=== PATIENT | female | born 1935 | race Caucasian/White ===

== ENCOUNTER 2016-11-07 17:58 | Emergency (ER) | payer MEDICARE, MEDICAID ==
[~2016-11-07] VITALS: Ht 175.3 cm; Wt 92.1 kg
[~2016-11-07 17:58] MED LIST: /WARF5TA OR; ACET650T12 PO; ADV250INH INH; ADV500INH INH; ALBU83IN IN; ALBU83IN INH; ALLE180T33 PO; ALLE25CA8 PO; ALTA10CA3 PO; AMAR1TAB PO; AMLO10TA OR; ARTISOL2 OU; ASPI81TA83 OR; ATRO1SOL13 INH; AVEL1TAB PO; BENA25TA9 PO; CICL0.776 EX; COLA100C3 PO; DEMA100T PO; DEMA20TA6 PO; DIGO0.126 OR; DIGO0.2556 PO; DIGO0.257 OR; DILTIAZEM PO; FERR325T3 PO; FERR83TA PO; FIBE500T2 PO; FIBE625T PO; FLUT1SPR2; HYDR10T PO; HYDR10TA3 OR; IPRASOL4 INH; IRON PO; IRON65TA PO; K-TA1TAB PO; KLOR10TA OR; KLOR1TAB73 PO; KLOR1TAB77 PO; LASI40TA OR; LASI80TA OR; LASI80TA PO; LEVA500T PO; LEVO500T32 PO; LEVO75TA2 OR; LEVO75TA4 PO; LIPI20TA OR; LOPR1TAB6 PO; MEDR4PAK PO; METF500T4 OR; METO25TA PO; METO25TAB PO; MICR10CA PO; MILKSUS5 PO; MIRA3350 PO; MULTIVIT PO; NITR4TASL SL; OMEP20CA3 PO; OMEP20TA7 OR; OMEP40CA2 PO; ONETAB35 PO; PAIN325T PO; PATA0.2S OU; PAXI10TA2 PO; POTA10CA PO; POTA10CA32 PO; PRED10TA PO; PRED20TA PO; PRED20TAB PO; PREPCRE PR; RAMI25CA OR; SENO8.6T10 PO; SING5CHW23 PO; SITA50TAB PO; SPIR25TA2 OR; SYST1SOL OU; TENO1TAB3 PO; TIOT18INH INH; TOBROPO OS; TOPR25TA PO; TORS100T PO; TYLE325T5 PO; VENTOLIN NEB INH; ZARO2.5T PO; [UNRECOGNIZED DRUG - CODE] PO; [UNRECOGNIZED DRUG - CODE] PO; [UNRECOGNIZED DRUG - CODE] TOP
[2016-11-07] MEDS ORDERED: SPIR25TA2 PO (18:22)
[2016-11-07] MEDS ORDERED: FISH1000 PO (18:22)
[2016-11-07] MEDS ORDERED: PULM0.5S INH (18:22)
[2016-11-07] MEDS ORDERED: STRI1AER2 INH (18:22)
[2016-11-07] MEDS ORDERED: FUROSEMIDE 40 MG/4 ML VIAL (J1940) IV ONE (18:45)
[2016-11-07 19:03] LABS: ABG BASE EXCESS 9.8 (-2.0-2.0); ABG HCO3 37.5 MEQ/L (22.0-26.0); ABG STANDARD HCO3 32.4 MEQ/L (22.0-26.0); ABG TOTAL CO2 39.6 MEQ/L (23.0-31.0); ABG pH (ARTERIAL) 7.355 UNITS (7.350-7.450)
[2016-11-07 19:04] LABS: ABG PARTIAL PRESSURE CO2 68.7 mmHg (35.0-45.0); ABG PARTIAL PRESSURE O2 27.9 mmHg (75.0-100.0)
[2016-11-07 19:20] LABS: BASO % 0.4 % (0.0-1.0); EOS # 0.1 K/mm3 (0.0-0.50); EOS % 0.8 % (0.0-3.0); LARGE UNSTAINED CELL # 0.1 K/mm3 (0.0-0.4); LARGE UNSTAINED CELL % 1.2 % (0.0-4.0); LYMPH # 1.4 K/mm3 (1.5-4.5); MEAN CORPUSCULAR HEMOGLOBIN 29.5 pg (27.0-33.0); MEAN CORPUSCULAR HGB CONC 30.6 g/dl (32.0-36.5); MEAN CORPUSCULAR VOLUME 96.5 fl (80.0-96.0); MONO # 0.6 K/mm3 (0.0-0.8); MONO % 5.2 % (0.0-5.0); NEUTROPHILS # 9.2 K/mm3 (1.8-7.7); NEUTROPHILS % 81.5 % (36.0-66.0); PLATELET COUNT, AUTOMATED 270 k/mm3 (150-450); RED CELL DISTRIBUTION WIDTH 14.4 % (11.5-14.5); WHITE BLOOD COUNT 11.3 K/mm3 (4.0-10.0)
[2016-11-07 19:40] LABS: ANION GAP 5 MEQ/L (8-16); BLOOD UREA NITROGEN 24 MG/DL (7-18); CALCIUM LEVEL 9.2 MG/DL (8.8-10.2); CARBON DIOXIDE LEVEL 37 MEQ/L (21-32); CHLORIDE LEVEL 99 MEQ/L (98-107); CREATININE FOR GFR 0.85 MG/DL (0.55-1.02); GLOMERULAR FILTRATION RATE > 60.0 (>32); GLUCOSE, FASTING 162 MG/DL (83-110); POTASSIUM SERUM 4.5 MEQ/L (3.5-5.1); SODIUM LEVEL 141 MEQ/L (136-145)
[2016-11-07 21:08] VITALS: BP 143/61
--- NOTE | 2016-11-08 08:36 | REP ---
AP PORTABLE CHEST: 11/07/2016. Comparison: 07/01/2016, 12/02/2015. Clinical history: Dyspnea and cough. Findings: Sternotomy wires and clips from CABG. There appears to be an epicardial lead extending over the left side of the heart. Cardiomegaly with left atrial and ventricular enlargement. There is no venous hypertension or pulmonary edema evident. No gross evidence of effusion or dense consolidation. There is a prior ORIF of the humeral head fracture with multiple screws and a side plate. Bones demineralized. Impression: 1. Moderate cardiomegaly with right heart, left atrial and ventricular enlargement. No pulmonary edema, pleural effusion or definite infiltrate. Underlying fibrosis noted. Signed by Jordan Diop MD 11/08/2016 08:50 A
[2016-11-08] MEDS ORDERED: TRIP1OIN4 TOP (18:12)
[2016-11-08] MEDS ORDERED: META48.54 PO (18:21)
[2016-11-08] MEDS ORDERED: PRED10TA PO (18:21)
[2016-11-08] MEDS ORDERED: CICL0.7739 TOP (18:21)
[2016-11-08] MEDS ORDERED: REFR0.1D OU (18:21)
[2016-11-08] MEDS ORDERED: ACET650T2 PO (18:28)
--- NOTE | 2016-11-08 21:00 | ECGEPIP ---
Stationary ECG Study [facility] - ED Test Date: 2016-11-07 Pat Name: MAKAYLA QUIROZ Department: Room: - Gender: F [employer]: rn : 1935 Requested By: CHIRAG Morales Order Number: [id number] Reading MD: Ruth Diaz Measurements Intervals [place] Rate: 69 P: DC: 0 QRS: 80 QRSD: 106 T: 41 QT: 388 QTc: 418 Interpretive Statements ATRIAL FIBRILLATION MODERATE ST DEPRESSION SIMILAR 07/01/16 Electronically Signed On 11-08-2016 21:00:31 EDT by Ruth Diaz
== END 2016-11-07 21:44 | disposition home or self-care (01) ==
LOC: M ED 19:01
DX: R06.02 Shortness of breath (principal); I51.7 Cardiomegaly; I48.91 Unspecified atrial fibrillation; J44.9 Chronic obstructive pulmonary disease, unspecified; I50.9 Heart failure, unspecified; E11.9 Type 2 diabetes mellitus without complications; E03.9 Hypothyroidism, unspecified; K21.9 Gastro-esophageal reflux disease without esophagitis; F41.9 Anxiety disorder, unspecified; F32.9 Major depressive disorder, single episode, unspecified; Z95.1 Presence of aortocoronary bypass graft; Z79.899 Other long term (current) drug therapy; Z79.51 Long term (current) use of inhaled steroids; Z79.52 Long term (current) use of systemic steroids; Z88.0 Allergy status to penicillin; Z88.8 Allergy status to other drugs, medicaments and biological substances; Z91.09 Other allergy status, other than to drugs and biological substances; Z91.040 Latex allergy status

== ENCOUNTER 2016-11-08 17:20 | Inpatient (IN) | payer MEDICARE, MEDICAID ==
[~2016-11-08] VITALS: Ht 175.3 cm; Wt 94.3 kg
[~2016-11-08 17:20] MED LIST changes: +FISH1000 PO; +PULM0.5S INH; +SPIR25TA2 PO; +STRI1AER2 INH
[2016-11-08] MEDS ORDERED: TRIP1OIN4 TOP (18:12)
[2016-11-08] MEDS ORDERED: META48.54 PO (18:21)
[2016-11-08] MEDS ORDERED: PRED10TA PO (18:21)
[2016-11-08] MEDS ORDERED: REFR0.1D OU (18:21)
[2016-11-08] MEDS ORDERED: CICL0.7739 TOP (18:21)
[2016-11-08 18:25] LABS: BASO % 0.4 % (0.0-1.0); EOS # 0.1 K/mm3 (0.0-0.50); EOS % 1.2 % (0.0-3.0); LARGE UNSTAINED CELL # 0.1 K/mm3 (0.0-0.4); LARGE UNSTAINED CELL % 1.2 % (0.0-4.0); LYMPH % 8.7 % (24.0-44.0); MEAN CORPUSCULAR HEMOGLOBIN 29.1 pg (27.0-33.0); MEAN CORPUSCULAR VOLUME 96.8 fl (80.0-96.0); MONO # 0.5 K/mm3 (0.0-0.8); MONO % 5.1 % (0.0-5.0); NEUTROPHILS # 8.4 K/mm3 (1.8-7.7); NEUTROPHILS % 83.3 % (36.0-66.0); PLATELET COUNT, AUTOMATED 260 k/mm3 (150-450); RED CELL DISTRIBUTION WIDTH 14.6 % (11.5-14.5); WHITE BLOOD COUNT 10.1 K/mm3 (4.0-10.0)
[2016-11-08] MEDS ORDERED: ACET650T2 PO (18:28)
[2016-11-08 18:52] LABS: ALBUMIN 3.3 GM/DL (3.2-5.2); ALBUMIN/GLOBULIN RATIO 0.94 (1.00-1.93); ALKALINE PHOSPHATASE 67 U/L (45-117); ALT/SGPT 21 U/L (12-78); ANION GAP 4 MEQ/L (8-16); AST/SGOT 16 U/L (15-37); BILIRUBIN,DIRECT < 0.1 MG/DL (0.0-0.2); BILIRUBIN,TOTAL 0.2 MG/DL (0.2-1.0); BLOOD UREA NITROGEN 23 MG/DL (7-18); CALCIUM LEVEL 8.8 MG/DL (8.8-10.2); CARBON DIOXIDE LEVEL 38 MEQ/L (21-32); CHLORIDE LEVEL 99 MEQ/L (98-107); CREATININE FOR GFR 1.06 MG/DL (0.55-1.02); GLOMERULAR FILTRATION RATE 52.7 (>32); GLUCOSE, FASTING 181 MG/DL (83-110); POTASSIUM SERUM 4.3 MEQ/L (3.5-5.1); SODIUM LEVEL 141 MEQ/L (136-145); TOTAL PROTEIN 6.8 GM/DL (6.4-8.2)
[2016-11-08] MEDS ORDERED: ISOVUE-370 76% 100ML VIAL (Q9967) As Ordered ONE (18:59)
[2016-11-08] MEDS: BUDESONIDE 0.5 MG/2 ML INHALATION SUSPENSION INH SCH (20:00)
[2016-11-08 21:07] LABS: ABG BASE EXCESS 11.3 (-2.0-2.0); ABG PARTIAL PRESSURE CO2 54.7 mmHg (35.0-45.0); ABG PARTIAL PRESSURE O2 123.7 mmHg (75.0-100.0); ABG TOTAL CO2 38.7 MEQ/L (23.0-31.0); ABG pH (ARTERIAL) 7.448 UNITS (7.350-7.450)
[2016-11-08] MEDS: AZITHROMYCIN 250 MG TAB PO SCH (21:15)
[2016-11-08] MEDS ORDERED: ALBUTEROL SULFATE 2.5 MG/0.5 ML INH NEB SOLN NEB PRN (21:15)
[2016-11-08] MEDS ORDERED: BISACODYL 10 MG SUPP PR PRN (21:15)
[2016-11-08 23:45] VITALS: BP 138/76
[2016-11-09] MEDS: FEXOFENADINE 60 MG TAB PO SCH ×2 (00:08→21:17)
[2016-11-09] MEDS: FUROSEMIDE 40 MG/4 ML VIAL (J1940) IV SCH ×3 (00:08→16:54)
--- NOTE | 2016-11-09 01:06 | HPE ---
DATE OF ADMISSION: 11/08/2016 PRIMARY CARE PROVIDER: Dr. Uribe. CHIEF COMPLAINT: Shortness of breath and cough for 4 days. PAST MEDICAL HISTORY: 1. Chronic obstructive pulmonary disease (COPD). 2. Chronic respiratory failure with hypoxia on 2 liters oxygen. 3. Diabetes. 4. Atrial fibrillation, rate controlled. 5. Hypothyroid. 6. Hyperlipidemia. 7. Gastroesophageal reflux disease (GERD). 8. Chronic right-sided heart failure. 9. Pulmonary hypertension. 10. Mitral regurgitation. 11. Coronary artery disease status post coronary artery bypass graft (CABG). 12. Adrenal nodule on the left. 13. Lung nodules. 14. Diastolic congestive heart failure. 15. Tricuspid regurgitation. 16. History of major depression, single episode in the past. HISTORY OF PRESENT ILLNESS: This is an 81-year-old female from [facility] who has been feeling sick for the past 4 days with increased shortness of breath and cough with production of yellowish, greenish sputum. Patient also had leg swelling. Patient came to the emergency room yesterday. Patient got treated with nebulizer, steroids and some Lasix, felt better, so went back to hospital for special care; however, this morning again she was feeling bad with persistent shortness of breath. Oxygen saturation with her baseline 2 liters was 84-86% at the hospital for special care, so she was sent back to the emergency room. She complained of subjective fevers. Denied any nausea, vomiting or diarrhea. Denied any abdominal pain. Denied any chest pain. She did say that her leg swelling has improved a little bit. She complained of extreme weakness and urinary incontinence today. In the emergency department (ED), patient was found to be short of breath and not initially speaking full sentences. Continued to feel very weak. Patient had a chest x-ray done and a CT angiography done. Even after nebulizers patient continues to have shortness of breath, so the patient is being admitted to the hospitalist service for COPD exacerbation. PAST SURGICAL HISTORY: 1. CABG. 2. Cholecystectomy. 3. Appendectomy. 4. Hysterectomy. 5. Bilateral cataract surgeries. 6. Skin surgery for skin cancer. SOCIAL HISTORY: Patient is an ex-smoker, quit about 37 years ago. No history of alcohol use or recreational drug use. FAMILY HISTORY: Nothing contributory. HOME MEDICATIONS: - Tylenol 650 mg by mouth every 8 hours as needed - albuterol ipratropium one solution every 2 hours as needed - artificial tears - Pulmicort 0.5 mg inhalation twice a day - FiberCon 625 mg by mouth twice a day - Refresh Plus drop one drop both eyes four times a day - ciclopirox cream one dose topically twice a day - Colace 100 mg by mouth twice a day - ferrous sulfate 325 mg by mouth daily - Alisson 180 mg by mouth at bedtime - fish oil 500 mg by mouth daily - Synthroid 75 mcg by mouth daily - milk of magnesia 30 mL by mouth daily as needed for constipation - metolazone 2.5 mg by mouth two times per week on Mondays and Fridays - triple antibiotic one dose topically twice a day - nitroglycerin 0.4 mg sublingual as needed for chest pain - omeprazole 40 mg by mouth daily - paroxetine 10 mg by mouth daily - Pataday one drop both eyes at bedtime - Systane eye drops two drops both eyes three times a day - potassium chloride 30 mEq by mouth three times a day - prednisone 10 mg by mouth daily - Preparation H one cream per rectum daily as needed for hemorrhoids - Metamucil one tablet by mouth daily as needed for constipation - spironolactone 25 mg by mouth daily - Striverdi Respimat two-puff inhalation daily - Spiriva one inhalation daily - TobraDex eye drop one dose both eyes twice a day - torsemide 50 mg by mouth twice a day - Theragran-M Premier one tablet by mouth daily REVIEW OF SYSTEMS: All 10-point review of systems is negative except those mentioned in history of present illness (HPI). ALLERGIES: ATORVASTATIN, CIMETIDINE causes hives, LATEX causes rash, PERFUMES, PENICILLIN causes hives, RANITIDINE causes crawling sensation. PHYSICAL EXAMINATION: VITAL SIGNS: Pulse 72, blood pressure 148/78, pulse oximetry 99% with 2 liters nasal cannula, respiratory rate 20. GENERAL: Patient awake, alert, oriented times three, sitting up in bed in no acute distress. HEENT: Normocephalic, atraumatic. Moist mucous membranes. Anicteric eyes. CHEST: Bilateral extremely poor air entry. There are some diffuse crackles present in both the lungs. CARDIOVASCULAR: S1, S2 regular. There is a systolic murmur present. No rub or gallop. ABDOMEN: Soft, nontender, bowel sounds present. EXTREMITIES: 1+ bipedal edema. LABORATORY DATA: WBC 10.1, hemoglobin 10, platelets 260. Sodium 141, potassium 4.3, chloride 99, bicarbonate 38, BUN 23, creatinine 1, glucose 181, lactic acid 1.7, calcium 8.8. Liver function tests are normal. BNP 101. Blood gas pH 7.44, pCO2 54, pO2 123 with nasal cannula. ASSESSMENT AND PLAN: This is an 81-year-old female admitted for chronic obstructive pulmonary disease (COPD) exacerbation. 1. COPD exacerbation. Will continue with nebulizer, intravenous (IV) steroids and azithromycin. 2. Chronic hypoxic respiratory failure. Will continue with oxygen by nasal cannula. 3. Diastolic congestive heart failure, right-sided heart failure and some pulmonary hypertension and valvular heart disease. Will give the patient Lasix twice a day. 4. Coronary artery disease with history of coronary artery bypass graft (CABG). Stable at this point. Will continue home medications. 5. History of depression. Will continue with paroxetine. 6. Hypothyroid. Will continue with Synthroid. 7. Chronic anemia. Will continue with ferrous sulfate. 8. Hyperlipidemia. Will continue with fish oil. 9. Gastroesophageal reflux disease (GERD). Will continue with omeprazole. 10. Deep venous thrombosis (DVT) prophylaxis has been ordered. 11. Gastrointestinal (GI) prophylaxis has been ordered. 12. Dry eyes and history of cataract surgeries. Will continue with eye drops as per home regimen.
[2016-11-09] MEDS: IPRATROPIUM 0.5MG/ALBUTEROL 2.5MG INH SOL UD 3ML (DUONEB)(J7620) NEB SCH ×4 (01:30→20:59)
[2016-11-09] MEDS ORDERED: SODIUM CHLORIDE 0.9% INJ 10 ML SYR IV PRN (04:45)
--- NOTE | 2016-11-09 05:48 | ECGEPIP ---
Stationary ECG Study [facility] - ED Test Date: 2016-11-08 Pat Name: MAKAYLA QUIROZ Department: Room: - Gender: F [employer]: RJ : 1935 Requested By: CHIRAG Morales Order Number: [id number] Reading MD: Salazar Pollock Measurements Intervals [place] Rate: 83 P: IN: 0 QRS: 79 QRSD: 98 T: 47 QT: 358 QTc: 421 Interpretive Statements ATRIAL FIBRILLATION INC. RBBB MODERATE ST DEPRESSION SIMILAR TO 11/07/16 Electronically Signed On 11-09-2016 5:47:43 EDT by Salazar Pollock
[2016-11-09 06:00] VITALS: BP 140/68
[2016-11-09 06:01] LABS: BASO # 0.1 K/mm3 (0.0-0.2); BASO % 0.5 % (0.0-1.0); EOS # 0.2 K/mm3 (0.0-0.50); EOS % 1.4 % (0.0-3.0); LARGE UNSTAINED CELL # 0.2 K/mm3 (0.0-0.4); LYMPH # 1.6 K/mm3 (1.5-4.5); LYMPH % 12.1 % (24.0-44.0); MEAN CORPUSCULAR HEMOGLOBIN 28.9 pg (27.0-33.0); MEAN CORPUSCULAR VOLUME 96.4 fl (80.0-96.0); MONO # 0.8 K/mm3 (0.0-0.8); MONO % 6.4 % (0.0-5.0); NEUTROPHILS # 9.1 K/mm3 (1.8-7.7); NEUTROPHILS % 77.7 % (36.0-66.0); PLATELET COUNT, AUTOMATED 247 k/mm3 (150-450); RED CELL DISTRIBUTION WIDTH 14.5 % (11.5-14.5); WHITE BLOOD COUNT 11.8 K/mm3 (4.0-10.0)
[2016-11-09] MEDS: LEVOTHYROXINE 0.075 MG TAB (75 MCG) PO SCH (06:11)
[2016-11-09 06:21] LABS: ANION GAP 8 MEQ/L (8-16); BLOOD UREA NITROGEN 21 MG/DL (7-18); CALCIUM LEVEL 8.9 MG/DL (8.8-10.2); CARBON DIOXIDE LEVEL 36 MEQ/L (21-32); CHLORIDE LEVEL 98 MEQ/L (98-107); CREATININE FOR GFR 0.76 MG/DL (0.55-1.02); GLOMERULAR FILTRATION RATE > 60.0 (>32); GLUCOSE, FASTING 108 MG/DL (83-110); SODIUM LEVEL 142 MEQ/L (136-145)
[2016-11-09 06:27] LABS: POTASSIUM SERUM 3.3 MEQ/L (3.5-5.1)
[2016-11-09] MEDS: TIOTROPIUM INHALER/CAPSULE (SPIRIVA) INH SCH ×2 (08:00→08:10)
[2016-11-09] MEDS: BUDESONIDE 0.5 MG/2 ML INHALATION SUSPENSION INH SCH ×2 (08:10→20:59)
[2016-11-09] MEDS ORDERED: SODIUM CHLORIDE 0.9% INJ 10 ML SYR IV SCH (09:00)
[2016-11-09] MEDS ORDERED: metOLazone 2.5 MG TAB PO SCH (09:00)
[2016-11-09] MEDS: PARoxetine 10MG TABLET PO SCH (09:01)
[2016-11-09] MEDS: SENOKOT S TAB PO SCH ×2 (09:01→21:17)
[2016-11-09] MEDS: AZITHROMYCIN 250 MG TAB PO SCH (09:01)
[2016-11-09] MEDS: ENOXAPARIN 30 MG/0.3 ML SYR (J1650) SC SCH (09:01)
[2016-11-09] MEDS: FERROUS SULFATE 325MG TAB PO SCH (09:01)
[2016-11-09] MEDS: SPIRONOLACTONE 25 MG TAB PO SCH (09:01)
[2016-11-09] MEDS: OMEPRAZOLE 20 MG CAP PO SCH (09:01)
--- NOTE | 2016-11-09 09:17 | REPUSA ---
CT angiogram of the chest Clinical statement: Chest pain and shortness of breath. Technique: Multiple axial CT images were obtained from the thoracic inlet through the upper abdomen a fter a bolus administration of nonionic intravenous contrast. Coronal and sagittal reconstructions we re also obtained. Comparison: 12/04/2015. Findings: The pulmonary arteries are well-opacified with contrast, with no intraluminal filling defec ts to suggest embolism. The thoracic aorta is unremarkable. Thyroid gland is within normal limits. Th ere is no thoracic lymphadenopathy. There are no pericardial or pleural effusions. The lungs are teddy r. Limited imaging of the upper abdomen is unremarkable. There are no suspicious osseous lesions. Impression: No evidence of pulmonary embolism. No acute intrapulmonary disease.
--- NOTE | 2016-11-09 09:27 | REP ---
AP PORTABLE CHEST: 11/08/2016 CLINICAL HISTORY: Dyspnea and cough. COMPARISON: 11/07/2016, 07/01/2016. FINDINGS: Sternotomy wires and clips again seen. Right and left heart enlargement as before. Lungs are well inflated. CP angles sharply defined. No effusion, infiltrate, atelectasis or mass. Underlying minor fibrotic changes are seen with post-traumatic changes with hardware from ORIF right humerus fracture. Bones demineralized. IMPRESSION: 1. Cardiomegaly, right and left heart enlargement without pulmonary edema, effusion, infiltrate, atelectasis or mass. Findings unchanged from yesterday. Some underlying fibrotic changes seen. Signed by Jordan Diop MD 11/09/2016 05:08 P
[2016-11-09] MEDS: POTASSIUM CHLORIDE 10 MEQ SR TABLET PO SCH (11:06)
[2016-11-09 14:00] VITALS: BP 130/60
--- NOTE | 2016-11-09 18:02 | IPN ---
DATE: 11/09/2016 SUBJECTIVE: Patient seen and examined, was getting back in bed. Denied any increased shortness of breath; however, she still appeared to be short of breath with speaking and ambulation. No overnight events. The patient had no recorded output as of yet. We will continue to monitor. No fevers. Maximum temperature (T-max) of 99. No nausea or vomiting. OBJECTIVE: VITAL SIGNS: Temperature 99.2, pulse 73, respiratory 19, blood pressure is 130/60, pulse oximetry 94% on 2 liters nasal cannula. HEENT: Pupils equal, round, reactive to light and accommodation. NECK: Supple. No jugular venous distention (JVD). LUNGS: Diminished breath sounds bilaterally. CARDIAC: Regular rate and rhythm. ABDOMEN: Soft, nontender. EXTREMITIES: Bilateral edema. NEUROLOGIC: Cranial nerves II-XII grossly intact. No focal deficits. LABORATORY FINDINGS: WBC 11.8, hemoglobin 10.1, hematocrit 33.5, platelet count 247. Sodium 142, potassium 3.3, chloride 98, BUN 21, creatinine 0.76, fasting glucose 108, lactic acid 1.7. Brain natriuretic peptide (BNP) 101. Blood gas on admission: pH 7.44, pCO2 54.7, pO2 123.7, bicarbonate 37. CT angiogram of the chest was done showing no evidence of pulmonary embolism (PE), no acute intrapulmonary disease. ASSESSMENT/PLAN: 1. Respiratory distress. Patient is normally on oxygen at home 2 liters. She is currently requiring only 2 liters desaturations at 94%. Continue to monitor. Patient is on and spironolactone intravenous (IV), Lasix 40 mg IV every 8 hours, azithromycin, Proventil, Pulmicort, Spiriva and DuoNebs. Will continue to monitor input and output (I O) and daily weights. 2. History of atrial fibrillation. Rate is controlled.
--- NOTE | 2016-11-09 21:49 | ECHO ---
DATE OF PROCEDURE: 11/09/2016 AGE: 81 GENDER: Female HEIGHT: 60 inches WEIGHT: 207 pounds BODY SURFACE AREA: 1.9 m2 PATIENT LOCATION: Inpatient, [address] [place] [address], room 4234 REFERRING PHYSICIAN: Laura Carrera MD INDICATION: Shortness of breath. 2-D MEASUREMENTS: RV: 3.8 cm LV: 4.8 cm Septum: 1.3 cm Posterior wall: 1.2 cm Aortic root: 2.8 cm LA: 5.3 cm LVEF: 75% DOPPLER MEASUREMENTS: AV: 1.8 m/s LVOT: 0.64 m/s LVOT diameter: 2.0 cm MV-E: 140 Early mitral deceleration time: 139 ms E prime: 8.5 EE prime ratio: 16.2 PV: 1.0 m/s Pulmonary artery acceleration time: 77 ms RVSP: 63 mmHg IVC: 2.6 cm COMMENTS: Underlying atrial fibrillation with controlled ventricular response averaging 70 - 80 bpm. No intraventricular conduction disturbance. Prominently dilated left atrium, but normal left ventricular size. Right ventricle was also normal in size, but her right atrium was huge. LV wall thickness was mildly increased symmetrically. On real-time imaging from the parasternal and apical projections there appear to be a marginal proximal septal wall motion abnormality believed to be related to right ventricular pressure overload, but other wall motion was symmetrical and hyperkinetic. Mild mitral annular calcification with some thickening of the mitral leaflets and degree of adequate leaflet excursion, but slight anterior leaflet prolapse. Three equal size aortic cusps with moderate cusp edge thickening, but adequate cusp separation. Normal aortic root size. No apparent intracardiac mass. Marginal posterior pericardial effusion. Color flow Doppler study taken from the parasternal and apical projections showed mild to moderate aortic, moderately severe mitral, and severe tricuspid insufficiency. Guided continuous wave Doppler of her aortic valve showed a normal peak systolic velocity against LV outflow tract obstruction. Pulsed and continuous wave Doppler of her LV inflow tract taken from the apical four-chamber projection showed normal diastolic filling velocities against mitral stenosis. There was only early diastolic/passive filling as we would expect with atrial fibrillation. Early mitral deceleration time was abbreviated. Current estimated mean left atrial pressure was elevated at 18-20 mmHg. Pulsed and continuous wave Doppler of her pulmonary trunk showed a normal peak systolic velocity against RV outflow tract obstruction. Her pulmonary artery acceleration time was significantly abbreviated consistent with an elevated pulmonary vascular resistance. Guided continuous wave Doppler of her tricuspid valve allowed our estimation of her right ventricular systolic pressure (severely increased). Her inferior vena cava was significantly dilated with absent respiratory collapse consistent with an elevated central venous pressure. CONCLUSIONS: Mild concentric left ventricle hypertrophy with subtle septal wall motion abnormality believed to be related to right ventricular pressure overload. However, global left ventricular systolic function was hyperkinetic. Prominently dilated left atrium with elevated estimated mean left atrial pressure. Normal right ventricular size and wall motion, yet Doppler evidence of severe pulmonary hypertension. Huge right atrium and at least moderately dilated inferior vena cava with absent respiratory collapse consistent with an elevated central venous pressure. Degenerative changes of her mitral valvular apparatus with anterior leaflet prolapse and moderately severe eccentrically directed mitral insufficiency. Moderate aortic valvular sclerosis without stenosis but mild-moderate insufficiency. Normal appearing tricuspid valvular apparatus with severe insufficiency. MTDD
[2016-11-09 22:00] VITALS: BP 131/63
[2016-11-10] MEDS: IPRATROPIUM 0.5MG/ALBUTEROL 2.5MG INH SOL UD 3ML (DUONEB)(J7620) NEB SCH ×4 (01:06→20:06)
[2016-11-10] MEDS: LEVOTHYROXINE 0.075 MG TAB (75 MCG) PO SCH (05:49)
[2016-11-10 06:00] VITALS: BP 123/57
[2016-11-10 06:18] LABS: BASO # 0.1 K/mm3 (0.0-0.2); BASO % 0.6 % (0.0-1.0); EOS # 0.3 K/mm3 (0.0-0.50); EOS % 2.5 % (0.0-3.0); LARGE UNSTAINED CELL # 0.2 K/mm3 (0.0-0.4); LARGE UNSTAINED CELL % 1.7 % (0.0-4.0); LYMPH # 1.2 K/mm3 (1.5-4.5); LYMPH % 9.6 % (24.0-44.0); MEAN CORPUSCULAR HEMOGLOBIN 29.4 pg (27.0-33.0); MEAN CORPUSCULAR HGB CONC 31.6 g/dl (32.0-36.5); MONO # 0.7 K/mm3 (0.0-0.8); MONO % 6.8 % (0.0-5.0); NEUTROPHILS # 8.1 K/mm3 (1.8-7.7); NEUTROPHILS % 78.8 % (36.0-66.0); PLATELET COUNT, AUTOMATED 231 k/mm3 (150-450); RED CELL DISTRIBUTION WIDTH 14.4 % (11.5-14.5); WHITE BLOOD COUNT 10.2 K/mm3 (4.0-10.0)
[2016-11-10 06:23] LABS: ANION GAP 8 MEQ/L (8-16); BLOOD UREA NITROGEN 26 MG/DL (7-18); CALCIUM LEVEL 9.3 MG/DL (8.8-10.2); CARBON DIOXIDE LEVEL 38 MEQ/L (21-32); CHLORIDE LEVEL 94 MEQ/L (98-107); CREATININE FOR GFR 0.78 MG/DL (0.55-1.02); GLOMERULAR FILTRATION RATE > 60.0 (>32); GLUCOSE, FASTING 119 MG/DL (83-110); POTASSIUM SERUM 2.9 MEQ/L (3.5-5.1); SODIUM LEVEL 140 MEQ/L (136-145)
[2016-11-10] MEDS ORDERED: POTASSIUM CHLORIDE 10 MEQ SR TABLET PO ONE (06:45)
[2016-11-10] MEDS: TIOTROPIUM INHALER/CAPSULE (SPIRIVA) INH SCH (07:15)
[2016-11-10] MEDS: BUDESONIDE 0.5 MG/2 ML INHALATION SUSPENSION INH SCH ×2 (07:15→20:06)
[2016-11-10] MEDS: FERROUS SULFATE 325MG TAB PO SCH (09:21)
[2016-11-10] MEDS: FUROSEMIDE 40 MG/4 ML VIAL (J1940) IV SCH ×2 (09:21)
[2016-11-10] MEDS: AZITHROMYCIN 250 MG TAB PO SCH (09:21)
[2016-11-10] MEDS: SENOKOT S TAB PO SCH ×2 (09:22→20:11)
[2016-11-10] MEDS: ENOXAPARIN 30 MG/0.3 ML SYR (J1650) SC SCH (09:22)
[2016-11-10] MEDS: SPIRONOLACTONE 25 MG TAB PO SCH (09:22)
[2016-11-10] MEDS: OMEPRAZOLE 20 MG CAP PO SCH (09:22)
[2016-11-10] MEDS: POTASSIUM CHLORIDE 10 MEQ SR TABLET PO SCH (09:22)
[2016-11-10] MEDS: PARoxetine 10MG TABLET PO SCH (09:22)
[2016-11-10 14:00] VITALS: BP 113/54
--- NOTE | 2016-11-10 16:52 | IPN ---
DATE: 11/10/2016 Ms. Cook is feeling well today. No complaints of pain, chest pain, not particularly short of breath and would like to get out of bed. Temperature 98.7, pulse 82, respiratory rate 19, blood pressure 123/57. Awake, alert, pleasant and somewhat inappropriate and funny. Breathing is symmetrical. I:E ratio is 1:4, diminished throughout. No wheezes. No respiratory distress. Speaking in complete sentences. No accessory muscle use. Heart is distant sounding. Normal S1, S2. Abdomen is soft, somewhat distended, nontender. Active bowel sounds. White cell count 10.2, hemoglobin 10.6, potassium 2.9, creatinine 0.78. ASSESSMENT: This is an 81-year-old with acute on chronic respiratory failure and hypoxemia. PLAN: 1. The patient has respiratory distress, which is improving. I am going to wean her Lasix at this point. currently on any fluid restriction. 2. The patient has atrial fibrillation, is currently rate controlled. Appears somewhat regular on exam. She has known marked severe mitral insufficiency and severe tricuspid regurgitation with diastolic congestive heart failure and right-sided heart failure with pulmonary hypertension and valvular heart disease. 3. The patient has a history of coronary artery disease, status post coronary artery bypass graft (CABG). 4. The patient has hypothyroidism, on Synthroid. 5. The patient has appropriate deep vein thrombosis (DVT) prophylaxis.
[2016-11-10] MEDS ORDERED: TORSEMIDE (DEMADEX) 50 MG PER 1/2 TAB PO SCH (17:00)
[2016-11-10] MEDS: FEXOFENADINE 60 MG TAB PO SCH (20:11)
[2016-11-10 20:55] VITALS: BP 118/62
[2016-11-11] MEDS: IPRATROPIUM 0.5MG/ALBUTEROL 2.5MG INH SOL UD 3ML (DUONEB)(J7620) NEB SCH ×2 (01:17→07:55)
[2016-11-11] MEDS: LEVOTHYROXINE 0.075 MG TAB (75 MCG) PO SCH (05:18)
[2016-11-11 06:00] VITALS: BP 118/59
[2016-11-11 07:39] LABS: BASO % 0.4 % (0.0-1.0); EOS # 0.2 K/mm3 (0.0-0.50); EOS % 2.8 % (0.0-3.0); LARGE UNSTAINED CELL # 0.2 K/mm3 (0.0-0.4); LARGE UNSTAINED CELL % 2.3 % (0.0-4.0); LYMPH # 1.1 K/mm3 (1.5-4.5); MEAN CORPUSCULAR HEMOGLOBIN 29.5 pg (27.0-33.0); MEAN CORPUSCULAR HGB CONC 31.6 g/dl (32.0-36.5); MEAN CORPUSCULAR VOLUME 93.4 fl (80.0-96.0); MONO # 0.6 K/mm3 (0.0-0.8); NEUTROPHILS # 6.4 K/mm3 (1.8-7.7); NEUTROPHILS % 76.4 % (36.0-66.0); PLATELET COUNT, AUTOMATED 242 k/mm3 (150-450); RED CELL DISTRIBUTION WIDTH 14.3 % (11.5-14.5); WHITE BLOOD COUNT 8.3 K/mm3 (4.0-10.0)
[2016-11-11] MEDS: TIOTROPIUM INHALER/CAPSULE (SPIRIVA) INH SCH ×2 (07:54→07:58)
[2016-11-11 07:55] LABS: ANION GAP 6 MEQ/L (8-16); BLOOD UREA NITROGEN 29 MG/DL (7-18); CALCIUM LEVEL 9.6 MG/DL (8.8-10.2); CARBON DIOXIDE LEVEL 40 MEQ/L (21-32); CHLORIDE LEVEL 92 MEQ/L (98-107); GLOMERULAR FILTRATION RATE > 60.0 (>32); GLUCOSE, FASTING 125 MG/DL (83-110); POTASSIUM SERUM 3.1 MEQ/L (3.5-5.1); SODIUM LEVEL 138 MEQ/L (136-145)
[2016-11-11] MEDS: BUDESONIDE 0.5 MG/2 ML INHALATION SUSPENSION INH SCH (07:55)
[2016-11-11] MEDS ORDERED: AZIT25TA PO (08:04)
--- NOTE | 2016-11-12 06:06 | DSES ---
DATE OF ADMISSION: 11/08/2016 DATE OF DISCHARGE:11/11/2016 Ms. Cook was admitted to [facility] on 11/08/2016. There were no specialists involved with her care. There were no complications during her stay, no procedures performed during her stay. DISCHARGE DIAGNOSES: 1. Chronic pulmonary obstructive disease (COPD). 2. Chronic respiratory rate with chronic hypoxia on 2 liters of oxygen. 3. Diabetes. 4. Atrial fibrillation. 5. Hypothyroidism. 6. Gastrointestinal reflux disease (GERD). 7. Hyperlipidemia. 8. Chronic right sided heart failure. 9. Pulmonary hypertension. 10. Mitral regurgitation. 11. Coronary artery disease status post coronary artery bypass grafting (CABG). 12. Adrenal nodule on the left. 13. Lung nodules. 14. Diastolic congestive heart failure. 15. Tricuspid regurgitation. 16. History of major depression. This patient presented with suspected chronic pulmonary obstructive disease (COPD) exacerbation. The patient was admitted and treated with aggressive pulmonary toilet and antibiotics. She had a CT angiogram which showed no evidence of pulmonary embolism. She was given some Lasix and improved rapidly. On day of discharge she is feeling well, believes that her overall presentation may have had to do with fluid noncompliance as she drank a great deal of lemonade before her symptoms began. PHYSICAL EXAMINATION: VITAL SIGNS: On the day of discharge she is awake, alert, pleasant and quite funny insistent upon going home. Temperature 98.7, pulse 86, respirations 20, blood pressure 118/59, 96% on 2 liters. LUNGS: She is breathing easily. Inspiration to expiration (I:E) ratio is 1:3, somewhat diminished throughout. No wheezes, rales or rhonchi. HEART: Distant sounding. ABDOMEN: Soft, nontender. Hemoglobin 10.6, creatinine 0.9, potassium 3.1. DISCHARGE INSTRUCTIONS: 1. Followup with Dr. Uribe in one week. 2. Two gram sodium diet , 1.5 liter per day fluid restriction. DISCHARGE MEDICATIONS: - Azithromycin 500 mg by mouth daily for two doses - Tylenol every eight hours as needed for pain - albuterol inhaled as needed - Artificial Tears as needed - Pulmicort twice daily - FiberCon by mouth daily - Refresh eye drops as needed - Ciclopirox 0.77% cream topically twice daily as needed for rash - Colace 100 mg by mouth twice daily - ferrous sulfate 325 mg by mouth daily - Alisson 180 mg by mouth daily at bedtime - fish oil 500 mg by mouth daily - Synthroid 75 mcg by mouth every morning daily - Milk of Magnesia 30 mL once daily as needed for constipation - metolazone 2.5 mg by mouth twice weekly on Wednesday and Wednesday - neomycin triple antibiotic cream as needed - sublingual nitroglycerin as needed - omeprazole 40 mg by mouth daily - Paxil 10 mg by mouth daily - Pataday 0.2% solution one drop each eye daily at bedtime - Systane two drops each eye three times a day - Vanessa Ciel 30 mEq by mouth three times a day - prednisone 10 mg by mouth daily - Preparation H as needed - Metamucil as needed - spironolactone 25 mg by mouth daily - Striverdi two puffs inhaled daily - multivitamin daily - Spiriva inhaled daily - TobraDex to the left eye twice a day - torsemide 50 mg by mouth twice daily
--- NOTE | 2016-11-12 15:13 | DSES ---
DATE OF ADMISSION: 11/08/2016 DATE OF DISCHARGE: 11/11/2016 No specialists involved in her care. No complications during stay. No procedures performed during her stay. DISCHARGE DIAGNOSES: Acute on chronic respiratory failure and hypoxemia. Atrial fibrillation. Coronary artery disease. Hypothyroidism.
== END 2016-11-11 10:25 | DRG 191 ==
LOC: EDBD 17:20 → M ED 18:06 → M ED INP 21:05 → M MSPAV 23:44 → M MS4PR 11-10 20:46
PROVIDERS: ADMIT Internal Medicine Nephrology; ATTEND Internal Medicine
DX: J44.1 Chronic obstructive pulmonary disease with (acute) exacerbation (principal); I50.32 Chronic diastolic (congestive) heart failure; J96.11 Chronic respiratory failure with hypoxia; E11.9 Type 2 diabetes mellitus without complications; I48.91 Unspecified atrial fibrillation; E03.9 Hypothyroidism, unspecified; K21.9 Gastro-esophageal reflux disease without esophagitis; E78.5 Hyperlipidemia, unspecified; D64.9 Anemia, unspecified; I27.2 Other secondary pulmonary hypertension; I34.0 Nonrheumatic mitral (valve) insufficiency; I36.1 Nonrheumatic tricuspid (valve) insufficiency; F32.9 Major depressive disorder, single episode, unspecified; H04.129 Dry eye syndrome of unspecified lacrimal gland; I25.10 Atherosclerotic heart disease of native coronary artery without angina pectoris; Z91.19 Patient's noncompliance with other medical treatment and regimen; Z79.52 Long term (current) use of systemic steroids; Z79.899 Other long term (current) drug therapy; Z90.49 Acquired absence of other specified parts of digestive tract; Z90.710 Acquired absence of both cervix and uterus; Z99.81 Dependence on supplemental oxygen; Z98.61 Coronary angioplasty status; Z85.828 Personal history of other malignant neoplasm of skin; Z87.891 Personal history of nicotine dependence; Z88.0 Allergy status to penicillin; Z91.040 Latex allergy status; Z88.8 Allergy status to other drugs, medicaments and biological substances

== ENCOUNTER → 2016-11-17 | Outpatient (REF) | payer MEDICARE, MEDICAID ==
[~2016-11-17] MED LIST changes: +ACET650T2 PO; +AZIT25TA PO; +CICL0.7739 TOP; +META48.54 PO; +REFR0.1D OU; +TRIP1OIN4 TOP
[2016-11-17 17:53] LABS: PERCENT SATURATION 70.9 % (13.2-37.4)
== END ==
LOC: M LAB REF 16:13
PROVIDERS: ATTEND Internal Medicine
DX: D64.9 Anemia, unspecified (principal)

== ENCOUNTER → 2016-12-12 | Outpatient (REF) | payer MEDICARE, MEDICAID | PROVIDERS: ATTEND Internal Medicine | DX: R35.0 Frequency of micturition (principal) ==

== ENCOUNTER → 2016-12-14 | Outpatient (REF) | payer MEDICARE, MEDICAID | LOC: M LAB REF 09:49 | PROVIDERS: ATTEND Internal Medicine | DX: R35.0 Frequency of micturition (principal); R30.9 Painful micturition, unspecified ==

== ENCOUNTER 2017-01-09 09:21 | Observation (INO) | payer MEDICARE, MEDICAID ==
[~2017-01-09] VITALS: Ht 172.7 cm; Wt 94.1 kg
[2017-01-09 10:00] LABS: MEAN CORPUSCULAR HEMOGLOBIN 25.7 pg (27.0-33.0); MEAN CORPUSCULAR HGB CONC 30.5 g/dl (32.0-36.5); MEAN CORPUSCULAR VOLUME 84.1 fl (80.0-96.0); PLATELET COUNT, AUTOMATED 332 k/mm3 (150-450); RED CELL DISTRIBUTION WIDTH 15.1 % (11.5-14.5); WHITE BLOOD COUNT 12.9 K/mm3 (4.0-10.0)
[2017-01-09] MEDS ORDERED: ASPIRIN 81 MG CHEW TABLET PO ONE (10:00)
[2017-01-09 10:19] LABS: ANION GAP 7 MEQ/L (8-16); BLOOD UREA NITROGEN 30 MG/DL (7-18); CARBON DIOXIDE LEVEL 39 MEQ/L (21-32); CHLORIDE LEVEL 92 MEQ/L (98-107); CREATININE FOR GFR 0.89 MG/DL (0.55-1.02); GLOMERULAR FILTRATION RATE > 60.0 (>32); GLUCOSE, FASTING 126 MG/DL (83-110); POTASSIUM SERUM 2.9 MEQ/L (3.5-5.1); SODIUM LEVEL 138 MEQ/L (136-145)
[2017-01-09 10:24] LABS: ANISOCYTOSIS 1+; BASOPHILS 1 % (0-4); EOSINOPHILS 2 % (0-5); HYPOCHROMASIA 1+; NUCLEATED RED BLOOD CELL 1 % (0-0)
[2017-01-09] MEDS ORDERED: MYRB25TA PO (10:37)
[2017-01-09] MEDS ORDERED: POTASSIUM CHLORIDE 10 MEQ SR TABLET PO ONE ×2 (11:15→18:00)
--- NOTE | 2017-01-09 14:12 | REP ---
Portable chest, 01/09/2017, 01:57 p.m., single AP view, patient sitting: Comparisons are the portable chest dated 11/08/2016 and PA and lateral chest dated 07/12/2015. There are sternotomy wires and chronic cardiomegaly, unchanged. There are no infiltrates or effusions. The le and mediastinum are unremarkable. There is internal fixation of the right humerus, unchanged. Impression: Chronic cardiomegaly. Sternotomy wires. No acute cardiopulmonary findings. Signed by Javed Rolle MD 01/09/2017 02:03 P
[2017-01-09] MEDS ORDERED: FISH1CAP24 PO (14:54)
[2017-01-09] MEDS ORDERED: STRI1AER2 INH (14:54)
[2017-01-09] MEDS ORDERED: BISACODYL 5 MG TAB PO PRN (15:30)
[2017-01-09] MEDS ORDERED: ACETAMINOPHEN TAB 650MG DOSE (2X325MG) PO PRN (15:30)
[2017-01-09] MEDS ORDERED: ONDANSETRON 4MG/2ML VIAL (J2405) IV PRN (15:30)
[2017-01-09] MEDS ORDERED: IPRATROPIUM 0.5MG/ALBUTEROL 2.5MG INH SOL UD 3ML (DUONEB)(J7620) INH PRN (15:45)
[2017-01-09] MEDS ORDERED: MOM 30ML SUSPENSION UDC PO PRN (15:45)
[2017-01-09] MEDS ORDERED: METAMUCIL (PSYLLIUM) PACKET PO PRN (15:45)
[2017-01-09] MEDS ORDERED: POLYVINYL ALCOHOL OPHTH SOLN 15 ML(LIQUITEARS) OU PRN (15:45)
[2017-01-09] MEDS ORDERED: NITROGLYCERIN 0.4 MG SUBL TABLET SL PRN (15:45)
[2017-01-09] MEDS ORDERED: GLUCOSE 4 GM CHEW TABLET PO PRN (16:00)
[2017-01-09] MEDS ORDERED: DEXTROSE 50% 50 ML SYRINGE IV PRN (16:00)
[2017-01-09] MEDS ORDERED: GLUCAGON FOR INJ 1 MG VIAL (J1610) SC PRN (16:00)
[2017-01-09 17:26] VITALS: BP 127/65
[2017-01-09] MEDS: HumaLOG INSULIN (NovoLOG) PER UNIT SC SCH ×2 (17:30→18:14)
[2017-01-09] MEDS: FIBER-CON 625 MG TAB PO SCH (18:14)
[2017-01-09] MEDS: predniSONE 10 MG TAB PO SCH (18:14)
[2017-01-09] MEDS: TORSEMIDE (DEMADEX) 50 MG PER 1/2 TAB PO SCH (18:15)
[2017-01-09] MEDS: OCUVITE 1 TAB PO SCH (18:15)
[2017-01-09] MEDS: PARoxetine 10MG TABLET PO SCH (18:15)
[2017-01-09] MEDS: SPIRONOLACTONE 25 MG TAB PO SCH (18:15)
[2017-01-09] MEDS: OMEPRAZOLE 20 MG CAP PO SCH (18:15)
[2017-01-09 19:47] VITALS: BP 148/66
[2017-01-09] MEDS: BUDESONIDE 0.5 MG/2 ML INHALATION SUSPENSION INH SCH (20:03)
[2017-01-09] MEDS: NEOSPORIN TOP OINT 15GM TOP SCH (20:53)
[2017-01-09] MEDS: POLYVINYL ALCOHOL OPHTH SOLN 15 ML(LIQUITEARS) OU SCH (20:54)
[2017-01-09] MEDS: DOCUSATE SODIUM 100 MG CAP PO SCH (20:54)
[2017-01-09] MEDS ORDERED: FEXOFENADINE 60 MG TAB PO SCH (21:00)
[2017-01-09] MEDS ORDERED: ENOXAPARIN 40 MG/0.4 ML SYRINGE (J1650) SC SCH (21:00)
[2017-01-09] MEDS ORDERED: HumaLOG INSULIN (NovoLOG) PER UNIT SC SCH (21:00)
--- NOTE | 2017-01-09 22:58 | HPE ---
DATE OF ADMISSION: 01/09/2017 PRIMARY CARE PHYSICIAN: Dr. Uribe CHIEF COMPLAINT: Chest discomfort. HISTORY OF PRESENT ILLNESS: Ms. Cook is an 81-year-old female with multiple past medical history who presented from [facility] due to discomfort that she experienced this morning. Patient expressed that around 7 a.m. she woke up, and she walked into the bathroom. She had one episode of bowel movement. After that, patient was washing her face, when she felt starting of the chest discomfort. Patient expressed that the discomfort was like somebody pushing on her chest between her breasts. Patient expressed that the discomfort was stationary with no radiation; however, patient had one episode off anhidrosis. Patient also denies having palpitations, racing or skipping heartbeat. Patient also denies shortness of breath. Patient expressed that before going to the bathroom patient had breathing treatment and cannot remember if she had shortness of breath. Patient denies syncope, lightheadedness, dizziness, or seizure-type activities before, during, or after episode. Patient expressed that she had chest discomfort in the past; however, this time it was increased. Patient cannot rate her pain; however, patient expressed that this is a dull, achy pain. Patient called the nursing staff, who recommended that patient come to the emergency room (ER). At the ER patient received one dose of aspirin 324. Also it was found that patient had low potassium. Patient received once dose of potassium 40 mEq, and hospitalist was called to admit the patient. Also, Dr. Rodriguez was consulted by ER. Patient expressed that the chest pain lasts about 20-30 minutes; however, at the time of visit, patient expressed that she is asymptomatic and does not have any chest pain. ALLERGIES: ATORVASTATIN, CIMETIDINE, LASIX, perfumes, PENICILLIN, RANITIDINE. PAST MEDICAL HISTORY: 1. Chronic obstructive pulmonary disease (COPD). 2. Chronic respiratory failure with hypoxia, on 2 liters oxygen. 3. Diabetes. 4. Atrial fibrillation, rate controlled. 5. Hypothyroidism. 6. Hyperlipidemia. 7. Gastroesophageal reflux disease. 8. Right-sided heart failure. 9. Primary hypertension. 10. Mitral regurgitation. 11. Coronary artery disease, status post coronary artery bypass graft. 12. Adrenal nodule on the left. 13. Lung nodules. 14. Diastolic congestive heart failure. 15. Tricuspid regurgitation. 16. History of major depression, single episode in the past. PAST SURGICAL HISTORY: 1. Coronary artery bypass graft (CABG). 2. Cholecystectomy. 3. Appendectomy. 4. Hysterectomy. 5. Bilateral cataract surgery. 6. Skin surgery for skin cancer. SOCIAL HISTORY: Patient lives alone at [place]. Patient has not traveled outside of the [place]. Patient expressed that she started smoking when she was a teen until 30 years ago. Patient expressed that she smoked about two to three packs a day on and off; however, patient expressed that she stopped smoking several times during that time. Patient occasionally used to drink alcoholic beverages. FAMILY HISTORY: Patient has two daughters, two sons. Two of her sons have bipolar disorder. Patient had half-brother, one full brother, and three sisters, who due to cancers; however, patient cannot remember what kind of cancer they had. HOME MEDICATIONS: - acetaminophen ER 650 mg by mouth every 8 hours as needed pain - ipratropium bromide, albuterol, one solution inhaler every 2 hours as needed shortness of breath - artificial tears, one drop both eyes every 2 hours as needed dry eyes - Pulmicort 0.5 mg inhaled twice a day - FiberCon 625 mg by mouth daily - Refresh Plus one drop, both eyes, four times a day - ciclopirox olamine one dose topical twice a day for rash on abdomen - Colace 100 mg by mouth twice a day - Alisson Allergy 180 mg by mouth at bedtime - fish oil 500 mg one capsule by mouth daily - Synthroid 75 mcg by mouth every morning - milk of magnesia 30 mL by mouth daily as needed constipation - metolazone 2.5 mg by mouth two times a week, Wednesday and Wednesday - mirabegron 25 mg by mouth daily - triple antibiotic 3.5/400/5000 one dose topical twice a day to nasal sore - Nitrostat 0.4 mg sublingual as needed chest pain - omeprazole 40 mg by mouth daily - Paxil 10 mg by mouth daily - polyethylene glycol two drops both eyes three times a day - Klor-Con 30 mEq by mouth daily - prednisone 10 mg by mouth daily - Preparation-H one cream per rectum daily as needed hemorrhoids - psyllium one tablet by mouth daily as needed constipation - spironolactone 25 mg by mouth daily - Spiriva Respimat two puff inhaler daily - Theragran-M Premier 50, one tablet by mouth daily - Spiriva one inhaler daily - torsemide 50 mg by mouth twice a day REVIEW OF SYSTEMS: GENERAL: Patient denies fever, chills, night sweats, weight loss, weight gain. HEENT: Patient denies acute vision or hearing changes. Patient also denies headache, lightheadedness, or dizziness. Patient denies problem with chewing food or sinusitis. NECK: Patient denies lumps, bumps, or decreased range of motion of his neck. HEART: Patient expressed that she has chest discomfort, mostly in the middle of the chest, between her breasts, which stays about 20 minutes; however, at this time patient denies chest discomfort. Patient denies racing or skipping heartbeat. Patient denies palpitations. LUNGS: Patient is on 2 liters oxygen at home due to COPD. Patient has chronic cough; however, patient denies increase of the cough, increase of sputum production, or change of the sputum. ABDOMEN: Patient denies abdominal pain, nausea, vomiting, diarrhea, constipation , melena, hematochezia, hemoptysis. NEUROLOGIC: Patient denies history of transient ischemic attack (TIA), cerebrovascular accident (CVA), or seizure-type activities. PHYSICAL EXAMINATION: VITAL SIGNS: Temperature 97.6, pulse 90, respiratory rate 18, blood pressure 128/50, pulse oximetry 100 on 2 liters nasal cannula. GENERAL: Patient was lying in bed in no acute distress. Patient was awake, alert , and oriented to time, place, and person. HEENT: Normocephalic, atraumatic. 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 Oral mucosa is moist. NECK: No lymphadenopathy. No thyromegaly. No jugular venous distention (JVD). HEART: Irregularly irregular. ABDOMEN: Soft, obese. Positive bowel sounds in all quadrants. No tenderness to palpation. No guarding. NEUROLOGIC: Cranial nerves II-XII were intact. No focal deficiencies, except patient has the blindness on the right eye. EXTREMITIES: Patient has mild pitting edema in both lower extremities; however, normal range of motion, both lower extremities. Patient has tenderness to palpation of her lower extremities, which is a chronic issue for her bilaterally. LABORATORY DATA: Sodium 138, potassium 2.9, chloride 92, carbon dioxide 39, anion gap 7, BUN 30, creatinine 0.89, glomerular filtration rate more than 60, fasting glucose 126, calcium 9, total creatine kinase 20, CK-MB 1.1, CK-MB relative index 5.5. Troponin I 0.03. BNP 111. TSH 0.648. White blood cells 12.9, red blood cells 3.26, hemoglobin 8.4, hematocrit 27.4, MCV 84.1, MCH 25.7, MCHC 30.5, RDW 15.1, platelet count 332, neutrophil percentage 84, lymphocyte percentage 9, monocyte percentage 1, eosinophil percentage 2, basophil percentage 1, myelocyte 1, nucleated red blood cells 1, atypical lymphocytes 2. Chest x-ray shows chronic cardiomegaly, sternotomy wire. No acute cardiopulmonary finding. ASSESSMENT AND PLAN: 1. Chest pain. The first cardiac marker was negative. EKG did not show any new findings. Dr. Rodriguez has been consulted by ER. We will continue cardiac marker for two more readings. Also, patient received one dose of aspirin 324 at the emergency room (ER). At this point patient is stable, and patient expressed that her chest discomfort is gone. We will continue to monitor patient for any abnormal symptoms. 2. Atrial fibrillation. EKG indicated patient continues to have atrial fibrillation; however, patient's rate is controlled. Patient's [id number] score indicated patient needs to be anticoagulated; however, based on her previous record, patient has gastrointestinal (GI) bleeding; therefore, patient is not on anticoagulation. At this point, patient is not on any beta kelvin. 3. Anemia. This could be secondary to GI bleeding. I have ordered occult blood test; result is pending. Also, patient is on prednisone at home secondary to chronic obstructive pulmonary disease (COPD). At this point, we are waiting for the result on occult blood test. 4. Hypokalemia. This could be secondary to GI loss as well as medication, including torsemide. We administered two doses of potassium 40 mEq. We will recheck the basic metabolic panel again at 11:30 p.m. 5. Hypothyroidism. At this point, we will check the thyroid-stimulating hormone (TSH) level. Patient is on levothyroxine. 6. Deep vein thrombosis (DVT) prophylaxis. Patient is on thromboembolic deterrents (TEDs) and sequentials due to the possibility of GI bleeding. At this point, we are waiting for the result of the occult blood test. 7. COPD. At this point, patient does not have COPD exacerbation, and patient is at her baseline oxygen (2 liters). We will continue patient on breathing treatment. Also will continue patient on prednisone 10 mg by mouth daily. 8. Diabetes. We will continue patient on consistent-carbohydrate diet as well as sliding scale. 9. Gastroesophageal reflux disease (GERD). We will continue patient on omeprazole. 10. History of major depression. We will continue patient on Paxil. 11. Diastolic congestive heart failure. We will continue patient on spironolactone, torsemide. 12. History of constipation. We will continue patient on Colace 100 mg by mouth twice a day. 13. Coronary artery disease, status post coronary artery bypass graft. Patient is not on aspirin due to GI bleeding; however, patient received one dose of aspirin this afternoon due to chest discomfort. At this time, patient is not on beta kelvin. 14. Dry eyes and history of cataract surgery. We will continue patient on eyedrops as per home regimen. My preceptor for this patient encounter was Dr. Alistair Toro The preceptor was physically present in the building during the encounter and was fully available as needed. All aspects of the patient interview, examination, medical decision making process, and medical care plan development were reviewed and approved by the preceptor. The preceptor is aware and concurs with the plan as stated in the body of this note and will attest to such by his/her co-signature. DANTE
[2017-01-09 22:59] LABS: CALCIUM LEVEL 9.6 MG/DL (8.8-10.2); CREATININE FOR GFR 1.03 MG/DL (0.55-1.02); GLOMERULAR FILTRATION RATE 54.5 (>32); POTASSIUM SERUM 3.2 MEQ/L (3.5-5.1)
[2017-01-09 23:30] VITALS: BP 141/64
[2017-01-10] MEDS ORDERED: POTASSIUM CHLORIDE 10 MEQ SR TABLET PO ONE ×2 (01:15→05:15)
[2017-01-10 04:34] VITALS: BP 125/64
[2017-01-10 05:54] LABS: MEAN CORPUSCULAR HEMOGLOBIN 25.5 pg (27.0-33.0); MEAN CORPUSCULAR HGB CONC 30.4 g/dl (32.0-36.5); PLATELET COUNT, AUTOMATED 311 k/mm3 (150-450); RED CELL DISTRIBUTION WIDTH 15.3 % (11.5-14.5)
[2017-01-10] MEDS ORDERED: LEVOTHYROXINE 75MCG TABLET (0.075MG) PO SCH (06:00)
[2017-01-10 06:19] LABS: ALBUMIN 3.4 GM/DL (3.2-5.2); ALBUMIN/GLOBULIN RATIO 0.94 (1.00-1.93); ALKALINE PHOSPHATASE 67 U/L (45-117); ALT/SGPT 27 U/L (12-78); ANION GAP 7 MEQ/L (8-16); AST/SGOT 16 U/L (15-37); BILIRUBIN,TOTAL 0.3 MG/DL (0.2-1.0); BLOOD UREA NITROGEN 31 MG/DL (7-18); CALCIUM LEVEL 9.2 MG/DL (8.8-10.2); CARBON DIOXIDE LEVEL 37 MEQ/L (21-32); CHLORIDE LEVEL 93 MEQ/L (98-107); CREATININE FOR GFR 0.87 MG/DL (0.55-1.02); GLOMERULAR FILTRATION RATE > 60.0 (>32); GLUCOSE, FASTING 141 MG/DL (83-110); MAGNESIUM LEVEL 2.1 MG/DL (1.8-2.4); POTASSIUM SERUM 3.4 MEQ/L (3.5-5.1); SODIUM LEVEL 137 MEQ/L (136-145)
[2017-01-10 06:39] LABS: EOSINOPHILS 1 % (0-5)
[2017-01-10 06:40] LABS: HYPOCHROMASIA 1+
[2017-01-10] MEDS: BUDESONIDE 0.5 MG/2 ML INHALATION SUSPENSION INH SCH (07:07)
[2017-01-10] MEDS: HumaLOG INSULIN (NovoLOG) PER UNIT SC SCH ×2 (07:30→11:49)
[2017-01-10 07:59] VITALS: BP 128/69
[2017-01-10] MEDS ORDERED: TIOTROPIUM INHALER/CAPSULE (SPIRIVA) INH SCH (08:00)
[2017-01-10] MEDS ORDERED: NITR4TASL SL (08:06)
[2017-01-10] MEDS: DOCUSATE SODIUM 100 MG CAP PO SCH (08:21)
[2017-01-10] MEDS: predniSONE 10 MG TAB PO SCH (08:21)
[2017-01-10] MEDS: TORSEMIDE (DEMADEX) 50 MG PER 1/2 TAB PO SCH (08:21)
[2017-01-10] MEDS: OMEPRAZOLE 20 MG CAP PO SCH (08:21)
[2017-01-10] MEDS: OCUVITE 1 TAB PO SCH (08:21)
[2017-01-10] MEDS: SPIRONOLACTONE 25 MG TAB PO SCH (08:21)
[2017-01-10] MEDS: FIBER-CON 625 MG TAB PO SCH (08:21)
[2017-01-10] MEDS: PARoxetine 10MG TABLET PO SCH (08:24)
[2017-01-10] MEDS: NEOSPORIN TOP OINT 15GM TOP SCH (08:25)
[2017-01-10] MEDS: POLYVINYL ALCOHOL OPHTH SOLN 15 ML(LIQUITEARS) OU SCH (08:25)
--- NOTE | 2017-01-10 19:21 | ECGEPIP ---
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
--- NOTE | 2017-01-10 19:23 | ECGEPIP ---
Stationary ECG Study [facility] - ED Test Date: 2017-01-09 Pat Name: MAKAYLA QUIROZ Department: Room: - Gender: F [employer] Officer: latisha : 1935 Requested By: CHIRAG Morales Order Number: [id number] Reading MD: Ruth Diaz Measurements Intervals [place] Rate: 69 P: SC: 0 QRS: 79 QRSD: 118 T: 26 QT: 414 QTc: 445 Interpretive Statements ATRIAL FIBRILLATION INCOMPLETE RIGHT BUNDLE BRANCH BLOCK NONSPECIFIC ST & T-WAVE ABNORMALITY ABNORMAL RHYTHM ECG SIMILAR 01/09/17 Electronically Signed On 01-10-2017 19:23:08 EDT by Ruth Diaz
--- NOTE | 2017-01-10 20:57 | DSES ---
DATE OF ADMISSION: 01/09/2017 DATE OF DISCHARGE: 01/10/2017 PRIMARY CARE PROVIDER: Dr. Lee. REASON FOR ADMISSION: Chest pain. FINAL DIAGNOSES: 1. Chest pain which had resolved. 2. Anemia. 3. History of chronic respiratory failure with hypoxia on two liters nasal cannula. 4. Diabetes. 5. Atrial fibrillation. 6. Hypothyroidism. 7. Hyperlipidemia. 8. Gastroesophageal reflux disease (GERD). 9. Right heart failure. 10. Hypertension. 11. Mitral regurgitation. 12. Adrenal nodule on the left. 13. Lung nodules. 14. Coronary artery disease status post bypass. 15. History of major depression. 16. Tricuspid regurgitation. HISTORY OF PRESENT ILLNESS: The patient is an 81-year-old female who lives at [facility], who presented to the emergency room complaining of chest pain that woke her up around 7 a.m. She states she woke up, went to the bathroom, had one bowel movement, was washing her face and then she felt like she was having chest discomfort. She said it was like someone pushing on her chest between her breasts. She said it lasted about 20 minutes with no radiation. By the time she arrived to the emergency room, the pain had resolved. She denied any syncope, lightheadedness, dizziness. Denied any increased shortness of breath. The patient was admitted under hospitalist service on telemetry to be monitored and rule out any acute infarct. HOSPITAL COURSE: The patient underwent an electrocardiogram (EKG) which showed atrial fibrillation, nonspecific ST-T wave abnormality. Repeat EKG three hours later showed nonspecific ST abnormalities, incomplete right bundle branch block, atrial fibrillation, similar to the one prior. The patient had five sets of cardiac enzymes all of which were negative. The following day, the patient insisted on going home. it was explained to her that we normally do not discharge the patient back to [place] on the weekend; however, she was adamant about leaving, stating that she was going to leave regardless. At that point the patient was discharged. She was given a prescription for hemoglobin/hematocrit the following day, to followup with Dr. Lee. Per [facility] nurse request, urinalysis was also added since the patient has been monitored for overactive bladder with frequent urinalysis. CONDITION ON DISCHARGE: The patient's overall condition was guarded. DIET: Diabetic. ACTIVITIES: As tolerated. DISCHARGE MEDICATIONS: - Tylenol 650 mg by mouth every eight hours as needed for pain - albuterol one solution inhaled every two hours as needed for shortness of breath - artificial tears - Pulmicort 0.5 mg inhaled twice a day - Refresh Plus - Colace 100 mg by mouth twice a day - Alisson Allergy 180 mg at bedtime - fish oil one capsule by mouth daily - Synthroid 75 mcg in the morning - milk of magnesia as needed for constipation - metolazone 2.5 mg twice a week - triple antibiotic ointment one dose topically twice a day - nitroglycerin as needed for pain which was renewed - omeprazole 40 mg daily - Paxil 10 mg daily - potassium chloride 30 mEq by mouth three times a day - prednisone 10 mg daily - Preparation H daily as needed for constipation - Metamucil one capsule by mouth daily as needed for constipation - spironolactone 25 mg daily - multivitamin one tablet daily - Respimat two puffs inhaled daily - Spiriva one inhaled daily - torsemide 50 mg by mouth twice a day The patient is to followup with her primary care provider in one week and with Dr. Haider in one week.
[2017-01-11] MEDS ORDERED: NITR4TASL SL (20:01)
== END 2017-01-10 12:57 ==
LOC: EDBD 09:21 → M ED 09:47 → M ED INP 14:27 → M PCU 17:09
PROVIDERS: ADMIT Internal Medicine; ATTEND Internal Medicine
DX: R07.9 Chest pain, unspecified (principal); D64.9 Anemia, unspecified; J96.11 Chronic respiratory failure with hypoxia; Z99.81 Dependence on supplemental oxygen; E11.9 Type 2 diabetes mellitus without complications; I48.2 Chronic atrial fibrillation; E03.9 Hypothyroidism, unspecified; E78.5 Hyperlipidemia, unspecified; K21.9 Gastro-esophageal reflux disease without esophagitis; I50.32 Chronic diastolic (congestive) heart failure; I11.0 Hypertensive heart disease with heart failure; I34.0 Nonrheumatic mitral (valve) insufficiency; R91.8 Other nonspecific abnormal finding of lung field; E27.8 Other specified disorders of adrenal gland; I25.10 Atherosclerotic heart disease of native coronary artery without angina pectoris; Z95.1 Presence of aortocoronary bypass graft; F32.9 Major depressive disorder, single episode, unspecified; E87.6 Hypokalemia; I36.1 Nonrheumatic tricuspid (valve) insufficiency; J44.9 Chronic obstructive pulmonary disease, unspecified; H04.123 Dry eye syndrome of bilateral lacrimal glands; Z79.899 Other long term (current) drug therapy; Z79.52 Long term (current) use of systemic steroids; Z79.51 Long term (current) use of inhaled steroids; Z88.8 Allergy status to other drugs, medicaments and biological substances; Z88.0 Allergy status to penicillin; Z91.048 Other nonmedicinal substance allergy status; Z87.891 Personal history of nicotine dependence

== ENCOUNTER 2017-01-11 15:12 | Inpatient (IN) | payer MEDICARE, MEDICAID ==
[~2017-01-11] VITALS: Ht 172.7 cm; Wt 96.0 kg
[~2017-01-11 15:12] MED LIST changes: +FISH1CAP24 PO; +MYRB25TA PO
[2017-01-11] MEDS: NS 1,000 ML IV SCH (17:15)
[2017-01-11] MEDS: PANTOPRAZOLE SODIUM 40 MG in D5W MINI-BAG PLUS 50 ML IV SCH ×3 (17:15→22:15)
[2017-01-11 18:00] LABS: BASO % 0.4 % (0.0-1.0); EOS # 0.1 K/mm3 (0.0-0.50); EOS % 0.8 % (0.0-3.0); LARGE UNSTAINED CELL # 0.2 K/mm3 (0.0-0.4); LARGE UNSTAINED CELL % 1.4 % (0.0-4.0); LYMPH # 0.9 K/mm3 (1.5-4.5); LYMPH % 5.7 % (24.0-44.0); MEAN CORPUSCULAR HEMOGLOBIN 25.5 pg (27.0-33.0); MEAN CORPUSCULAR HGB CONC 30.7 g/dl (32.0-36.5); MEAN CORPUSCULAR VOLUME 82.9 fl (80.0-96.0); MONO # 0.6 K/mm3 (0.0-0.8); MONO % 4.7 % (0.0-5.0); PLATELET COUNT, AUTOMATED 308 k/mm3 (150-450); RED CELL DISTRIBUTION WIDTH 15.6 % (11.5-14.5); WHITE BLOOD COUNT 12.7 K/mm3 (4.0-10.0)
[2017-01-11 18:01] LABS: ADD MORPHOLOGY? YES
[2017-01-11 18:09] LABS: CALCIUM LEVEL 9.2 MG/DL (8.8-10.2); CREATININE FOR GFR 1.12 MG/DL (0.55-1.02); GLOMERULAR FILTRATION RATE 49.5 (>32); POTASSIUM SERUM 3.7 MEQ/L (3.5-5.1)
[2017-01-11 19:27] LABS: ANISOCYTOSIS 2+; HYPOCHROMASIA 2+; MICROCYTOSIS 1+; POLYCHROMASIA 1+
[2017-01-11] MEDS ORDERED: NITR4TASL SL (20:01)
[2017-01-11] MEDS: FEXOFENADINE 60 MG TAB PO SCH (21:00)
[2017-01-11 22:40] VITALS: BP 139/67
[2017-01-11] MEDS ORDERED: MOM 30ML SUSPENSION UDC PO PRN (23:15)
[2017-01-11] MEDS ORDERED: NITROGLYCERIN 0.4 MG SUBL TABLET SL PRN (23:15)
[2017-01-11] MEDS ORDERED: IPRATROPIUM 0.5MG/ALBUTEROL 2.5MG INH SOL UD 3ML (DUONEB)(J7620) INH PRN (23:15)
[2017-01-11] MEDS ORDERED: ACETAMINOPHEN 650MG ER TAB (TYLENOL ARTHRITIS) PO PRN (23:15)
[2017-01-12] VITALS (11 sets, daily range): BP systolic 118–158; BP diastolic 42–108
[2017-01-12] MEDS: NS 1,000 ML IV SCH (03:25)
[2017-01-12 05:12] LABS: MEAN CORPUSCULAR HGB CONC 32.9 g/dl (32.0-36.5); MEAN CORPUSCULAR VOLUME 82.2 fl (80.0-96.0); RED CELL DISTRIBUTION WIDTH 15.6 % (11.5-14.5); WHITE BLOOD COUNT 11.3 K/mm3 (4.0-10.0)
[2017-01-12 05:40] LABS: ALBUMIN 3.2 GM/DL (3.2-5.2); ALBUMIN/GLOBULIN RATIO 0.97 (1.00-1.93); ALKALINE PHOSPHATASE 60 U/L (45-117); ALT/SGPT 24 U/L (12-78); ANION GAP 7 MEQ/L (8-16); AST/SGOT 16 U/L (15-37); BLOOD UREA NITROGEN 37 MG/DL (7-18); CALCIUM LEVEL 8.7 MG/DL (8.8-10.2); CARBON DIOXIDE LEVEL 37 MEQ/L (21-32); CHLORIDE LEVEL 92 MEQ/L (98-107); CREATININE FOR GFR 0.83 MG/DL (0.55-1.02); GLOMERULAR FILTRATION RATE > 60.0 (>32); GLUCOSE, FASTING 107 MG/DL (83-110); SODIUM LEVEL 136 MEQ/L (136-145); TOTAL PROTEIN 6.5 GM/DL (6.4-8.2)
[2017-01-12] MEDS: PANTOPRAZOLE SODIUM 40 MG in D5W MINI-BAG PLUS 50 ML IV SCH ×3 (05:59→11:30)
[2017-01-12] MEDS: LEVOTHYROXINE 75MCG TABLET (0.075MG) PO SCH (05:59)
[2017-01-12 06:01] LABS: BILIRUBIN,TOTAL 1.2 MG/DL (0.2-1.0); POTASSIUM SERUM 2.6 MEQ/L (3.5-5.1)
--- NOTE | 2017-01-12 07:23 | HPEPDOC ---
General Date of Admission Jan 11, 2017 at 21:35 Primary Care Physician: SATHISH JACOBSON DO Attending Physician: CANDIDO VILLALOBOS MD Chief Complaint The patient is a 81-year-old female admitted with a reason for visit of Gi Bleeding. Source: Patient Exam Limitations: No limitations Timing/Duration: Day(s) Severity: Mild Associated Symptoms: Loss of appetite, Malaise History of Present Illness 81-year-old female in was sent PCP for a severe anemia. Patient has blackish stools for last couple of days where there was no opal. Blood. Patient has never had similar symptoms before and she is not taking any blood thinners C complains of lightheadedness, dizziness Home Medications Scheduled (Theragran-M Premier 50 Pl) 1 Tab Tab, 1 TAB PO DAILY, (Reported) (Ciclopirox Olamine) 0.77 % Cre, 1 DOSE TOP BID, (Reported) FOR RASH ON ABDOMEN (Fish Oil 500 mg) 1 Cap Cap, 1 CAP PO DAILY, (Reported) (Striverdi Respimat) 2.5 Mcg/Act Aer, 2 PUFFS INH DAILY, (Reported) Budesonide (Pulmicort) 0.5 Mg/2 Ml Andree, 0.5 MG INH BID, (Reported) Calcium Polycarbophil (Fibercon) 625 Mg Tab, 625 MG PO DAILY, (Reported) Carboxymethylcellulose Sodium (Refresh Plus) 1 Ea Heraclio, 1 DROP OU QID, (Reported) Docusate Sodium (Colace) 100 Mg Cap, 100 MG PO BID, (Reported) Fexofenadine Hydrochloride (Alisson Allergy) 180 Mg Tab, 180 MG PO QHS, ( Reported) Levothyroxine Sodium (Synthroid) 75 Mcg Tab, 75 MCG PO QAM, (Reported) Metolazone (Metolazone) 2.5 Mg Tab, 2.5 MG PO 2XW, (Reported) MON & FRI Mirabegron Base (Myrbetriq) 25 Mg Tab, 25 MG PO DAILY, (Reported) Neomycin/Polymyx/Bacitr (Triple Antibiotic 3.5-400-5000) 30 Gm Oin, 1 DOSE TOP BID, (Reported) TO NASAL SORE Omeprazole (Omeprazole) 40 Mg Cap, 40 MG PO DAILY, (Reported) Paroxetine Hydrochloride (Paxil) 10 Mg Tab, 10 MG PO DAILY, (Reported) Polyethylene Glycol (Systane 0.4-0.3 %) 15 Ml Heraclio, 2 DROP OU TID, (Reported) Potassium Chloride (Klor-Con M10) 10 Meq Tabcr, 30 MEQ PO TID, (Reported) Prednisone (Prednisone) 10 Mg Tab, 10 MG PO DAILY, (Reported) Spironolactone (Spironolactone) 25 Mg Tab, 25 MG PO DAILY, (Reported) Tiotropium [place] Monohydrate (Spiriva Handihaler) 5 Inhalation/Inhaler Powd, 1 INHALATION INH DAILY, (Reported) PATIENT SELF ADMINISTERS Torsemide (Torsemide) 100 Mg Tab, 50 MG PO BID, (Reported) Scheduled PRN (Artificial Tears 0.1-0.3 %) 1 Heraclio Heraclio, 1 DROP OU Q2H PRN for DRY EYES, ( Reported) (Preparation H 1-0.25-14.4-15 %) 1 Cre Cre, 1 CRE CO DAILY PRN for HEMORRHOIDS, (Reported) Acetaminophen (Acetaminophen ER) 650 Mg Tab, 650 MG PO Q8H PRN for PAIN, ( Reported) Albuterol/Ipratropium (Ipratropium [place]/Albut 0.5-2.5 (3) mg/3Ml) 1 Heraclio Heraclio, 1 HERACLIO INH Q2HP PRN for SHORTNESS OF BREATH, (Reported) Magnesium Hydroxide (Milk of Magnesia 400 mg/5Ml) 1 Andree Andree, 30 ML PO DAILYPRN PRN for CONSTIPATION, (Reported) Nitroglycerin (Nitrostat) 0.4 Mg Subl, 0.4 MG SL Q5MP PRN for CHEST PAIN, ( Reported) Psyllium (Metamucil) 48.57 % Pow, 1 TBS PO DAILY PRN for CONSTIPATION, (Reported ) Allergies Coded Allergies: Cimetidine (Verified Allergy, Intermediate, HIVES, 01/11/17) Latex (Verified Allergy, Intermediate, RASH, 01/11/17) Penicillins (Verified Allergy, Intermediate, HIVES, 01/11/17) Atorvastatin (Verified Allergy, Unknown, 11/07/16) PERFUMES (Verified Allergy, Unknown, 10/08/04) Ranitidine (Unverified Adverse Reaction, Mild, CRAWLING SENSATION, 01/11/17 ) Past Medical History Medical History Hypertension, CAD Surgical History CABG Family History Significant Family History: No pertinent family hx Social History * Smoker: Denies Drugs: denies Recent Travel/Sick Contacts: Denies: Recent travel, Recent sick contacts Review of Symptoms Constitutional: Reports: Fatigue, Lethargy, Denies: Chills, Fever, Night Sweats Eyes: Denies: Pain, Vision change ENT: Denies: Head Aches, Ear Pain, Dysphagia Skin: Denies: Rash, Lesions, Breakdown Pulmonary: Denies: Dyspnea, Cough Cardiovascular: Reports: Lt Headedness, Denies: Chest Pain, Palpitations, Orthopnea, Paroxysmal Noc. Dyspnea Gastrointestinal: Reports: Diarrhea, Melena, Denies: Nausea, Vomiting, Abdominal Pain Genitourinary: Denies: Dysuria, Frequency, Incontinence, Retention Hematologic: Denies: Bruising, Bleeding Excessively Musculoskeletal: Denies: Neck Pain, Back Pain, Joint Pain, Muscle Pain, Spasms Neurological: Denies: Weakness, Numbness, Change in speech, Confusion Psych: Reports: Mood Normal, Denies: Depression, Memory Issues Physical Examination General Exam: Positive: Alert, No Acute Distress Eye Exam: Positive: PERRLA, Conjunctiva & lids normal, EOMI, Other Eye Symptoms (. Connective), Negative: Sclera icteric ENT Exam: Positive: Atraumatic, Mucous membr. moist/pink, Pharynx Normal Neck Exam: Positive: Supple, Negative: JVD, thyromegaly Chest Exam: Positive: Clear to auscultation, Normal air movement Heart Exam: Positive: Rate Normal, Regular Rhythm, Normal S1, Normal S2, Negative: Murmurs, Rubs Telemetry: Positive: No significant arrhythmia Abdomen Exam: Positive: Normal bowel sounds, Soft, Negative: Tenderness, Hepatospenomegaly Extremity Exam: Positive: Normal pulses, Negative: Clubbing, Cyanosis, Edema Skin Exam: Positive: Nl turgor and temperature, Negative: Breakdown, Lesion Neuro Exam: Positive: Normal Gait, Normal Speech, Cranial Nerves 3-12 NL, Reflexes 2+ Psych Exam: Positive: Mental status NL, Mood NL, Oriented x 3 Vital Signs Vital Signs Date Time Temp Pulse Resp B/P (MAP) Pulse Ox O2 Delivery O2 Flow Rate FiO2 01/12/17 06:00 68 131/60 (83) 100 Nasal Cannula 2.0 01/12/17 04:00 98.0 24 Laboratory Data Labs 24H Laboratory Tests 2 01/11/17 17:37: White Blood Count 12.7H, Red Blood Count 2.97L, Hemoglobin 7.6L, Hematocrit 24.6L, Mean Corpuscular Volume 82.9, Mean Corpuscular Hemoglobin 25.5L, Mean Corpuscular Hemoglobin Concent 30.7L, Red Cell Distribution Width 15.6H, Platelet Count 308, Neutrophils (%) (Auto) 87.0H, Lymphocytes (%) (Auto) 5.7L, Monocytes (%) (Auto) 4.7, Eosinophils (%) (Auto) 0.8, Basophils (%) (Auto) 0.4, Neutrophils # (Auto) 11.0H, Lymphocytes # (Auto) 0.9L, Monocytes # (Auto) 0.6, Eosinophils # (Auto) 0.1, Basophils # (Auto) 0.0, Large Unclassified Cells % 1.4 , Large Unclassified Cells # 0.2, Platelet Estimate NORMAL, Polychromasia 1+, Hypochromasia 2+, Basophilic Stippling 1+, Anisocytosis 2+, Microcytosis 1+, Prothrombin Time 13.3, Prothromb Time International Ratio 1.00, Activated Partial Thromboplast Time 23.8L, Anion Gap 9, Glomerular Filtration Rate 49.5, Blood Urea Nitrogen 40H, Creatinine 1.12H, Sodium Level 137, Potassium Level 3.7 , Chloride Level 90L, Carbon Dioxide Level 38H, Calcium Level 9.2 01/12/17 05:00: Anion Gap 7L, Glomerular Filtration Rate > 60.0, Blood Urea Nitrogen 37H, Creatinine 0.83, Sodium Level 136, Potassium Level 2.6#*L, Chloride Level 92L, Carbon Dioxide Level 37H, Calcium Level 8.7L, Aspartate Amino Transf (AST/SGOT) 16, Alanine Aminotransferase (ALT/SGPT) 24, Alkaline Phosphatase 60, Total Bilirubin 1.2#H, Total Protein 6.5, Albumin 3.2, Albumin/Globulin Ratio 0.97L CBC/BMP Laboratory Tests 01/11/17 17:37 Red Blood Count 2.97 L, Mean Corpuscular Volume 82.9, Mean Corpuscular Hemoglobin 25.5 L, Mean Corpuscular Hemoglobin Concent 30.7 L, Red Cell Distribution Width 15.6 H, Neutrophils (%) (Auto) 87.0 H, Lymphocytes (%) (Auto ) 5.7 L, Monocytes (%) (Auto) 4.7, Eosinophils (%) (Auto) 0.8, Basophils (%) ( Auto) 0.4, Neutrophils # (Auto) 11.0 H, Lymphocytes # (Auto) 0.9 L, Monocytes # (Auto) 0.6, Eosinophils # (Auto) 0.1, Basophils # (Auto) 0.0, Calcium Level 9.2 01/12/17 05:00 Red Blood Count 3.38 L, Mean Corpuscular Volume 82.2, Mean Corpuscular Hemoglobin 27.0, Mean Corpuscular Hemoglobin Concent 32.9, Red Cell Distribution Width 15.6 H, Calcium Level 8.7 L, Aspartate Amino Transf (AST/SGOT ) 16, Alanine Aminotransferase (ALT/SGPT) 24, Alkaline Phosphatase 60, Total Bilirubin 1.2 #H, Total Protein 6.5, Albumin 3.2 Assessment/Plan 81-year-old female in history of CAD, AAA status post CABG and hypertension, presented with a severe anemia Problems (1) Lower GI bleeding Onset Date: 12/14/2013 Status: Acute Problem Text: Started Protonix drip H/H every 8 hours. surgery was consulted and keep nothing by mouth present, will go for an EGD and colonoscopy to breath, CAD and continue with the beta kelvin C change. Hypothyroid. Continue with Synthroid. And guarded. Continue with the Protonix and sucralfate Plan / VTE VTE Prophylaxis Ordered?: No VTE Exclusion Pharmacological: Active Bleeding Plan IVF: Initiate Diet: Make NPO Anticipated Discharge: Home TORY SCHULTZ MD Jan 12, 2017 07:23
[2017-01-12] MEDS: BUDESONIDE 0.5 MG/2 ML INHALATION SUSPENSION INH SCH ×2 (08:09→19:59)
[2017-01-12] MEDS: TIOTROPIUM INHALER/CAPSULE (SPIRIVA) INH SCH (08:09)
[2017-01-12] MEDS: OCUVITE 1 TAB PO SCH (08:33)
[2017-01-12] MEDS: predniSONE 10 MG TAB PO SCH (08:33)
[2017-01-12] MEDS: PARoxetine 10MG TABLET PO SCH (08:33)
[2017-01-12] MEDS: DOCUSATE SODIUM 100 MG CAP PO SCH ×2 (08:33→20:08)
[2017-01-12] MEDS: POLYVINYL ALCOHOL OPHTH SOLN 15 ML(LIQUITEARS) OU SCH ×3 (08:33→20:07)
[2017-01-12] MEDS ORDERED: POTASSIUM CHLORIDE 10 MEQ SR TABLET PO SCH ×2 (09:00→21:00)
[2017-01-12] MEDS ORDERED: OMEPRAZOLE 20 MG CAP PO SCH (09:00)
[2017-01-12] MEDS ORDERED: TORSEMIDE (DEMADEX) 50 MG PER 1/2 TAB PO SCH (09:00)
[2017-01-12] MEDS: KCL 10MEQ IN 100ML SWI (KRUN) 10 MEQ in APPROPRIATE DILUENT 1 EA IV SCH ×6 (10:08→14:00)
[2017-01-12] MEDS ORDERED: POTASSIUM CHLORIDE 10 MEQ SR TABLET PO ONE ×4 (11:15→18:30)
[2017-01-12] MEDS: NEOSPORIN TOP OINT 15GM TOP SCH ×2 (11:23→20:08)
[2017-01-12] MEDS ORDERED: NS 1,000 ML IV SCH (14:00)
[2017-01-12] MEDS ORDERED: KCL 10MEQ IN 100ML SWI (KRUN) 10 MEQ in APPROPRIATE DILUENT 1 EA IV SCH ×4 (14:00→14:02)
--- NOTE | 2017-01-12 14:35 | IPNPDOC ---
Subjective Date Seen The patient was seen on 01/12/17. Subjective Chief Complaint/HPI The patient is a 81-year-old female admitted with a reason for visit of Gi Bleeding. Events since last encounter pateint says is having trouble thinking and comprehending as she did not have any sleep last night. denies any SOB or chest pain , denied any bloody stool . Says was having some black hard stool in the past few days which she attributed to iron . denies any fever or chills, Has some chronic cough. Objective Physical Examination General Exam: Positive: Alert, No Acute Distress Eye Exam: Positive: PERRLA, Conjunctiva & lids normal, EOMI, Other Eye Symptoms (. Connective), Negative: Sclera icteric ENT Exam: Positive: Atraumatic, Mucous membr. moist/pink, Pharynx Normal Neck Exam: Positive: Supple, Negative: JVD, thyromegaly Chest Exam: Positive: Clear to auscultation, Normal air movement Heart Exam: Positive: Rate Normal, Regular Rhythm, Normal S1, Normal S2, Negative: Murmurs, Rubs Telemetry: Positive: No significant arrhythmia Abdomen Exam: Positive: Normal bowel sounds, Soft, Negative: Tenderness, Hepatospenomegaly Extremity Exam: Positive: Normal pulses, Negative: Clubbing, Cyanosis, Edema Skin Exam: Positive: Nl turgor and temperature, Negative: Breakdown, Lesion Neuro Exam: Positive: Normal Gait, Normal Speech, Cranial Nerves 3-12 NL, Reflexes 2+ Psych Exam: Positive: Mental status NL, Mood NL, Oriented x 3 Assessment /Plan Problems (1) Symptomatic anemia Status: Acute Problem Text: Patient has acute on chronic anemia . Has been anemic since 2002. Has prior history of iron deficiency anemia on iron supplements. will recheck iron levels and also check stool for occult blood. Will also check spep. unsure whether she is having GIB as her stools though black colored were hard. (2) Lower GI bleeding Onset Date: 12/14/2013 Status: Acute Problem Text: will change protonix to BID. continue sucralfate. Monitor HH . if continues to drop will consult surgery. will need EGD and colonoscopy at some point. Had EGD in 2013 showed hiatal hernia. (3) COPD (chronic obstructive pulmonary disease) Status: Chronic Response to Treatment: Stable (4) Chronic respiratory failure with hypoxia Status: Chronic Response to Treatment: Stable Problem Text: continue 2 liter oxygen. (5) Pulmonary hypertension Status: Chronic Response to Treatment: Stable Problem Text: severe with corpulmonale will hold diuretics now has patient very hypokalemic (6) CAD (coronary artery disease) Status: Chronic Response to Treatment: Stable (7) Hyperlipemia Status: Chronic Response to Treatment: Stable (8) Mitral regurgitation Status: Chronic Response to Treatment: Stable (9) Right heart failure Status: Chronic Response to Treatment: Stable (10) GERD (gastroesophageal reflux disease) Status: Chronic Response to Treatment: Stable (11) Hypothyroid Status: Chronic Response to Treatment: Stable (12) Afib Status: Chronic Response to Treatment: Stable (13) DM2 (diabetes mellitus, type 2) Status: Chronic Response to Treatment: Stable (14) Hiatal hernia Status: Chronic (15) Hx of CABG Status: Chronic (16) Diastolic CHF Status: Chronic Problem Text: appears to be euvolemic will hold torsemide and metolazone for now due to hypokalemia. (17) Pulmonary nodules Status: Chronic (18) Adrenal nodule Status: Chronic (19) Hypokalemia Status: Acute Problem Text: will continue with aggressive replacements. Plan/VTE VTE Prophylaxis Ordered?: Yes VTE Exclusion Pharmacological: Active Bleeding Plan IVF: Initiate Diet: Make NPO Anticipated Discharge: Home VS, I&O, 24H, [facility] Vital Signs/I&O Vital Signs Date Time Temp Pulse Resp B/P (MAP) Pulse Ox O2 Delivery O2 Flow Rate FiO2 01/12/17 12:00 99.2 81 22 158/89 (112) 98 Nasal Cannula 2.0 I&O- Last 24 Hours up to 6 AM 01/12/17 06:00 Intake Total 420 ml Output Total 925 ml Balance -505 ml Laboratory Data 24H LABS Laboratory Tests 2 01/11/17 17:37: White Blood Count 12.7H, Red Blood Count 2.97L, Hemoglobin 7.6L, Hematocrit 24.6L, Mean Corpuscular Volume 82.9, Mean Corpuscular Hemoglobin 25.5L, Mean Corpuscular Hemoglobin Concent 30.7L, Red Cell Distribution Width 15.6H, Platelet Count 308, Neutrophils (%) (Auto) 87.0H, Lymphocytes (%) (Auto) 5.7L, Monocytes (%) (Auto) 4.7, Eosinophils (%) (Auto) 0.8, Basophils (%) (Auto) 0.4, Neutrophils # (Auto) 11.0H, Lymphocytes # (Auto) 0.9L, Monocytes # (Auto) 0.6, Eosinophils # (Auto) 0.1, Basophils # (Auto) 0.0, Large Unclassified Cells % 1.4 , Large Unclassified Cells # 0.2, Platelet Estimate NORMAL, Polychromasia 1+, Hypochromasia 2+, Basophilic Stippling 1+, Anisocytosis 2+, Microcytosis 1+, Prothrombin Time 13.3, Prothromb Time International Ratio 1.00, Activated Partial Thromboplast Time 23.8L, Anion Gap 9, Glomerular Filtration Rate 49.5, Blood Urea Nitrogen 40H, Creatinine 1.12H, Sodium Level 137, Potassium Level 3.7 , Chloride Level 90L, Carbon Dioxide Level 38H, Calcium Level 9.2 01/12/17 05:00: Anion Gap 7L, Glomerular Filtration Rate > 60.0, Blood Urea Nitrogen 37H, Creatinine 0.83, Sodium Level 136, Potassium Level 2.6#*L, Chloride Level 92L, Carbon Dioxide Level 37H, Calcium Level 8.7L, Aspartate Amino Transf (AST/SGOT) 16, Alanine Aminotransferase (ALT/SGPT) 24, Alkaline Phosphatase 60, Total Bilirubin 1.2#H, Total Protein 6.5, Albumin 3.2, Albumin/Globulin Ratio 0.97L CBC/BMP Laboratory Tests 01/11/17 17:37 Red Blood Count 2.97 L, Mean Corpuscular Volume 82.9, Mean Corpuscular Hemoglobin 25.5 L, Mean Corpuscular Hemoglobin Concent 30.7 L, Red Cell Distribution Width 15.6 H, Neutrophils (%) (Auto) 87.0 H, Lymphocytes (%) (Auto ) 5.7 L, Monocytes (%) (Auto) 4.7, Eosinophils (%) (Auto) 0.8, Basophils (%) ( Auto) 0.4, Neutrophils # (Auto) 11.0 H, Lymphocytes # (Auto) 0.9 L, Monocytes # (Auto) 0.6, Eosinophils # (Auto) 0.1, Basophils # (Auto) 0.0, Calcium Level 9.2 01/12/17 05:00 Red Blood Count 3.38 L, Mean Corpuscular Volume 82.2, Mean Corpuscular Hemoglobin 27.0, Mean Corpuscular Hemoglobin Concent 32.9, Red Cell Distribution Width 15.6 H, Calcium Level 8.7 L, Aspartate Amino Transf (AST/SGOT ) 16, Alanine Aminotransferase (ALT/SGPT) 24, Alkaline Phosphatase 60, Total Bilirubin 1.2 #H, Total Protein 6.5, Albumin 3.2 01/12/17 12:30 CANDIDO VILLALOBOS MD Jan 12, 2017 14:35
[2017-01-12] MEDS: PANTOPRAZOLE 40MG INJ (PROTONIX) (C9113) IV SCH (20:08)
[2017-01-12] MEDS: FEXOFENADINE 60 MG TAB PO SCH (20:08)
[2017-01-12 21:30] LABS: ANION GAP 5 MEQ/L (8-16); BLOOD UREA NITROGEN 32 MG/DL (7-18); CARBON DIOXIDE LEVEL 34 MEQ/L (21-32); CHLORIDE LEVEL 94 MEQ/L (98-107); CREATININE FOR GFR 0.84 MG/DL (0.55-1.02); GLOMERULAR FILTRATION RATE > 60.0 (>32); GLUCOSE, FASTING 119 MG/DL (83-110); POTASSIUM SERUM 3.7 MEQ/L (3.5-5.1); SODIUM LEVEL 133 MEQ/L (136-145)
[2017-01-13 06:00] VITALS: BP 146/68
[2017-01-13] MEDS: LEVOTHYROXINE 75MCG TABLET (0.075MG) PO SCH (06:13)
[2017-01-13 06:56] LABS: MEAN CORPUSCULAR HGB CONC 31.2 g/dl (32.0-36.5); MEAN CORPUSCULAR VOLUME 83.1 fl (80.0-96.0); RED CELL DISTRIBUTION WIDTH 15.8 % (11.5-14.5); WHITE BLOOD COUNT 10.8 K/mm3 (4.0-10.0)
[2017-01-13 07:04] LABS: ALBUMIN 3.3 GM/DL (3.2-5.2); ALBUMIN/GLOBULIN RATIO 1.03 (1.00-1.93); ALKALINE PHOSPHATASE 55 U/L (45-117); ALT/SGPT 27 U/L (12-78); ANION GAP 4 MEQ/L (8-16); AST/SGOT 16 U/L (15-37); BILIRUBIN,TOTAL 0.4 MG/DL (0.2-1.0); BLOOD UREA NITROGEN 34 MG/DL (7-18); CALCIUM LEVEL 9.1 MG/DL (8.8-10.2); CARBON DIOXIDE LEVEL 35 MEQ/L (21-32); CHLORIDE LEVEL 96 MEQ/L (98-107); CREATININE FOR GFR 0.85 MG/DL (0.55-1.02); GLOMERULAR FILTRATION RATE > 60.0 (>32); GLUCOSE, FASTING 100 MG/DL (83-110); POTASSIUM SERUM 3.7 MEQ/L (3.5-5.1); SODIUM LEVEL 135 MEQ/L (136-145); TOTAL PROTEIN 6.5 GM/DL (6.4-8.2)
[2017-01-13] MEDS ORDERED: FORMOTEROL FUMARATE 20 MCG/2 ML INHALATION SOLUTION (PERFOROMIST) INH SCH (08:00)
[2017-01-13] MEDS: BUDESONIDE 0.5 MG/2 ML INHALATION SUSPENSION INH SCH (08:35)
[2017-01-13] MEDS: TIOTROPIUM INHALER/CAPSULE (SPIRIVA) INH SCH (08:35)
[2017-01-13 08:52] LABS: FERRITIN 40 NG/ML (8-252); PERCENT SATURATION 7.4 % (13.2-37.4); TOTAL IRON BINDING CAPACITY 379 UG/DL (250-450); TOTAL PROTEIN 6.5 GM/DL (6.4-8.2)
[2017-01-13] MEDS ORDERED: SPIRONOLACTONE 25 MG TAB PO SCH (09:00)
[2017-01-13] MEDS ORDERED: POTASSIUM CHLORIDE 10 MEQ SR TABLET PO SCH (09:00)
[2017-01-13] MEDS ORDERED: TORSEMIDE (DEMADEX) 50 MG PER 1/2 TAB PO SCH (09:00)
[2017-01-13] MEDS: PANTOPRAZOLE 40MG INJ (PROTONIX) (C9113) IV SCH (09:22)
[2017-01-13] MEDS: DOCUSATE SODIUM 100 MG CAP PO SCH (09:23)
[2017-01-13] MEDS: NEOSPORIN TOP OINT 15GM TOP SCH (09:24)
[2017-01-13] MEDS: predniSONE 10 MG TAB PO SCH (09:24)
[2017-01-13] MEDS: OCUVITE 1 TAB PO SCH (09:24)
[2017-01-13] MEDS: PARoxetine 10MG TABLET PO SCH (09:24)
[2017-01-13] MEDS: POLYVINYL ALCOHOL OPHTH SOLN 15 ML(LIQUITEARS) OU SCH (09:25)
[2017-01-13 09:45] LABS: FOLATE > 24.0 NG/ML (>5.4); VITAMIN B12 LEVEL 660 PG/ML (247-911)
[2017-01-13 11:49] LABS: ALBUMIN 3.61 GM/DL (3.29-5.55); ALBUMIN % 55.6 % (55.8-66.1); GAMMA GLOBULIN % 10.9 % (11.1-18.8)
[2017-01-15] MEDS ORDERED: metOLazone 2.5 MG TAB PO SCH (09:00)
--- NOTE | 2017-01-16 13:23 | DSES ---
DATE OF ADMISSION: 01/11/2017 DATE OF DISCHARGE: 01/13/2017 PRIMARY CARE PHYSICIAN: Dr. Uribe. DISCHARGE DIAGNOSES: Symptomatic anemia acute on chronic. Iron deficiency anemia. Possible lower gastrointestinal (GI) tract bleeding, however, patient did not have any bowel movements in the hospital. Chronic obstructive pulmonary disease (COPD). Chronic respiratory failure with hypoxia. Pulmonary hypertension. Coronary artery disease. Hyperlipidemia. Mitral regurgitation. Right sided heart failure. Gastroesophageal reflux disease (GERD). Hypothyroidism. Atrial fibrillation controlled. Diabetes. Hiatal hernia. Diastolic congestive heart failure. Pulmonary nodules and adrenal nodule. Hypokalemia replaced. History of coronary artery bypass graft (CABG). Acute blood loss anemia requiring blood transfusion. DISCHARGE MEDICATIONS: - Tylenol 650 mg every 8 hours as needed pain - albuterol ipratropium nebulizer solution every 2 hours as needed - artificial tears one drop both eyes every 12 hours as needed - Pulmicort 2.5 mg inhalation twice daily - FiberCon 625 mg by mouth daily - carboxymethylcellulose sodium solution one drop both eyes four times a day - ciclopirox cream one dose topically twice daily - Colace 100 mg by mouth twice daily - fexofenadine 180 mg at bedtime - fish oil 500 mg one capsule daily - Synthroid 75 mcg by mouth daily - milk of magnesia 30 mL daily as needed constipation - metolazone 2.5 mg twice a week - Myrbetriq 25 mg by mouth daily - nitroglycerine 0.4 mg sublingual as needed - omeprazole 40 mg by mouth daily - paroxetine 10 mg by mouth daily - Systane eye drops two drops both eyes three times daily - potassium chloride 30 mEq by mouth three times daily - prednisone 10 mg by mouth daily - Preparation H one cream per rectal daily as needed hemorrhoids - Metamucil one tablespoon full by mouth daily as needed constipation - spironolactone 25 mg by mouth daily - Striverdi Respimat 2.5 mcg two puffs inhalation daily - Theragran-N premier tablets one tablet by mouth daily - Spiriva one inhalation daily - torsemide 50 mg by mouth twice daily HOSPITAL COURSE: This is an 81-year-old female who was recently in the hospital for observation for chest pain which did not show any acute coronary events but stayed in the hospital one night and discharged on 01/10, came back to the ED on 01/11 referred by primary care physician for low hemoglobin. Patient was found to be anemic with hemoglobin and hematocrit of 7.6 and symptoms of malaise, weakness, tiredness and also had complaint of some black colored stools in the assisted living facility so the patient was admitted for symptomatic anemia, lower GI bleeding and acute blood loss anemia. Patient in the hospital did not have any bowel movement and her fecal occult blood could not be tested. Patient did say that her stools were semi-soft to hard but black in color. She did receive 2 units of blood transfusion. With that, hemoglobin and hematocrit improved and after that remained stable. Patient had an EGD a few years back, however, no documented colonoscopy seen in the system so the patient will need colonoscopy as an outpatient so the patient has been referred to Dr. Poole for outpatient colonoscopy. The EGD in 2013 showed hiatal hernia. On the day of discharge, patient was stable without any complaints, functionally at baseline so she was discharged back to the assisted living facility. Patient's lab work did suggest iron deficiency. Her vitamin B12 and folic acid levels were normal. Patient has an serum protein electrophoresis (SPEP) done which did not show any M spikes but showed increased alpha I and alpha II fractions indicative of acute inflammation. 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 PHYSICAL EXAMINATION: Vital signs: Temperature 97.6, pulse 79, respiratory rate 18, blood pressure 146/68, pulse oximetry 93% with 2 liters nasal cannula. General: Patient awake, alert, oriented times three sitting up in chair in no acute distress. HEENT: Normocephalic, atraumatic. Moist mucous membranes. Anicteric eyes. Chest: Bilateral poor air entry. No wheezing or crackles heard. Cardiovascular: S1, S2, irregular. No rub. There is a murmur present. No rub or gallop. Abdomen: Obese, soft, nontender, bowel sounds present. Extremities: Trace edema. LABORATORY DATA: WBC 10.8, hemoglobin 8.8, platelet 281. Sodium 135, potassium 3.7, chloride 96, bicarbonate 35, BUN 34, creatinine 0.85. Calcium 9.1. Iron 28, transferrin saturation 7.4, ferritin 40. Liver function tests are normal. SPEP as mentioned above. Vitamin B12 660. Folic acid greater than 24. DISPOSITION: The patient is discharged back to [facility]. DISCHARGE INSTRUCTIONS: Patient to followup with primary care provider in 1 week. Activity as tolerated. Patient to followup with Dr. Poole's office for outpatient colonoscopy. Diet as tolerated. MTDD
== END 2017-01-13 13:47 | DRG 378 ==
LOC: EDBD 15:12 → M ED 16:44 → M ED INP 21:35 → M ICU 01-12 00:05 → M MSPAV 01-12 16:36
PROVIDERS: ADMIT Internal Medicine; ATTEND Internal Medicine Nephrology
PROC: 30253N1 (ICD-10-PCS; principal; 2017-01-11)
DX: K92.2 Gastrointestinal hemorrhage, unspecified (principal); J96.11 Chronic respiratory failure with hypoxia; I50.32 Chronic diastolic (congestive) heart failure; D62 Acute posthemorrhagic anemia; I11.0 Hypertensive heart disease with heart failure; I25.10 Atherosclerotic heart disease of native coronary artery without angina pectoris; E87.6 Hypokalemia; E03.9 Hypothyroidism, unspecified; D50.9 Iron deficiency anemia, unspecified; J44.9 Chronic obstructive pulmonary disease, unspecified; I27.2 Other secondary pulmonary hypertension; I34.0 Nonrheumatic mitral (valve) insufficiency; K21.9 Gastro-esophageal reflux disease without esophagitis; E11.9 Type 2 diabetes mellitus without complications; I48.2 Chronic atrial fibrillation; K44.9 Diaphragmatic hernia without obstruction or gangrene; E78.5 Hyperlipidemia, unspecified; R91.8 Other nonspecific abnormal finding of lung field; E27.8 Other specified disorders of adrenal gland; Z88.0 Allergy status to penicillin; Z95.5 Presence of coronary angioplasty implant and graft; Z88.8 Allergy status to other drugs, medicaments and biological substances; Z91.040 Latex allergy status; Z91.048 Other nonmedicinal substance allergy status; Z79.52 Long term (current) use of systemic steroids; Z79.899 Other long term (current) drug therapy

== ENCOUNTER 2017-01-31 23:27 | Inpatient (IN) | payer MEDICARE, MEDICAID ==
[~2017-01-31] VITALS: Ht 172.7 cm; Wt 92.6 kg
[~2017-01-31 23:27] MED LIST changes: -ACET650T2 PO; +ACET650T3 PO; -ALTA10CA3 PO; +ALTA1CAP4 PO; -AVEL1TAB PO; +AVEL1TAB3 PO; +AZIT250T8 PO; -AZIT25TA PO; +BENA25TA10 PO; -BENA25TA9 PO; -COLA100C3 PO; +COLA100C5 PO; -FIBE500T2 PO; +FIBE500T5 PO; +HYDR-643 PO; -HYDR10T PO; +LEVA1TAB2 PO; -LEVA500T PO; +LEVO500T3 PO; -LEVO500T32 PO; +PAXI10TA12 PO; -PAXI10TA2 PO; +PRED10TA2 PO
[2017-02-01] VITALS (7 sets, daily range): BP systolic 120–142; BP diastolic 52–68
[2017-02-01] MEDS ORDERED: MORPHINE 2 MG/ML 1ML SYRINGE IV ONE (00:45)
[2017-02-01 01:38] LABS: ADD MANUAL DIFFER YES; MEAN CORPUSCULAR HEMOGLOBIN 24.1 pg (27.0-33.0); MEAN CORPUSCULAR HGB CONC 29.8 g/dl (32.0-36.5); MEAN CORPUSCULAR VOLUME 80.7 fl (80.0-96.0); PLATELET COUNT, AUTOMATED 393 k/mm3 (150-450); RED CELL DISTRIBUTION WIDTH 16.8 % (11.5-14.5); WHITE BLOOD COUNT 11.3 K/mm3 (4.0-10.0)
[2017-02-01 01:58] LABS: ANISOCYTOSIS 1+; HYPOCHROMASIA 2+
[2017-02-01 02:01] LABS: ANION GAP 6 MEQ/L (8-16); BLOOD UREA NITROGEN 38 MG/DL (7-18); CALCIUM LEVEL 9.2 MG/DL (8.8-10.2); CARBON DIOXIDE LEVEL 37 MEQ/L (21-32); CHLORIDE LEVEL 93 MEQ/L (98-107); CREATININE FOR GFR 0.91 MG/DL (0.55-1.02); GLOMERULAR FILTRATION RATE > 60.0 (>32); GLUCOSE, FASTING 130 MG/DL (83-110); POTASSIUM SERUM 4.1 MEQ/L (3.5-5.1); SODIUM LEVEL 136 MEQ/L (136-145)
--- NOTE | 2017-02-01 02:10 | REPUSA ---
CLINICAL HISTORY: Trauma. TECHNIQUE: Multiple axial CT images were obtained through the brain without IV contrast material. COMMENTS: 7.2 mm right periventricular white matter calcification. There is normal configuration of sella turcica. There are no intra or extra-axial collections. There is no mass effect or midline shift. There is no evidence of hematoma formation. No hydrocephalus is p resent. The ventricles are symmetrical. No abnormal calcifications are present. There is diffuse age-appropriate cerebellar and cerebral atrophy with proportionally dilated ventricl es and cortical sulci. There are bilateral periventricular and subcortical white matter hypolucencies compatible with mild c hronic microvascular disease. Otherwise, no significant focal abnormalities are seen either in the posterior fossa or supratentoria l compartment. IMPRESSION: 1. Age-appropriate cerebellar and cerebral atrophy. 2. Mild chronic microvascular disease. 3. No evidence of acute intracranial pathology. Thank you for your kind referral of this patient.
[2017-02-01] MEDS ORDERED: IPRATROPIUM 0.5MG/ALBUTEROL 2.5MG INH SOL UD 3ML (DUONEB)(J7620) NEB ONE (03:30)
[2017-02-01] MEDS ORDERED: PREPCRE PR (04:22)
[2017-02-01] MEDS ORDERED: MILKSUS PO (04:22)
[2017-02-01] MEDS ORDERED: NITR4TASL SL (04:22)
[2017-02-01] MEDS ORDERED: ALBU83IN INH (04:22)
[2017-02-01] MEDS ORDERED: [UNRECOGNIZED DRUG - CODE] TOP (04:22)
[2017-02-01] MEDS ORDERED: VITMTA PO (04:22)
[2017-02-01] MEDS ORDERED: PAXI20TA29 PO (04:22)
[2017-02-01] MEDS ORDERED: TRIP1OIN4 TOP (04:22)
[2017-02-01] MEDS ORDERED: METAMUCIL (PSYLLIUM) PACKET PO PRN (06:45)
[2017-02-01] MEDS ORDERED: MOM 30ML SUSPENSION UDC PO PRN (06:45)
[2017-02-01] MEDS ORDERED: POLYVINYL ALCOHOL OPHTH SOLN 15 ML(LIQUITEARS) OU PRN (06:45)
[2017-02-01] MEDS ORDERED: IPRATROPIUM 0.5MG/ALBUTEROL 2.5MG INH SOL UD 3ML (DUONEB)(J7620) INH PRN (06:45)
--- NOTE | 2017-02-01 06:48 | REP ---
Clinical: Trauma. Technique: AP, lateral, bilateral oblique views of the left hand. Findings: Advanced osteopenia and arthritic degenerative changes are appreciated and somewhat limit evaluation for subtle injury. No obvious acute fracture or dislocation is identified. No subcutaneous emphysema or radiodense foreign body. Impression: No obvious acute fracture dislocation. Osteopenia and degenerative changes. Signed by Amarjit Begum MD 02/01/2017 06:40 A
--- NOTE | 2017-02-01 06:50 | REP ---
Clinical: Trauma. Technique: AP, lateral, bilateral oblique views of the right elbow. Findings: Age-related osteopenia and degenerative changes are appreciated. Catheter identified in the antecubital fossa. No acute fracture dislocation. Anterior and posterior fat pads are not normal position. Impression: Degenerative changes. No acute fracture or dislocation. Signed by Amarjit Begum MD 02/01/2017 06:41 A
[2017-02-01] MEDS: LEVOTHYROXINE 75MCG TABLET (0.075MG) PO SCH (06:58)
--- NOTE | 2017-02-01 06:58 | HPE ---
DATE OF ADMISSION: 02/01/2017 PRIMARY CARE PROVIDER: Dr. Aurea Uribe ATTENDING PHYSICIAN: Dr. Pham CHIEF COMPLAINT: Fell at home. HISTORY OF PRESENT ILLNESS: The patient is an 81-year-old, white female with multiple chronic medical conditions who presented to the emergency room (ER) for evaluation for fall. History is provided by herself as well as per review of chart; however, she is a poor historian. Per the medical record, the patient had been hospitalized here recently back to 01/11/2017 due to severe anemia. On that admission, she received two units blood transfusion. She was consulted with GI. She was discharged home on 01/16/2017. On discharge, her hemoglobin/hematocrit (H/H) was 8.8/28 and she is supposed to followup with Dr. Poole for colonoscopy which is scheduled on 02/05/2017. She lives alone in an assisted living facility. Last night, she fell. It was mentioned that she may have passed out. However, she told me she did not pass out, she just fell. She was brought to the ER for further evaluation. In the ER, she was found to have some skin tags in her left arm due to the fall. Also, she was found to have worsening anemia. Her H/H was 7.3/24.6. She states she still has on and off black stool. Otherwise, no other complaints. REVIEW OF SYSTEMS: Denies fever. No chills. No headache. No blurry vision. No chest pain. No shortness of breath. No cough. No nausea. No vomiting. No abdominal pain. No diarrhea, but intermittent black stool. No tingling, numbness or weakness in the arms or lower extremities, just general weakness. All other systems reviewed, but negative. PAST MEDICAL HISTORY: 1. Chronic obstructive pulmonary disease (COPD) on 2 liters of oxygen supplement. 2. Type 2 diabetes which is diet controlled. 3. Chronic atrial fibrillation, not on anti-coagulation treatment due to GI bleed. 4. Hypothyroidism. 5. Hypertension. 6. Dyslipidemia. 7. Acid reflux. 8. Coronary artery disease status post coronary artery bypass graft. 9. Chronic diastolic congestive heart failure. PAST SURGICAL HISTORY: 1. Coronary artery bypass graft. 2. Cholecystectomy. 3. Appendectomy. 4. Hysterectomy. 5. Bilateral cataract surgery. 6. Skin cancer removal. FAMILY HISTORY: Coronary artery disease. Her son has bipolar disorder. ALLERGIES: - LATEX - PENICILLIN - RANITIDINE - CIMETIDINE MEDICATIONS: Reviewed. SOCIAL HISTORY: She lives in an assisted living facility. Remote tobacco use, quit many years. No alcohol abuse. No illicit drug abuse. Her daughter is her health care proxy. She is a full code. PHYSICAL EXAMINATION: VITALS: Temperature 98.7. Heart rate 75. Respiratory rate 25. Blood pressure 140/68. Oxygen saturation 100% on 2 liters nasal cannula. GENERAL: She is awake, alert and oriented times three, but she has poor hearing. HEENT: Atraumatic. Pupils equal round and react to light. No jaundice. Conjunctivae pale. Extraocular muscles intact. Ears, nose and throat normal except poor hearing. NECK: No jugular venous distention (JVD). No bruits. LUNGS: Decreased breath sounds, but no wheezing. No crackles. HEART: S1, S2. Irregular. No tachycardia. No murmur. ABDOMEN: Soft. Bowel sounds positive. Nontender. LOWER EXTREMITIES: No edema in bilateral lower extremities. NEUROLOGIC: Nonfocal. SKIN: No rash. PSYCHOLOGICAL: No acute psychosis. DIAGNOSTIC AND LABORATORIES: CBC with differentia: WBC 11, H/H 7.3/24.6, platelets 396. Sodium 136, potassium 4.1, BUN 30, creatinine 0.9, glucose 130. IMPRESSIONS: 1. Mechanical fall without syncope. 2. Symptomatic and worsening anemia. 3. Possible gastrointestinal (GI) bleed. 4. Chronic obstructive pulmonary disease (COPD). 5. Hypertension. 6. Coronary artery disease. 7. Type 2 diabetes. 8. Chronic atrial fibrillation. PLAN: 1. The patient will be admitted to the progressive care unit (PCU). She is going to be typed and crossed and receive 2 units blood transfusion. 2. Will follow H/H every 8 hours. She is scheduled for followup with Dr. Poole for possible scope as an outpatient. For now, will keep her nothing by mouth (n.p.o.). May consider GI consult for possible EGD in this admission. 3. Will continue her routine medications. 4. Will start her on IV Protonix 40 every 12 hours. MTDD
[2017-02-01 07:49] LABS: FERRITIN 27 NG/ML (8-252); PERCENT SATURATION 4.1 % (13.2-37.4); TOTAL IRON BINDING CAPACITY 370 UG/DL (250-450)
[2017-02-01] MEDS: TIOTROPIUM INHALER/CAPSULE (SPIRIVA) INH SCH (08:00)
[2017-02-01] MEDS: BUDESONIDE 0.5 MG/2 ML INHALATION SUSPENSION INH SCH ×2 (08:10→20:45)
[2017-02-01] MEDS: OCUVITE 1 TAB PO SCH (08:58)
[2017-02-01] MEDS: POTASSIUM CHLORIDE 10 MEQ SR TABLET PO SCH ×3 (08:59→21:14)
[2017-02-01] MEDS: SPIRONOLACTONE 25 MG TAB PO SCH (08:59)
[2017-02-01] MEDS: FIBER-CON 625 MG TAB PO SCH (08:59)
[2017-02-01] MEDS: TORSEMIDE (DEMADEX) 50 MG PER 1/2 TAB PO SCH ×2 (08:59→21:15)
[2017-02-01] MEDS: PANTOPRAZOLE 40MG INJ (PROTONIX) (C9113) IV SCH ×2 (09:00→21:13)
[2017-02-01] MEDS: predniSONE 10 MG TAB PO SCH (09:00)
[2017-02-01] MEDS ORDERED: POLYVINYL ALCOHOL OPHTH SOLN 15 ML(LIQUITEARS) OU SCH (09:00)
[2017-02-01] MEDS: metOLazone 2.5 MG TAB PO SCH (09:00)
[2017-02-01] MEDS ORDERED: TEARS NATURALE FREE OPHTH DROP VIAL OU SCH (09:00)
[2017-02-01] MEDS: PARoxetine 20 MG TAB PO SCH (09:00)
[2017-02-01] MEDS: DOCUSATE SODIUM 100 MG CAP PO SCH ×2 (09:00→21:15)
[2017-02-01] MEDS: ACETAMINOPHEN TAB 650MG DOSE (2X325MG) PO PRN (09:12)
[2017-02-01 09:16] LABS: RETIC HEMOGLOBIN CONTENT CHr 22.7 PG (24-36); RETICULOCYTE ABSOLUTE ADVIA212 113 x10(9)/L (17-77)
[2017-02-01 09:19] LABS: REASON FOR REVIEW ANEMIA / RBC MORPH
[2017-02-01 10:43] LABS: FOLATE > 24.0 NG/ML (>5.4); VITAMIN B12 LEVEL 905 PG/ML (247-911)
--- NOTE | 2017-02-01 11:34 | IPNPDOC ---
Date Seen The patient was seen on 02/01/17. Progress Note Subjective: Mrs. Coko is an 81-year-old female who presents emergency department after a fall at home. Her only complaint today is that of pain and fatigue. Her pain is because she had fallen, and she injured her right knee, right foot, and left hand. All of these are bandaged, the wounds were examined and found to be superficial tears of the skin. She states that she has been feeling significantly more fatigued for quite a while, but even more so the past few days. Today, she does admit feeling very fatigued once again, and as a matter fact she nodded off and fell asleep almost immediately after our conversation. Otherwise, she has no additional complaints and the remainder of her review of systems is negative Objective: General: Awake, alert, oriented 3. She does nod off quite quickly after our conversation however. She does complain of pain, but does not appear to be in any acute distress. HEENT: Head normocephalic, atraumatic, sclera are nonicteric. Hearing is grossly intact to conversation. Respiratory: Clear to auscultation bilaterally with no wheezes, rales, or rhonchi. This is somewhat complicated by the fact that she continues to make laryngeal noises when she intentionally takes deep breaths Cardiovascular: Irregularly irregular rhythm, variable S1 and S2. She does have a 2/6 systolic murmur. Abdomen: Obese, soft, nontender, nondistended, no hepatosplenomegaly appreciated. Bowel sounds present. Extremities: 2+ pulses in the radial and dorsalis pedis bilaterally. No evidence of clubbing or cyanosis. Her left arm, right knee, and right foot all have bandages on them. Bleeding is minimal, and the wounds appear to be superficial. Assessment: 1. Symptomatic anemia with fatigue and fall, likely etiology GI source 2. COPD on 2 L oxygen at home 3. Type 2 diabetes mellitus 4. Chronic atrial fibrillation, she is not on anticoagulation due to GI bleeding 5. Hypothyroidism 6. Hypertension 7. Dyslipidemia 8. GERD 9. Coronary artery disease 10. Chronic diastolic congestive heart failure 11. Iron deficiency 12. DVT prophylaxis with teds and sequentials Plan: I called and spoke with Dr. Poole, she was originally scheduled to be scoped on 02/05/2017, but because of her hospitalization, she will have this performed on Wednesday. We will start her on a clear liquid diet at this time, she also states that she was taking iron supplementation at home but it is not in her home med rec list, therefore she will be started on ferrous sulfate at this time as well due to low iron and symptomatic anemia. Her wounds are superficial, and bandaging per nursing is sufficient at this time, there is no excessive bleeding. She does appear to be stable at this time in regards to her GI bleeding, we'll finish off the 2 units of blood that were ordered, and continue to monitor her vital signs and will continue to check her H&H every 6 hours. My preceptor for this patient encounter was physically present in the building during the encounter and was fully available. As needed, all aspects of the patient interview, examination, medical decision making process, and medical care plan development were reviewed and approved by the preceptor. Preceptor is aware and concurs with the plan as stated in the body of this note and will attest to such by his/her cosignature. VS, I&O, 24H, Fishbone Vital Signs/I&O Vital Signs Date Time Temp Pulse Resp B/P (MAP) Pulse Ox O2 Delivery O2 Flow Rate FiO2 02/01/17 09:15 18 02/01/17 08:30 Nasal Cannula 2.0 02/01/17 08:00 98.8 83 126/59 (81) 98 Laboratory Data 24H LABS Laboratory Tests 2 02/01/17 01:23: Neutrophils 90H, Lymphocytes (Manual) 4L, Monocytes (Manual) 5, Metamyelocytes 1H, Differential Slide Review Report, Differential Pathologist's Review ANEMIA / RBC MORPH, Platelet Estimate NORMAL, Hypochromasia 2+, Anisocytosis 1+, Peripheral Blood Smear Path Consult PERIPHERAL SMEAR, Absolute Reticulocyte Count 113H, Percent Reticulocyte Count 3.80H, Reticulocyte Hgb Content (CHr) 22.7L, Anion Gap 6L, Glomerular Filtration Rate > 60.0, Blood Urea Nitrogen 38H , Creatinine 0.91, Sodium Level 136, Potassium Level 4.1, Chloride Level 93L, Carbon Dioxide Level 37H, Calcium Level 9.2, Total Creatine Kinase 23L, Iron Level 15L, Total Iron Binding Capacity 370, Transferrin % Saturation 4.1L, Ferritin 27, Creatine Kinase MB 1.1, Creatine Kinase MB Relative Index 4.78H, Troponin I 0.03, Vitamin B12 Level 905, Folate > 24.0 CBC/BMP Laboratory Tests 02/01/17 01:23 Red Blood Count 3.05 L, Mean Corpuscular Volume 80.7, Mean Corpuscular Hemoglobin 24.1 L, Mean Corpuscular Hemoglobin Concent 29.8 L, Red Cell Distribution Width 16.8 H, Calcium Level 9.2, Total Creatine Kinase 23 L GME ATTESTATION GME ATTESTATION My preceptor for this patient encounter was physically present in the building during the encounter and was fully available. As needed, all aspects of the patient interview, examination, medical decision making process, and medical care plan development were reviewed and approved by the preceptor. Preceptor is aware and concurs with the plan as stated in the body of this note and will attest to such by his/her cosignature. ATTENDING NOTE I have both independently examined this patient as well as reviewed the note. I have discussed in detail with the resident the findings and plan of treatment as documented in the residents note. I will continue to follow the patient and offer further guidance to the patients care as necessary during this hospital stay. VICKEY Alexandre MD, DO Feb 01, 2017 11:34 MAYCOL JOHNSON MD Feb 02, 2017 10:38
[2017-02-01] MEDS: SENOKOT S TAB PO SCH ×2 (12:57→21:14)
[2017-02-01] MEDS: FERROUS SULFATE 325MG TAB PO SCH ×2 (12:57→21:14)
[2017-02-01] MEDS ORDERED: FUROSEMIDE 20 MG/2 ML VIAL (J1940) IV ONE (13:00)
[2017-02-01] MEDS: POLYVINYL ALCOHOL OPHTH SOLN 15 ML(LIQUITEARS) OU SCH ×3 (13:00→21:13)
[2017-02-01] MEDS ORDERED: SLF 3 ML SYR IV PRN (21:00)
[2017-02-01] MEDS: ACETAMINOPHEN 650MG ER TAB (TYLENOL ARTHRITIS) PO PRN (21:13)
[2017-02-01] MEDS: FEXOFENADINE 60 MG TAB PO SCH (21:15)
[2017-02-01] MEDS: SLF 3 ML SYR IV SCH (21:15)
[2017-02-02] VITALS (7 sets, daily range): BP systolic 102–157; BP diastolic 52–82
[2017-02-02 05:32] LABS: MEAN CORPUSCULAR HEMOGLOBIN 26.5 pg (27.0-33.0); MEAN CORPUSCULAR HGB CONC 31.9 g/dl (32.0-36.5); MEAN CORPUSCULAR VOLUME 83.1 fl (80.0-96.0); RED CELL DISTRIBUTION WIDTH 16.5 % (11.5-14.5); WHITE BLOOD COUNT 10.7 K/mm3 (4.0-10.0)
[2017-02-02] MEDS: LEVOTHYROXINE 75MCG TABLET (0.075MG) PO SCH (05:37)
[2017-02-02] MEDS: SLF 3 ML SYR IV SCH ×3 (05:38→20:25)
[2017-02-02 05:45] LABS: ANION GAP 8 MEQ/L (8-16); BLOOD UREA NITROGEN 33 MG/DL (7-18); CALCIUM LEVEL 8.9 MG/DL (8.8-10.2); CARBON DIOXIDE LEVEL 39 MEQ/L (21-32); CHLORIDE LEVEL 91 MEQ/L (98-107); CREATININE FOR GFR 0.81 MG/DL (0.55-1.02); GLOMERULAR FILTRATION RATE > 60.0 (>32); GLUCOSE, FASTING 100 MG/DL (83-110); MAGNESIUM LEVEL 2.2 MG/DL (1.8-2.4); SODIUM LEVEL 138 MEQ/L (136-145)
[2017-02-02 06:02] LABS: POTASSIUM SERUM 2.3 MEQ/L (3.5-5.1)
[2017-02-02] MEDS: POTASSIUM CHLORIDE 10 MEQ SR TABLET PO SCH ×3 (06:26→20:24)
--- NOTE | 2017-02-02 07:22 | ECGEPIP ---
Stationary ECG Study [facility] - ED Test Date: 2017-02-01 Pat Name: MAKAYLA QUIROZ Department: Room: [place] [address] Gender: F Shoe Folder: nils : 1935 Requested By: NOBLE Gomez Order Number: [id number] Reading MD: Ruth Diaz Measurements Intervals [place] Rate: 78 P: [place]: 0 QRS: 81 QRSD: 114 T: 43 QT: 412 QTc: 470 Interpretive Statements ATRIAL FIBRILLATION PROBABLE BASELINE ARTIFACT LIMITS INTERPRETATION INCOMPLETE RIGHT BUNDLE BRANCH BLOCK MODERATE ST DEPRESSION INCREASED RATE 01/09/17 Electronically Signed On 02-02-2017 7:21:51 EDT by Ruth Diaz
[2017-02-02] MEDS ORDERED: POTASSIUM CHLORIDE 10 MEQ SR TABLET PO ONE (07:30)
[2017-02-02] MEDS: TIOTROPIUM INHALER/CAPSULE (SPIRIVA) INH SCH (08:00)
[2017-02-02] MEDS: BUDESONIDE 0.5 MG/2 ML INHALATION SUSPENSION INH SCH ×2 (08:00→19:20)
[2017-02-02] MEDS: POLYVINYL ALCOHOL OPHTH SOLN 15 ML(LIQUITEARS) OU SCH ×4 (08:42→20:25)
[2017-02-02] MEDS: PANTOPRAZOLE 40MG INJ (PROTONIX) (C9113) IV SCH ×2 (08:42→20:25)
[2017-02-02] MEDS: FIBER-CON 625 MG TAB PO SCH (08:43)
[2017-02-02] MEDS: TORSEMIDE (DEMADEX) 50 MG PER 1/2 TAB PO SCH ×2 (08:43→20:24)
[2017-02-02] MEDS: OCUVITE 1 TAB PO SCH (08:43)
[2017-02-02] MEDS: SPIRONOLACTONE 25 MG TAB PO SCH (08:44)
[2017-02-02] MEDS: SENOKOT S TAB PO SCH ×2 (08:44→20:24)
[2017-02-02] MEDS: DOCUSATE SODIUM 100 MG CAP PO SCH ×2 (08:44→20:23)
[2017-02-02] MEDS: PARoxetine 20 MG TAB PO SCH (08:44)
[2017-02-02] MEDS: predniSONE 10 MG TAB PO SCH (08:44)
[2017-02-02] MEDS: FERROUS SULFATE 325MG TAB PO SCH ×2 (08:44→20:24)
[2017-02-02] MEDS: ACETAMINOPHEN 650MG ER TAB (TYLENOL ARTHRITIS) PO PRN (09:31)
--- NOTE | 2017-02-02 11:47 | IPNPDOC ---
Date Seen The patient was seen on 02/02/17. Progress Note Subjective: Mrs. Cook is an 81-year-old female who presents emergency department after a fall at home. Her only complaint today is that of pain and fatigue. Her pain is because she had fallen, and she injured her right knee, right foot, and left hand. All of these are bandaged, the wounds were examined and found to be superficial tears of the skin. She states that she has been feeling significantly more fatigued for quite a while, but even more so the past few days. Today, she does admit feeling very fatigued once again, and as a matter fact she nodded off and fell asleep almost immediately after our conversation. Otherwise, she has no additional complaints and the remainder of her review of systems is negative Objective: General: Awake, alert, oriented 3. She does nod off quite quickly after our conversation however. She does complain of pain, but does not appear to be in any acute distress. HEENT: Head normocephalic, atraumatic, sclera are nonicteric. Hearing is grossly intact to conversation. Respiratory: Clear to auscultation bilaterally with no wheezes, rales, or rhonchi. She continues to make laryngeal noises when she intentionally takes deep breaths Cardiovascular: Irregularly irregular rhythm, variable S1 and S2. She does have a 2/6 systolic murmur. Abdomen: Obese, soft, nontender, nondistended, no hepatosplenomegaly appreciated. Bowel sounds present. Extremities: 2+ pulses in the radial and dorsalis pedis bilaterally. No evidence of clubbing or cyanosis. Her left arm, right knee, and right foot all have bandages on them. Bandages were removed, the bleeding is minimal, there is no surrounding edema or erythema. Assessment: 1. Symptomatic anemia with fatigue and fall, likely etiology GI source 2. COPD on 2 L oxygen at home 3. Type 2 diabetes mellitus 4. Chronic atrial fibrillation, she is not on anticoagulation due to GI bleeding 5. Hypothyroidism 6. Hypertension 7. Dyslipidemia 8. GERD 9. Coronary artery disease 10. Chronic diastolic congestive heart failure 11. Iron deficiency 12. DVT prophylaxis with teds and sequentials Plan: She was significantly hypokalemic this morning, supplementation has been ordered. A repeat BMP will be performed this afternoon. She should be scheduled to have endoscopy performed per Dr. Poole tomorrow, therefore I suspect he will put in orders to have her nothing by mouth after midnight, and start bowel prep today as well. Otherwise, her H&H has remained stable, she has not had any active bleeding, and her vital signs continue to be reassuring. We will continue her on a clear liquid diet for the remainder of today. My preceptor for this patient encounter was physically present in the building during the encounter and was fully available. As needed, all aspects of the patient interview, examination, medical decision making process, and medical care plan development were reviewed and approved by the preceptor. Preceptor is aware and concurs with the plan as stated in the body of this note and will attest to such by his/her cosignature. VS, I&O, 24H, Fishbone Vital Signs/I&O Vital Signs Date Time Temp Pulse Resp B/P (MAP) Pulse Ox O2 Delivery O2 Flow Rate FiO2 02/02/17 08:00 Nasal Cannula 2.0 02/02/17 08:00 75 102/75 (84) 76 108/60 (76) 02/02/17 08:00 98.1 18 95 I&O- Last 24 Hours up to 6 AM 02/02/17 05:59 Intake Total 1734 ml Output Total 2700 ml Balance -966 ml Laboratory Data 24H LABS Laboratory Tests 2 02/01/17 12:45: Total Creatine Kinase 20L, Creatine Kinase MB 1.2, Creatine Kinase MB Relative Index 6.00H, Troponin I 0.03 02/02/17 04:42: Anion Gap 8, Glomerular Filtration Rate > 60.0, Blood Urea Nitrogen 33H, Creatinine 0.81, Sodium Level 138, Potassium Level 2.3#*L, Chloride Level 91L, Carbon Dioxide Level 39H, Calcium Level 8.9, Magnesium Level 2.2 CBC/BMP Laboratory Tests 02/01/17 12:45 02/01/17 17:08 02/01/17 22:48 02/02/17 04:42 Red Blood Count 3.49 L, Mean Corpuscular Volume 83.1, Mean Corpuscular Hemoglobin 26.5 L, Mean Corpuscular Hemoglobin Concent 31.9 L, Red Cell Distribution Width 16.5 H, Calcium Level 8.9 GME ATTESTATION GME ATTESTATION My preceptor for this patient encounter was physically present in the building during the encounter and was fully available. As needed, all aspects of the patient interview, examination, medical decision making process, and medical care plan development were reviewed and approved by the preceptor. Preceptor is aware and concurs with the plan as stated in the body of this note and will attest to such by his/her cosignature. ATTENDING NOTE I have both independently examined this patient as well as reviewed the note. I have discussed in detail with the resident the findings and plan of treatment as documented in the residents note. I will continue to follow the patient and offer further guidance to the patients care as necessary during this hospital stay. VICKEY Alexandre MD, DO Feb 02, 2017 11:47 MAYCOL JOHNSON MD Feb 03, 2017 06:50
[2017-02-02] MEDS ORDERED: GOLYTELY SOLN 4000 ML BTL PO ONE (14:00)
[2017-02-02 15:24] LABS: CALCIUM LEVEL 9.1 MG/DL (8.8-10.2); CREATININE FOR GFR 0.95 MG/DL (0.55-1.02); GLOMERULAR FILTRATION RATE 59.8 (>32); POTASSIUM SERUM 3.6 MEQ/L (3.5-5.1)
[2017-02-02] MEDS ORDERED: POTASSIUM CHLORIDE 10 MEQ SR TABLET PO SCH (16:00)
--- NOTE | 2017-02-02 17:48 | REP ---
Clinical: Trauma. Fall. Technique: AP and lateral views of the bilateral tibia / fibula. Findings: Osteopenia and advanced tricompartmental osteoarthritic degenerative changes are appreciated. Diffuse bilateral soft tissue swelling at the knee is similar to prior right knee eight dated 08/17/2014. No obvious acute fracture dislocation. Atherosclerotic changes to the vasculature with evidence for prior vascular surgery. Impression: Advanced osteopenia and tricompartmental degenerative changes. Prepatellar and surrounding soft tissue swelling at the knee. No obvious acute fracture or dislocation. Signed by Amarjit Begum MD 02/02/2017 05:39 P
[2017-02-02] MEDS: FEXOFENADINE 60 MG TAB PO SCH (20:23)
[2017-02-02] MEDS: ACETAMINOPHEN TAB 650MG DOSE (2X325MG) PO PRN (20:26)
[2017-02-03 03:42] VITALS: BP 133/64
[2017-02-03] MEDS: LEVOTHYROXINE 75MCG TABLET (0.075MG) PO SCH (05:50)
[2017-02-03] MEDS: SLF 3 ML SYR IV SCH ×3 (05:53→20:46)
[2017-02-03] MEDS ORDERED: GOLYTELY SOLN 4000 ML BTL PO ONE (06:00)
[2017-02-03 06:20] LABS: ANION GAP 5 MEQ/L (8-16); BLOOD UREA NITROGEN 31 MG/DL (7-18); CALCIUM LEVEL 9.3 MG/DL (8.8-10.2); CARBON DIOXIDE LEVEL 41 MEQ/L (21-32); CHLORIDE LEVEL 94 MEQ/L (98-107); CREATININE FOR GFR 0.84 MG/DL (0.55-1.02); GLOMERULAR FILTRATION RATE > 60.0 (>32); GLUCOSE, FASTING 109 MG/DL (83-110); MAGNESIUM LEVEL 2.1 MG/DL (1.8-2.4); POTASSIUM SERUM 2.8 MEQ/L (3.5-5.1); SODIUM LEVEL 140 MEQ/L (136-145)
[2017-02-03 06:26] LABS: MEAN CORPUSCULAR HEMOGLOBIN 26.3 pg (27.0-33.0); MEAN CORPUSCULAR HGB CONC 31.1 g/dl (32.0-36.5); MEAN CORPUSCULAR VOLUME 84.5 fl (80.0-96.0); RED CELL DISTRIBUTION WIDTH 17.4 % (11.5-14.5); WHITE BLOOD COUNT 10.4 K/mm3 (4.0-10.0)
[2017-02-03] MEDS ORDERED: POTASSIUM CHLORIDE 10 MEQ SR TABLET PO ONE (06:30)
[2017-02-03] MEDS: BUDESONIDE 0.5 MG/2 ML INHALATION SUSPENSION INH SCH ×2 (07:13→20:55)
[2017-02-03] MEDS: TIOTROPIUM INHALER/CAPSULE (SPIRIVA) INH SCH (07:13)
[2017-02-03 08:00] VITALS: BP 115/77
[2017-02-03] MEDS: POLYVINYL ALCOHOL OPHTH SOLN 15 ML(LIQUITEARS) OU SCH ×4 (08:38→20:41)
[2017-02-03] MEDS: ACETAMINOPHEN 650MG ER TAB (TYLENOL ARTHRITIS) PO PRN (08:38)
[2017-02-03] MEDS: OCUVITE 1 TAB PO SCH (08:38)
[2017-02-03] MEDS: FIBER-CON 625 MG TAB PO SCH (08:38)
[2017-02-03] MEDS: TORSEMIDE (DEMADEX) 50 MG PER 1/2 TAB PO SCH ×2 (08:38→20:40)
--- NOTE | 2017-02-03 08:38 | IPNPDOC ---
Date Seen The patient was seen on 02/03/17. Progress Note Subjective: Mrs. Cook is in some pain, especially the right knee. She is requesting Tylenol this time, but otherwise does not have any complaints. She also did just have a respiratory treatment. Otherwise, she is not particularly care for the bowel prep, but she is in a good mood, and the remainder of her review of systems is negative. Objective: General: Awake, alert, oriented 3. She is in no acute distress. HEENT: Head normocephalic, atraumatic, sclera are nonicteric. Hearing is grossly intact to conversation. Respiratory: She constantly makes noises while breathing which complicates the auscultatory exam of the chest. Otherwise, she appears to be clear to auscultation bilaterally with no wheezes, rales, or rhonchi. Cardiovascular: Irregularly irregular rhythm, variable S1 and S2. She does have a 2/6 systolic murmur. Abdomen: Obese, soft, nontender, nondistended, no hepatosplenomegaly appreciated. Bowel sounds present. Extremities: 2+ pulses in the radial and dorsalis pedis bilaterally. No evidence of clubbing or cyanosis. She does have some minimal weeping from some of her bandages, but otherwise the wounds on her right foot, right knee, right elbow, left hand all appear to be healing well, there is no surrounding edema or erythema, no indication of cellulitis. Assessment: 1. Symptomatic anemia with fatigue and fall, likely etiology GI source 2. COPD on 2 L oxygen at home 3. Type 2 diabetes mellitus 4. Chronic atrial fibrillation, she is not on anticoagulation due to GI bleeding 5. Hypothyroidism 6. Hypertension 7. Dyslipidemia 8. GERD 9. Coronary artery disease 10. Chronic diastolic congestive heart failure 11. Iron deficiency 12. DVT prophylaxis with teds and sequentials Plan: She was hypokalemic once again this morning, supplementation has been ordered. She will now be on 3 times a day potassium supplement dosing. She is only taking her usual home dose of diuretics, but after review of her chart it appears that she has had multiple episodes of hypokalemia in the past, therefore we will continue her on potassium supplementation indefinitely, but will continue to check her potassium on a daily basis while she is inpatient. This will likely need outpatient follow-up. She has been taking the bowel prep as prescribed, she is almost done with it. She has been nothing by mouth since midnight in anticipation for her endoscopy per Dr. Poole today, she was an add-on, so we will most likely be performed later this afternoon. Otherwise, her H&H has remained stable, and she has not required any additional transfusions. Continue with daily dressing changes for her superficial wounds, right knee x-ray does show some mild osteopenia, however no fracture or dislocation. My preceptor for this patient encounter was physically present in the building during the encounter and was fully available. As needed, all aspects of the patient interview, examination, medical decision making process, and medical care plan development were reviewed and approved by the preceptor. Preceptor is aware and concurs with the plan as stated in the body of this note and will attest to such by his/her cosignature. VS, I&O, 24H, Fishbone Vital Signs/I&O Vital Signs Date Time Temp Pulse Resp B/P (MAP) Pulse Ox O2 Delivery O2 Flow Rate FiO2 02/03/17 03:51 Nasal Cannula 2.0 02/03/17 03:42 97.9 78 24 133/64 (87) 97 I&O- Last 24 Hours up to 6 AM 02/03/17 06:00 Intake Total 1560 ml Output Total 1100 ml Balance 460 ml Laboratory Data 24H LABS Laboratory Tests 2 02/02/17 14:49: Anion Gap 9, Glomerular Filtration Rate 59.8, Blood Urea Nitrogen 32H, Creatinine 0.95, Sodium Level 137, Potassium Level 3.6#, Chloride Level 92L, Carbon Dioxide Level 36H, Calcium Level 9.1 02/03/17 05:54: Anion Gap 5L, Glomerular Filtration Rate > 60.0, Blood Urea Nitrogen 31H, Creatinine 0.84, Sodium Level 140, Potassium Level 2.8#*L, Chloride Level 94L, Carbon Dioxide Level 41H, Calcium Level 9.3, Magnesium Level 2.1 CBC/BMP Laboratory Tests 02/02/17 11:14 02/02/17 14:49 Calcium Level 9.1 02/02/17 17:41 02/02/17 22:36 02/03/17 05:54 Red Blood Count 3.47 L, Mean Corpuscular Volume 84.5, Mean Corpuscular Hemoglobin 26.3 L, Mean Corpuscular Hemoglobin Concent 31.1 L, Red Cell Distribution Width 17.4 H, Calcium Level 9.3 GME ATTESTATION GME ATTESTATION My preceptor for this patient encounter was physically present in the building during the encounter and was fully available. As needed, all aspects of the patient interview, examination, medical decision making process, and medical care plan development were reviewed and approved by the preceptor. Preceptor is aware and concurs with the plan as stated in the body of this note and will attest to such by his/her cosignature. ATTENDING NOTE I have both independently examined this patient as well as reviewed the note. I have discussed in detail with the resident the findings and plan of treatment as documented in the residents note. I will continue to follow the patient and offer further guidance to the patients care as necessary during this hospital stay. VICKEY Alexandre MD, DO Feb 03, 2017 08:38 MAYCOL JOHNSON MD Feb 04, 2017 17:33
[2017-02-03] MEDS: SPIRONOLACTONE 25 MG TAB PO SCH (08:39)
[2017-02-03] MEDS: predniSONE 10 MG TAB PO SCH (08:39)
[2017-02-03] MEDS: SENOKOT S TAB PO SCH ×2 (08:39→20:40)
[2017-02-03] MEDS: PARoxetine 20 MG TAB PO SCH (08:39)
[2017-02-03] MEDS: FERROUS SULFATE 325MG TAB PO SCH ×2 (08:39→20:40)
[2017-02-03] MEDS: PANTOPRAZOLE 40MG INJ (PROTONIX) (C9113) IV SCH ×2 (08:39→20:39)
[2017-02-03] MEDS ORDERED: POTASSIUM CHLORIDE 10 MEQ SR TABLET PO SCH (09:00)
[2017-02-03] MEDS: POTASSIUM CHLORIDE 10 MEQ SR TABLET PO SCH ×3 (09:34→20:41)
[2017-02-03] MEDS: DOCUSATE SODIUM 100 MG CAP PO SCH ×2 (09:35→20:40)
[2017-02-03 12:00] VITALS: BP 110/76
[2017-02-03 14:17] LABS: ANION GAP 7 MEQ/L (8-16); BLOOD UREA NITROGEN 30 MG/DL (7-18); CALCIUM LEVEL 9.4 MG/DL (8.8-10.2); CARBON DIOXIDE LEVEL 42 MEQ/L (21-32); CHLORIDE LEVEL 94 MEQ/L (98-107); CREATININE FOR GFR 0.81 MG/DL (0.55-1.02); GLOMERULAR FILTRATION RATE > 60.0 (>32); GLUCOSE, FASTING 117 MG/DL (83-110); POTASSIUM SERUM 3.5 MEQ/L (3.5-5.1); SODIUM LEVEL 143 MEQ/L (136-145)
[2017-02-03] MEDS: LEVALBUTEROL 1.25 MG/0.5 ML CONCENTRATE NEB NEB ONE ×2 (14:32→14:54)
[2017-02-03] MEDS ORDERED: LEVALBUTEROL 1.25 MG/0.5 ML CONCENTRATE NEB As Ordered ONE (14:39)
[2017-02-03] MEDS ORDERED: PROPOFOL 200 MG/20 ML VIAL As Ordered ONE (14:53)
[2017-02-03] MEDS ORDERED: LIDOCAINE 2% INJ 100 MG/5 ML SDV (FOR ANES.) As Ordered ONE (14:53)
--- NOTE | 2017-02-03 15:34 | ROOR ---
Patient Name: Jaymie Cook Procedure Date: 02/03/2017 2:52 PM Date of : 1935 Age: 81 Room: [facility] Gender: Female Note Status: Finalized Procedure: Upper GI endoscopy Indications: Melena Providers: Brock Poole MD Referring MD: Aurea Uribe DO Requesting Provider: Medicines: Monitored Anesthesia Care Complications: No immediate complications. Procedure: Pre-Anesthesia Assessment: - The heart rate, respiratory rate, oxygen saturations, blood pressure, adequacy of pulmonary ventilation, and response to care were monitored throughout the procedure. The Endoscope was introduced through the mouth, and advanced to the second part of duodenum. The upper GI endoscopy was accomplished without difficulty. The patient tolerated the procedure well. Findings: The Z-line was irregular and was found 40 cm from the incisors. A small hiatal hernia was present. Diffuse mildly erythematous mucosa without bleeding was found on the greater curvature of the stomach. The exam of the duodenum was otherwise normal. Impression: - Z-line irregular, 40 cm from the incisors. - Small hiatal hernia. - Erythematous mucosa in the greater curvature. - No specimens collected. - The examination was otherwise normal. Recommendation: - Patient has a contact number available for emergencies. The signs and symptoms of potential delayed complications were discussed with the patient. Return to normal activities tomorrow. Written discharge instructions were provided to the patient. - High fiber diet. - Continue present medications. - Return patient to [facility] for ongoing care. - High fiber diet. - The findings and recommendations were discussed with the patient's family. Brock Poole MD Brock Poole MD 02/03/2017 3:33:17 PM This report has been signed electronically. Number of Addenda: 0 Note Initiated On: 02/03/2017 2:52 PM Estimated Blood Loss: Estimated blood loss: none.
--- NOTE | 2017-02-03 15:38 | ROOR ---
Patient Name: Jaymie Cook Procedure Date: 02/03/2017 2:51 PM Date of : 1935 Age: 81 Room: [facility] Gender: Female Note Status: Finalized Procedure: Total Colonoscopy to Cecum Indications: Melena, Iron deficiency anemia Providers: Brock Poole MD Referring MD: Aurea Uribe DO Requesting Provider: Medicines: Monitored Anesthesia Care Complications: No immediate complications. Procedure: Pre-Anesthesia Assessment: - The heart rate, respiratory rate, oxygen saturations, blood pressure, adequacy of pulmonary ventilation, and response to care were monitored throughout the procedure. The Colonoscope was introduced through the anus and advanced to the cecum, identified by appendiceal orifice and ileocecal valve. The colonoscopy was performed without difficulty. The patient tolerated the procedure well. The quality of the bowel preparation was fair. Findings: The perianal and digital rectal examinations were normal. Non-bleeding internal hemorrhoids were found during retroflexion. The hemorrhoids were medium-sized and Grade II (internal hemorrhoids that prolapse but reduce spontaneously). Multiple small and large-mouthed diverticula were found in the entire colon. The exam was otherwise without abnormality on direct and retroflexion views. Impression: - Preparation of the colon was fair. - Non-bleeding internal hemorrhoids. - Diverticulosis in the entire examined colon. - The examination was otherwise normal on direct and retroflexion views. - No specimens collected. - The exam was otherwise normal to the cecum. Recommendation: - Patient has a contact number available for emergencies. The signs and symptoms of potential delayed complications were discussed with the patient. Return to normal activities tomorrow. Written discharge instructions were provided to the patient. - High fiber diet. - Continue present medications. - Repeat colonoscopy for symptoms only. - Return to referring physician. - Return patient to [facility] for ongoing care. - The findings and recommendations were discussed with the patient's family. Brock Poole MD Brock Poole MD 02/03/2017 3:38:06 PM This report has been signed electronically. Number of Addenda: 0 Note Initiated On: 02/03/2017 2:51 PM Estimated Blood Loss: Estimated blood loss: none.
[2017-02-03 16:30] VITALS: BP_SYST 120; BP_SYST 121; BP_DIAS 66; BP_DIAS 70
[2017-02-03 19:39] VITALS: BP 115/58
[2017-02-03] MEDS: ACETAMINOPHEN TAB 650MG DOSE (2X325MG) PO PRN (20:40)
[2017-02-03] MEDS: FEXOFENADINE 60 MG TAB PO SCH (20:41)
[2017-02-03 23:45] VITALS: BP 139/77
[2017-02-04 03:33] VITALS: BP 120/64
[2017-02-04] MEDS: LEVOTHYROXINE 75MCG TABLET (0.075MG) PO SCH (06:11)
[2017-02-04] MEDS: SLF 3 ML SYR IV SCH ×3 (06:11→21:04)
[2017-02-04 06:17] LABS: MEAN CORPUSCULAR HEMOGLOBIN 25.8 pg (27.0-33.0); MEAN CORPUSCULAR HGB CONC 30.3 g/dl (32.0-36.5); MEAN CORPUSCULAR VOLUME 85.3 fl (80.0-96.0); RED CELL DISTRIBUTION WIDTH 17.8 % (11.5-14.5); WHITE BLOOD COUNT 9.3 K/mm3 (4.0-10.0)
[2017-02-04] MEDS: BUDESONIDE 0.5 MG/2 ML INHALATION SUSPENSION INH SCH ×2 (06:19→19:26)
[2017-02-04 06:36] LABS: ANION GAP 7 MEQ/L (8-16); BLOOD UREA NITROGEN 29 MG/DL (7-18); CALCIUM LEVEL 9.2 MG/DL (8.8-10.2); CARBON DIOXIDE LEVEL 37 MEQ/L (21-32); CHLORIDE LEVEL 96 MEQ/L (98-107); CREATININE FOR GFR 0.82 MG/DL (0.55-1.02); GLOMERULAR FILTRATION RATE > 60.0 (>32); GLUCOSE, FASTING 110 MG/DL (83-110); POTASSIUM SERUM 3.8 MEQ/L (3.5-5.1); SODIUM LEVEL 140 MEQ/L (136-145)
[2017-02-04 07:45] VITALS: BP 127/59
[2017-02-04] MEDS: TIOTROPIUM INHALER/CAPSULE (SPIRIVA) INH SCH (07:45)
[2017-02-04] MEDS: SENOKOT S TAB PO SCH ×3 (09:00→21:05)
[2017-02-04] MEDS: DOCUSATE SODIUM 100 MG CAP PO SCH ×3 (09:00→21:05)
[2017-02-04] MEDS: PANTOPRAZOLE 40MG INJ (PROTONIX) (C9113) IV SCH ×2 (10:49→21:04)
[2017-02-04] MEDS: POLYVINYL ALCOHOL OPHTH SOLN 15 ML(LIQUITEARS) OU SCH ×4 (10:49→21:04)
[2017-02-04] MEDS: OCUVITE 1 TAB PO SCH (10:50)
[2017-02-04] MEDS: POTASSIUM CHLORIDE 10 MEQ SR TABLET PO SCH ×3 (10:50→21:05)
[2017-02-04] MEDS: SPIRONOLACTONE 25 MG TAB PO SCH (10:50)
[2017-02-04] MEDS: PARoxetine 20 MG TAB PO SCH (10:50)
[2017-02-04] MEDS: FERROUS SULFATE 325MG TAB PO SCH ×2 (10:50→21:05)
[2017-02-04] MEDS: TORSEMIDE (DEMADEX) 50 MG PER 1/2 TAB PO SCH ×2 (10:50→21:05)
[2017-02-04] MEDS: predniSONE 10 MG TAB PO SCH (10:51)
[2017-02-04] MEDS ORDERED: ONDANSETRON 4MG/2ML VIAL (J2405) IV PRN (12:15)
[2017-02-04 13:30] VITALS: BP 145/68
[2017-02-04 15:45] VITALS: BP_SYST 140; BP_SYST 145; BP_SYST 153; BP_DIAS 72; BP_DIAS 76; BP_DIAS 80
[2017-02-04] MEDS: FIBER-CON 625 MG TAB PO SCH (16:15)
--- NOTE | 2017-02-04 17:52 | IPNPDOC ---
Date Seen The patient was seen on 02/04/17. Progress Note Subjective: Mrs. Cook is feeling a little bit better this morning, she admits that the pain in her knees a little better, and she is hoping to work with physical therapy today. She is not sure if she'll be able to do much, but she is going to give that a try. Otherwise, she is happy be done with her colonoscopy and eating some regular food at this time. Other than pain, the remainder of her review of systems is negative. Objective: General: Awake, alert, oriented 3. She is in no acute distress. HEENT: Head normocephalic, atraumatic, sclera are nonicteric. Hearing is grossly intact to conversation. Respiratory: Today she didn't make as much and otherwise, clear to auscultation bilaterally with no wheezes rales or rhonchi. Cardiovascular: Irregularly irregular rhythm, variable S1 and S2. She does have a 2/6 systolic murmur. Abdomen: Obese, soft, nontender, nondistended, no hepatosplenomegaly appreciated. Bowel sounds present. Extremities: 2+ pulses in the radial and dorsalis pedis bilaterally. No evidence of clubbing or cyanosis. She does have some minimal weeping from some of her bandages, but most of her wounds are developing eschar, and appear to be healing well. Assessment: 1. Symptomatic anemia with fatigue and fall, likely etiology GI source 2. COPD on 2 L oxygen at home 3. Type 2 diabetes mellitus 4. Chronic atrial fibrillation, she is not on anticoagulation due to GI bleeding 5. Hypothyroidism 6. Hypertension 7. Dyslipidemia 8. GERD 9. Coronary artery disease 10. Chronic diastolic congestive heart failure 11. Iron deficiency 12. DVT prophylaxis with teds and sequentials Plan: EGD and colonoscopy performed by Dr. Poole were largely unremarkable, and no specific etiology of the bleeding was identified, please see op report for further details. Her H&H has remained stable, we will continue to monitor this. Her potassium is within normal limits today, therefore we will continue with supplementation. She carries the diagnoses of diabetes mellitus type 2, diet controlled, but I do not see a hemoglobin A1c in the system, therefore I'll order it to determine the extent of her diabetes. Otherwise, she will need to continue working with physical therapy to improve her function, we will see how much she progresses over the next few days and this may determine whether she will be able to go home or if she'll need some sort of subacute rehabilitation. My preceptor for this patient encounter was physically present in the building during the encounter and was fully available. As needed, all aspects of the patient interview, examination, medical decision making process, and medical care plan development were reviewed and approved by the preceptor. Preceptor is aware and concurs with the plan as stated in the body of this note and will attest to such by his/her cosignature. VS, I&O, 24H, Fishbone Vital Signs/I&O Vital Signs Date Time Temp Pulse Resp B/P (MAP) Pulse Ox O2 Delivery O2 Flow Rate FiO2 02/04/17 15:45 94 145/80 (101) 100 140/76 (97) 98 153/72 (99) 02/04/17 13:30 Nasal Cannula 2.0 02/04/17 13:30 99.2 20 97 I&O- Last 24 Hours up to 6 AM 02/04/17 06:00 Intake Total 1620 ml Output Total 1150 ml Balance 470 ml Laboratory Data 24H LABS Laboratory Tests 2 02/04/17 05:56: Anion Gap 7L, Glomerular Filtration Rate > 60.0, Estimated Mean Plasma Glucose 137H, Hemoglobin A1c 6.4H, Blood Urea Nitrogen 29H, Creatinine 0.82, Sodium Level 140, Potassium Level 3.8, Chloride Level 96L, Carbon Dioxide Level 37H, Calcium Level 9.2, Magnesium Level 2.0 CBC/BMP Laboratory Tests 02/04/17 05:56 Red Blood Count 3.40 L, Mean Corpuscular Volume 85.3, Mean Corpuscular Hemoglobin 25.8 L, Mean Corpuscular Hemoglobin Concent 30.3 L, Red Cell Distribution Width 17.8 H, Calcium Level 9.2 GME ATTESTATION GME ATTESTATION My preceptor for this patient encounter was physically present in the building during the encounter and was fully available. As needed, all aspects of the patient interview, examination, medical decision making process, and medical care plan development were reviewed and approved by the preceptor. Preceptor is aware and concurs with the plan as stated in the body of this note and will attest to such by his/her cosignature. ATTENDING NOTE I have both independently examined this patient as well as reviewed the note. I have discussed in detail with the resident the findings and plan of treatment as documented in the residents note. I will continue to follow the patient and offer further guidance to the patients care as necessary during this hospital stay. VICKEY Alexandre MD, DO Feb 04, 2017 17:51 MAYCOL JOHNSON MD Feb 05, 2017 15:45
[2017-02-04] MEDS: FEXOFENADINE 60 MG TAB PO SCH (21:05)
[2017-02-04] MEDS: ACETAMINOPHEN 650MG ER TAB (TYLENOL ARTHRITIS) PO PRN (21:44)
[2017-02-04 22:00] VITALS: BP 149/67
[2017-02-05 02:00] VITALS: BP 134/61
[2017-02-05] MEDS: SLF 3 ML SYR IV SCH (05:51)
[2017-02-05] MEDS: LEVOTHYROXINE 75MCG TABLET (0.075MG) PO SCH (05:51)
[2017-02-05 06:00] VITALS: BP 133/87
[2017-02-05 06:54] LABS: MEAN CORPUSCULAR HGB CONC 30.5 g/dl (32.0-36.5); MEAN CORPUSCULAR VOLUME 85.4 fl (80.0-96.0); RED CELL DISTRIBUTION WIDTH 17.8 % (11.5-14.5); WHITE BLOOD COUNT 9.4 K/mm3 (4.0-10.0)
[2017-02-05 06:56] LABS: ANION GAP 5 MEQ/L (8-16); BLOOD UREA NITROGEN 34 MG/DL (7-18); CALCIUM LEVEL 9.5 MG/DL (8.8-10.2); CARBON DIOXIDE LEVEL 37 MEQ/L (21-32); CHLORIDE LEVEL 98 MEQ/L (98-107); CREATININE FOR GFR 0.87 MG/DL (0.55-1.02); GLOMERULAR FILTRATION RATE > 60.0 (>32); GLUCOSE, FASTING 121 MG/DL (83-110); MAGNESIUM LEVEL 2.3 MG/DL (1.8-2.4); POTASSIUM SERUM 4.5 MEQ/L (3.5-5.1); SODIUM LEVEL 140 MEQ/L (136-145)
[2017-02-05] MEDS: TIOTROPIUM INHALER/CAPSULE (SPIRIVA) INH SCH (07:33)
[2017-02-05] MEDS: BUDESONIDE 0.5 MG/2 ML INHALATION SUSPENSION INH SCH (07:33)
[2017-02-05] MEDS ORDERED: OMEPRAZOLE 20 MG CAP PO SCH (09:00)
[2017-02-05 10:00] VITALS: BP 150/75
[2017-02-05] MEDS: TORSEMIDE (DEMADEX) 50 MG PER 1/2 TAB PO SCH (10:29)
[2017-02-05] MEDS: FIBER-CON 625 MG TAB PO SCH (10:29)
[2017-02-05] MEDS: PARoxetine 20 MG TAB PO SCH (10:30)
[2017-02-05] MEDS: predniSONE 10 MG TAB PO SCH (10:30)
[2017-02-05] MEDS: POTASSIUM CHLORIDE 10 MEQ SR TABLET PO SCH (10:30)
[2017-02-05] MEDS: SPIRONOLACTONE 25 MG TAB PO SCH (10:30)
[2017-02-05] MEDS: OCUVITE 1 TAB PO SCH (10:30)
[2017-02-05] MEDS: SENOKOT S TAB PO SCH (10:30)
[2017-02-05] MEDS: POLYVINYL ALCOHOL OPHTH SOLN 15 ML(LIQUITEARS) OU SCH (10:31)
[2017-02-05] MEDS: FERROUS SULFATE 325MG TAB PO SCH (10:31)
[2017-02-05] MEDS: metOLazone 2.5 MG TAB PO SCH (10:31)
[2017-02-05] MEDS ORDERED: FERR1TAB8 PO (10:43)
[2017-02-05] MEDS ORDERED: POTA10CA PO (10:43)
[2017-02-05] MEDS ORDERED: POTA20TA PO (10:57)
--- NOTE | 2017-02-05 17:13 | DS.PDOC ---
Discharge Summary General Date of Admission Feb 01, 2017 at 03:39 Date of Discharge 02/05/2017 Discharge Summary PRIMARY CARE PHYSICIAN: Dr. Aurea Uribe ATTENDING AT TIME OF DISCHARGE: Dr. Maycol Johnson DISCHARGE DIAGNOS(E)S: HPI & HOSPITAL COURSE: Miss Cook is an 81-year-old female who presented to the hospital after she sustained a fall from standing height. [place] [facility] was hospitalized only a few months ago for anemia, and she was scheduled for a follow-up colonoscopy which was scheduled for only a few days after her admission to the hospital. Apparently, she was at home, feeling significantly fatigued for days, and she is still up to go into the kitchen and fell down due to severe fatigue. She did not lose consciousness. She did sustain multiple superficial abrasions because she fell onto her scooter. She was treated with 2 units of blood upon admission, and her H&H has remained stable throughout her hospitalization. She did receive an EGD and colonoscopy per Dr. Poole during her hospitalization, and no definite etiology for her bleeding was discovered. She also did have a few episodes of hypokalemia, therefore she was started on potassium supplementation. Otherwise, she is medically stable for discharge at this time, but does require additional rehabilitation from her injuries from fall. She is in good spirits again today. Once again, her entire review of systems is negative with the exception of pain at the sites that she injured when she fell , mostly in the right knee. PHYSICAL EXAMINATION ON DISCHARGE: GENERAL: Awake, alert, oriented 3. She is in no apparent distress. CARDIOVASCULAR EXAMINATION: Irregularly irregular with variable S1 and S2 as well as a systolic murmur that varies in intensity, but could be considered 1-2/ 6. RESPIRATORY EXAMINATION: Difficult to assess as she continually makes noises when she breathes, however he does appear to be clear to auscultation throughout. She continues to wear 2 L nasal cannula oxygen, which is her home dose. ABDOMINAL EXAMINATION: Soft, nontender, nondistended. Bowel sounds present. EXTREMITIES: Multiple superficial abrasions located on her right foot, right knee, right elbow, left hand. There is some minimal serosanguineous drainage from a few of these, but most are healing well. There is no erythema or surrounding edema on any of them. DISPOSITION: To [facility] short-term rehabilitation DISCHARGE INSTRUCTIONS: Follow-up with rehabilitation doctor upon transfer. Recommend a 2 g sodium diet , but also remember that she is a diet-controlled diabetic. Activity, out of bed ad nickolas. with assist. If symptoms return, or if you experience worsening of your symptoms, please call your doctor or return to the emergency department. ITEMS THAT NEED OUTPATIENT FOLLOWUP: She will need a follow-up BMP for hypokalemia as well as a follow-up H&H to recheck anemia within the next 4-7 days. My preceptor for this patient encounter was physically present in the building during the encounter and was fully available. As needed, all aspects of the patient interview, examination, medical decision making process, and medical care plan development were reviewed and approved by the preceptor. Preceptor is aware and concurs with the plan as stated in the body of this note and will attest to such by his/her cosignature. Vital Signs/I&Os Vital Signs Date Time Temp Pulse Resp B/P (MAP) Pulse Ox O2 Delivery O2 Flow Rate FiO2 02/05/17 10:30 Nasal Cannula 2.0 02/05/17 10:00 98.0 80 21 150/75 (100) 94 I&O- Last 24 Hours up to 6 AM 02/05/17 06:00 Intake Total 1410 ml Output Total 2550 ml Balance -1140 ml Laboratory Data Labs 24H Laboratory Tests 2 02/05/17 05:46: Anion Gap 5L, Glomerular Filtration Rate > 60.0, Blood Urea Nitrogen 34H, Creatinine 0.87, Sodium Level 140, Potassium Level 4.5, Chloride Level 98, Carbon Dioxide Level 37H, Calcium Level 9.5, Magnesium Level 2.3 CBC/BMP Laboratory Tests 02/05/17 05:46 Red Blood Count 3.29 L, Mean Corpuscular Volume 85.4, Mean Corpuscular Hemoglobin 26.0 L, Mean Corpuscular Hemoglobin Concent 30.5 L, Red Cell Distribution Width 17.8 H, Calcium Level 9.5 Discharge Medications Scheduled (Theragran-M Premier 50 Pl) 1 Tab Tab, 1 TAB PO DAILY, (Reported) (Fish Oil 500 mg) 1 Cap Cap, 1 CAP PO DAILY, (Reported) (Striverdi Respimat) 2.5 Mcg/Act Aer, 2 PUFFS INH DAILY, (Reported) Budesonide (Pulmicort) 0.5 Mg/2 Ml Andree, 0.5 MG INH BID, (Reported) Calcium Polycarbophil (Fibercon) 625 Mg Tab, 625 MG PO DAILY, (Reported) Carboxymethylcellulose Sodium (Refresh Plus) 1 Ea Heraclio, 1 DROP OU QID, (Reported) Docusate Sodium (Colace) 100 Mg Cap, 100 MG PO BID, (Reported) Ferrous Sulfate (Ferrous Sulfate) 325 Mg Tab, 325 MG PO BID Fexofenadine Hydrochloride (Alisson Allergy) 180 Mg Tab, 180 MG PO QHS, ( Reported) Levothyroxine Sodium (Synthroid) 75 Mcg Tab, 75 MCG PO QAM, (Reported) Metolazone (Metolazone) 2.5 Mg Tab, 2.5 MG PO 2XW, (Reported) MON & FRI Mirabegron Base (Myrbetriq) 25 Mg Tab, 25 MG PO DAILY, (Reported) Multivitamins *[facility] STOCKED* (Thera M Plus *[facility] STOCKED*) 1 Tab Tab, 1 TAB PO DAILY, (Reported) Neomycin/Polymyx/Bacitr (Triple Antibiotic 3.5-400-5000) 30 Gm Oin, 30 GM TOP BID, (Reported) APPLIED TO NOSE Omeprazole (Omeprazole) 40 Mg Cap, 40 MG PO DAILY, (Reported) Paroxetine Hydrochloride (Paxil) 20 Mg Tab, 20 MG PO DAILY, (Reported) Polyethylene Glycol (Systane 0.4-0.3 %) 15 Ml Heraclio, 2 DROP OU TID, (Reported) Potassium Chloride (Klor-Con M10) 10 Meq Tabcr, 30 MEQ PO TID, (Reported) Potassium Chloride (Klor-Con M20) 20 Meq Tabcr, 40 MEQ PO DAILY Prednisone (Prednisone) 10 Mg Tab, 10 MG PO DAILY, (Reported) Spironolactone (Spironolactone) 25 Mg Tab, 25 MG PO DAILY, (Reported) Tiotropium [place] Monohydrate (Spiriva Handihaler) 5 Inhalation/Inhaler Powd, 1 INHALATION INH DAILY, (Reported) PATIENT SELF ADMINISTERS Torsemide (Torsemide) 100 Mg Tab, 50 MG PO BID, (Reported) Scheduled PRN (Artificial Tears 0.1-0.3 %) 1 Heraclio Heraclio, 1 DROP OU Q2H PRN for DRY EYES, ( Reported) (Preparation H 1-0.25-14.4-15 %) 1 Cre Cre, 1 CRE [place] DAILY PRN for HEMORRHOIDS, (Reported) (Ciclodan) 0.77 % Cre, 0.77 % TOP BID PRN for RASH, (Reported) (Preparation H 1-0.25-14.4-15 %) 1 Cre Cre, 1 CRE [place] DAILY PRN for HEMORRHOIDS, (Reported) Acetaminophen (Acetaminophen ER) 650 Mg Tab, 650 MG PO Q8H PRN for PAIN, ( Reported) Albuterol Sulfate (Albuterol Sulfate) 2.5 Mg/3 Ml Nebu, 2.5 MG INH Q2H PRN for SOB/WHEEZING, (Reported) Albuterol/Ipratropium (Ipratropium [place]/Albut 0.5-2.5 (3) mg/3Ml) 1 Heraclio Heraclio, 1 HERACLIO INH Q6H PRN for SHORTNESS OF BREATH, (Reported) Magnesium Hydroxide (Milk of Magnesia 400 mg/5Ml) 1 Andree Andree, 30 ML PO DAILYPRN PRN for CONSTIPATION, (Reported) Milk Of Magnesia (Milk of Magnesia) 1,200 Mg/15 Ml Andree, 30 ML PO DAILY PRN for CONSTIPATION, (Reported) Nitroglycerin (Nitrostat) 0.4 Mg Subl, 0.4 MG SL Q5MP PRN for CHEST PAIN, ( Reported) Nitroglycerin (Nitrostat) 0.4 Mg Subl, 0.4 MG SL Q5MP PRN for ANGINA, (Reported) Psyllium (Metamucil) 48.57 % Pow, 1 TBS PO DAILY PRN for CONSTIPATION, (Reported ) Allergies Coded Allergies: Cimetidine (Verified Allergy, Intermediate, HIVES, 01/11/17) Latex (Verified Allergy, Intermediate, RASH, 01/11/17) Penicillins (Verified Allergy, Intermediate, HIVES, 01/11/17) Atorvastatin (Verified Allergy, Unknown, 11/07/16) PERFUMES (Verified Allergy, Unknown, 10/08/04) Ranitidine (Unverified Adverse Reaction, Mild, CRAWLING SENSATION, 01/11/17 ) GME ATTESTATION GME ATTESTATION My preceptor for this patient encounter was physically present in the building during the encounter and was fully available. As needed, all aspects of the patient interview, examination, medical decision making process, and medical care plan development were reviewed and approved by the preceptor. Preceptor is aware and concurs with the plan as stated in the body of this note and will attest to such by his/her cosignature. ATTENDING NOTE I have both independently examined this patient as well as reviewed the note. I have discussed in detail with the resident the findings and plan of treatment as documented in the residents note. I will continue to follow the patient and offer further guidance to the patients care as necessary during this hospital stay. VICKEY Alexandre MD, DO Feb 05, 2017 17:13 MAYCOL JOHNSON MD Feb 07, 2017 06:49
== END 2017-02-05 12:35 | DRG 812 ==
LOC: EDBD 23:27 → M ED 23:27 → M ED INP 02-01 03:39 → M PCU 02-01 04:57 → M MSPAV 02-04 13:16
PROVIDERS: ADMIT Hospitalist; ATTEND Hospitalist
PROC: 30253N1 (ICD-10-PCS; 2017-02-01)
PROC: 0DJD8ZZ Inspection of Lower Intestinal Tract, Via Natural or Artificial Opening Endoscopic (ICD-10-PCS; 2017-02-03)
PROC: 0DJ08ZZ Inspection of Upper Intestinal Tract, Via Natural or Artificial Opening Endoscopic (ICD-10-PCS; principal; 2017-02-03 14:30)
DX: D64.9 Anemia, unspecified (principal); I50.32 Chronic diastolic (congestive) heart failure; K92.2 Gastrointestinal hemorrhage, unspecified; J44.9 Chronic obstructive pulmonary disease, unspecified; I11.0 Hypertensive heart disease with heart failure; I25.10 Atherosclerotic heart disease of native coronary artery without angina pectoris; E11.9 Type 2 diabetes mellitus without complications; I48.2 Chronic atrial fibrillation; E87.6 Hypokalemia; K57.90 Diverticulosis of intestine, part unspecified, without perforation or abscess without bleeding; K44.9 Diaphragmatic hernia without obstruction or gangrene; R53.83 Other fatigue; K64.1 Second degree hemorrhoids; M85.861 Other specified disorders of bone density and structure, right lower leg; E03.9 Hypothyroidism, unspecified; E78.5 Hyperlipidemia, unspecified; K21.9 Gastro-esophageal reflux disease without esophagitis; Z95.1 Presence of aortocoronary bypass graft; Z99.81 Dependence on supplemental oxygen; Z85.828 Personal history of other malignant neoplasm of skin; Z91.040 Latex allergy status; Z88.8 Allergy status to other drugs, medicaments and biological substances; Z87.891 Personal history of nicotine dependence

== ENCOUNTER → 2017-02-09 | Outpatient (REF) ==
[~2017-02-09] MED LIST changes: +ACET50TAOT PO; +BACI50OI TOP; +DULC10SU2 PR; +ESCI10TA2 PO; +FERR1TAB8 PO; +MILKSUS PO; +PAXI20TA29 PO; +POTA20TA PO; +PREPPAD EXT; +SPIR12.9 INH; +VITMTA PO
[2017-02-09 11:51] LABS: MEAN CORPUSCULAR HGB CONC 30.2 g/dl (32.0-36.5); RED CELL DISTRIBUTION WIDTH 18.4 % (11.5-14.5)
[2017-02-09 13:15] LABS: CALCIUM LEVEL 9.9 MG/DL (8.8-10.2); CREATININE FOR GFR 1.13 MG/DL (0.55-1.02)
== END ==
PROVIDERS: ATTEND Internal Medicine
DX: D64.9 Anemia, unspecified (principal)

== ENCOUNTER → 2017-02-12 | Outpatient (REF) ==
[2017-02-12 11:16] LABS: MEAN CORPUSCULAR HEMOGLOBIN 26.3 pg (27.0-33.0); MEAN CORPUSCULAR VOLUME 84.7 fl (80.0-96.0); RED CELL DISTRIBUTION WIDTH 18.3 % (11.5-14.5); WHITE BLOOD COUNT 10.5 K/mm3 (4.0-10.0)
[2017-02-12 11:32] LABS: CALCIUM LEVEL 9.8 MG/DL (8.8-10.2); CREATININE FOR GFR 0.98 MG/DL (0.55-1.02); GLOMERULAR FILTRATION RATE 57.7 (>32); POTASSIUM SERUM 3.8 MEQ/L (3.5-5.1)
== END ==
PROVIDERS: ATTEND Internal Medicine
DX: D64.9 Anemia, unspecified (principal); I50.9 Heart failure, unspecified

== ENCOUNTER → 2017-02-16 | Outpatient (REF) ==
[2017-02-16 09:32] LABS: MEAN CORPUSCULAR HEMOGLOBIN 26.4 pg (27.0-33.0); MEAN CORPUSCULAR HGB CONC 31.1 g/dl (32.0-36.5); MEAN CORPUSCULAR VOLUME 84.9 fl (80.0-96.0); RED CELL DISTRIBUTION WIDTH 18.9 % (11.5-14.5); WHITE BLOOD COUNT 12.2 K/mm3 (4.0-10.0)
[2017-02-16 10:04] LABS: ANION GAP 13 MEQ/L (8-16); BLOOD UREA NITROGEN 64 MG/DL (7-18); CALCIUM LEVEL 10.1 MG/DL (8.8-10.2); CARBON DIOXIDE LEVEL 32 MEQ/L (21-32); CHLORIDE LEVEL 89 MEQ/L (98-107); CREATININE FOR GFR 0.94 MG/DL (0.55-1.02); GLOMERULAR FILTRATION RATE > 60.0 (>32); GLUCOSE, FASTING 138 MG/DL (83-110); POTASSIUM SERUM 3.7 MEQ/L (3.5-5.1); SODIUM LEVEL 134 MEQ/L (136-145)
== END ==
PROVIDERS: ATTEND Internal Medicine
DX: D64.9 Anemia, unspecified (principal); I50.9 Heart failure, unspecified

== ENCOUNTER → 2017-02-23 | Outpatient (REF) | PROVIDERS: ATTEND Internal Medicine | DX: D64.9 Anemia, unspecified (principal); I50.9 Heart failure, unspecified ==

== ENCOUNTER → 2017-03-02 | Outpatient (REF) ==
[2017-03-02 12:46] LABS: MEAN CORPUSCULAR HEMOGLOBIN 28.5 pg (27.0-33.0); MEAN CORPUSCULAR HGB CONC 31.9 g/dl (32.0-36.5); MEAN CORPUSCULAR VOLUME 89.3 fl (80.0-96.0); RED CELL DISTRIBUTION WIDTH 20.4 % (11.5-14.5); WHITE BLOOD COUNT 10.8 K/mm3 (4.0-10.0)
== END ==
PROVIDERS: ATTEND Internal Medicine
DX: D64.9 Anemia, unspecified (principal)

== ENCOUNTER → 2017-03-09 | Outpatient (REF) ==
[2017-03-09 11:03] LABS: MEAN CORPUSCULAR HEMOGLOBIN 28.2 pg (27.0-33.0); RED CELL DISTRIBUTION WIDTH 21.5 % (11.5-14.5); WHITE BLOOD COUNT 10.9 K/mm3 (4.0-10.0)
== END ==
PROVIDERS: ATTEND Internal Medicine
DX: D64.9 Anemia, unspecified (principal)

== ENCOUNTER → 2017-03-11 | Outpatient (REF) ==
[2017-03-11 12:06] LABS: MEAN CORPUSCULAR HEMOGLOBIN 28.1 pg (27.0-33.0); MEAN CORPUSCULAR HGB CONC 31.5 g/dl (32.0-36.5); MEAN CORPUSCULAR VOLUME 89.3 fl (80.0-96.0); RED CELL DISTRIBUTION WIDTH 21.2 % (11.5-14.5); WHITE BLOOD COUNT 10.6 K/mm3 (4.0-10.0)
[2017-03-11 12:22] LABS: ANION GAP 8 MEQ/L (8-16); BLOOD UREA NITROGEN 29 MG/DL (7-18); CALCIUM LEVEL 8.7 MG/DL (8.8-10.2); CARBON DIOXIDE LEVEL 34 MEQ/L (21-32); CHLORIDE LEVEL 98 MEQ/L (98-107); GLOMERULAR FILTRATION RATE > 60.0 (>32); GLUCOSE, FASTING 132 MG/DL (83-110); POTASSIUM SERUM 4.4 MEQ/L (3.5-5.1); SODIUM LEVEL 140 MEQ/L (136-145)
[2017-03-11 16:08] LABS: FERRITIN 75 NG/ML (8-252); PERCENT SATURATION 9.3 % (13.2-45.0); TOTAL IRON BINDING CAPACITY 321 UG/DL (250-450)
== END ==
PROVIDERS: ATTEND Internal Medicine
DX: D64.9 Anemia, unspecified (principal)

== ENCOUNTER → 2017-03-16 | Outpatient (REF) ==
[2017-03-16 12:40] LABS: MEAN CORPUSCULAR HGB CONC 30.8 g/dl (32.0-36.5); RED CELL DISTRIBUTION WIDTH 20.9 % (11.5-14.5); WHITE BLOOD COUNT 13.4 K/mm3 (4.0-10.0)
== END ==
PROVIDERS: ATTEND Internal Medicine
DX: D64.9 Anemia, unspecified (principal)

== ENCOUNTER 2017-03-17 12:51 | Outpatient (CLI) | payer MEDICAID, MEDICARE ==
[~2017-03-17] VITALS: Ht 170.2 cm; Wt 90.6 kg
[~2017-03-17 12:51] MED LIST changes: -ACET50TAOT PO; +ACETAMINOPHEN TAB 650MG DOSE (2X325MG) PO SCH; -BACI50OI TOP; -DULC10SU2 PR; -ESCI10TA2 PO; -PREPPAD EXT; -SPIR12.9 INH; +diphenhydrAMINE 25 MG CAP PO SCH
[2017-03-17 13:15] VITALS: BP 127/78
[2017-03-17] MEDS ORDERED: TORSEMIDE 20 MG TAB PO ONE ×2 (14:00→22:00)
[2017-03-18 05:19] VITALS: BP 132/80
--- NOTE | 2017-03-18 19:57 | ECGEPIP ---
Stationary ECG Study 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
== END 2017-03-18 06:42 ==
LOC: M OPCLI4PV 12:51 → M MSPAV 12:55 → M OPCLI4PV 03-18 06:42
PROVIDERS: ATTEND Internal Medicine
DX: D64.9 Anemia, unspecified (principal); Z88.8 Allergy status to other drugs, medicaments and biological substances; Z88.0 Allergy status to penicillin; Z91.040 Latex allergy status; Z91.048 Other nonmedicinal substance allergy status; Z79.899 Other long term (current) drug therapy

== ENCOUNTER → 2017-03-17 | Outpatient (REF) ==
[2017-03-17 11:32] LABS: MEAN CORPUSCULAR HGB CONC 30.4 g/dl (32.0-36.5); MEAN CORPUSCULAR VOLUME 92.2 fl (80.0-96.0); WHITE BLOOD COUNT 13.5 K/mm3 (4.0-10.0)
== END ==
PROVIDERS: ATTEND Internal Medicine
DX: D64.9 Anemia, unspecified (principal); E03.9 Hypothyroidism, unspecified; R53.83 Other fatigue

== ENCOUNTER → 2017-03-18 | Outpatient (REF) ==
[~2017-03-18] MED LIST changes: +ACET50TAOT PO; -ACETAMINOPHEN TAB 650MG DOSE (2X325MG) PO SCH; +BACI50OI TOP; +DULC10SU2 PR; +ESCI10TA2 PO; +PREPPAD EXT; +SPIR12.9 INH; -diphenhydrAMINE 25 MG CAP PO SCH
[2017-03-18 14:27] LABS: MEAN CORPUSCULAR HEMOGLOBIN 28.2 pg (27.0-33.0); MEAN CORPUSCULAR VOLUME 88.3 fl (80.0-96.0); RED CELL DISTRIBUTION WIDTH 19.8 % (11.5-14.5)
== END ==
PROVIDERS: ATTEND Internal Medicine
DX: D64.9 Anemia, unspecified (principal)

== ENCOUNTER → 2017-03-23 | Outpatient (REF) | payer MEDICAID, MEDICARE ==
[2017-03-23 14:07] LABS: MEAN CORPUSCULAR HEMOGLOBIN 28.7 pg (27.0-33.0); MEAN CORPUSCULAR HGB CONC 30.7 g/dl (32.0-36.5); MEAN CORPUSCULAR VOLUME 93.3 fl (80.0-96.0); RED CELL DISTRIBUTION WIDTH 18.5 % (11.5-14.5); WHITE BLOOD COUNT 13.5 K/mm3 (4.0-10.0)
== END ==
PROVIDERS: ATTEND Internal Medicine
DX: D64.9 Anemia, unspecified (principal)

== ENCOUNTER → 2017-03-30 | Outpatient (REF) ==
[2017-03-30 10:36] LABS: MEAN CORPUSCULAR HEMOGLOBIN 28.9 pg (27.0-33.0); MEAN CORPUSCULAR HGB CONC 31.6 g/dl (32.0-36.5); MEAN CORPUSCULAR VOLUME 91.7 fl (80.0-96.0); WHITE BLOOD COUNT 11.4 K/mm3 (4.0-10.0)
== END ==
PROVIDERS: ATTEND Internal Medicine
DX: D64.9 Anemia, unspecified (principal)

== ENCOUNTER → 2017-04-06 | Outpatient (REF) ==
[2017-04-06 11:25] LABS: MEAN CORPUSCULAR HEMOGLOBIN 29.2 pg (27.0-33.0); MEAN CORPUSCULAR VOLUME 91.4 fl (80.0-96.0); RED CELL DISTRIBUTION WIDTH 19.3 % (11.5-14.5); WHITE BLOOD COUNT 12.6 K/mm3 (4.0-10.0)
== END ==
PROVIDERS: ATTEND Internal Medicine
DX: D64.9 Anemia, unspecified (principal)

== ENCOUNTER → 2017-04-13 | Outpatient (REF) ==
[2017-04-13 11:00] LABS: MEAN CORPUSCULAR HEMOGLOBIN 29.8 pg (27.0-33.0); MEAN CORPUSCULAR HGB CONC 31.8 g/dl (32.0-36.5); MEAN CORPUSCULAR VOLUME 93.8 fl (80.0-96.0); RED CELL DISTRIBUTION WIDTH 18.8 % (11.5-14.5); WHITE BLOOD COUNT 11.9 K/mm3 (4.0-10.0)
== END ==
PROVIDERS: ATTEND Internal Medicine
DX: D64.9 Anemia, unspecified (principal)

== ENCOUNTER → 2017-04-20 | Outpatient (REF) ==
[2017-04-20 10:29] LABS: MEAN CORPUSCULAR HEMOGLOBIN 29.7 pg (27.0-33.0); MEAN CORPUSCULAR HGB CONC 32.4 g/dl (32.0-36.5); MEAN CORPUSCULAR VOLUME 91.9 fl (80.0-96.0); RED CELL DISTRIBUTION WIDTH 18.2 % (11.5-14.5); WHITE BLOOD COUNT 10.7 K/mm3 (4.0-10.0)
== END ==
PROVIDERS: ATTEND Internal Medicine
DX: D64.9 Anemia, unspecified (principal)

== ENCOUNTER 2017-04-30 08:00 | Inpatient (IN) | payer MEDICARE, MEDICAID ==
[~2017-04-30] VITALS: Ht 172.7 cm; Wt 92.6 kg
[~2017-04-30 08:00] MED LIST changes: -ACET50TAOT PO; -BACI50OI TOP; -DULC10SU2 PR; -ESCI10TA2 PO; -PREPPAD EXT; -SPIR12.9 INH
[2017-04-30] MEDS ORDERED: IPRATROPIUM 0.5MG/ALBUTEROL 2.5MG INH SOL UD 3ML (DUONEB)(J7620) NEB ONE (08:15)
[2017-04-30] MEDS ORDERED: ALBUTEROL SULFATE 2.5 MG/0.5 ML INH NEB SOLN INH ONE (08:15)
[2017-04-30] MEDS ORDERED: methylPREDNISolone INJ 125 MG/2 ML VIAL (J2930) IV ONE (08:15)
[2017-04-30 08:29] LABS: ABG BASE EXCESS 12.5 (-2.0-2.0); ABG HCO3 38.9 MEQ/L (22.0-26.0); ABG PARTIAL PRESSURE O2 116.1 mmHg (75.0-100.0); ABG STANDARD HCO3 36.2 MEQ/L (22.0-26.0); ABG TOTAL CO2 40.8 MEQ/L (23.0-31.0)
[2017-04-30 08:33] LABS: ABG PARTIAL PRESSURE CO2 61.4 mmHg (35.0-45.0)
[2017-04-30 08:45] LABS: MEAN CORPUSCULAR HEMOGLOBIN 28.8 pg (27.0-33.0); MEAN CORPUSCULAR HGB CONC 29.4 g/dl (32.0-36.5); MEAN CORPUSCULAR VOLUME 98.1 fl (80.0-96.0); PLATELET COUNT, AUTOMATED 252 10^3/uL (150-450); RED CELL DISTRIBUTION WIDTH 19.3 % (11.5-14.5); WHITE BLOOD COUNT 15.5 10^3/uL (4.0-10.0)
[2017-04-30] MEDS ORDERED: BACI50OI TOP (08:45)
[2017-04-30] MEDS ORDERED: ACET50TAOT PO ×2 (08:45)
[2017-04-30] MEDS ORDERED: MICR10CA PO (08:45)
[2017-04-30] MEDS ORDERED: ESCI10TA2 PO (08:45)
[2017-04-30 08:49] LABS: ADD MANUAL DIFFER YES; DIFF SLIDE NUMBER 139
[2017-04-30] MEDS ORDERED: SPIR12.9 INH (08:49)
[2017-04-30 08:56] LABS: INR 0.94
--- NOTE | 2017-04-30 08:56 | REP ---
Portable chest, 08:12 a.m., single AP view, the patient semi upright: Comparison is 12/09/2016. There are interstitial infiltrates as an interval change. No pleural effusions. There is chronic cardiomegaly, unchanged. There is internal fixation of the right humerus, unchanged. Signed by Javed Rolle MD 04/30/2017 08:48 A
[2017-04-30] MEDS: DOCUSATE SODIUM 100 MG CAP PO SCH ×2 (09:00→22:34)
[2017-04-30] MEDS: POTASSIUM CHLORIDE 10 MEQ SR TABLET PO SCH ×2 (09:00→22:34)
[2017-04-30] MEDS: predniSONE 10 MG TAB PO SCH (09:00)
[2017-04-30] MEDS ORDERED: FUROSEMIDE 100 MG/10 ML VIAL (J1940) IV ONE (09:00)
[2017-04-30 09:19] LABS: ALBUMIN 3.3 GM/DL (3.2-5.2); ALBUMIN/GLOBULIN RATIO 0.85 (1.00-1.93); ALKALINE PHOSPHATASE 57 U/L (45-117); ALT/SGPT 30 U/L (12-78); ANION GAP 4 MEQ/L (8-16); AST/SGOT 27 U/L (15-37); BILIRUBIN,DIRECT 0.1 MG/DL (0.0-0.2); BILIRUBIN,TOTAL 0.4 MG/DL (0.2-1.0); BLOOD UREA NITROGEN 38 MG/DL (7-18); CALCIUM LEVEL 9.8 MG/DL (8.8-10.2); CARBON DIOXIDE LEVEL 36 MEQ/L (21-32); CHLORIDE LEVEL 99 MEQ/L (98-107); CREATININE FOR GFR 0.71 MG/DL (0.55-1.02); GLOMERULAR FILTRATION RATE > 60.0 (>32); GLUCOSE, FASTING 150 MG/DL (83-110); POTASSIUM SERUM 4.6 MEQ/L (3.5-5.1); SODIUM LEVEL 139 MEQ/L (136-145); THYROXINE (T4) 9.7 UG/DL (4.5-12.0); TOTAL PROTEIN 7.2 GM/DL (6.4-8.2)
[2017-04-30 09:23] LABS: EOSINOPHILS 1 % (0-5)
[2017-04-30 09:24] LABS: ANISOCYTOSIS 2+
[2017-04-30 10:28] LABS: ABG BASE EXCESS 12.7 (-2.0-2.0); ABG HCO3 38.6 MEQ/L (22.0-26.0); ABG PARTIAL PRESSURE CO2 57.8 mmHg (35.0-45.0); ABG STANDARD HCO3 36.4 MEQ/L (22.0-26.0); ABG TOTAL CO2 40.4 MEQ/L (23.0-31.0); ABG pH (ARTERIAL) 7.443 UNITS (7.350-7.450)
[2017-04-30] MEDS ORDERED: NITROGLYCERIN 0.4 MG SUBL TABLET SL PRN (11:00)
[2017-04-30] MEDS ORDERED: GLUCAGON FOR INJ 1 MG VIAL (J1610) SC PRN (11:00)
[2017-04-30] MEDS ORDERED: ONDANSETRON 4MG/2ML VIAL (J2405) IV PRN (11:00)
[2017-04-30] MEDS ORDERED: ALBUTEROL SULFATE 2.5 MG/0.5 ML INH NEB SOLN INH PRN (11:00)
[2017-04-30] MEDS ORDERED: POLYVINYL ALCOHOL OPHTH SOLN 15 ML(LIQUITEARS) OU PRN (11:00)
[2017-04-30] MEDS ORDERED: GLUCOSE 4 GM CHEW TABLET PO PRN (11:00)
[2017-04-30] MEDS ORDERED: DEXTROSE 50% 50 ML SYRINGE IV PRN (11:00)
--- NOTE | 2017-04-30 12:04 | HPEPDOC ---
General Date of Admission Apr 30, 2017 at 10:56 Primary Care Physician: SATHISH JACOBSON DO Chief Complaint The patient is a 81-year-old female admitted with a reason for visit of Acute On Chronic Respiratory Failure and Acute on Chronic Congestive Heart Failure History of Present Illness This is a 80-year-old female with multiple chronic medical conditions, has trouble hearing and is not the best historian, presents to the ER for her breathing problems 2 days. The patient states that this morning she woke up at 2 AM frightened by one of the nurses. She started having a breathing spell and did not get better. The patient states that she was still not feeling well, lower [place] at 7 AM the nurses Center here to the ER. Patient states the day before she was having breathing problems as well but she didn't want to come. Patient states that she had one episode of chest pain yesterday. She said it last about 10 seconds it feels like someone is driving a nail into our her chest. The patient states that she sleeps on a recliners since her triple bypass many years ago. The patient denies having any lower cavity edema. She currently uses 2 L of oxygen at home at all times She also has a nonrebreather that she uses sometimes. Patient states that lately she is noted she's having exertional fatigue just from walking from her recliner to the bathroom. Patient currently lives at the [facility]. The patient is a Full Code. Home Medications Scheduled (Fish Oil 500 mg) 1 Cap Cap, 1 CAP PO DAILY, (Reported) (Striverdi Respimat) 2.5 Mcg/Act Aer, 2 PUFFS INH DAILY, (Reported) Acetaminophen (Acetaminophen) 500 Mg Tab, 500 MG PO BID, (Reported) Bacitracin (Bacitracin) 500 Unit/Gm Oin, 1 UNIT TOP BID, (Reported) APPLY TO NARES Budesonide (Pulmicort) 0.5 Mg/2 Ml Andree, 0.5 MG INH BID, (Reported) Calcium Polycarbophil (Fibercon) 625 Mg Tab, 625 MG PO DAILY, (Reported) Docusate Sodium (Colace) 100 Mg Cap, 100 MG PO BID, (Reported) Escitalopram Oxalate (Escitalopram Oxalate) 10 Mg Tab, 10 MG PO DAILY, (Reported ) Ferrous Sulfate (Ferrous Sulfate) 325 Mg Tab, 325 MG PO BID Fexofenadine Hydrochloride (Alisson Allergy) 180 Mg Tab, 180 MG PO QHS, ( Reported) Levothyroxine Sodium (Synthroid) 75 Mcg Tab, 75 MCG PO QAM, (Reported) Metolazone (Metolazone) 2.5 Mg Tab, 2.5 MG PO 3XW, (Reported) MON,WED,FRI Mirabegron Base (Myrbetriq) 25 Mg Tab, 25 MG PO DAILY, (Reported) Omeprazole (Omeprazole) 40 Mg Cap, 40 MG PO DAILY, (Reported) Potassium Chloride (Micro-K) 10 Meq Cap, 40 MEQ PO BID, (Reported) Prednisone (Prednisone) 10 Mg Tab, 10 MG PO DAILY, (Reported) Spironolactone (Spironolactone) 25 Mg Tab, 25 MG PO DAILY, (Reported) @1100 Tiotropium [place] Monohydrate (Spiriva Respimat) 2.5 Mcg/Act Spr, 1 PUFF INH DAILY, (Reported) Torsemide (Torsemide) 100 Mg Tab, 50 MG PO DAILY, (Reported) Scheduled PRN Acetaminophen (Acetaminophen) 500 Mg Tab, 500 MG PO Q6H PRN for PAIN, (Reported) Albuterol Sulfate (Albuterol Sulfate) 2.5 Mg/3 Ml Nebu, 2.5 MG INH Q2H PRN for SOB/WHEEZING, (Reported) Albuterol/Ipratropium (Ipratropium [place]/Albut 0.5-2.5 (3) mg/3Ml) 1 Heraclio Heraclio, 1 HERACLIO INH Q6H PRN for SHORTNESS OF BREATH, (Reported) Artificial Tears (Artificial Tears 0.1-0.3 %) 1 Heraclio Heraclio, 1 DROP OU Q2H PRN for DRY EYES, (Reported) Milk Of Magnesia (Milk of Magnesia) 1,200 Mg/15 Ml Andree, 30 ML PO DAILY PRN for CONSTIPATION, (Reported) Nitroglycerin (Nitrostat) 0.4 Mg Subl, 0.4 MG SL Q5MP PRN for CHEST PAIN, ( Reported) Allergies Coded Allergies: Cimetidine (Verified Allergy, Intermediate, HIVES, 01/11/17) Latex (Verified Allergy, Intermediate, RASH, 01/11/17) Penicillins (Verified Allergy, Intermediate, HIVES, 01/11/17) Atorvastatin (Verified Allergy, Unknown, 11/07/16) PERFUMES (Verified Allergy, Unknown, 10/08/04) Ranitidine (Unverified Adverse Reaction, Mild, CRAWLING SENSATION, 01/11/17 ) Past Medical History Medical History 1. Chronic diastolic congestive heart failure 2. Hypothyroidism 3. Hypertension. 4. Dyslipidemia 5. Acid reflux 6. 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 COPD on 2 L of oxygen 8. Type 2 diabetes diet controlled 9. Chronic A. fib Surgical History 1. Coronary artery bypass graft 2. Cholecystectomy 3. Appendectomy 4. Hysterectomy 5. Bilateral cataract surgery 6. Knee surgery 7. Skin cancer removal Family History Significant Family History: Noncontributory Social History * Smoker: former Smoker, quit greater than 1 year (used to smoke 1 pack per day quit 37 years ago) Alcohol: Denies Drugs: denies Review of Symptoms Constitutional: Reports: Fatigue (exertional fatigue), Denies: Chills, Fever, Night Sweats Eyes: Denies: Pain, Vision change ENT: Denies: Head Aches, Ear Pain, Dysphagia Skin: Denies: Rash, Lesions, Breakdown Pulmonary: Reports: Dyspnea, Cough (chronic productive cough currently yellow in color) Cardiovascular: Reports: Chest Pain, Edema, Denies: Palpitations, Orthopnea, Paroxysmal Noc. Dyspnea, Lt Headedness Gastrointestinal: Denies: Nausea, Vomiting, Abdominal Pain, Diarrhea Genitourinary: Denies: Dysuria, Frequency, Incontinence, Retention Hematologic: Denies: Bruising, Bleeding Excessively Musculoskeletal: Denies: Neck Pain, Back Pain, Joint Pain, Muscle Pain, Spasms Neurological: Denies: Weakness, Numbness, Change in speech, Confusion Psych: Reports: Mood Normal, Denies: Depression, Memory Issues Physical Examination General Exam: Positive: Alert, No Acute Distress (currently on oxygen 2 L [place]) Eye Exam: Positive: Conjunctiva & lids normal, EOMI, Negative: Sclera icteric ENT Exam: Positive: Atraumatic, Mucous membr. moist/pink, Pharynx Normal Neck Exam: Positive: Supple, Negative: JVD, thyromegaly Chest Exam: Positive: Other (Labored expiratory, diminished bilateral breath sounds ), Negative: Clear to auscultation, Normal air movement (dimished breath sounds) Heart Exam: Positive: Tachycardic, Regular Rhythm, Normal S1, Normal S2, Negative: Murmurs, Rubs Abdomen Exam: Positive: Normal bowel sounds, Soft, Negative: Tenderness, Hepatospenomegaly Extremity Exam: Positive: Normal pulses, Tenderness (increased erythema and tenderness on palpation around the ankles but no edema was appreciated), Negative: Clubbing, Cyanosis, Edema Skin Exam: Positive: Nl turgor and temperature, Other skin issue (multiple old bruises are appreciated on the patient's forearms bilaterally), Negative: Breakdown, Lesion Neuro Exam: Positive: Normal Gait, Normal Speech Psych Exam: Positive: Mental status NL, Mood NL, Oriented x 3 Vital Signs Vital Signs Date Time Temp Pulse Resp B/P (MAP) Pulse Ox O2 Delivery O2 Flow Rate FiO2 04/30/17 09:21 04/30/17 09:21 36 04/30/17 09:15 93 96 Nasal Cannula 2.0 04/30/17 08:20 98.7 35 Laboratory Data Labs 24H Laboratory Tests 2 04/30/17 08:18: Blood Gas Bicarbonate Standard 36.2H, Arterial Blood pH 7.420, Arterial Blood Partial Pressure CO2 61.4*H, Arterial Blood Partial Pressure O2 116.1H, Arterial Blood Total CO2 40.8H, Arterial Blood HCO3 38.9H, Arterial Blood Base Excess 12.5H, Arterial Blood Oxygen Saturation 98.4 04/30/17 08:31: White Blood Count 15.5H, Red Blood Count 3.12L, Hemoglobin 9.0L, Hematocrit 30.6L, Mean Corpuscular Volume 98.1H, Mean Corpuscular Hemoglobin 28.8, Mean Corpuscular Hemoglobin Concent 29.4L, Red Cell Distribution Width 19.3H, Platelet Count 252, Monocytes # (Auto) , Neutrophils 82H, Lymphocytes (Manual) 5L, Monocytes (Manual) 11H, Eosinophils (Manual) 1, Atypical Lymphocytes 1, Anisocytosis 2+, Platelet Estimate NORMAL, Prothrombin Time 12.6, Prothromb Time International Ratio 0.94, Anion Gap 4L, Glomerular Filtration Rate > 60.0, Lactic Acid Level 1.1, Calcium Level 9.8, Aspartate Amino Transf (AST/SGOT) 27, Alanine Aminotransferase (ALT/SGPT) 30, Alkaline Phosphatase 57, Total Bilirubin 0.4, Direct Bilirubin 0.1, Total Creatine Kinase 23L, Creatine Kinase MB 1.3, Creatine Kinase MB Relative Index 5.65H, Troponin I 0.03, FV-Vgg-R-Type Natriuretic Peptide 1019H, Total Protein 7.2, Albumin 3.3, Albumin/Globulin Ratio 0.85L, Thyroid Stimulating Hormone (TSH) 1.190, Thyroxine (T4) 9.7 04/30/17 10:06: Blood Gas Bicarbonate Standard 36.4H, Arterial Blood pH 7.443, Arterial Blood Partial Pressure CO2 57.8H, Arterial Blood Partial Pressure O2 75.0, Arterial Blood Total CO2 40.4H, Arterial Blood HCO3 38.6H, Arterial Blood Base Excess 12.7H, Arterial Blood Oxygen Saturation 95.1 CBC/BMP Laboratory Tests 04/30/17 08:31 Red Blood Count 3.12 L, Mean Corpuscular Volume 98.1 H, Mean Corpuscular Hemoglobin 28.8, Mean Corpuscular Hemoglobin Concent 29.4 L, Red Cell Distribution Width 19.3 H, Monocytes # (Auto) Microbiology Microbiology 04/30/17 Blood Culture, Received Pending 04/30/17 Blood Culture, Received Pending 04/30/17 Influenza Virus Type A Antigen - Final, Complete 04/30/17 Influenza Virus Type B Antigen - Final, Complete Assessment/Plan 1. Chronic Congestive heart failure - patient does have a chronic cardiomegaly. An interstitial infiltrate likely due to increased vascularization from the congestive heart failure. We'll monitor the patient with telemetry. She'll start with Lasix 40 mg IV every 6 hours AND fluid restriction of 1800 mL a day. Strict Intake and Outputs. We will also get cardiac marker profile. 2. Dyspnea. Patient does have a underlying COPD component. We will start the patient on Solu-Medrol 60 g IV every 12 for 3 days we'll have him dounebs every 8 when necessary. And also continue with her home medication for COPD management. Patient will also be placed on 2 L oxygen while on the floor 3. Productive cough - patient does have a chronic cough. Denies having any fevers on admission her temperature is 98.7 the likely of interstitial infiltrate on the chest x-ray is due to cephalization from the congestive heart failure we will still get a sputum culture. At this time we will not be starting antibiotics 4. Anxiety - continue with home medication of Escitalopram 10 PO Daily 5. Hypothyroidism - continue with home medication levothyroxine 75 mg 6. Diabetes - insulin sliding scale will also place patient on a consistent carb diet will consider putting on it 2 g sodium diet as well. 7. GERD - patient will continue with her home dose of omeprazole 40 mg capsule 8. Iron deficiency Anemia - she'll continue with her iron supplementation 9. DVT prophylaxis - Teds and Sequentials Plan / VTE VTE Prophylaxis Ordered?: Yes GME ATTESTATION GME ATTESTATION My preceptor for this patient encounter was physically present in the building during the encounter and was fully available. As needed, all aspects of the patient interview, examination, medical decision making process, and medical care plan development were reviewed and approved by the preceptor. Preceptor is aware and concurs with the plan as stated in the body of this note and will attest to such by his/her cosignature. MAICOL JAUREGUI DO Apr 30, 2017 12:03
[2017-04-30] MEDS: TIOTROPIUM INHALER/CAPSULE (SPIRIVA) INH SCH (12:37)
[2017-04-30] MEDS: HumaLOG INSULIN (NovoLOG) PER UNIT SC SCH ×3 (14:29→21:00)
[2017-04-30] MEDS: methylPREDNISolone INJ 125 MG/2 ML VIAL (J2930) IV SCH (14:31)
[2017-04-30] MEDS: IPRATROPIUM 0.5MG/ALBUTEROL 2.5MG INH SOL UD 3ML (DUONEB)(J7620) NEB SCH ×2 (15:46→23:09)
[2017-04-30] MEDS: FUROSEMIDE 40 MG/4 ML VIAL (J1940) IV SCH (18:30)
[2017-04-30] MEDS: BUDESONIDE 0.5 MG/2 ML INHALATION SUSPENSION INH SCH (21:00)
[2017-04-30 21:35] VITALS: BP 136/60
[2017-04-30] MEDS: FERROUS SULFATE 325MG TAB PO SCH (22:33)
[2017-04-30] MEDS: OMEPRAZOLE 20 MG CAP PO SCH (22:34)
[2017-04-30] MEDS: BACITRACIN OINT 30GM TOP SCH (22:34)
[2017-04-30] MEDS: FEXOFENADINE 60 MG TAB PO SCH (22:34)
[2017-04-30] MEDS: ESCITALOPRAM OXALATE 10 MG TAB (LEXAPRO) PO SCH (22:34)
[2017-05-01] VITALS (7 sets, daily range): BP systolic 132–165; BP diastolic 67–80
[2017-05-01] MEDS: FUROSEMIDE 40 MG/4 ML VIAL (J1940) IV SCH ×4 (00:33→18:28)
[2017-05-01] MEDS: methylPREDNISolone INJ 125 MG/2 ML VIAL (J2930) IV SCH ×2 (00:33→12:38)
[2017-05-01 05:57] LABS: MEAN CORPUSCULAR HEMOGLOBIN 28.8 pg (27.0-33.0); MEAN CORPUSCULAR HGB CONC 30.2 g/dl (32.0-36.5); MEAN CORPUSCULAR VOLUME 95.4 fl (80.0-96.0); RED CELL DISTRIBUTION WIDTH 18.7 % (11.5-14.5); WHITE BLOOD COUNT 13.5 10^3/uL (4.0-10.0)
[2017-05-01 06:18] LABS: ANION GAP 4 MEQ/L (8-16); BLOOD UREA NITROGEN 43 MG/DL (7-18); CALCIUM LEVEL 9.2 MG/DL (8.8-10.2); CARBON DIOXIDE LEVEL 38 MEQ/L (21-32); CHLORIDE LEVEL 95 MEQ/L (98-107); GLOMERULAR FILTRATION RATE > 60.0 (>32); GLUCOSE, FASTING 175 MG/DL (83-110); POTASSIUM SERUM 4.4 MEQ/L (3.5-5.1); SODIUM LEVEL 137 MEQ/L (136-145)
[2017-05-01] MEDS: LEVOTHYROXINE 75MCG TABLET (0.075MG) PO SCH (06:57)
[2017-05-01] MEDS: TIOTROPIUM INHALER/CAPSULE (SPIRIVA) INH SCH (08:10)
[2017-05-01] MEDS: IPRATROPIUM 0.5MG/ALBUTEROL 2.5MG INH SOL UD 3ML (DUONEB)(J7620) NEB SCH ×3 (08:10→23:13)
[2017-05-01] MEDS: BUDESONIDE 0.5 MG/2 ML INHALATION SUSPENSION INH SCH ×2 (08:11→19:37)
--- NOTE | 2017-05-01 08:11 | ECGEPIP ---
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
[2017-05-01] MEDS: NYSTATIN 100,000 UNITS/GM TOPICAL PWD 15 GM TOP SCH ×2 (09:00→21:00)
[2017-05-01] MEDS: MIRALAX *UNIT DOSE* 17GM PACKET PO SCH (09:00)
[2017-05-01] MEDS: OMEPRAZOLE 20 MG CAP PO SCH (09:09)
[2017-05-01] MEDS: FERROUS SULFATE 325MG TAB PO SCH ×2 (09:09→21:30)
[2017-05-01] MEDS: FIBER-CON 625 MG TAB PO SCH (09:09)
[2017-05-01] MEDS: POTASSIUM CHLORIDE 10 MEQ SR TABLET PO SCH ×2 (09:09→21:30)
[2017-05-01] MEDS: HumaLOG INSULIN (NovoLOG) PER UNIT SC SCH ×4 (09:10→21:28)
[2017-05-01] MEDS: predniSONE 10 MG TAB PO SCH (09:10)
[2017-05-01] MEDS: DOCUSATE SODIUM 100 MG CAP PO SCH ×2 (09:10→21:30)
[2017-05-01] MEDS: ESCITALOPRAM OXALATE 10 MG TAB (LEXAPRO) PO SCH (09:11)
[2017-05-01] MEDS: BACITRACIN OINT 30GM TOP SCH ×2 (09:21→21:32)
--- NOTE | 2017-05-01 12:08 | IPNPDOC ---
Subjective Date Seen The patient was seen on 05/01/17. Subjective Chief Complaint/HPI The patient is a 81-year-old female admitted with a reason for visit of Acute On Chronic Respiratory Failure. Events since last encounter Patient was seen this morning, Patient just finished her nebulizer treatment this AM. Patient states she slept as well as she can in the ER. The patient has a appetite to eat breakfast and has no complaints this am. General: Reports: Normal Appetite, Denies: Chills, Night Sweats, Fatigue, Malaise Eyes: Denies: Pain, Vision change ENT: Denies: Dysphagia, Sore Throat Skin: Denies: Rash, Lesions, Bruising Pulmonary: Reports: Cough (chronic), Denies: Dyspnea Cardiovascular: Denies: Chest Pain, Palpitations, Edema, Lt Headedness Gastrointestinal: Denies: Nausea, Vomiting, Abdominal Pain, Diarrhea, Constipation Genitourinary: Denies: Dysuria, Frequency, Incontinence, Hematuria, Retention Hematologic: Denies: Bruising, Bleeding Excessively Endocrine: Denies: Polydipsia, Polyphagia, Polyuria Musculoskeletal: Denies: Neck Pain, Back Pain, Joint Pain, Muscle Pain, Spasms Neurological: Denies: Weakness, Numbness, Change in speech, Confusion Psych: Reports: Mood Normal, Denies: Depression, Memory Issues Objective Physical Examination General Exam: Positive: Alert, No Acute Distress (currently on oxygen 2 L Ventimask) Eye Exam: Positive: Conjunctiva & lids normal, EOMI, Negative: Sclera icteric ENT Exam: Positive: Atraumatic, Mucous membr. moist/pink, Pharynx Normal Neck Exam: Positive: Supple, Negative: JVD, thyromegaly Chest Exam: Positive: Other (Labored expiratory wheezing (improving), diminished bilateral breath sounds ), Negative: Clear to auscultation, Normal air movement (dimished breath sounds) Heart Exam: Positive: Tachycardic, Regular Rhythm, Normal S1, Normal S2, Negative: Murmurs, Rubs Abdomen Exam: Positive: Normal bowel sounds, Soft, Negative: Tenderness, Hepatospenomegaly Extremity Exam: Positive: Normal pulses, Tenderness (increased erythema and tenderness on palpation around the ankles but no edema was appreciated), Negative: Clubbing, Cyanosis, Edema Skin Exam: Positive: Nl turgor and temperature, Other skin issue (multiple old bruises are appreciated on the patient's forearms bilaterally), Negative: Breakdown, Lesion Neuro Exam: Positive: Normal Gait, Normal Speech Psych Exam: Positive: Mental status NL, Mood NL, Oriented x 3 Assessment /Plan Assessment 1. Decompensated Congestive heart failure - patient does have a chronic cardiomegaly. Chest xray showed An interstitial infiltrate likely due to increased vascularization from the congestive heart failure. We'll monitor the patient with telemetry. Will continue with Lasix 40 mg IV every 6 hours AND fluid restriction of 1800 mL a day. Strict Intake and Outputs. Goal output is 2000cc. Cardiac profiles showed CK are trending up slowly. Toponin are <0.02. BNP was 1019. Patient is not complaining of chest pain. will continue diuresing the patient. 2. Dyspnea. Patient does have a underlying COPD component. Continue Solu-Medrol 60 g IV every 12 for 3 days total, currently day 2. Continue dounebs every 8 when necessary. And continue with her home medication for COPD management. Patient will also be placed on 2 L oxygen, same as home. 3. Productive cough - patient does have a chronic cough. Denies having any fevers on admission her temperature is 98.7 the likely of interstitial infiltrate on the chest x-ray is likely due to cephalization from the congestive heart failure we will still get a sputum culture. At this time we will not be starting antibiotics 4. Leukocytosis - White count is treading up, the patient is afebrile since admission. Patient was give Solu-Medrol 60 IV so likely reactive leucocytosis. will continue to monitor with vitals and cbc while admitted. 5. Anxiety - continue with home medication of Escitalopram 10 PO Daily 6. Hypothyroidism - continue with home medication levothyroxine 75 mg 7. Diabetes - insulin sliding scale continue on consistent carb diet. 8. GERD - patient will continue with her home dose of omeprazole 40 mg capsule 9. Iron deficiency Anemia - she'll continue with her iron supplementation 10. DVT prophylaxis - Teds and Sequentials Plan/VTE VTE Prophylaxis Ordered?: Yes VS, I&O, 24H, Fishbone Vital Signs/I&O Vital Signs Date Time Temp Pulse Resp B/P (MAP) Pulse Ox O2 Delivery O2 Flow Rate FiO2 05/01/17 09:00 Nasal Cannula 3.0 05/01/17 08:00 99.1 103 20 132/74 (93) 96 04/30/17 08:20 35 I&O- Last 24 Hours up to 6 AM 05/02/17 06:00 Intake Total 840 ml Output Total 550 ml Balance 290 ml Laboratory Data 24H LABS Laboratory Tests 2 04/30/17 14:22: Bedside Glucose (Misc Panel) 246H 04/30/17 18:01: Total Creatine Kinase 12L, Creatine Kinase MB 1.0, Creatine Kinase MB Relative Index 8.33H, Troponin I 0.02# 04/30/17 18:13: Bedside Glucose (Misc Panel) 222H 04/30/17 22:30: Bedside Glucose (Misc Panel) 226H 05/01/17 00:06: Total Creatine Kinase 17L, Creatine Kinase MB 1.6, Creatine Kinase MB Relative Index 9.41H, Troponin I < 0.02 05/01/17 05:39: Anion Gap 4L, Glomerular Filtration Rate > 60.0, Blood Urea Nitrogen 43H, Creatinine 0.70, Sodium Level 137, Potassium Level 4.4, Chloride Level 95L, Carbon Dioxide Level 38H, Calcium Level 9.2 CBC/BMP Laboratory Tests 05/01/17 05:39 Red Blood Count 3.02 L, Mean Corpuscular Volume 95.4, Mean Corpuscular Hemoglobin 28.8, Mean Corpuscular Hemoglobin Concent 30.2 L, Red Cell Distribution Width 18.7 H, Calcium Level 9.2 Microbiology Microbiology 04/30/17 Blood Culture - Preliminary, Resulted No growth after 24 hours . All specim... 04/30/17 Blood Culture - Preliminary, Resulted No growth after 24 hours . All specim... 04/30/17 Influenza Virus Type A Antigen - Final, Complete 04/30/17 Influenza Virus Type B Antigen - Final, Complete GME ATTESTATION GME ATTESTATION My preceptor for this patient encounter was physically present in the building during the encounter and was fully available. As needed, all aspects of the patient interview, examination, medical decision making process, and medical care plan development were reviewed and approved by the preceptor. Preceptor is aware and concurs with the plan as stated in the body of this note and will attest to such by his/her cosignature. MAICOL JAUREGUI DO May 01, 2017 12:08
[2017-05-01] MEDS: IPRATROPIUM 0.5MG/ALBUTEROL 2.5MG INH SOL UD 3ML (DUONEB)(J7620) NEB PRN (19:38)
[2017-05-01] MEDS: FEXOFENADINE 60 MG TAB PO SCH (21:29)
[2017-05-01] MEDS: MOM 30ML SUSPENSION UDC PO PRN (21:29)
[2017-05-02] VITALS: BP 134/85
[2017-05-02] MEDS: methylPREDNISolone INJ 125 MG/2 ML VIAL (J2930) IV SCH ×2 (00:18→13:01)
[2017-05-02] MEDS: FUROSEMIDE 40 MG/4 ML VIAL (J1940) IV SCH ×4 (00:19→17:41)
[2017-05-02 04:00] VITALS: BP 155/73
[2017-05-02] MEDS: LEVOTHYROXINE 75MCG TABLET (0.075MG) PO SCH (05:46)
[2017-05-02 06:17] LABS: MEAN CORPUSCULAR HEMOGLOBIN 28.7 pg (27.0-33.0); MEAN CORPUSCULAR HGB CONC 29.9 g/dl (32.0-36.5); MEAN CORPUSCULAR VOLUME 95.8 fl (80.0-96.0); RED CELL DISTRIBUTION WIDTH 18.6 % (11.5-14.5); WHITE BLOOD COUNT 15.1 10^3/uL (4.0-10.0)
[2017-05-02 06:34] LABS: ANION GAP 4 MEQ/L (8-16); BLOOD UREA NITROGEN 51 MG/DL (7-18); CALCIUM LEVEL 9.1 MG/DL (8.8-10.2); CARBON DIOXIDE LEVEL 37 MEQ/L (21-32); CHLORIDE LEVEL 97 MEQ/L (98-107); CREATININE FOR GFR 0.86 MG/DL (0.55-1.02); GLOMERULAR FILTRATION RATE > 60.0 (>32); GLUCOSE, FASTING 181 MG/DL (83-110); POTASSIUM SERUM 4.8 MEQ/L (3.5-5.1); SODIUM LEVEL 138 MEQ/L (136-145)
[2017-05-02] MEDS: BUDESONIDE 0.5 MG/2 ML INHALATION SUSPENSION INH SCH ×2 (07:40→19:57)
[2017-05-02] MEDS: TIOTROPIUM INHALER/CAPSULE (SPIRIVA) INH SCH (07:41)
[2017-05-02] MEDS: IPRATROPIUM 0.5MG/ALBUTEROL 2.5MG INH SOL UD 3ML (DUONEB)(J7620) NEB SCH ×3 (07:42→23:27)
[2017-05-02 07:52] VITALS: BP 139/76
[2017-05-02] MEDS ORDERED: FUROSEMIDE 100 MG/10 ML VIAL (J1940) IV ONE (09:00)
[2017-05-02] MEDS: HumaLOG INSULIN (NovoLOG) PER UNIT SC SCH ×4 (10:06→21:00)
[2017-05-02] MEDS: MIRALAX *UNIT DOSE* 17GM PACKET PO SCH (10:06)
[2017-05-02] MEDS: OMEPRAZOLE 20 MG CAP PO SCH (10:07)
[2017-05-02] MEDS: DOCUSATE SODIUM 100 MG CAP PO SCH ×2 (10:07→21:09)
[2017-05-02] MEDS: POTASSIUM CHLORIDE 10 MEQ SR TABLET PO SCH ×2 (10:07→21:09)
[2017-05-02] MEDS: ESCITALOPRAM OXALATE 10 MG TAB (LEXAPRO) PO SCH (10:07)
[2017-05-02] MEDS: FERROUS SULFATE 325MG TAB PO SCH ×2 (10:07→21:10)
[2017-05-02 11:56] VITALS: BP 162/70
[2017-05-02] MEDS: BACITRACIN OINT 30GM TOP SCH ×2 (13:02→21:10)
[2017-05-02] MEDS: FIBER-CON 625 MG TAB PO SCH (13:57)
[2017-05-02 16:00] VITALS: BP 164/90
[2017-05-02] MEDS: NYSTATIN 100,000 UNITS/GM TOPICAL PWD 15 GM TOP SCH ×2 (17:39→21:08)
[2017-05-02] MEDS: IPRATROPIUM 0.5MG/ALBUTEROL 2.5MG INH SOL UD 3ML (DUONEB)(J7620) NEB PRN (19:57)
[2017-05-02 20:00] VITALS: BP 134/80
--- NOTE | 2017-05-02 20:14 | IPN ---
DATE: 05/02/2017 81-year-old female seen at bedside resting somewhat comfortably. She says she has some shortness of breath. Denies any chest pain, productive sputum, cough, hemoptysis. OBJECTIVE: Temperature is 98.1, pulse is 93 and irregular, respiratory rate is 20,BP 134/80 , 97% on 3 liters. HEENT: She does have some slight jugular venous distention (JVD) that is noted. LUNGS: Did have some intermittent crackles. HEART: Regular rate and rhythm. ABDOMEN: Soft. EXTREMITIES: No edema. No calf tenderness. LABORATORY DATA: White count 15.1, hemoglobin 8.8, platelets 250. Sodium 138, potassium 4.8, chloride 97, bicarbonate 37, anion gap 4, BUN is 51, creatinine 0.86, glucose 181. ASSESSMENT/PLAN: 1. Decompensated congestive heart failure. Will continue with net negative Lasix. I did give her an additional dose of 80 mg IV for now and we will see how she does with this as well as continue with fluid restriction 1800 mL a day. 2. Constipation. We will review her bowel regimen. 3. Dyspnea. Possibly underlying chronic obstructive pulmonary disease (COPD) component. Will continue with the Solu-Medrol. 4. Productive sputum, chronic cough. She remains afebrile. 5. Leukocytosis. Remains afebrile, likely related to steroid demargination. 6. Anxiety. Continue with alprazolam. 7. Hypothyroidism. Continue on levofloxacin 8. Diabetes. Continue with fingersticks, consistent carbohydrate diet and sliding scale insulin. 9. Gastroesophageal reflux disease (GERD). Stable on omeprazole. 10. Iron-deficiency anemia. Continue with iron supplementation. She did have a slight drop in her hemoglobin which may be related to volume status. Will continue to follow. 11. Deep venous thrombosis (DVT) prophylaxis. Thromboembolism deterrents (TEDs ) and sequentials. DISPOSITION: We will see how she does over the next 24-48 hours. Hopefully she will be ready for home discharge early this week. DANTE
[2017-05-02] MEDS: MOM 30ML SUSPENSION UDC PO PRN (21:08)
[2017-05-02] MEDS: FEXOFENADINE 60 MG TAB PO SCH (21:09)
[2017-05-03] VITALS: BP 152/82
[2017-05-03] MEDS: methylPREDNISolone INJ 125 MG/2 ML VIAL (J2930) IV SCH ×2 (00:02→12:58)
[2017-05-03] MEDS: FUROSEMIDE 40 MG/4 ML VIAL (J1940) IV SCH ×4 (00:02→17:28)
[2017-05-03 04:00] VITALS: BP 161/87
[2017-05-03] MEDS: IPRATROPIUM 0.5MG/ALBUTEROL 2.5MG INH SOL UD 3ML (DUONEB)(J7620) NEB PRN (04:34)
[2017-05-03] MEDS: LEVOTHYROXINE 75MCG TABLET (0.075MG) PO SCH (05:58)
[2017-05-03 06:02] LABS: MEAN CORPUSCULAR HEMOGLOBIN 29.3 pg (27.0-33.0); MEAN CORPUSCULAR HGB CONC 30.6 g/dl (32.0-36.5); MEAN CORPUSCULAR VOLUME 95.6 fl (80.0-96.0); RED CELL DISTRIBUTION WIDTH 18.3 % (11.5-14.5); WHITE BLOOD COUNT 13.9 10^3/uL (4.0-10.0)
[2017-05-03 06:31] LABS: ANION GAP 2 MEQ/L (8-16); BLOOD UREA NITROGEN 55 MG/DL (7-18); CALCIUM LEVEL 8.7 MG/DL (8.8-10.2); CARBON DIOXIDE LEVEL 39 MEQ/L (21-32); CHLORIDE LEVEL 96 MEQ/L (98-107); CREATININE FOR GFR 0.85 MG/DL (0.55-1.02); GLOMERULAR FILTRATION RATE > 60.0 (>32); GLUCOSE, FASTING 216 MG/DL (83-110); POTASSIUM SERUM 4.8 MEQ/L (3.5-5.1); SODIUM LEVEL 137 MEQ/L (136-145)
[2017-05-03] MEDS: TIOTROPIUM INHALER/CAPSULE (SPIRIVA) INH SCH (07:44)
[2017-05-03] MEDS: IPRATROPIUM 0.5MG/ALBUTEROL 2.5MG INH SOL UD 3ML (DUONEB)(J7620) NEB SCH ×3 (07:44→23:32)
[2017-05-03] MEDS: BUDESONIDE 0.5 MG/2 ML INHALATION SUSPENSION INH SCH ×2 (07:44→19:54)
[2017-05-03 08:00] VITALS: BP 168/79
[2017-05-03] MEDS: FIBER-CON 625 MG TAB PO SCH (09:37)
[2017-05-03] MEDS: NYSTATIN 100,000 UNITS/GM TOPICAL PWD 15 GM TOP SCH ×2 (09:37→21:25)
[2017-05-03] MEDS: HumaLOG INSULIN (NovoLOG) PER UNIT SC SCH ×4 (09:37→21:25)
[2017-05-03] MEDS: ESCITALOPRAM OXALATE 10 MG TAB (LEXAPRO) PO SCH (09:38)
[2017-05-03] MEDS: OMEPRAZOLE 20 MG CAP PO SCH (09:38)
[2017-05-03] MEDS: MIRALAX *UNIT DOSE* 17GM PACKET PO SCH (09:38)
[2017-05-03] MEDS: POTASSIUM CHLORIDE 10 MEQ SR TABLET PO SCH ×2 (09:38→21:23)
[2017-05-03] MEDS: FERROUS SULFATE 325MG TAB PO SCH ×2 (09:38→21:23)
[2017-05-03] MEDS: DOCUSATE SODIUM 100 MG CAP PO SCH ×2 (09:38→21:23)
[2017-05-03] MEDS: BACITRACIN OINT 30GM TOP SCH ×2 (09:39→21:26)
[2017-05-03 12:00] VITALS: BP 166/71
--- NOTE | 2017-05-03 12:59 | IPNPDOC ---
Subjective Date Seen The patient was seen on 05/03/17. Subjective Chief Complaint/HPI The patient is a 81-year-old female admitted with a reason for visit of Acute On Chronic Respiratory Failure. Events since last encounter Patient was seen this morning at bedside. She had a nebulizer treatment going at the time of examination. Patient states she is still having shortness of breath but gets relief when she gets the nebulizer treatment. She does have a non-productive cough. The patient has been afebrile since admission and had an net of negative 1770 in the last 24 hours. She has had one small bowl movement the day before, will continue with the bowel regiment. Per nursing, the patient had no overnight events. Pulmonary: Reports: Cough (non-productive cough) Objective Physical Examination General Exam: Positive: Alert, No Acute Distress (currently on oxygen 2 L Ventimask) Eye Exam: Positive: Conjunctiva & lids normal, EOMI, Negative: Sclera icteric ENT Exam: Positive: Atraumatic, Mucous membr. moist/pink, Pharynx Normal Neck Exam: Positive: Supple, Negative: JVD, thyromegaly Chest Exam: Positive: Other (inspiratory and expiratory wheezing, diminished bilateral breath sounds ), Negative: Clear to auscultation, Normal air movement (dimished breath sounds) Heart Exam: Positive: Tachycardic, Regular Rhythm, Normal S1, Normal S2, Negative: Murmurs, Rubs Abdomen Exam: Positive: Normal bowel sounds, Soft, Negative: Tenderness, Hepatospenomegaly Extremity Exam: Positive: Normal pulses, Tenderness (increased erythema and tenderness on palpation around the ankles but no edema was appreciated), Negative: Clubbing, Cyanosis, Edema Skin Exam: Positive: Nl turgor and temperature, Other skin issue (multiple old bruises are appreciated on the patient's forearms bilaterally), Negative: Breakdown, Lesion Neuro Exam: Positive: Normal Gait, Normal Speech Psych Exam: Positive: Mental status NL, Mood NL, Oriented x 3 Assessment /Plan Assessment 1. Decompensated Congestive heart failure - patient does have a chronic cardiomegaly. Chest xray showed An interstitial infiltrate likely due to increased vascularization from the congestive heart failure. We'll monitor the patient with telemetry. Will continue with Lasix 40 mg IV every 6 hours AND fluid restriction of 1800 mL a day. Strict Intake and Outputs. Goal output is 2000cc. Cardiac profiles showed CK are trending up slowly. Toponin are <0.02. BNP was 1019. Patient is not complaining of chest pain. will continue diuresing the patient. 2. Dyspnea. Patient does have a underlying COPD component. Completed Solu- Medrol 60 g IV every 12 for 3 days, will stop them today. Continue dounebs every 8 when necessary. And continue with her home medication for COPD management. Patient will also be placed on 2 L oxygen, same as home. 3. Non-Productive cough - patient does have a chronic cough. Denies having any fevers on admission her temperature is 98.9 the likely of interstitial infiltrate on the chest x-ray is likely due to cephalization from the congestive heart failure we will still get a sputum culture. At this time we will not be starting antibiotics. Start acapella blue. 4. Leukocytosis - White count is treading down, current 13.9, the patient is afebrile since admission. Patient was give Solu-Medrol 60 IV so likely reactive leucocytosis. will continue to monitor with vitals and cbc while inpatient 5. Anxiety - continue with home medication of Escitalopram 10 PO Daily 6. Hypothyroidism - continue with home medication levothyroxine 75 mg 7. Diabetes - insulin sliding scale continue on consistent carb diet. 8. GERD - patient will continue with her home dose of omeprazole 40 mg capsule 9. Iron deficiency Anemia - she'll continue with her iron supplementation 10. DVT prophylaxis - Teds and Sequentials 11. PT- have PT come eval and treat the patient. The patient has been sedentary since admission 12. Constipation - will continue with bowel regimen, Miralax daily with Milk of Magnesium PRN Plan/VTE VTE Prophylaxis Ordered?: Yes (TEDs and sequentials) VS, I&O, 24H, Fishbone Vital Signs/I&O Vital Signs Date Time Temp Pulse Resp B/P (MAP) Pulse Ox O2 Delivery O2 Flow Rate FiO2 05/03/17 04:00 98.9 98 20 161/87 (111) 95 Nasal Cannula 2.0 04/30/17 08:20 35 Laboratory Data 24H LABS Laboratory Tests 2 05/02/17 12:50: Bedside Glucose (Misc Panel) 313H 05/02/17 17:26: Bedside Glucose (Misc Panel) 141H 05/02/17 21:08: Bedside Glucose (Misc Panel) 197H 05/03/17 05:52: Anion Gap 2L, Glomerular Filtration Rate > 60.0, Blood Urea Nitrogen 55H, Creatinine 0.85, Sodium Level 137, Potassium Level 4.8, Chloride Level 96L, Carbon Dioxide Level 39H, Calcium Level 8.7L CBC/BMP Laboratory Tests 05/03/17 05:52 Red Blood Count 2.97 L, Mean Corpuscular Volume 95.6, Mean Corpuscular Hemoglobin 29.3, Mean Corpuscular Hemoglobin Concent 30.6 L, Red Cell Distribution Width 18.3 H, Calcium Level 8.7 L Microbiology Microbiology 04/30/17 Blood Culture - Preliminary, Resulted No Growth after 48 hours. All Specime... 04/30/17 Blood Culture - Preliminary, Resulted No Growth after 48 hours. All Specime... 04/30/17 Influenza Virus Type A Antigen - Final, Complete 04/30/17 Influenza Virus Type B Antigen - Final, Complete GME ATTESTATION GME ATTESTATION My preceptor for this patient encounter was physically present in the building during the encounter and was fully available. As needed, all aspects of the patient interview, examination, medical decision making process, and medical care plan development were reviewed and approved by the preceptor. Preceptor is aware and concurs with the plan as stated in the body of this note and will attest to such by his/her cosignature. MAICOL JAUREGUI DO May 03, 2017 08:06
[2017-05-03 16:00] VITALS: BP 150/97
[2017-05-03 20:00] VITALS: BP 162/74
[2017-05-03] MEDS: FEXOFENADINE 60 MG TAB PO SCH (21:23)
[2017-05-04] VITALS: BP 136/65
[2017-05-04] MEDS: FUROSEMIDE 40 MG/4 ML VIAL (J1940) IV SCH ×5 (00:23→20:56)
[2017-05-04] MEDS: ACETAMINOPHEN TAB 650MG DOSE (2X325MG) PO PRN (00:46)
[2017-05-04 04:00] VITALS: BP 144/75
[2017-05-04] MEDS: LEVOTHYROXINE 75MCG TABLET (0.075MG) PO SCH (05:50)
[2017-05-04 06:31] LABS: MEAN CORPUSCULAR HGB CONC 30.1 g/dl (32.0-36.5); MEAN CORPUSCULAR VOLUME 96.4 fl (80.0-96.0); RED CELL DISTRIBUTION WIDTH 18.1 % (11.5-14.5); WHITE BLOOD COUNT 14.3 10^3/uL (4.0-10.0)
[2017-05-04 06:49] LABS: ANION GAP 1 MEQ/L (8-16); BLOOD UREA NITROGEN 52 MG/DL (7-18); CALCIUM LEVEL 9.1 MG/DL (8.8-10.2); CARBON DIOXIDE LEVEL 41 MEQ/L (21-32); CHLORIDE LEVEL 97 MEQ/L (98-107); GLOMERULAR FILTRATION RATE > 60.0 (>32); GLUCOSE, FASTING 137 MG/DL (83-110); MAGNESIUM LEVEL 3.2 MG/DL (1.8-2.4); POTASSIUM SERUM 4.7 MEQ/L (3.5-5.1); SODIUM LEVEL 139 MEQ/L (136-145)
[2017-05-04 08:00] VITALS: BP 136/80
[2017-05-04] MEDS: FIBER-CON 625 MG TAB PO SCH (08:15)
[2017-05-04] MEDS: POTASSIUM CHLORIDE 10 MEQ SR TABLET PO SCH ×2 (08:15→20:54)
[2017-05-04] MEDS: HumaLOG INSULIN (NovoLOG) PER UNIT SC SCH ×4 (08:15→21:00)
[2017-05-04] MEDS: predniSONE 20 MG TAB PO SCH (08:15)
[2017-05-04] MEDS: OMEPRAZOLE 20 MG CAP PO SCH (08:16)
[2017-05-04] MEDS: ESCITALOPRAM OXALATE 10 MG TAB (LEXAPRO) PO SCH (08:16)
[2017-05-04] MEDS: FERROUS SULFATE 325MG TAB PO SCH ×2 (08:16→20:54)
[2017-05-04] MEDS: MIRALAX *UNIT DOSE* 17GM PACKET PO SCH (08:16)
[2017-05-04] MEDS: DOCUSATE SODIUM 100 MG CAP PO SCH ×2 (08:16→20:54)
[2017-05-04] MEDS: NYSTATIN 100,000 UNITS/GM TOPICAL PWD 15 GM TOP SCH ×2 (08:17→20:56)
[2017-05-04] MEDS: BACITRACIN OINT 30GM TOP SCH ×2 (08:17→20:56)
[2017-05-04] MEDS: BUDESONIDE 0.5 MG/2 ML INHALATION SUSPENSION INH SCH ×2 (08:21→20:03)
[2017-05-04] MEDS: TIOTROPIUM INHALER/CAPSULE (SPIRIVA) INH SCH (08:21)
[2017-05-04] MEDS: IPRATROPIUM 0.5MG/ALBUTEROL 2.5MG INH SOL UD 3ML (DUONEB)(J7620) NEB SCH ×3 (08:21→20:03)
--- NOTE | 2017-05-04 11:52 | IPNPDOC ---
Subjective Date Seen The patient was seen on 05/04/17. Subjective Chief Complaint/HPI The patient is a 81-year-old female admitted with a reason for visit of Acute On Chronic Respiratory Failure. Events since last encounter Patient was seen and examined this morning at her bedside. Patient states that she is actually extra tired this morning. She is does not have an appetite for her breakfast because she had her medication beforehand and she feels very full. Patient states that he cannot sleep well last night because she kept getting disturbed throughout the night. She is resting comfortably at her bed. There that she was PT yesterday and had no issues. Patient states that she is also working with respiratory therapy and the blue a cappella is helping with her cough. Per nursing patient had a 1 medical tachycardic episode in the evening time asystematic patient was resting comfortably didn't feel it and was not complaining of any symptoms at the time. Since then patient has been in A. fib, patient has a history of, and heart rates less than 100. There is no other overnight events noted. General: Reports: Normal Appetite, Denies: Chills, Night Sweats, Fatigue, Malaise Eyes: Denies: Pain, Vision change ENT: Denies: Dysphagia, Sore Throat Skin: Denies: Rash, Lesions, Bruising Pulmonary: Reports: Cough (chronic currently nonproductive. ), Denies: Dyspnea Cardiovascular: Denies: Chest Pain, Palpitations, Edema, Lt Headedness Gastrointestinal: Reports: Constipation (patient states that she still constipated. ), Denies: Nausea, Vomiting, Abdominal Pain, Diarrhea Genitourinary: Denies: Dysuria, Frequency, Incontinence, Hematuria, Retention Hematologic: Denies: Bruising, Bleeding Excessively Endocrine: Denies: Polydipsia, Polyphagia, Polyuria Musculoskeletal: Denies: Neck Pain, Back Pain, Joint Pain, Muscle Pain, Spasms Neurological: Denies: Weakness, Numbness, Change in speech, Confusion Psych: Reports: Mood Normal, Denies: Depression, Memory Issues Objective Physical Examination General Exam: Positive: Alert, No Acute Distress Eye Exam: Positive: Conjunctiva & lids normal, EOMI ENT Exam: Positive: Atraumatic, Mucous membr. moist/pink, Pharynx Normal Neck Exam: Positive: Supple, JVD (4 cm form the sternal angle) Chest Exam: Positive: Other (bilateral expiratory wheezing is appreciated bilaterally) Heart Exam: Positive: Tachycardic, Irregular Rhythm (A. fib on hospital monitor and irregular rhythm appreciated on exam), Normal S1, Normal S2 Abdomen Exam: Positive: Normal bowel sounds, Soft Extremity Exam: Positive: Normal pulses, Tenderness Skin Exam: Positive: Nl turgor and temperature, Other skin issue Neuro Exam: Positive: Normal Gait, Normal Speech Psych Exam: Positive: Mental status NL, Mood NL, Oriented x 3 Assessment /Plan Assessment 1. Decompensated Congestive heart failure - patient does have a chronic cardiomegaly. Chest xray showed An interstitial infiltrate likely due to increased vascularization from the congestive heart failure. We'll monitor the patient with telemetry. Will continue with Lasix 40 mg IV every 6 hours AND fluid restriction of 1800 mL a day. Strict Intake and Outputs. Goal output is 2000cc. Toponin are <0.02. BNP was 1019. Patient is not complaining of chest pain. will continue diuresing the patient. 2. Dyspnea. Patient does have a underlying COPD component. Completed Solu- Medrol 60 g IV every 12 for 3 days. Patient is on 40 mg prednisone by mouth for 1 more day. Continue dounebs every 8 when necessary. And continue with her home medication for COPD management. Patient will also be placed on 2 L oxygen, same as home. 3. Non-Productive cough - patient does have a chronic cough. Denies having any fevers on admission her temperature is 98.9 the likely of interstitial infiltrate likely due to cephalization from the congestive heart failure we will still get a sputum culture. Patient will continue with the blue acappella stating to be improving her cough. 4. Leukocytosis - White count is treading down, current 13.9, the patient is afebrile since admission. Patient was give Solu-Medrol 60 IV so likely reactive leucocytosis. will continue to monitor with vitals and cbc while inpatient 5. Anxiety - continue with home medication of Escitalopram 10 PO Daily 6. Hypothyroidism - continue with home medication levothyroxine 75 mg 7. Diabetes - insulin sliding scale continue on consistent carb diet. 8. GERD - patient will continue with her home dose of omeprazole 40 mg capsule 9. Iron deficiency Anemia - she'll continue with her iron supplementation 10. DVT prophylaxis - Teds and Sequentials 11. PT- have PT come eval and treat the patient. The patient has been sedentary since admission 12. Constipation - will continue with bowel regimen, Miralax daily with Milk of Magnesium PRN. The patient states that she was constipated still her last bowel movement on May 02. Nursing is giving her Milk of Magnesium today while follow-up tomorrow and see if there is any improvement in her constipation. Plan/VTE VTE Prophylaxis Ordered?: Yes VS, I&O, 24H, Fishbone Vital Signs/I&O Vital Signs Date Time Temp Pulse Resp B/P (MAP) Pulse Ox O2 Delivery O2 Flow Rate FiO2 05/04/17 08:15 Nasal Cannula 2.0 05/04/17 08:00 98.1 78 18 136/80 (98) 96 04/30/17 08:20 35 I&O- Last 24 Hours up to 6 AM 05/05/17 06:00 Intake Total 120 ml Balance 120 ml Laboratory Data 24H LABS Laboratory Tests 2 05/03/17 11:48: Bedside Glucose (Misc Panel) 385H 05/03/17 16:42: Bedside Glucose (Misc Panel) 157H 05/03/17 20:27: Bedside Glucose (Misc Panel) 260H 05/04/17 05:52: Anion Gap 1L, Glomerular Filtration Rate > 60.0, Blood Urea Nitrogen 52H, Creatinine 0.70, Sodium Level 139, Potassium Level 4.7, Chloride Level 97L, Carbon Dioxide Level 41H, Calcium Level 9.1, Magnesium Level 3.2H CBC/BMP Laboratory Tests 05/04/17 05:52 Red Blood Count 3.03 L, Mean Corpuscular Volume 96.4 H, Mean Corpuscular Hemoglobin 29.0, Mean Corpuscular Hemoglobin Concent 30.1 L, Red Cell Distribution Width 18.1 H, Calcium Level 9.1 Microbiology Microbiology 04/30/17 Blood Culture - Preliminary, Resulted No Growth after 72 hours. All specime... 04/30/17 Blood Culture - Preliminary, Resulted No Growth after 72 hours. All specime... 04/30/17 Influenza Virus Type A Antigen - Final, Complete 04/30/17 Influenza Virus Type B Antigen - Final, Complete GME ATTESTATION GME ATTESTATION My preceptor for this patient encounter was physically present in the building during the encounter and was fully available. As needed, all aspects of the patient interview, examination, medical decision making process, and medical care plan development were reviewed and approved by the preceptor. Preceptor is aware and concurs with the plan as stated in the body of this note and will attest to such by his/her cosignature. MAICOL JAUREGUI DO May 04, 2017 11:52
[2017-05-04 12:00] VITALS: BP 138/78
[2017-05-04] MEDS: MOM 30ML SUSPENSION UDC PO PRN (14:26)
--- NOTE | 2017-05-04 15:25 | REP ---
PORTABLE CHEST: AP portable view of the chest is performed and compared to prior study of 04/30/2017. There is cardiomegaly again noted. There is vascular congestion and there are diffuse interstitial infiltrates which are mildly worse than on the prior study. There are new patchy alveolar opacities in each lung base and small effusions. The findings are consistent with worsening CHF and pulmonary edema. There is calcification of the thoracic aorta. Multiple sternal wires and mediastinal clips are present. IMPRESSION: Findings compatible with worsening CHF and pulmonary edema. Signed by Javed Sampson MD 05/04/2017 04:17 P
[2017-05-04 16:00] VITALS: BP 133/78
[2017-05-04 20:00] VITALS: BP 134/80
[2017-05-04] MEDS: FEXOFENADINE 60 MG TAB PO SCH (20:53)
[2017-05-05] VITALS: BP 163/66
[2017-05-05] MEDS: FUROSEMIDE 40 MG/4 ML VIAL (J1940) IV SCH ×6 (00:26→20:00)
[2017-05-05] MEDS: LEVOTHYROXINE 75MCG TABLET (0.075MG) PO SCH (05:41)
[2017-05-05 06:02] LABS: MEAN CORPUSCULAR HEMOGLOBIN 28.5 pg (27.0-33.0); MEAN CORPUSCULAR HGB CONC 29.8 g/dl (32.0-36.5); MEAN CORPUSCULAR VOLUME 95.7 fl (80.0-96.0); RED CELL DISTRIBUTION WIDTH 18.4 % (11.5-14.5); WHITE BLOOD COUNT 14.2 10^3/uL (4.0-10.0)
[2017-05-05 06:19] LABS: ANION GAP 3 MEQ/L (8-16); BLOOD UREA NITROGEN 42 MG/DL (7-18); CARBON DIOXIDE LEVEL 42 MEQ/L (21-32); CHLORIDE LEVEL 96 MEQ/L (98-107); CREATININE FOR GFR 0.58 MG/DL (0.55-1.02); GLOMERULAR FILTRATION RATE > 60.0 (>32); GLUCOSE, FASTING 113 MG/DL (83-110); POTASSIUM SERUM 3.6 MEQ/L (3.5-5.1); SODIUM LEVEL 141 MEQ/L (136-145)
[2017-05-05] MEDS: TIOTROPIUM INHALER/CAPSULE (SPIRIVA) INH SCH (07:19)
[2017-05-05] MEDS: BUDESONIDE 0.5 MG/2 ML INHALATION SUSPENSION INH SCH ×2 (07:19→19:54)
[2017-05-05] MEDS: IPRATROPIUM 0.5MG/ALBUTEROL 2.5MG INH SOL UD 3ML (DUONEB)(J7620) NEB SCH ×3 (07:20→19:54)
--- NOTE | 2017-05-05 07:58 | IPNPDOC ---
Subjective Date Seen The patient was seen on 05/05/17. Subjective Chief Complaint/HPI The patient is a 81-year-old female admitted with a reason for visit of Acute On Chronic Respiratory Failure. Events since last encounter Patient was seen this morning and examined at beside. Patient had a N.C at 2.0L this morning, the patient was titrated up from 2L at 5pm last night because she was stating at 89%. They had her at 4.0 L at first and then she was titrated down 3.0L for the rest of the night. The patient slept comfortably and stated that is still not coughing up sputum but is nursing her Acapella. The patient states she is very thirsty and would like some fluid. Her repeat chest xray yesterday evening, showed worsening CHF. We changed her lasix to 40 mg IV q4h. Per nursing, she had no overnight events and patient is going down for her PICC this AM. General: Reports: Normal Appetite, Denies: Chills, Night Sweats, Fatigue, Malaise Eyes: Denies: Pain, Vision change ENT: Denies: Dysphagia, Sore Throat Skin: Denies: Rash, Lesions, Bruising Pulmonary: Reports: Cough (non productive cough), Denies: Dyspnea Cardiovascular: Denies: Chest Pain, Palpitations, Edema, Lt Headedness Gastrointestinal: Denies: Nausea, Vomiting, Abdominal Pain, Diarrhea, Constipation Genitourinary: Denies: Dysuria, Frequency, Incontinence, Hematuria, Retention Hematologic: Denies: Bruising, Bleeding Excessively Endocrine: Denies: Polydipsia, Polyphagia, Polyuria Musculoskeletal: Denies: Neck Pain, Back Pain, Joint Pain, Muscle Pain, Spasms Neurological: Denies: Weakness, Numbness, Change in speech, Confusion Psych: Reports: Mood Normal, Denies: Depression, Memory Issues Objective Physical Examination General Exam: Positive: Alert, No Acute Distress Eye Exam: Positive: Conjunctiva & lids normal, EOMI ENT Exam: Positive: Atraumatic, Mucous membr. moist/pink, Pharynx Normal Neck Exam: Positive: Supple, JVD (4 cm form the sternal angle) Chest Exam: Positive: Other (bilateral expiratory wheezing is appreciated bilaterally) Heart Exam: Positive: Tachycardic, Irregular Rhythm (A. fib on mold tooler and irregular rhythm appreciated on exam), Normal S1, Normal S2 Abdomen Exam: Positive: Normal bowel sounds, Soft Extremity Exam: Positive: Normal pulses, Tenderness Skin Exam: Positive: Nl turgor and temperature, Other skin issue Neuro Exam: Positive: Normal Gait, Normal Speech Psych Exam: Positive: Mental status NL, Mood NL, Oriented x 3 Assessment /Plan Assessment 1. Decompensated Congestive heart failure - patient does have a chronic cardiomegaly. Chest xray from admission showed an interstitial infiltrate likely due to increased vascularization from the congestive heart failure. Updated x-ray on 05/04/2017 showed worsening CHF. We have change Lasix to 40 mg IV q4h and the patient doesn't have good peripheral access and she is getting a PICC placed this morning. Patient was stressed the importance of fluid restriction of 1800 mL a day. Strict Intake and Outputs. Goal is net output of ~ 5 more liters of fluid. Toponin are <0.02. BNP was 1019. Patient is not complaining of chest pain. will continue diuresing the patient and continue to monitor daily. 2. Dyspnea. Patient does have a underlying COPD component. Completed Solu- Medrol 60 g IV every 12 for 3 days and 40 mg prednisone PO for 2 day (last dose this morning). Continue dounebs every 8 when necessary. And continue with her home medication for COPD management. Patient was placed on 2 L oxygen, same as home with titration orders to keep SAO2 88-92%. During the exam her oxygen was at 2L and she is stating well. 3. Non-Productive cough - patient does have a chronic cough. Denies having any fevers on admission her temperature is 98.9 the likely of interstitial infiltrate on the chest x-ray is likely due to cephalization from the congestive heart failure we will still get a sputum culture. Patient will continue with the blue a cappella stating to be improving her cough. 4. Leukocytosis - The patient is afebrile since admission. Patient was give Solu -Medrol 60 IV so likely reactive leucocytosis. Will continue to monitor with vitals and cbc while inpatient. The patient just completed steroid therapy on . Will continue to monitor with vitals and cbc while inpatient. 5. Anxiety - continue with home medication of Escitalopram 10 PO Daily 6. Hypothyroidism - continue with home medication levothyroxine 75 mg 7. Diabetes - insulin sliding scale continue on consistent carb diet. 8. GERD - patient will continue with her home dose of omeprazole 40 mg capsule 9. Iron deficiency Anemia - she'll continue with her iron supplementation 10. DVT prophylaxis - Teds and Sequentials 11. PT- saw the patient on 05/03. Patient requires increased assist with bed mobility, transfers and short ambulation of bed>chair. Recommend skilled PT to progress I with transfers, ambulation and maximize return to PLOF. Pt. may benefit from subacute rehab to progress endurance when medically appropriate. 12. Constipation - will continue with bowel regimen, Miralax daily with Milk of Magnesium PRN. The patient states that she was constipated still her last bowel movement on May 02. Patient was given MOM yesterday and still no bowel movement. Will give a colace suppository today. Plan/VTE VTE Prophylaxis Ordered?: Yes Plan/Urinary Catheter Reason for insertion/continuin: Critical Pt monitoring VS, I&O, 24H, Fishbone Vital Signs/I&O Vital Signs Date Time Temp Pulse Resp B/P (MAP) Pulse Ox O2 Delivery O2 Flow Rate FiO2 05/05/17 00:00 98.2 105 20 163/66 (98) 96 Nasal Cannula 3.0 04/30/17 08:20 35 Laboratory Data 24H LABS Laboratory Tests 2 05/04/17 11:39: Bedside Glucose (Misc Panel) 162H 05/04/17 16:31: Bedside Glucose (Misc Panel) 239H 05/04/17 21:12: Bedside Glucose (Misc Panel) 179H 05/05/17 05:40: Anion Gap 3L, Glomerular Filtration Rate > 60.0, Blood Urea Nitrogen 42H, Creatinine 0.58, Sodium Level 141, Potassium Level 3.6#, Chloride Level 96L, Carbon Dioxide Level 42H, Calcium Level 9.0 CBC/BMP Laboratory Tests 05/05/17 05:40 Red Blood Count 3.02 L, Mean Corpuscular Volume 95.7, Mean Corpuscular Hemoglobin 28.5, Mean Corpuscular Hemoglobin Concent 29.8 L, Red Cell Distribution Width 18.4 H, Calcium Level 9.0 Microbiology Microbiology 04/30/17 Blood Culture - Preliminary, Resulted No Growth after 72 hours. All specime... 04/30/17 Blood Culture - Preliminary, Resulted No Growth after 72 hours. All specime... 04/30/17 Influenza Virus Type A Antigen - Final, Complete 04/30/17 Influenza Virus Type B Antigen - Final, Complete GME ATTESTATION GME ATTESTATION My preceptor for this patient encounter was physically present in the building during the encounter and was fully available. As needed, all aspects of the patient interview, examination, medical decision making process, and medical care plan development were reviewed and approved by the preceptor. Preceptor is aware and concurs with the plan as stated in the body of this note and will attest to such by his/her cosignature. MAICOL JAUREGUI DO May 05, 2017 07:31
[2017-05-05 08:00] VITALS: BP 136/65
[2017-05-05] MEDS: POTASSIUM CHLORIDE 10 MEQ SR TABLET PO SCH ×2 (09:13→20:26)
[2017-05-05] MEDS: HumaLOG INSULIN (NovoLOG) PER UNIT SC SCH ×4 (09:13→20:26)
[2017-05-05] MEDS: FERROUS SULFATE 325MG TAB PO SCH ×2 (09:13→20:25)
[2017-05-05] MEDS: DOCUSATE SODIUM 100 MG CAP PO SCH ×2 (09:13→20:26)
[2017-05-05] MEDS: ESCITALOPRAM OXALATE 10 MG TAB (LEXAPRO) PO SCH (09:14)
[2017-05-05] MEDS: FIBER-CON 625 MG TAB PO SCH (09:14)
[2017-05-05] MEDS: BACITRACIN OINT 30GM TOP SCH ×2 (09:14→20:28)
[2017-05-05] MEDS: predniSONE 20 MG TAB PO SCH (09:14)
[2017-05-05] MEDS: OMEPRAZOLE 20 MG CAP PO SCH (09:14)
[2017-05-05] MEDS: MIRALAX *UNIT DOSE* 17GM PACKET PO SCH (09:14)
[2017-05-05] MEDS: NYSTATIN 100,000 UNITS/GM TOPICAL PWD 15 GM TOP SCH ×2 (09:15→20:28)
[2017-05-05] MEDS ORDERED: BISACODYL 10 MG SUPP PR ONE ×2 (09:15→16:30)
[2017-05-05 12:00] VITALS: BP 138/67
[2017-05-05 16:00] VITALS: BP 127/72
--- NOTE | 2017-05-05 16:08 | REP ---
Procedure: PICC line insertion with Franca-Freddie The procedure was performed under the direct supervision of Dr. Rodríguez. The risks and benefits of the procedure were explained to the patient and informed consent was obtained. The right basilic vein was localized using ultrasound guidance. The skin was prepped and draped in a sterile fashion. 2% lidocaine was used as a local anesthetic. Using ultrasound guidance the basilic vein was cannulated and a 0.018 guidewire was inserted and advanced to the SVC using fluoroscopic guidance. The needle was removed and a 4.5 Surinamese dilator and peel-away sheath was inserted over the guide wire. A 4.5 [place]amese single lumen catheter was cut to length of 47. cm. The dilator was removed and the catheter was inserted over the guide wire with the tip ending in the SVC. The peel-away sheath was removed and the catheter was flushed with heparinized saline as per Hospital protocol. The catheter was affixed to the skin and a sterile dressing was applied. The the patient tolerated the procedure well and there were no immediate complications. 0.2 minutes of fluoro time was utilized for this procedure. Reviewed by YASMIN Logan 05/05/2017 03:26 PSigned by Roscoe Rodríguez MD 05/05/2017 03:59 P
[2017-05-05] MEDS: ACETAMINOPHEN TAB 650MG DOSE (2X325MG) PO PRN ×2 (17:07→21:33)
[2017-05-05 19:54] VITALS: O2SAT 95
[2017-05-05 20:00] VITALS: BP_SYST 120; BP_SYST 122; BP_DIAS 61; BP_DIAS 84
[2017-05-05] MEDS: FEXOFENADINE 60 MG TAB PO SCH (20:24)
[2017-05-05] MEDS: ANUSOL HC CREAM 30GM TOP SCH (20:27)
[2017-05-06] VITALS (7 sets, daily range): BP systolic 142–156; BP diastolic 65–88; O2SAT 93
[2017-05-06] MEDS: FUROSEMIDE 40 MG/4 ML VIAL (J1940) IV SCH ×6 (00:32→22:59)
[2017-05-06] MEDS: ACETAMINOPHEN TAB 650MG DOSE (2X325MG) PO PRN ×3 (02:42→22:51)
[2017-05-06] MEDS: SODIUM CHLORIDE 0.9% INJ 10 ML SYR IV SCH ×2 (05:04→17:58)
[2017-05-06] MEDS: LEVOTHYROXINE 75MCG TABLET (0.075MG) PO SCH (05:05)
[2017-05-06 05:16] LABS: MEAN CORPUSCULAR HEMOGLOBIN 29.1 pg (27.0-33.0); MEAN CORPUSCULAR HGB CONC 30.1 g/dl (32.0-36.5); MEAN CORPUSCULAR VOLUME 96.7 fl (80.0-96.0); RED CELL DISTRIBUTION WIDTH 18.8 % (11.5-14.5); WHITE BLOOD COUNT 14.3 10^3/uL (4.0-10.0)
[2017-05-06 05:45] LABS: BLOOD UREA NITROGEN 37 MG/DL (7-18); CALCIUM LEVEL 8.7 MG/DL (8.8-10.2); CHLORIDE LEVEL 98 MEQ/L (98-107); CREATININE FOR GFR 0.65 MG/DL (0.55-1.02); GLOMERULAR FILTRATION RATE > 60.0 (>32); GLUCOSE, FASTING 109 MG/DL (83-110); MAGNESIUM LEVEL 2.8 MG/DL (1.8-2.4); SODIUM LEVEL 146 MEQ/L (136-145)
[2017-05-06 05:54] LABS: ANION GAP 3 MEQ/L (8-16); CARBON DIOXIDE LEVEL 45 MEQ/L (21-32)
[2017-05-06] MEDS: BUDESONIDE 0.5 MG/2 ML INHALATION SUSPENSION INH SCH ×2 (08:10→19:56)
[2017-05-06] MEDS: TIOTROPIUM INHALER/CAPSULE (SPIRIVA) INH SCH (08:10)
[2017-05-06] MEDS: IPRATROPIUM 0.5MG/ALBUTEROL 2.5MG INH SOL UD 3ML (DUONEB)(J7620) NEB SCH ×2 (08:10→15:24)
--- NOTE | 2017-05-06 08:20 | IPNPDOC ---
Subjective Date Seen The patient was seen on 05/06/17. Subjective Chief Complaint/HPI The patient is a 81-year-old female admitted with a reason for visit of Acute On Chronic Respiratory Failure. Events since last encounter Patient was seen and examined at bedside. The patient has her PICC placed yesterday and is tolerating her lasix. Patient is a lot more complainant with fluid restriction. Stating improvement in her cough and breathing. Still on 2L of oxygen. The patient had two bowel overnight and has no complaints this AM. Per nursing, no overnight events. General: Reports: Normal Appetite, Denies: Chills, Night Sweats, Fatigue, Malaise Eyes: Reports: Other (dry eyes chronic. ), Denies: Pain, Vision change ENT: Denies: Dysphagia, Sore Throat Skin: Denies: Rash, Lesions, Bruising Pulmonary: Reports: Cough (chronic), Denies: Dyspnea Cardiovascular: Denies: Chest Pain, Palpitations, Edema, Lt Headedness Gastrointestinal: Denies: Nausea, Vomiting, Abdominal Pain, Diarrhea, Constipation Genitourinary: Denies: Dysuria, Frequency, Incontinence, Hematuria, Retention Hematologic: Denies: Bruising, Bleeding Excessively Endocrine: Denies: Polydipsia, Polyphagia, Polyuria Musculoskeletal: Denies: Neck Pain, Back Pain, Joint Pain, Muscle Pain, Spasms Neurological: Denies: Weakness, Numbness, Change in speech, Confusion Psych: Reports: Mood Normal, Denies: Depression, Memory Issues Objective Physical Examination General Exam: Positive: Alert, No Acute Distress Eye Exam: Positive: Conjunctiva & lids normal, EOMI ENT Exam: Positive: Atraumatic, Mucous membr. moist/pink, Pharynx Normal Neck Exam: Positive: Supple, JVD Chest Exam: Positive: Other (bilateral expiratory wheezing is appreciated bilaterally with some crackles (improving)) Heart Exam: Positive: Tachycardic, Irregular Rhythm (A. fib on nurse monitoring and irregular rhythm appreciated on exam), Normal S1, Normal S2 Abdomen Exam: Positive: Normal bowel sounds, Soft Extremity Exam: Positive: Normal pulses, Tenderness (bilateral around the ankles. ) Skin Exam: Positive: Nl turgor and temperature, Other skin issue Neuro Exam: Positive: Normal Gait, Normal Speech Psych Exam: Positive: Mental status NL, Mood NL, Oriented x 3 Assessment /Plan Assessment 1. Decompensated Congestive heart failure - patient does have a chronic cardiomegaly. Chest xray from admission showed an interstitial infiltrate likely due to increased vascularization from the congestive heart failure. Updated x-ray on 05/04/2017 showed worsening CHF. We have change Lasix to 40 mg IV q4h and the patient doesn't have good peripheral access and she is getting a PICC placed this morning. Patient was stressed the importance of fluid restriction of 1800 mL a day. Strict Intake and Outputs. Goal is net output of ~ 5 more liters of fluid. Toponin are <0.02. BNP was 1019. Patient is not complaining of chest pain. will continue diuresing the patient and continue to monitor daily. 2. Dyspnea. Patient does have a underlying COPD component. Completed Solu- Medrol 60 g IV every 12 for 3 days and 40 mg prednisone PO for 2 day (last dose this morning). Continue dounebs every 8 when necessary. And continue with her home medication for COPD management. Patient was placed on 2 L oxygen, same as home with titration orders to keep SAO2 88-92%. During the exam her oxygen was at 2L and she is stating well. 3. Non-Productive cough - patient does have a chronic cough. Denies having any fevers on admission her temperature is 98.9 the likely of interstitial infiltrate on the chest x-ray is likely due to cephalization from the congestive heart failure we will still get a sputum culture. Patient will continue with the chico bob stating to be improving her cough. 4. Leukocytosis - The patient is afebrile since admission. Patient was give Solu -Medrol 60 IV so likely reactive leucocytosis. Will continue to monitor with vitals and cbc while inpatient. The patient just completed steroid therapy on . Will continue to monitor with vitals and cbc while inpatient. 5. Anxiety - continue with home medication of Escitalopram 10 PO Daily 6. Hypothyroidism - continue with home medication levothyroxine 75 mg 7. Diabetes - insulin sliding scale continue on consistent carb diet. 8. GERD - patient will continue with her home dose of omeprazole 40 mg capsule 9. Iron deficiency Anemia - she'll continue with her iron supplementation 10. DVT prophylaxis - Teds and Sequentials 11. PT- saw the patient on 05/03. Patient requires increased assist with bed mobility, transfers and short ambulation of bed>chair. Recommend skilled PT to progress I with transfers, ambulation and maximize return to PLOF. Patient is ambulating to chair during lunch for meals. Pt. will be going to subacute rehab after discharge. 12. Constipation (improving) - likely due to her iron supplement for anemia. will continue with bowel regimen: Miralax daily, Dulcolax suppository daily with Milk of Magnesium PRN. Patient had two bowel movements overnight. 13. Dry eyes - continue home medications: artificial tears x 1 drop for each eyes Plan/VTE VTE Prophylaxis Ordered?: Yes Plan/Urinary Catheter Reason for insertion/continuin: Critical Pt monitoring VS, I&O, 24H, Fishbone Vital Signs/I&O Vital Signs Date Time Temp Pulse Resp B/P (MAP) Pulse Ox O2 Delivery O2 Flow Rate FiO2 05/06/17 04:00 97.2 99 18 142/65 (90) 96 Nasal Cannula 2.0 04/30/17 08:20 35 Laboratory Data 24H LABS Laboratory Tests 2 05/05/17 11:49: Bedside Glucose (Misc Panel) 147H 05/05/17 16:29: Bedside Glucose (Misc Panel) 159H 05/05/17 20:22: Bedside Glucose (Misc Panel) 185H 05/06/17 05:03: Anion Gap 3L, Glomerular Filtration Rate > 60.0, Blood Urea Nitrogen 37H, Creatinine 0.65, Sodium Level 146H, Potassium Level 4.0, Chloride Level 98, Carbon Dioxide Level 45H, Calcium Level 8.7L, Magnesium Level 2.8H CBC/BMP Laboratory Tests 05/06/17 05:03 Red Blood Count 2.99 L, Mean Corpuscular Volume 96.7 H, Mean Corpuscular Hemoglobin 29.1, Mean Corpuscular Hemoglobin Concent 30.1 L, Red Cell Distribution Width 18.8 H, Calcium Level 8.7 L Microbiology Microbiology 04/30/17 Blood Culture - Final, Complete NO GROWTH AFTER 5 DAYS 04/30/17 Blood Culture - Final, Complete NO GROWTH AFTER 5 DAYS 04/30/17 Influenza Virus Type A Antigen - Final, Complete 04/30/17 Influenza Virus Type B Antigen - Final, Complete GME ATTESTATION GME ATTESTATION My preceptor for this patient encounter was physically present in the building during the encounter and was fully available. As needed, all aspects of the patient interview, examination, medical decision making process, and medical care plan development were reviewed and approved by the preceptor. Preceptor is aware and concurs with the plan as stated in the body of this note and will attest to such by his/her cosignature. MAICOL JAUREGUI DO May 06, 2017 08:20
[2017-05-06] MEDS: HumaLOG INSULIN (NovoLOG) PER UNIT SC SCH ×4 (08:47→21:00)
[2017-05-06] MEDS: FERROUS SULFATE 325MG TAB PO SCH ×2 (08:48→22:51)
[2017-05-06] MEDS: DOCUSATE SODIUM 100 MG CAP PO SCH ×2 (08:49→22:51)
[2017-05-06] MEDS: FIBER-CON 625 MG TAB PO SCH (08:49)
[2017-05-06] MEDS: ESCITALOPRAM OXALATE 10 MG TAB (LEXAPRO) PO SCH (08:49)
[2017-05-06] MEDS: OMEPRAZOLE 20 MG CAP PO SCH (08:49)
[2017-05-06] MEDS: POTASSIUM CHLORIDE 10 MEQ SR TABLET PO SCH ×2 (08:49→22:52)
[2017-05-06] MEDS: NYSTATIN 100,000 UNITS/GM TOPICAL PWD 15 GM TOP SCH ×2 (08:50→22:52)
[2017-05-06] MEDS: MIRALAX *UNIT DOSE* 17GM PACKET PO SCH (08:50)
[2017-05-06] MEDS: ANUSOL HC CREAM 30GM TOP SCH ×2 (08:51→22:53)
[2017-05-06] MEDS: BACITRACIN OINT 30GM TOP SCH ×2 (09:48→23:00)
[2017-05-06] MEDS: BISACODYL 10 MG SUPP PR SCH (12:11)
[2017-05-06] MEDS: FEXOFENADINE 60 MG TAB PO SCH (22:51)
[2017-05-07] VITALS: BP 133/63
[2017-05-07] MEDS: IPRATROPIUM 0.5MG/ALBUTEROL 2.5MG INH SOL UD 3ML (DUONEB)(J7620) NEB PRN ×2 (01:13→04:51)
[2017-05-07] MEDS: FUROSEMIDE 40 MG/4 ML VIAL (J1940) IV SCH ×4 (01:55→12:54)
[2017-05-07] MEDS: SODIUM CHLORIDE 0.9% INJ 10 ML SYR IV PRN ×2 (01:56→12:54)
[2017-05-07 04:41] VITALS: BP 156/67
[2017-05-07] MEDS: LEVOTHYROXINE 75MCG TABLET (0.075MG) PO SCH (05:06)
[2017-05-07] MEDS: SODIUM CHLORIDE 0.9% INJ 10 ML SYR IV SCH (05:06)
[2017-05-07 05:20] LABS: MEAN CORPUSCULAR HEMOGLOBIN 28.6 pg (27.0-33.0); MEAN CORPUSCULAR HGB CONC 29.3 g/dl (32.0-36.5); MEAN CORPUSCULAR VOLUME 97.5 fl (80.0-96.0); RED CELL DISTRIBUTION WIDTH 18.6 % (11.5-14.5); WHITE BLOOD COUNT 13.3 10^3/uL (4.0-10.0)
[2017-05-07 05:39] LABS: ANION GAP 3 MEQ/L (8-16); BLOOD UREA NITROGEN 29 MG/DL (7-18); CALCIUM LEVEL 8.4 MG/DL (8.8-10.2); CARBON DIOXIDE LEVEL 44 MEQ/L (21-32); CHLORIDE LEVEL 99 MEQ/L (98-107); CREATININE FOR GFR 0.58 MG/DL (0.55-1.02); GLOMERULAR FILTRATION RATE > 60.0 (>32); GLUCOSE, FASTING 118 MG/DL (83-110); POTASSIUM SERUM 3.4 MEQ/L (3.5-5.1); SODIUM LEVEL 146 MEQ/L (136-145)
[2017-05-07 08:00] VITALS: BP 156/67
[2017-05-07] MEDS: DOCUSATE SODIUM 100 MG CAP PO SCH (08:38)
[2017-05-07] MEDS: FERROUS SULFATE 325MG TAB PO SCH (08:38)
[2017-05-07] MEDS: POTASSIUM CHLORIDE 10 MEQ SR TABLET PO SCH (08:38)
[2017-05-07] MEDS: ESCITALOPRAM OXALATE 10 MG TAB (LEXAPRO) PO SCH (08:38)
[2017-05-07] MEDS: FIBER-CON 625 MG TAB PO SCH (08:38)
[2017-05-07] MEDS: OMEPRAZOLE 20 MG CAP PO SCH (08:38)
[2017-05-07] MEDS: HumaLOG INSULIN (NovoLOG) PER UNIT SC SCH ×2 (08:38→12:54)
[2017-05-07] MEDS: NYSTATIN 100,000 UNITS/GM TOPICAL PWD 15 GM TOP SCH (08:39)
[2017-05-07] MEDS: MIRALAX *UNIT DOSE* 17GM PACKET PO SCH (08:39)
[2017-05-07] MEDS: BACITRACIN OINT 30GM TOP SCH (08:39)
[2017-05-07] MEDS: ANUSOL HC CREAM 30GM TOP SCH (08:40)
[2017-05-07] MEDS: BISACODYL 10 MG SUPP PR SCH (08:40)
[2017-05-07] MEDS: IPRATROPIUM 0.5MG/ALBUTEROL 2.5MG INH SOL UD 3ML (DUONEB)(J7620) NEB SCH ×3 (08:57→14:54)
[2017-05-07] MEDS: BUDESONIDE 0.5 MG/2 ML INHALATION SUSPENSION INH SCH (08:57)
[2017-05-07] MEDS: TIOTROPIUM INHALER/CAPSULE (SPIRIVA) INH SCH (08:57)
[2017-05-07] MEDS ORDERED: PREPPAD EXT (09:58)
[2017-05-07] MEDS ORDERED: DULC10SU2 PR (10:16)
--- NOTE | 2017-05-07 10:23 | DS.PDOC ---
Discharge Summary General Date of Admission Apr 30, 2017 at 10:56 Date of Discharge 2016 Primary Care Physician: SATHISH JACOBSON DO Discharge Summary PROCEDURES PERFORMED DURING STAY: PICC line insertion ADMITTING DIAGNOSES: 1. Chronic Congestive heart failure 2. Dyspnea DISCHARGE DIAGNOSES: 1. Acute on Chronic Congestive heart failure 2. Dyspnea COMPLICATIONS/CHIEF COMPLAINT: Acute On Chronic Respiratory Failure. HISTORY OF PRESENT ILLNESS: This is a 80-year-old female with multiple chronic medical conditions, has trouble hearing and is not the best historian, presents to the ER for her breathing problems 2 days. The patient states that this morning she woke up at 2 AM frightened by one of the nurses. She started having a breathing spell and did not get better. The patient states that she was still not feeling well, [facility] [place] at 7 AM the nurses Center here to the ER. Patient states the day before she was having breathing problems as well but she didn't want to come. Patient states that she had one episode of chest pain yesterday. She said it last about 10 seconds it feels like someone is driving a nail into our her chest. The patient states that she sleeps on a recliners since her triple bypass many years ago. The patient denies having any lower cavity edema. She currently uses 2 L of oxygen at home at all times She also has a nonrebreather that she uses sometimes. Patient states that lately she is noted she's having exertional fatigue just from walking from her recliner to the bathroom. Patient currently lives at the [facility]. The patient is a Full Code. HOSPITAL COURSE: 1. Decompensated Congestive heart failure - patient does have a chronic cardiomegaly. Chest xray from admission showed an interstitial infiltrate likely due to increased vascularization from the congestive heart failure. Updated x-ray on 05/04/2017 showed worsening CHF. We have change Lasix to 40 mg IV q4h and the patient doesn't have good peripheral access and she is getting a PICC placed this morning. Patient was stressed the importance of fluid restriction of 1800 mL a day. Strict Intake and Outputs. Goal is net output of ~9320 cc of fluid. Toponin are <0.02. BNP was 1019. Patient is not complaining of chest pain since admission. 2. Dyspnea. Patient does have a underlying COPD component. Completed Solu- Medrol 60 g IV every 12 for 3 days and 40 mg prednisone PO for 2 day (last dose this morning). Continue dounebs every 8 when necessary. And continue with her home medication for COPD management. Patient was placed on 2 L oxygen, same as home with titration orders to keep SAO2 88-92%. 3. Non-Productive cough - patient does have a chronic cough. Denies having any fevers on admission her temperature is 98.9 the likely of interstitial infiltrate on the chest x-ray is likely due to cephalization from the congestive heart failure we will still get a sputum culture. Patient will continue with the chico bob stating to be improving her cough. 4. Leukocytosis - The patient is afebrile since admission. Blood cultures were negative for growth final. Patient was give Solu-Medrol 60 IV so likely reactive leucocytosis. Will continue to monitor with vitals and cbc while inpatient. The patient just completed steroid therapy on 05/05/17. 5. Anxiety , Hypothyroidism, Diabetes , Dry eyes, GERD, Iron deficiency Anemia - patient will continue with her home medications. 6. PT- saw the patient on 05/03. Patient requires increased assist with bed mobility, transfers and short ambulation of bed>chair. Recommend skilled PT to progress I with transfers, ambulation and maximize return to PLOF. Patient is ambulating to chair during lunch for meals. Pt. will be going to subacute rehab after discharge. 7. Constipation (improving) - likely due to her iron supplement for anemia. will continue with bowel regimen: Miralax daily, Dulcolax suppository daily with Milk of Magnesium PRN. Patient had two bowel movements overnight. DISCHARGE MEDICATIONS: Please see below. ALLERGIES: Please see below. PHYSICAL EXAMINATION ON DISCHARGE: VITAL SIGNS: Please see below. General Exam: Positive: Alert, No Acute Distress Eye Exam: Positive: Conjunctiva & lids normal, EOMI ENT Exam: Positive: Atraumatic, Mucous membr. moist/pink, Pharynx Normal Neck Exam: Positive: Supple, JVD Chest Exam: Positive: Other (bilateral expiratory wheezing is appreciated bilaterally with some crackles (improving)) Heart Exam: Positive: Tachycardic, Irregular Rhythm (A. fib on finish patcher and irregular rhythm appreciated on exam), Normal S1, Normal S2 Abdomen Exam: Positive: Normal bowel sounds, Soft Extremity Exam: Positive: Normal pulses, Tenderness (bilateral around the ankles. ) Skin Exam: Positive: Nl turgor and temperature, Other skin issue Neuro Exam: Positive: Normal Gait, Normal Speech Psych Exam: Positive: Mental status NL, Mood NL, Oriented x 3 LABORATORY DATA: Please see below. IMAGIN04/30/17 Chest Xray Comparison is 12/09/2016. There are interstitial infiltrates as an interval change. No pleural effusions. There is chronic cardiomegaly, unchanged. There is internal fixation of the right humerus, unchanged. 05/04/17 Chest Xray IMPRESSION: Findings compatible with worsening CHF and pulmonary edema. 05/05/17 PICC ultrasound placement The procedure was performed under the direct supervision of Dr. Rodríguez. The risks and benefits of the procedure were explained to the patient and informed consent was obtained. The right basilic vein was localized using ultrasound guidance. The skin was prepped and draped in a sterile fashion. 2% lidocaine was used as a local anesthetic. Using ultrasound guidance the basilic vein was cannulated and a 0.018 guidewire was inserted and advanced to the SVC using fluoroscopic guidance. The needle was removed and a 4.5 [place] dilator and peel-away sheath was inserted over the guide wire. A 4.5 [place] single lumen catheter was cut to length of 47. cm. The dilator was removed and the catheter was inserted over the guide wire with the tip ending in the SVC. The peel-away sheath was removed and the catheter was flushed with heparinized saline as per Hospital protocol. The catheter was affixed to the skin and a sterile dressing was applied. The the patient tolerated the procedure well and there were no immediate complications. 0.2 minutes of fluoro time was utilized for this procedure. ACTIVITY: As tolerated. DIET: Low sodium diet and 2000cc fluid restriction. DISCHARGE PLAN: 1. Decompensated Congestive heart failure - patient does have a chronic cardiomegaly. Chest xray from admission showed an interstitial infiltrate likely due to increased vascularization from the congestive heart failure. Updated x-ray on 05/04/2017 showed worsening CHF. We have change Lasix to 40 mg IV q4h and the patient doesn't have good peripheral access and she is getting a PICC placed this morning. Patient was stressed the importance of fluid restriction of 1800 mL a day. Strict Intake and Outputs. Goal is net output of ~5 more liters of fluid. Toponin are <0.02. BNP was 1019. Patient is not complaining of chest pain. will continue home dose of toresmide and will continue fluid restriction 1800cc. 2. Dyspnea. Patient does have a underlying COPD component. Completed Solu- Medrol 60 g IV every 12 for 3 days and 40 mg prednisone PO for 2 day (last dose this morning). Continue dounebs every 8 when necessary. And continue with her home medication for COPD management. Patient was placed on 2 L oxygen, same as home with titration orders to keep SAO2 88-92%. Continue with O2 2L at home. 3. Non-Productive cough - patient does have a chronic cough. Denies having any fevers on admission her temperature is 98.9 the likely of interstitial infiltrate on the chest x-ray is likely due to cephalization from the congestive heart failure we will still get a sputum culture. Patient will continue with the blue acappella stating to be improving her cough. 5. Anxiety , Hypothyroidism, Diabetes , Dry eyes, GERD, Iron deficiency Anemia - patient will continue with her home medications. 6. PT- saw the patient on 05/03. Patient requires increased assist with bed mobility, transfers and short ambulation of bed>chair. Recommend skilled PT to progress I with transfers, ambulation and maximize return to PLOF. Patient is ambulating to chair during lunch for meals. Pt. will be going to subacute rehab after discharge. 7. Constipation (improving) - likely due to her iron supplement for anemia. Will continue with bowel regimen at home Dulcolax suppository daily with Milk of Magnesium PRN. 8. Hemorrhoid. Sent preparation H pad to pharmacy on file . patient can use as needed . DISCHARGE INSTRUCTIONS: 1. Discharge to subacute rehab. 2. Follow up with pcp within 3-7 days. 3. Fluid restriction at home of 1999cc. ITEMS TO FOLLOWUP ON OUTPATIENT: 1. Discharge to subacute rehab. 2. Follow up with pcp within 3-7 days. 3. Fluid restriction at home of 1999cc. DISCHARGE CONDITION: Stable. TIME SPENT ON DISCHARGE: Greater than 35 minutes. Vital Signs/I&Os Vital Signs Date Time Temp Pulse Resp B/P (MAP) Pulse Ox O2 Delivery O2 Flow Rate FiO2 05/07/17 08:00 97.8 74 18 156/67 (96) 94 Nasal Cannula 2.0 I&O- Last 24 Hours up to 6 AM 05/08/17 06:00 Intake Total 480 ml Output Total 1250 ml Balance -770 ml Laboratory Data Labs 24H Laboratory Tests 2 05/06/17 11:42: Bedside Glucose (Misc Panel) 159H 05/06/17 17:29: Bedside Glucose (Misc Panel) 187H 05/06/17 22:16: Bedside Glucose (Misc Panel) 89 05/07/17 05:05: Anion Gap 3L, Glomerular Filtration Rate > 60.0, Blood Urea Nitrogen 29H, Creatinine 0.58, Sodium Level 146H, Potassium Level 3.4L, Chloride Level 99, Carbon Dioxide Level 44H, Calcium Level 8.4L CBC/BMP Laboratory Tests 05/07/17 05:05 Red Blood Count 3.15 L, Mean Corpuscular Volume 97.5 H, Mean Corpuscular Hemoglobin 28.6, Mean Corpuscular Hemoglobin Concent 29.3 L, Red Cell Distribution Width 18.6 H, Calcium Level 8.4 L FSBS Laboratory Tests Test 05/06/17 11:42 05/06/17 17:29 05/06/17 22:16 Range/Units Bedside Glucose (Misc Panel) 159 187 89 83-110 MG/DL Microbiology Microbiology 04/30/17 Blood Culture - Final, Complete NO GROWTH AFTER 5 DAYS 04/30/17 Blood Culture - Final, Complete NO GROWTH AFTER 5 DAYS 04/30/17 Influenza Virus Type A Antigen - Final, Complete 04/30/17 Influenza Virus Type B Antigen - Final, Complete Discharge Medications Scheduled (Fish Oil 500 mg) 1 Cap Cap, 1 CAP PO DAILY, (Reported) (Striverdi Respimat) 2.5 Mcg/Act Aer, 2 PUFFS INH DAILY, (Reported) Acetaminophen (Acetaminophen) 500 Mg Tab, 500 MG PO BID, (Reported) Bacitracin (Bacitracin) 500 Unit/Gm Oin, 1 UNIT TOP BID, (Reported) APPLY TO NARES Budesonide (Pulmicort) 0.5 Mg/2 Ml Andree, 0.5 MG INH BID, (Reported) Calcium Polycarbophil (Fibercon) 625 Mg Tab, 625 MG PO DAILY, (Reported) Docusate Sodium (Colace) 100 Mg Cap, 100 MG PO BID, (Reported) Escitalopram Oxalate (Escitalopram Oxalate) 10 Mg Tab, 10 MG PO DAILY, (Reported ) Ferrous Sulfate (Ferrous Sulfate) 325 Mg Tab, 325 MG PO BID Fexofenadine Hydrochloride (Alisson Allergy) 180 Mg Tab, 180 MG PO QHS, ( Reported) Levothyroxine Sodium (Synthroid) 75 Mcg Tab, 75 MCG PO QAM, (Reported) Metolazone (Metolazone) 2.5 Mg Tab, 2.5 MG PO 3XW, (Reported) MON,WED,FRI Mirabegron Base (Myrbetriq) 25 Mg Tab, 25 MG PO DAILY, (Reported) Omeprazole (Omeprazole) 40 Mg Cap, 40 MG PO DAILY, (Reported) Potassium Chloride (Micro-K) 10 Meq Cap, 40 MEQ PO BID, (Reported) Prednisone (Prednisone) 10 Mg Tab, 10 MG PO DAILY, (Reported) Spironolactone (Spironolactone) 25 Mg Tab, 25 MG PO DAILY, (Reported) @1100 Tiotropium Sun Monohydrate (Spiriva Respimat) 2.5 Mcg/Act Spr, 1 PUFF INH DAILY, (Reported) Torsemide (Torsemide) 100 Mg Tab, 50 MG PO DAILY, (Reported) Scheduled PRN (Preparation H) 50 % Pad, 50 % EXT PRN PRN for HEMORRHOIDS Acetaminophen (Acetaminophen) 500 Mg Tab, 500 MG PO Q6H PRN for PAIN, (Reported) Albuterol Sulfate (Albuterol Sulfate) 2.5 Mg/3 Ml Nebu, 2.5 MG INH Q2H PRN for SOB/WHEEZING, (Reported) Albuterol/Ipratropium (Ipratropium Sun/Albut 0.5-2.5 (3) mg/3Ml) 1 Heraclio Heraclio, 1 HERACLIO INH Q6H PRN for SHORTNESS OF BREATH, (Reported) Artificial Tears (Artificial Tears 0.1-0.3 %) 1 Heraclio Heraclio, 1 DROP OU Q2H PRN for DRY EYES, (Reported) Bisacodyl (Dulcolax) 10 Mg Sup, 10 MG GA DAILYPRN PRN for CONSTIPATION Milk Of Magnesia (Milk of Magnesia) 1,200 Mg/15 Ml Andree, 30 ML PO DAILY PRN for CONSTIPATION, (Reported) Nitroglycerin (Nitrostat) 0.4 Mg Subl, 0.4 MG SL Q5MP PRN for CHEST PAIN, ( Reported) Allergies Coded Allergies: Cimetidine (Verified Allergy, Intermediate, HIVES, 01/11/17) Latex (Verified Allergy, Intermediate, RASH, 01/11/17) Penicillins (Verified Allergy, Intermediate, HIVES, 01/11/17) Atorvastatin (Verified Allergy, Unknown, 11/07/16) PERFUMES (Verified Allergy, Unknown, 10/08/04) Ranitidine (Unverified Adverse Reaction, Mild, CRAWLING SENSATION, 01/11/17 ) GME ATTESTATION GME ATTESTATION My preceptor for this patient encounter was physically present in the building during the encounter and was fully available. As needed, all aspects of the patient interview, examination, medical decision making process, and medical care plan development were reviewed and approved by the preceptor. Preceptor is aware and concurs with the plan as stated in the body of this note and will attest to such by his/her cosignature. MAICOL JAUREGUI DO May 07, 2017 10:23
[2017-05-07] MEDS: ACETAMINOPHEN TAB 650MG DOSE (2X325MG) PO PRN (14:20)
== END 2017-05-07 15:18 | DRG 291 ==
LOC: M ED 08:00 → EDBD 08:00 → M ED INP 10:56 → M PCU 05-01 17:00
PROVIDERS: ADMIT Hospitalist; ATTEND Hospitalist
PROC: 02HV33Z Insertion of Infusion Device into Superior Vena Cava, Percutaneous Approach (ICD-10-PCS; principal; 2017-05-05)
DX: I11.0 Hypertensive heart disease with heart failure (principal); J96.22 Acute and chronic respiratory failure with hypercapnia; J96.21 Acute and chronic respiratory failure with hypoxia; I50.33 Acute on chronic diastolic (congestive) heart failure; E03.9 Hypothyroidism, unspecified; E78.5 Hyperlipidemia, unspecified; K21.9 Gastro-esophageal reflux disease without esophagitis; I25.10 Atherosclerotic heart disease of native coronary artery without angina pectoris; J44.9 Chronic obstructive pulmonary disease, unspecified; I48.2 Chronic atrial fibrillation; E11.9 Type 2 diabetes mellitus without complications; Z99.81 Dependence on supplemental oxygen; Z79.52 Long term (current) use of systemic steroids; Z79.899 Other long term (current) drug therapy; Z91.040 Latex allergy status; Z88.0 Allergy status to penicillin; Z88.8 Allergy status to other drugs, medicaments and biological substances; Z90.49 Acquired absence of other specified parts of digestive tract; Z90.710 Acquired absence of both cervix and uterus; Z98.42 Cataract extraction status, left eye; Z98.41 Cataract extraction status, right eye; Z98.61 Coronary angioplasty status; Z87.891 Personal history of nicotine dependence

== ENCOUNTER → 2017-05-11 | Outpatient (REF) ==
[~2017-05-11] MED LIST changes: +ACET50TAOT PO; +BACI50OI TOP; +DULC10SU2 PR; +ESCI10TA2 PO; +PREPPAD EXT; +SPIR12.9 INH
[2017-05-11 09:31] LABS: MEAN CORPUSCULAR HEMOGLOBIN 29.1 pg (27.0-33.0); MEAN CORPUSCULAR HGB CONC 30.3 g/dl (32.0-36.5); MEAN CORPUSCULAR VOLUME 95.8 fl (80.0-96.0); RED CELL DISTRIBUTION WIDTH 18.4 % (11.5-14.5); WHITE BLOOD COUNT 14.4 10^3/uL (4.0-10.0)
[2017-05-11 10:06] LABS: ANION GAP 7 MEQ/L (8-16); BLOOD UREA NITROGEN 21 MG/DL (7-18); CALCIUM LEVEL 9.8 MG/DL (8.8-10.2); CARBON DIOXIDE LEVEL 36 MEQ/L (21-32); CHLORIDE LEVEL 95 MEQ/L (98-107); CREATININE FOR GFR 0.82 MG/DL (0.55-1.02); GLOMERULAR FILTRATION RATE > 60.0 (>32); GLUCOSE, FASTING 148 MG/DL (83-110); POTASSIUM SERUM 3.1 MEQ/L (3.5-5.1); SODIUM LEVEL 138 MEQ/L (136-145)
== END ==
LOC: SKLAB2 07:30
PROVIDERS: ATTEND Internal Medicine
DX: E11.9 Type 2 diabetes mellitus without complications (principal); D64.9 Anemia, unspecified; E03.9 Hypothyroidism, unspecified

== ENCOUNTER → 2017-05-12 | Outpatient (REF) ==
--- NOTE | 2017-05-12 16:49 | REP ---
Chest one-view HISTORY: Decreased oxygen saturation Comparison: 05/04/2017 An increase in interstitial markings is present in the lungs. Small bilateral pleural effusions are present that are decreased compared to the previous study. The cardiac silhouette is enlarged. The pulmonary vasculature is prominent. Impression: Findings consistent with congestive heart failure that are decreased compared to the previous study. Signed by Salazar Crow MD 05/12/2017 04:39 P
== END ==
LOC: SKLAB2 11:24
PROVIDERS: ATTEND Internal Medicine
DX: I50.9 Heart failure, unspecified (principal)

== ENCOUNTER → 2017-05-20 | Outpatient (REF) ==
[2017-05-20 08:56] LABS: ALBUMIN 3.4 GM/DL (3.2-5.2); ALKALINE PHOSPHATASE 65 U/L (45-117); ALT/SGPT 33 U/L (12-78); ANION GAP 9 MEQ/L (8-16); AST/SGOT 24 U/L (15-37); BILIRUBIN,TOTAL 0.3 MG/DL (0.2-1.0); BLOOD UREA NITROGEN 37 MG/DL (7-18); CALCIUM LEVEL 10.3 MG/DL (8.8-10.2); CARBON DIOXIDE LEVEL 39 MEQ/L (21-32); CHLORIDE LEVEL 88 MEQ/L (98-107); CREATININE FOR GFR 0.85 MG/DL (0.55-1.02); GLOMERULAR FILTRATION RATE > 60.0 (>32); GLUCOSE, FASTING 125 MG/DL (83-110); POTASSIUM SERUM 2.7 MEQ/L (3.5-5.1); SODIUM LEVEL 136 MEQ/L (136-145); TOTAL PROTEIN 6.8 GM/DL (6.4-8.2)
== END ==
LOC: SKLAB7 07:00
PROVIDERS: ATTEND Internal Medicine
DX: I50.9 Heart failure, unspecified (principal); D64.9 Anemia, unspecified

== ENCOUNTER → 2017-05-21 | Outpatient (REF) ==
[2017-05-21 09:11] LABS: ANION GAP 5 MEQ/L (8-16); BLOOD UREA NITROGEN 38 MG/DL (7-18); CALCIUM LEVEL 10.6 MG/DL (8.8-10.2); CARBON DIOXIDE LEVEL 40 MEQ/L (21-32); CHLORIDE LEVEL 96 MEQ/L (98-107); CREATININE FOR GFR 0.75 MG/DL (0.55-1.02); GLOMERULAR FILTRATION RATE > 60.0 (>32); GLUCOSE, FASTING 125 MG/DL (83-110); POTASSIUM SERUM 3.8 MEQ/L (3.5-5.1); SODIUM LEVEL 141 MEQ/L (136-145)
== END ==
LOC: SKLAB7 07:00
PROVIDERS: ATTEND Internal Medicine
DX: E87.6 Hypokalemia (principal)

== ENCOUNTER → 2017-05-25 | Outpatient (REF) ==
[2017-05-25 08:06] LABS: ANION GAP 6 MEQ/L (8-16); BLOOD UREA NITROGEN 29 MG/DL (7-18); CALCIUM LEVEL 9.3 MG/DL (8.8-10.2); CARBON DIOXIDE LEVEL 36 MEQ/L (21-32); CHLORIDE LEVEL 97 MEQ/L (98-107); CREATININE FOR GFR 0.65 MG/DL (0.55-1.02); GLOMERULAR FILTRATION RATE > 60.0 (>32); GLUCOSE, FASTING 114 MG/DL (83-110); POTASSIUM SERUM 4.1 MEQ/L (3.5-5.1); SODIUM LEVEL 139 MEQ/L (136-145)
== END ==
LOC: SKLAB7 07:00
PROVIDERS: ATTEND Internal Medicine
DX: I50.9 Heart failure, unspecified (principal)

== ENCOUNTER → 2017-05-27 | Outpatient (REF) ==
[2017-05-27 09:42] LABS: ANION GAP 8 MEQ/L (8-16); BLOOD UREA NITROGEN 24 MG/DL (7-18); CALCIUM LEVEL 9.4 MG/DL (8.8-10.2); CARBON DIOXIDE LEVEL 35 MEQ/L (21-32); CHLORIDE LEVEL 96 MEQ/L (98-107); CREATININE FOR GFR 0.63 MG/DL (0.55-1.02); GLOMERULAR FILTRATION RATE > 60.0 (>32); GLUCOSE, FASTING 134 MG/DL (83-110); POTASSIUM SERUM 3.6 MEQ/L (3.5-5.1); SODIUM LEVEL 139 MEQ/L (136-145)
== END ==
LOC: SKLAB7 15:18
PROVIDERS: ATTEND Internal Medicine
DX: I50.9 Heart failure, unspecified (principal)

== ENCOUNTER 2017-07-03 02:45 | Inpatient (IN) | payer MEDICARE, MEDICAID ==
[~2017-07-03] VITALS: Ht 172.7 cm; Wt 93.2 kg
[2017-07-03] VITALS (38 sets, daily range): BP systolic 104–169; BP diastolic 50–88; O2SAT 96
[2017-07-03] MEDS ORDERED: FUROSEMIDE 100 MG/10 ML VIAL (J1940) IV ONE (04:00)
[2017-07-03] MEDS ORDERED: NITROGLYCERIN 2% OINT 1 GM *U/D* PKT TOP ONE (04:00)
[2017-07-03 04:28] LABS: ABG BASE EXCESS 6.8 (-2.0-2.0); ABG HCO3 32.4 MEQ/L (22.0-26.0); ABG PARTIAL PRESSURE CO2 55.2 mmHg (35.0-45.0); ABG STANDARD HCO3 30.6 MEQ/L (22.0-26.0); ABG TOTAL CO2 34.1 MEQ/L (23.0-31.0); ABG pH (ARTERIAL) 7.387 UNITS (7.350-7.450)
[2017-07-03 04:47] LABS: MEAN CORPUSCULAR HEMOGLOBIN 27.7 pg (27.0-33.0); MEAN CORPUSCULAR HGB CONC 29.7 g/dl (32.0-36.5); MEAN CORPUSCULAR VOLUME 93.2 fl (80.0-96.0); PLATELET COUNT, AUTOMATED 425 10^3/uL (150-450); RED CELL DISTRIBUTION WIDTH 18.3 % (11.5-14.5); WHITE BLOOD COUNT 21.7 10^3/uL (4.0-10.0)
[2017-07-03 05:07] LABS: CALCIUM LEVEL 9.5 MG/DL (8.8-10.2); CREATININE FOR GFR 1.38 MG/DL (0.55-1.02); GLOMERULAR FILTRATION RATE 38.8 (>32)
[2017-07-03 05:10] LABS: POTASSIUM SERUM 5.9 MEQ/L (3.5-5.1)
[2017-07-03 05:14] LABS: ADD MANUAL DIFFER YES; DIFF SLIDE NUMBER 98; POS COUNT POS FLAG; POSITIVE MORPH POS FLAG
[2017-07-03 05:37] LABS: BANDS 3 % (< 11)
[2017-07-03 05:38] LABS: ANISOCYTOSIS 2+; HYPOCHROMASIA 1+; POIKILOCYTOSIS 1+; POLYCHROMASIA 1+
[2017-07-03] MEDS ORDERED: LEVA1TAB2 PO (06:05)
[2017-07-03] MEDS ORDERED: PRED20TA PO (06:05)
[2017-07-03] MEDS ORDERED: SODIGEL (06:18)
[2017-07-03] MEDS ORDERED: OMEP20CA3 PO (06:18)
[2017-07-03] MEDS ORDERED: VITMTA PO (06:18)
[2017-07-03] MEDS ORDERED: FERR325T3 PO (06:18)
[2017-07-03] MEDS ORDERED: DULC10SU2 PR (06:18)
[2017-07-03] MEDS ORDERED: POTA10CA PO (06:18)
[2017-07-03] MEDS ORDERED: SERT25TA PO (06:18)
[2017-07-03] MEDS ORDERED: PROC2.5C PR (06:19)
[2017-07-03] MEDS ORDERED: APIXABAN 5 MG TAB (ELIQUIS) PO ONE (06:30)
[2017-07-03] MEDS ORDERED: WARFARIN SOD 5 MG TAB PO ONE (06:30)
--- NOTE | 2017-07-03 06:47 | HPEPDOC ---
[facility] Medical History & Physical Date of Admission Jul 03, 2017 History and Physical PRIMARY CARE PROVIDER: Dr. Aurea Uribe ATTENDING: Dr. Judd Resendez CHIEF COMPLAINT: SOB HISTORY OF PRESENT ILLNESS: This is a 80-year-old feeble past history of GI bleed, history of atrial fibrillation previously on anticoagulation however has been off of anticoagulation secondary to her history of GI bleeding, history of diastolic heart failure, hypothyroidism, hypertension, hyperlipidemia, CAD status post CABG, COPD on 2 L O2, diabetes who presents complaining of soreness of breath. Patient has been short of breath over the past 2 days progressively today. She was noted to be hypoxic at [facility] which she was brought to the ED. In the ED patient was noted to have significant drop in her hemoglobin, significant hypoxia, and tachypnea. Patient was also noted to have melanotic stools on rectal exam with positive FOBT per ED physician. ED physician is also contacted Dr. Campbell who will be seeing the patient on consult, for possible EGD. In the meantime, stat PRBCs have been ordered. The patient is in critical condition and is aware of this, she would like to be full code. I have attempted to contact her daughter Zainab with the number listed in medical records however I was unsuccessful. Patient states she may be at work at this time. PAST MEDICAL HISTORY: As per HPI PAST SURGICAL HISTORY: History of CAD status post CABG, cholecystectomy, appendectomy, hysterectomy, bilateral cataract surgery, knee surgery, skin cancer removal SOCIAL HISTORY: History of tobacco abuse quit 2 years ago, 1 pack per day 27 years. Denies alcohol or illicit drug use. FAMILY HISTORY: Noncontributory ALLERGIES: Please see below. REVIEW OF SYSTEMS: HEENT: Denies sore throat/headache CARDIOVASCULAR: Denies chest pain/palpitations RESPIRATORY: + shortness of breath. No cough GASTROINTESTINAL: denies nausea/vomiting GENITOURINARY: Denies dysuria/urinary urgency. MUSCULOSKELETAL: Denies myalgias/arthralgias NEUROLOGICAL: Denies any focal weakness HOME MEDICATIONS: Please see below. PHYSICAL EXAMINATION: Vitals: (see below) General: No acute distress, laying comfortably in bed. HEENT: Moist mucous membranes. Neck: No lymphadenopathy Cardiac: Tachycardic. No murmurs Pulm: Fine crackles b/l No wheezing or rhonchi. Tachypneic. No stridor. No use of accessory muscles. Abd: NT/ND + BS Ext: Trace edema BLE. No cyanosis AAO x 3. Following commands, moving all ext. LABORATORY DATA: See below. IMAGING: MICROBIOLOGY: Please see below. ASSESSMENT/PLAN: 1. Acute hypoxic respiratory failure, with high output heart failure secondary to acute blood loss anemia from GI bleed, suspected upper given melanotic stools. Patient has started her blood transfusions, with 4 units ordered. On O2. ED physician had spoken to Dr. Campbell who is seeing the patient. CBC every 6 hours. We'll monitor in intensive care unit. 2. Hypertension- controlled 3. Hypothyroidism- on Synthroid 4. History of CAD status post CABG continue home meds 5. COPD on 2 L O2 at baseline 6. Diabetes mellitus sliding scale insulin 7. Diastolic heart failure- we'll need to monitor patient's volume status post PRBC she may need to be diuresed. 8. History of atrial fibrillation not on anticoagulation given history of GI bleed. 9. HARJEET - 2/2 acute GI bleed and diuretics. Hold diuretics for now. Receiving PRBC. 10. Hyperkalemia - likely 2/2 spironolactone. Repeat BMP at 2pm. 11. Demand ischemia with elevated troponin. Denies CP. Likely 2/2 acute anemia - will trend trop. Echocardiogram. 12. Chronic leukocytosis - now worsening WBC likely 2/2 UGI Bleed. Afebrile. CXR with no pneumonia. UA. Blood cx. DVT prophylaxis SCDs Prognosis guarded, critical condition Full code Patient followed by Dr. Judd Resendez starting 07/03/17 at 7 AM. Vital Signs Vital Signs Date Time Temp Pulse Resp B/P (MAP) Pulse Ox O2 Delivery O2 Flow Rate FiO2 07/03/17 06:25 98.4 114 28 143/90 (107) 97 Non-Rebreather 15.0 Laboratory Data Labs 24H Laboratory Tests 2 07/03/17 04:13: Blood Gas Bicarbonate Standard 30.6H, Arterial Blood pH 7.387, Arterial Blood Partial Pressure CO2 55.2H, Arterial Blood Partial Pressure O2 285.0H, Arterial Blood Total CO2 34.1H, Arterial Blood HCO3 32.4H, Arterial Blood Base Excess 6.8H, Arterial Blood Oxygen Saturation 99.7H 07/03/17 04:26: Immature Granulocyte % (Auto) , Nucleated Red Blood Cells % (auto) 3.9H, Neutrophils 85H, Band Neutrophils 3, Lymphocytes (Manual) 5L, Monocytes (Manual ) 4, Myelocytes 3H, Platelet Estimate NORMAL, Polychromasia 1+, Hypochromasia 1+ , Poikilocytosis 1+, Anisocytosis 2+, Macrocytosis 1+, Anion Gap 6L, Glomerular Filtration Rate 38.8, Lactic Acid Level 1.6, Blood Urea Nitrogen 61H, Creatinine 1.38H, Sodium Level 137, Potassium Level 5.9H, Chloride Level 96L, Carbon Dioxide Level 35H, Calcium Level 9.5, Total Creatine Kinase 19L, Creatine Kinase MB 2.6, Creatine Kinase MB Relative Index 13.68H, Troponin I 0.10 CBC/BMP Laboratory Tests 07/03/17 04:26 Red Blood Count 2.06 L, Mean Corpuscular Volume 93.2, Mean Corpuscular Hemoglobin 27.7, Mean Corpuscular Hemoglobin Concent 29.7 L, Red Cell Distribution Width 18.3 H, Calcium Level 9.5, Total Creatine Kinase 19 L Microbiology Microbiology 07/03/17 Blood Culture, Received Pending Home Medications Scheduled (Fish Oil 500 mg) 1 Cap Cap, 1 CAP PO DAILY (Striverdi Respimat) 2.5 Mcg/Act Aer, 2 PUFFS INH DAILY Acetaminophen (Acetaminophen) 500 Mg Tab, 500 MG PO BID Albuterol/Ipratropium (Ipratropium [place]/Albut 0.5-2.5 (3) mg/3Ml) 1 Karly Karly, 1 VIAL INH QID 0000, 0600, 1200, 2000 Budesonide (Pulmicort) 0.5 Mg/2 Ml Andree, 1 VIAL INH BID Calcium Polycarbophil (Fibercon) 625 Mg Tab, 625 MG PO QHS Docusate Sodium (Colace) 100 Mg Cap, 100 MG PO BID Ferrous Sulfate (Ferrous Sulfate) 325 Mg Tab, 325 MG PO BID Fexofenadine Hydrochloride (Alisson Allergy) 180 Mg Tab, 180 MG PO QHS Levofloxacin Hemihydrate (Levaquin) 500 Mg Tab, 500 MG PO DAILY X5DAYS TO END 07/05/17 Levothyroxine Sodium (Synthroid) 75 Mcg Tab, 75 MCG PO QAM Metolazone (Metolazone) 2.5 Mg Tab, 1.25 MG PO 3XW MON,WED,FRI Mirabegron Base (Myrbetriq) 25 Mg Tab, 25 MG PO DAILY Multivitamins *[facility] STOCKED* (Thera M Plus *[facility] STOCKED*) 1 Tab Tab, 1 TAB PO DAILY Omeprazole (Omeprazole) 20 Mg Cap, 20 MG PO DAILY Potassium Chloride (Klor-Con M10) 10 Meq Tabcr, 40 MEQ PO BID Prednisone (Prednisone) 10 Mg Tab, 10 MG PO DAILY TO START 07/09/17 Prednisone (Prednisone) 20 Mg Tab, 40 MG PO DAILY X4DAYS TO END 07/05/17 Prednisone (Prednisone) 20 Mg Tab, 20 MG PO DAILY X3DAYS TO START 07/06/17 END 07/08/17 Sertraline Hcl (Sertraline HCl) 25 Mg Tab, 25 MG PO DAILY Sodium Chloride ([place] Saline Nasal Gel) 1 Dose/15 Gm Dose, 1 DOSE NA QID Spironolactone (Spironolactone) 25 Mg Tab, 25 MG PO DAILY Tiotropium [place] Monohydrate (Spiriva Respimat) 2.5 Mcg/Act Spr, 1 PUFF INH DAILY Torsemide (Torsemide) 100 Mg Tab, 50 MG PO DAILY Scheduled PRN Acetaminophen (Acetaminophen) 500 Mg Tab, 500 MG PO Q6H PRN for PAIN / FEVER Albuterol Sulfate (Albuterol Sulfate) 2.5 Mg/3 Ml Nebu, 1 VIAL INH Q2H PRN for SOB/WHEEZING Artificial Tears (Artificial Tears 0.1-0.3 %) 1 Karly Karly, 1 DROP OU Q2H PRN for DRY EYES Bisacodyl (Dulcolax) 10 Mg Sup, 10 MG [place] DAILY PRN for CONSTIPATION Hydrocortisone (Proctosol Hc) 2.5 % Cre, 1 DOSE [place] BID PRN for HEMORRHOIDS Milk Of Magnesia (Milk of Magnesia) 1,200 Mg/15 Ml Andree, 30 ML PO DAILY PRN for CONSTIPATION Nitroglycerin (Nitrostat) 0.4 Mg Subl, 0.4 MG SL Q5MP PRN for CHEST PAIN Allergies Coded Allergies: Cimetidine (Verified Allergy, Intermediate, HIVES, 07/03/17) Latex (Verified Allergy, Intermediate, RASH, 07/03/17) Penicillins (Verified Allergy, Intermediate, HIVES, 07/03/17) Atorvastatin (Verified Allergy, Unknown, 07/03/17) PERFUMES (Verified Allergy, Unknown, 07/03/17) Ranitidine (Verified Adverse Reaction, Mild, CRAWLING SENSATION, 07/03/17) ANA M DELGADO MD Jul 03, 2017 06:47
--- NOTE | 2017-07-03 08:07 | REP ---
Chest one-view HISTORY: Dyspnea Comparison: 05/12/2017 Interstitial markings are present in the lungs that a decreased compared to the previous study. There has been resolution of the previously noted small bilateral pleural effusions. The cardiac silhouette is enlarged. The pulmonary vasculature is prominent. Impression: Findings consistent with congestive heart failure that are decreased compared to the previous study. Signed by Salazar Crow MD 07/03/2017 07:58 A
[2017-07-03] MEDS: IPRATROPIUM 0.5MG/ALBUTEROL 2.5MG INH SOL UD 3ML (DUONEB)(J7620) NEB SCH ×3 (08:18→20:17)
[2017-07-03] MEDS ORDERED: PANTOPRAZOLE SODIUM 40 MG in D5W 50 ML IV SCH (10:00)
[2017-07-03 10:15] LABS: MEAN CORPUSCULAR HEMOGLOBIN 28.1 pg (27.0-33.0); MEAN CORPUSCULAR HGB CONC 31.3 g/dl (32.0-36.5); PLATELET COUNT, AUTOMATED 384 10^3/uL (150-450); RED CELL DISTRIBUTION WIDTH 17.7 % (11.5-14.5); WHITE BLOOD COUNT 20.7 10^3/uL (4.0-10.0)
[2017-07-03] MEDS ORDERED: LevoFLOXacin IV 500 MG in APPROPRIATE DILUENT 1 EA IV ONE (10:15)
[2017-07-03] MEDS: PANTOPRAZOLE SODIUM 40 MG in D5W 50 ML IV SCH ×3 (10:48→20:26)
[2017-07-03 11:03] LABS: CALCIUM LEVEL 9.3 MG/DL (8.8-10.2); CREATININE FOR GFR 1.46 MG/DL (0.55-1.02); GLOMERULAR FILTRATION RATE 36.3 (>32)
[2017-07-03 11:05] LABS: POTASSIUM SERUM 5.8 MEQ/L (3.5-5.1)
--- NOTE | 2017-07-03 12:43 | ECGEPIP ---
Stationary ECG Study [facility] Test Date: 2017-07-03 Pat Name: MAKAYLA QUIROZ Department: Room: L3695-15 Gender: F Supervisor Cell Efficiency: ROBBIE : 1935 Requested By: WILBERT BENTON Order Number: [id number] Reading MD: Romelia Britt Measurements Intervals [place] Rate: 116 P: [place]: 0 QRS: 73 QRSD: 110 T: 62 QT: 262 QTc: 365 Interpretive Statements ATRIAL FIBRILLATION WITH RAPID VENTRICULAR RESPONSE INCOMPLETE RIGHT BUNDLE BRANCH BLOCK ST DEVIATION AND MODERATE T-WAVE ABNORMALITY, CONSIDER LATERAL ISCHEMIA RATE FASTER ST ABN MORE PRNOUNCED C/W 04/30/17 Electronically Signed On 07-03-2017 12:42:36 EST by Romelia Britt
--- NOTE | 2017-07-03 16:51 | CR ---
DATE OF CONSULTATION: 07/03/2017 CHIEF COMPLAINT: Anemia. BRIEF: HISTORY OF PRESENT ILLNESS: The patient is an 82-year-old female who was recently admitted for significant congestive heart failure. She was discharged home and was admitted again with progressive shortness of breath. Was at [facility] and was brought to the emergency room. She has had a significant drop in her hemoglobin. Although she has noticed some dark stools, she states this has been going on since she has been on her iron but has not noticed any bright red blood per rectum. She has had no fevers. No chills. She has been admitted for close monitoring because of her significant chronic obstructive pulmonary disease (COPD) and shortness of breath. She states that she cannot lie flat because of her significant shortness of breath. PAST MEDICAL HISTORY: Significant for: 1. History of diastolic heart failure. 2. History of hypothyroidism. 3. History of hypertension. 4. History of hyperlipidemia. 5. Coronary artery bypass grafting. 6. Chronic obstructive pulmonary disease (COPD). 7. History of gastrointestinal (GI) bleed. 8. History of atrial fibrillation, on anticoagulation previously but not more recently. She had an upper and lower endoscopy by Dr. Poole, who did the upper and lower endoscopy this summer (3 months ago) and revealed some hemorrhoids, some diverticulosis but no other source for GI bleeding in the lower GI tract. The upper endoscopy that he performed for this melanoma revealed some mild inflammation of the stomach but otherwise normal and thus essentially a normal endoscopy. PAST SURGICAL HISTORY: 1. History of coronary artery bypass graft (CABG). 2. History of cholecystectomy. 3. History of appendectomy. 4. History of hysterectomy. 5. History of bilateral cataract surgery. 6. History of knee surgery. 7. History of skin cancer removal. PHYSICAL EXAMINATION: Reveals an 82-year-old female who looks obviously short of breath. She has difficulty catching her breath even at baseline when I am discussing her history, and she is unable to finish sentences. She has significant jugular venous distention (JVD) with her sitting almost straight up, and she has crackles on her exam. Abdomen is soft, nontender, nondistended. IMPRESSION AND PLAN: The patient is anemic. Has had some heme-positive stools, and at this point my recommendation is that when she has been stabilized, repeat upper and lower endoscopy is not unreasonable; however, I do feel that the likelihood of a active gastrointestinal (GI) bleed in her without seeing significant rectal bleeding is unlikely at this time, and I anticipate that we be should be able to see if Dr. Poole, when he returns on Wednesday, can add her to the repeat endoscopy list. From a surgical standpoint, she has no active bleeding that needs surgical intervention. She may benefit from a capsule endoscopy as an outpatient once she is stabilized . More importantly, from the significant respiratory compromise that she has at this point, I feel that she is an extremely poor operative risk for intervention, and my concern is that any sedation required for endoscopy will require her being intubated and have significant difficulty with extubation post procedure; thus, until she is stabilized I would recommend avoiding intervention unless absolutely necessary.
[2017-07-03 19:22] LABS: MEAN CORPUSCULAR HEMOGLOBIN 28.4 pg (27.0-33.0); MEAN CORPUSCULAR HGB CONC 32.1 g/dl (32.0-36.5); MEAN CORPUSCULAR VOLUME 88.3 fl (80.0-96.0); PLATELET COUNT, AUTOMATED 333 10^3/uL (150-450); RED CELL DISTRIBUTION WIDTH 17.2 % (11.5-14.5); WHITE BLOOD COUNT 19.7 10^3/uL (4.0-10.0)
[2017-07-03 19:37] LABS: CALCIUM LEVEL 9.2 MG/DL (8.8-10.2); CREATININE FOR GFR 1.4 MG/DL (0.55-1.02); GLOMERULAR FILTRATION RATE 38.1 (>32); POTASSIUM SERUM 4.8 MEQ/L (3.5-5.1)
[2017-07-04] VITALS (14 sets, daily range): BP systolic 97–157; BP diastolic 55–115; O2SAT 98–99
[2017-07-04] MEDS: IPRATROPIUM 0.5MG/ALBUTEROL 2.5MG INH SOL UD 3ML (DUONEB)(J7620) NEB SCH ×4 (00:27→20:35)
[2017-07-04] MEDS: PANTOPRAZOLE SODIUM 40 MG in D5W 50 ML IV SCH ×5 (01:01→20:48)
[2017-07-04] MEDS: ALBUTEROL SULFATE 2.5 MG/0.5 ML INH NEB SOLN INH PRN ×2 (04:13→22:56)
[2017-07-04 04:27] LABS: MEAN CORPUSCULAR HEMOGLOBIN 28.4 pg (27.0-33.0); MEAN CORPUSCULAR HGB CONC 31.8 g/dl (32.0-36.5); MEAN CORPUSCULAR VOLUME 89.3 fl (80.0-96.0); PLATELET COUNT, AUTOMATED 318 10^3/uL (150-450); RED CELL DISTRIBUTION WIDTH 17.5 % (11.5-14.5); WHITE BLOOD COUNT 17.1 10^3/uL (4.0-10.0)
[2017-07-04 04:56] LABS: CALCIUM LEVEL 9.2 MG/DL (8.8-10.2); CREATININE FOR GFR 1.48 MG/DL (0.55-1.02); GLOMERULAR FILTRATION RATE 35.8 (>32); POTASSIUM SERUM 4.4 MEQ/L (3.5-5.1)
[2017-07-04] MEDS ORDERED: FUROSEMIDE 40 MG/4 ML VIAL (J1940) IV ONE (07:45)
[2017-07-04] MEDS ORDERED: ANUSOL HC CREAM 30GM PR PRN (09:15)
[2017-07-04] MEDS ORDERED: NITROGLYCERIN 0.4 MG SUBL TABLET SL PRN (09:15)
[2017-07-04] MEDS ORDERED: ACETAMINOPHEN 500 MG TAB PO PRN (09:15)
--- NOTE | 2017-07-04 09:25 | REP ---
Chest one-view HISTORY: Pulmonary edema Comparison: 07/03/2017 Interstitial markings are present in the lungs that are unchanged compared to the previous study. The cardiac silhouette is enlarged. The pulmonary vasculature is prominent. Impression: Congestive heart failure unchanged compared to the previous study. Signed by Salazar Crow MD 07/04/2017 09:17 A
[2017-07-04] MEDS: methylPREDNISolone INJ 125 MG/2 ML VIAL (J2930) IV SCH ×2 (10:12→17:34)
[2017-07-04] MEDS: LevoFLOXacin IV 250 MG in APPROPRIATE DILUENT 1 EA IV SCH (10:12)
[2017-07-04] MEDS: ACETAMINOPHEN 500 MG TAB PO SCH ×2 (10:12→20:48)
--- NOTE | 2017-07-04 10:40 | IPN ---
DATE: 07/04/2017 SUBJECTIVE: The patient tells me that she is feeling a little bit better. She tells me that her breathing is slightly better but not significant. She tells me that she has more energy than yesterday but still feels short of breath. She denies fevers or chills, nausea or vomiting. She denies any abdominal pain. OBJECTIVE: VITAL SIGNS: Temperature 97.2, pulse 102, respiratory rate 35, blood pressure 136/99, oxygen saturation 91% on 3 liters nasal cannula. GENERAL: She is a frail, elderly, female, awake, alert, oriented times three. She is diaphoretic and tachypneic but able to speak in complete sentences with mild distress. HEENT: Diaphoretic. Hirsuitism. Dry mucous membranes. I do appreciate significant elevation of her central venous pressure (CVP). CARDIOVASCULAR EXAM: S1, S2, irregularly irregular and tachycardic. RESPIRATORY EXAM: Bibasilar rales with some mild end expiratory wheeze. ABDOMINAL EXAM: Bowel sounds present. The abdomen is soft. EXTREMITIES: No clubbing, cyanosis. There is no appreciable edema. LABORATORY STUDIES: WBC 17.1, down from 21 yesterday morning. Hemoglobin 10.4 up from 5.7, hematocrit 32.7, platelet count 318. Chemistry panel: Sodium 142, potassium 4.4, chloride 102, bicarbonate 31, BUN 68, creatinine 1.4, troponin peak of 0.12. BNP is elevated at 4116. UA is positive for 3+ leukocyte esterase, 158 WBCs and 2+ bacteria. Microbiology: Urine culture is pending. Blood cultures are currently pending. Respiratory PCR panel is negative. IMAGING: The patient had a chest x-ray yesterday with findings consistent with congestive heart failure that were decreased from the previous study. ASSESSMENT AND PLAN: 1. This is an 82-year-old female who presented from the group home with shortness of breath, dyspnea, felt to be related to acute blood loss anemia, related to likely upper gastrointestinal (GI) bleed. The patient also does have a history of congestive heart failure and obstructive lung disease and as such, she has received four units of packed red blood cells with intermittent Lasix dosing. If it was purely related to her anemia, I would have suspected it would have resolved; however, she does remain somewhat hypoxic and tachycardic, and I do appreciate elevation of central venous pressure. I suspect that she is somewhat fluid overloaded, and I will provide her with IV diuresis. My suspicion for decompensated chronic obstructive pulmonary disease (COPD) is less. Will continue with nebulizer treatments every 6 hours and every 2 hours as needed. Her respiratory status does appear to be improved from yesterday, but certainly not at baseline and does still have some mild distress. 2. Gastrointestinal bleed, likely upper GI given the nature of her melenic stools, significantly elevated BUN. Dr. Campbell is seeing the patient. His help is greatly appreciated. He did wish to wait until the patient was better stable prior to considering any endoscopy. For the time being, we will continue to trend her hemoglobin and hematocrit. She has had a positive response to blood. She remains on a Protonix drip as well as for the present time, she is nothing by mouth. Will defer to general surgery if they feel she is okay for a clear liquid diet. 3. Abnormal urinalysis. Unclear etiology. It is certainly suggestive of a urinary tract infection. She denies significant symptoms associated with it. Urine culture is pending. She has been started on levofloxacin, which has been renally dosed and is continued. Will followup her cultures and adjust antibiotics as indicated. 4. Hypertension. Is controlled. She is not hypertensive at the present time. 5. Congestive heart failure. The patient is normally on spironolactone with angiotensin-converting enzyme (ELBERT) inhibitor, torsemide. For the time being, these medications are on hold. She is receiving intravenous (IV) Lasix. She did have an echocardiogram in October of 2016, which revealed mild concentric left ventricular hypertrophy (LVH), evidence of pulmonary hypertension with large right atrium, ejection fraction was noted to be 75% at that time. 6. Chronic obstructive pulmonary disease (COPD). The patient continued on nebulizer treatments. Given her anemia, GI bleeding and what I suspect is decompensated congestive heart failure, I feel that her COPD is not contributing to her acute presentation; however, she is continued on nebulizers every 6 hours and every 2 hours as needed. We are not providing her with stress dose steroids at this time. She will be restarted on many of her home inhalers. 7. Hypothyroidism. She is on Synthroid. 8. Mood disorder. She is on sertraline. 9. Hyperkalemia, resolved. 10. Coronary artery disease. The patient has a history of coronary artery bypass graft (CABG). She did have some troponinemia associated with her distress at the time of presentation. Troponin peaked at 0.12, fairly equivocal. For the time being, she does not appear to be having any acute coronary syndrome symptoms or any anginal symptoms. Given her recent bleeding, she is not on any aspirin. She had an allergic reaction to statins. Would not start her on a beta kelvin at this time given her acute decompensation, heart failure, and what I suspect is fairly advanced obstructive lung disease. 11. Diabetes. She is on sliding scale insulin. She is nothing by mouth. 12. Atrial fibrillation. She is mildly uncontrolled with her rate. She is not on anticoagulation secondary to history of GI bleeding. 13. Acute kidney injury. Her creatinine today is 1.4, looks like her baseline is closer to 0.9. With her elevated BUN, there is certainly suspicion for prerenal azotemia. Will continue to monitor and follow her renal function daily. 14. Leukocytosis. Is fairly chronic. She is actually improved from yesterday. Will continue to follow closely. 15. Deep vein thrombosis (DVT) prophylaxis. Sequentials and thromboembolism deterrents (TEDs). DISPOSITION AND PROGNOSIS: Guarded. Continue to follow this patient closely.
[2017-07-04] MEDS: SODIUM CHLORIDE 0.9% NASAL GEL 15MG (AYR) SCH ×4 (11:18→20:49)
[2017-07-04] MEDS: SERTRALINE HCL 25 MG TABLET PO SCH (11:18)
[2017-07-04] MEDS: LEVOTHYROXINE 75MCG TABLET (0.075MG) PO SCH (11:21)
[2017-07-05] VITALS: BP 145/65
[2017-07-05] MEDS: methylPREDNISolone INJ 125 MG/2 ML VIAL (J2930) IV SCH ×3 (01:31→17:56)
[2017-07-05] MEDS: PANTOPRAZOLE SODIUM 40 MG in D5W 50 ML IV SCH ×3 (01:31→12:00)
[2017-07-05] MEDS: IPRATROPIUM 0.5MG/ALBUTEROL 2.5MG INH SOL UD 3ML (DUONEB)(J7620) NEB SCH ×4 (01:46→19:42)
[2017-07-05 04:00] VITALS: BP 126/60
[2017-07-05 04:38] LABS: MEAN CORPUSCULAR HEMOGLOBIN 28.2 pg (27.0-33.0); MEAN CORPUSCULAR HGB CONC 31.7 g/dl (32.0-36.5); PLATELET COUNT, AUTOMATED 281 10^3/uL (150-450); RED CELL DISTRIBUTION WIDTH 17.3 % (11.5-14.5); WHITE BLOOD COUNT 12.7 10^3/uL (4.0-10.0)
[2017-07-05 05:03] LABS: CALCIUM LEVEL 9.1 MG/DL (8.8-10.2); CREATININE FOR GFR 1.14 MG/DL (0.55-1.02); GLOMERULAR FILTRATION RATE 48.3 (>32); POTASSIUM SERUM 3.1 MEQ/L (3.5-5.1)
[2017-07-05] MEDS: ALBUTEROL SULFATE 2.5 MG/0.5 ML INH NEB SOLN INH PRN ×3 (05:31→22:04)
[2017-07-05] MEDS: LEVOTHYROXINE 75MCG TABLET (0.075MG) PO SCH (05:54)
--- NOTE | 2017-07-05 06:16 | ECHO ---
DATE OF PROCEDURE: 07/03/2017 DATE OF : 1935 AGE: 82 HEIGHT: 69 inches WEIGHT: 198 pounds. BODY SURFACE AREA: 2.06 meter squared INPATIENT: Intensive care unit (ICU) Room 3201 REFERRING PHYSICIAN: Dr. Lukasz Meléndez INDICATION: Congestive heart failure (CHF). MEASUREMENTS: 2-D Measurements: RV: 4.8 cm LV: 4.6 cm Spetum: 1.3 cm Posterior wall: 1.3 cm Aortic root: 3.3 cm LA: 5.2 cm LVEF: 60% Doppler Measurements: AV: 2.8 m/s LVOT: 0.95 m/s LVOT diameter: 2.1 cm Mean AV gradient: 16 mmHg MV: E 170 Early mitral deceleration time: 167 ms E prime: 11.2 E/E prime: 14.9 PV: 1.0 m/s Pulmonary artery acceleration time: 92 ms RVSP: 81 mmHg IVC: 3.2 cm COMMENTS: Underlying atrial fibrillation with somewhat rapid ventricular response. Fairly prominent left atrial enlargement with normal left ventricular size. Right heart chamber sizes were at least moderately dilated. LV wall thickness was borderline increased symmetrically. On real-time imaging from the parasternal and apical projections, it showed an obvious septal wall motion abnormality, likely related to right ventricular pressure overload. Other left ventricular wall motion was symmetrical and somewhat hyperkinetic. Moderate mitral annular calcification with slightly thickened leaflet edges, but adequate leaflet excursion and no posterior systolic buckling. Three equal size aortic cusps with moderately thickened cusp edges and somewhat reduced cusp separation. Normal aortic root size. No apparent intracardiac mass or pericardial effusion. Color flow Doppler study taken from the parasternal and apical projection showed mild aortic, moderately severe eccentric mitral insufficiency and severe tricuspid insufficiency. Guided continuous wave Doppler of her aortic valve and pulsed Doppler study of her LV outflow tract taken from the apical long axis and five chamber projection showed an increased peak systolic velocity and mean gradient with dimensionless index of 0.35 - in keeping with a mild to at most moderate degree of calcific aortic stenosis. Pulsed and continuous wave Doppler of her LV inflow tract taken from the apical four-chamber projection showed normal diastolic filling velocities against mitral stenosis. There was only early diastolic/passive filling pattern as we would expect with atrial fibrillation. Using pulsed and tissue Doppler of her mitral annulus, her current estimated mean left atrial pressure was upper limits of normal to slightly increased. Pulsed and continuous wave Doppler of her pulmonary trunk showed a normal peak systolic velocity against RV outflow tract obstruction. Her pulmonary artery acceleration time was abbreviated consistent with an elevated pulmonary vascular resistance. Guided continuous wave Doppler of her tricuspid valve allowed our estimation of her right ventricular systolic pressure (severely increased). Her inferior vena cava was prominently dilated with virtually absent respiratory collapse consistent with a markedly elevated central venous pressure. CONCLUSIONS: Borderline left ventricular hypertrophy with septal wall motion abnormality due to right ventricular pressure overload. Preserved global resting left ventricular systolic function. Prominently dilated left atrium with current estimated mean left atrial pressure upper limits of normal to mildly increased. At least moderately dilated right heart chambers with hypokinesis and Doppler evidence of severe pulmonary hypertension. Prominently dilated inferior vena cava with absent respiratory collapse consistent with right heart failure. Mild calcific aortic stenosis with mild insufficiency. Moderate mitral annular calcification with moderately severe eccentric mitral insufficiency. Normal-appearing tricuspid valvular apparatus with severe insufficiency. Comparing the above test findings with those of 11/09/2016, again, left ventricular systolic function is similar. Left atrium again was prominently dilated with no more than slightly increased mean left atrial pressure, but severe pulmonary hypertension. Findings more in keeping with cor pulmonale than left heart disease. Her prognosis with the observed pulmonary hypertension is quite guarded.
[2017-07-05] MEDS ORDERED: POTASSIUM CHLORIDE 10 MEQ SR TABLET PO ONE ×2 (06:30→13:00)
[2017-07-05] MEDS: SERTRALINE HCL 25 MG TABLET PO SCH (07:53)
[2017-07-05] MEDS: SODIUM CHLORIDE 0.9% NASAL GEL 15MG (AYR) SCH ×4 (07:54→20:15)
[2017-07-05] MEDS: ACETAMINOPHEN 500 MG TAB PO SCH ×2 (07:54→20:13)
[2017-07-05 08:00] VITALS: BP 137/65
[2017-07-05 08:42] LABS: MAGNESIUM LEVEL 2.8 MG/DL (1.8-2.4)
[2017-07-05] MEDS: FERROUS SULFATE 325MG TAB PO SCH ×3 (09:00→20:15)
[2017-07-05] MEDS: LevoFLOXacin IV 250 MG in APPROPRIATE DILUENT 1 EA IV SCH (10:08)
[2017-07-05 12:00] VITALS: BP 137/72
--- NOTE | 2017-07-05 14:22 | IPN ---
DATE: 07/05/2017 SUBJECTIVE: The patient tells me that she is feeling better. She has no specific complaints at this time. She denies abdominal pain. She has not had any further black, tarry stools since yesterday afternoon. She denies fevers, chills, chest pain, shortness of breath. OBJECTIVE: VITAL SIGNS: Temperature 99.4, maximum temperature (t-max) 99.4, heart rate 102, respiratory rate 20, blood pressure 137/72, oxygen saturation 90% on 3 liters nasal cannula. GENERAL: She is a frail, elderly, female resting comfortably in bed. She does not appear to be in any acute distress. She is speaking in complete sentences and is not using any accessory muscle use. HEENT: She has moist mucous membranes. She has persistent elevation in central venous pressure. CARDIOVASCULAR EXAM: S1, S2, irregularly irregular and tachycardic. RESPIRATORY EXAM: Diminished breath sounds at the bases. Mild end expiratory wheeze. Some mild bibasilar rales. ABDOMINAL EXAM: Benign. Bowel sounds are present. The abdomen is soft. EXTREMITIES: No clubbing, cyanosis or edema. LABORATORY STUDIES: WBC 12.7, hemoglobin 9.7, platelet count 281. Chemistry panel: Sodium 143, potassium 3.1 and repleted, chloride 100, bicarbonate 33, BUN 56, creatinine 1.4. Microbiology: Urine is positive for Proteus mirabilis. Blood culture is negative after 48 hours. Respiratory PCR panel is negative. IMAGING: No new imaging. ASSESSMENT AND PLAN: This is an 82-year-old female who presented from the [facility] with shortness of breath secondary to symptomatic anemia related to acute blood loss anemia from what is possibly upper gastrointestinal (GI) bleedings. 1. GI bleed. Dr. Campbell's help has been appreciated. When he first evaluated the patient at the time of her admission, her hemoglobin was quite low at 5.8 and she was significantly hypoxic and tachycardic and was too unstable to undergo endoscopy. She is status 4 units of packed red blood cells now with a stable hemoglobin over the last 24 hours at 9.7. He did see the patient yesterday and felt as though she has now stabilized and could be better served by rescoped once again by Dr. Poole, who scoped her earlier this year. I did reach out to Dr. Poole, who is planning to do an upper endoscopy on the past today. For the time being, she is maintained on Protonix drip and was briefly on a clear liquid diet yesterday afternoon, but otherwise has been nothing by mouth in anticipation for procedure. 2. Elevated BUN, likely related to upper GI bleeding. It does appear to be improved today. 3. Chronic kidney disease, relatively stable. 4. Hypokalemia, repleted. 5. Troponinemia, likely related to demand ischemia associated from her profound anemia, tachycardia. 6. Atrial fibrillation. She has a rapid ventricular response and is not on anticoagulation secondary to her history of gastrointestinal bleeding. She is not normally on a rate controlling agent. It was initially felt to be related to her anemia. However, with transfusion, she did not improve and then there was concern that she may be mildly fluid overloaded. Yesterday she did undergo diuresis and did not improve, but it did actually begin to slow down when being treated with IV steroids. She has a history of fairly significant and severe chronic obstructive pulmonary disease (COPD) with pulmonary hypertension and is oxygen dependent on 2 to 3 liters at her baseline. She still is mildly tachycardic with a heart rate persistently above 100. Upper endoscopy today. Would consider initiating diltiazem to help control her rate. Would avoid beta blockers in this patient with advanced pulmonary disease. 7. Abnormal urinalysis and Proteus mirabilis urinary tract infection (UTI). The patient is on levofloxacin but is resistant to this. I will switch her to cefdinir orally as she is tolerating some medications orally at this time. 8. Hypertension. She is not on any antihypertensives at this time and her blood pressure is well controlled. Her home diuretics are currently on hold. Could initiate resumption as she improves. 9. Gastroesophageal reflux disease (GERD). She is normally on omeprazole. She is on Protonix drip. 10. COPD. As outlined above, is fairly significant. She is on oxygen, nebulizer treatments and IV steroids. It is unclear to me after extensive review of the records if she is truly steroid dependent at her baseline. She did appear to improve after receiving IV steroids. Would transition her to possible oral prednisone with a taper starting tomorrow. 11. Hypothyroidism. She is on Synthroid. 12. Mood disorder. She is on sertraline. 13. Coronary artery disease. The patient does have a history of a coronary artery bypass graft (CABG) in the past with mild troponinemia. I think she would benefit from further outpatient stress testing. She would like to have all measures taken. Given her recent bleeding, she is not on any aspirin. She has an allergic reaction to statins and I would not start a beta kelvin as the patient has significant lung disease. 14. Leukocytosis, fairly chronic. She is improved back to her baseline leukocytosis from the time of her presentation when it was significantly more elevated. DISPOSITION: Her clinical status remains guarded. She is scheduled for endoscopy for bleeding of unclear source.
[2017-07-05 16:00] VITALS: BP 112/56
[2017-07-05 20:04] VITALS: BP 132/56
[2017-07-05] MEDS: CEFDINIR 300 MG CAP (OMNICEF) PO SCH (20:13)
[2017-07-05] MEDS: FEXOFENADINE 60 MG TAB PO SCH (20:14)
[2017-07-05] MEDS: OMEPRAZOLE 20 MG CAP PO SCH (20:14)
[2017-07-06] VITALS (7 sets, daily range): BP systolic 119–139; BP diastolic 61–100; O2SAT 95
[2017-07-06] MEDS: methylPREDNISolone INJ 125 MG/2 ML VIAL (J2930) IV SCH ×2 (01:01→13:04)
[2017-07-06] MEDS: POLYVINYL ALCOHOL OPHTH SOLN 15 ML(LIQUITEARS) OU PRN ×2 (01:02→08:30)
[2017-07-06] MEDS: IPRATROPIUM 0.5MG/ALBUTEROL 2.5MG INH SOL UD 3ML (DUONEB)(J7620) NEB SCH ×4 (01:24→20:49)
[2017-07-06] MEDS: ALBUTEROL SULFATE 2.5 MG/0.5 ML INH NEB SOLN INH PRN ×2 (04:39→11:33)
[2017-07-06] MEDS: LEVOTHYROXINE 75MCG TABLET (0.075MG) PO SCH (05:02)
[2017-07-06 05:10] LABS: MEAN CORPUSCULAR HEMOGLOBIN 28.2 pg (27.0-33.0); MEAN CORPUSCULAR HGB CONC 31.7 g/dl (32.0-36.5); MEAN CORPUSCULAR VOLUME 88.9 fl (80.0-96.0); PLATELET COUNT, AUTOMATED 270 10^3/uL (150-450); RED CELL DISTRIBUTION WIDTH 17.1 % (11.5-14.5); WHITE BLOOD COUNT 14.9 10^3/uL (4.0-10.0)
[2017-07-06 05:23] LABS: CALCIUM LEVEL 9.6 MG/DL (8.8-10.2); CREATININE FOR GFR 1.19 MG/DL (0.55-1.02); POTASSIUM SERUM 4.8 MEQ/L (3.5-5.1)
[2017-07-06] MEDS: OMEPRAZOLE 20 MG CAP PO SCH ×2 (08:23→20:03)
[2017-07-06] MEDS: CEFDINIR 300 MG CAP (OMNICEF) PO SCH ×2 (08:23→20:01)
[2017-07-06] MEDS: SERTRALINE HCL 25 MG TABLET PO SCH (08:24)
[2017-07-06] MEDS: ACETAMINOPHEN 500 MG TAB PO SCH ×2 (08:24→20:02)
[2017-07-06] MEDS: FERROUS SULFATE 325MG TAB PO SCH ×3 (08:30→20:09)
[2017-07-06] MEDS: SODIUM CHLORIDE 0.9% NASAL GEL 15MG (AYR) SCH ×4 (08:31→20:03)
[2017-07-06] MEDS: TIOTROPIUM INHALER/CAPSULE (SPIRIVA) INH SCH (11:59)
[2017-07-06] MEDS ORDERED: TORSEMIDE 100 MG TAB PO SCH (12:15)
--- NOTE | 2017-07-06 16:13 | IPNPDOC ---
Text Note Date of Service The patient was seen on 07/06/17. NOTE No acute events overnight, no BM overnight. reported feeling better, Denied abd pain, cp, sob. GENERAL: She is a frail, elderly, NAD HEENT: JVD pos, MMM CAR irregularly, irregular, no tachy, s1s2 PUL, b/l expiratory wheeze, mild bibasilar rales ABDOMINAL EXAM: Benign. Bowel sounds are present. The abdomen is soft. EXTREMITIES: No clubbing, cyanosis or edema. ASSESSMENT AND PLAN: This is an 82-year-old female past history of GI bleed, history of atrial fibrillation previously on anticoagulation however has been off of anticoagulation secondary to her history of GI bleeding, history of diastolic heart failure, hypothyroidism, hypertension, hyperlipidemia, CAD status post CABG, COPD on 2 L O2, diabetes who presented from the [facility] with shortness of breath secondary to symptomatic anemia related to acute blood loss anemia from what is possibly upper gastrointestinal (GI) bleedings. also COPD exacerbation, acute on chronic hypoxia 1. GI bleed. Dr. Campbell's help has been appreciated. When he first evaluated the patient at the time of her admission, her hemoglobin was quite low at 5.8 and she was significantly hypoxic and tachycardic and was too unstable to undergo endoscopy. She is status 4 units of packed red blood cells now with a stable hemoglobin around 9. Dr Poole consulted for possible EGD, because he scoped her earlier this year. d/w Dr Poole, Anesthesia felt patient's respiratory status too unstable for scope. Dr Poole rec since patient h/h is hold stable at above hbg9 the bleeding most likely has stopped , rec advance diet and monitor. Scope only if patient rebleed. c/w ppi BID 2. Elevated BUN, likely related to upper GI bleeding. monitor 3. Chronic kidney disease, relatively stable. 4. Hypokalemia, repleted. 5. Troponinemia, likely related to demand ischemia associated from her profound anemia, tachycardia. 6. Atrial fibrillation. She has a rapid ventricular response and is not on anticoagulation secondary to her history of gastrointestinal bleeding. She is not normally on a rate controlling agent. It was initially felt to be related to her anemia. However, with transfusion, she did not improve and then there was concern that she may be mildly fluid overloaded. Diuresis, and Cardizem, tele 7. acute on chronic hypoxia 2/2 to COPD exacerbation and acute diastolic CHF diuretics given, neb, Solumol taper. currently back to baseline poor midwife practitioner prognosis 8. Abnormal urinalysis and Proteus mirabilis urinary tract infection (UTI). The patient is on levofloxacin but is resistant to this. c/w cefdinir orally. 9. Hypertension. torsemide and cardizem 9. Gastroesophageal reflux disease (GERD). ppi 10. COPD. As outlined above, is fairly significant. management as above, taper steroid 11. Hypothyroidism. She is on Synthroid. 12. Mood disorder. She is on sertraline. 13. Coronary artery disease. The patient does have a history of a coronary artery bypass graft (CABG) in the past with mild troponinemia. I think she would benefit from further outpatient stress testing. She would like to have all measures taken. Given her recent bleeding, she is not on any aspirin. She has an allergic reaction to statins and I would not start a beta kelvin as the patient has significant lung disease. 14. Leukocytosis, fairly chronic. She is improved back to her baseline leukocytosis from the time of her presentation when it was significantly more elevated. on steroid for copd as well DVT ppx teds scd DISPOSITION: Her clinical status remains guarded. f/u hh, PT. VS,Aime, I+O VS, Aime, I+O Laboratory Tests 07/06/17 04:55 Red Blood Count 3.51 L, Mean Corpuscular Volume 88.9, Mean Corpuscular Hemoglobin 28.2, Mean Corpuscular Hemoglobin Concent 31.7 L, Red Cell Distribution Width 17.1 H, Calcium Level 9.6 Vital Signs Date Time Temp Pulse Resp B/P (MAP) Pulse Ox O2 Delivery O2 Flow Rate FiO2 07/06/17 12:00 Nasal Cannula 3.0 07/06/17 12:00 97.6 77 20 139/100 (113) 98 I&O- Last 24 Hours up to 6 AM 07/07/17 06:00 Intake Total 480 ml Output Total 190 ml Balance 290 ml MAYCOL JOHNSON MD Jul 06, 2017 16:13
[2017-07-06] MEDS: FUROSEMIDE 100 MG/10 ML VIAL (J1940) IV SCH (16:42)
[2017-07-06] MEDS: FEXOFENADINE 60 MG TAB PO SCH (20:02)
[2017-07-07] VITALS (9 sets, daily range): BP systolic 118–165; BP diastolic 59–70; O2SAT 98–99
[2017-07-07] MEDS: IPRATROPIUM 0.5MG/ALBUTEROL 2.5MG INH SOL UD 3ML (DUONEB)(J7620) NEB SCH ×4 (01:15→21:09)
[2017-07-07] MEDS: methylPREDNISolone INJ 125 MG/2 ML VIAL (J2930) IV SCH (01:46)
[2017-07-07] MEDS: ALBUTEROL SULFATE 2.5 MG/0.5 ML INH NEB SOLN INH PRN ×3 (04:20→23:44)
[2017-07-07] MEDS: LEVOTHYROXINE 75MCG TABLET (0.075MG) PO SCH (05:06)
[2017-07-07 05:20] LABS: MEAN CORPUSCULAR HEMOGLOBIN 27.6 pg (27.0-33.0); MEAN CORPUSCULAR VOLUME 91.8 fl (80.0-96.0); PLATELET COUNT, AUTOMATED 294 10^3/uL (150-450); WHITE BLOOD COUNT 17.2 10^3/uL (4.0-10.0)
[2017-07-07 05:35] LABS: CALCIUM LEVEL 9.4 MG/DL (8.8-10.2); CREATININE FOR GFR 1.77 MG/DL (0.55-1.02); GLOMERULAR FILTRATION RATE 29.1 (>32)
[2017-07-07 05:38] LABS: POTASSIUM SERUM 5.2 MEQ/L (3.5-5.1)
[2017-07-07] MEDS: TIOTROPIUM INHALER/CAPSULE (SPIRIVA) INH SCH (07:24)
[2017-07-07] MEDS: FERROUS SULFATE 325MG TAB PO SCH ×2 (09:27→20:05)
[2017-07-07] MEDS: OMEPRAZOLE 20 MG CAP PO SCH ×2 (09:28→20:04)
[2017-07-07] MEDS: ACETAMINOPHEN 500 MG TAB PO SCH ×2 (09:28→20:05)
[2017-07-07] MEDS: FUROSEMIDE 100 MG/10 ML VIAL (J1940) IV SCH (09:29)
[2017-07-07] MEDS: CEFDINIR 300 MG CAP (OMNICEF) PO SCH ×2 (09:29→20:04)
[2017-07-07] MEDS: SERTRALINE HCL 25 MG TABLET PO SCH (09:29)
[2017-07-07] MEDS: SODIUM CHLORIDE 0.9% NASAL GEL 15MG (AYR) SCH ×3 (09:29→17:21)
[2017-07-07] MEDS: methylPREDNISolone INJ 40 MG/1 ML VIAL (J2920) IV SCH (14:58)
--- NOTE | 2017-07-07 17:06 | IPNPDOC ---
Text Note Date of Service The patient was seen on 07/07/17. NOTE No acute events overnight. reported feeling better, Denied abd pain, cp, sob. Low Urine output GENERAL: She is a frail, elderly, NAD HEENT: JVD pos, MMM CAR irregularly, irregular, no tachy, s1s2 PUL, b/l expiratory wheeze, mild bibasilar rales ABDOMINAL EXAM: Benign. Bowel sounds are present. The abdomen is soft. EXTREMITIES: No clubbing, cyanosis or edema. ASSESSMENT AND PLAN: This is an 82-year-old female past history of GI bleed, history of atrial fibrillation previously on anticoagulation however has been off of anticoagulation secondary to her history of GI bleeding, history of diastolic heart failure, hypothyroidism, hypertension, hyperlipidemia, CAD status post CABG, COPD on 2 L O2, diabetes who [facility] with [facility]ness of breath secondary to symptomatic anemia related to acute blood loss anemia from what is possibly upper gastrointestinal (GI) bleedings. also COPD exacerbation, acute on chronic hypoxia 1. GI bleed. Dr. Campbell's help has been appreciated. When he first evaluated the patient at the time of her admission, her hemoglobin was quite low at 5.8 and she was significantly hypoxic and tachycardic and was too unstable to undergo endoscopy. She is status 4 units of packed red blood cells now with a stable hemoglobin around 9. Dr Poole consulted for possible EGD, because he scoped her earlier this year. d/w Dr Poole, Anesthesia felt patient's respiratory status too unstable for scope. Dr Poole rec since patient h/h is hold stable at above hbg9 the bleeding most likely has stopped , rec advance diet and monitor. Scope only if patient rebleed. c/w ppi BID 2. acute on Chronic kidney failure possibly over diuresis hold dluretics. I and O, daily weight nephrology consulted 3. Hypokalemia, repleted. currently mildy hyperkalemia 4. Troponinemia, likely related to demand ischemia associated from her profound anemia, tachycardia. 5. Atrial fibrillation. She has a rapid ventricular response and is not on anticoagulation secondary to her history of gastrointestinal bleeding. She is not normally on a rate controlling agent. It was initially felt to be related to her anemia. However, with transfusion, she did not improve and then there was concern that she may be mildly fluid overloaded. Diuresis provided, on hold for worsening kidney function, and Cardizem, tele 6. acute on chronic hypoxia 2/2 to COPD exacerbation and acute diastolic CHF diuretics given, neb, Solumol taper. currently back to baseline poor residential prognosis 7. Abnormal urinalysis and Proteus mirabilis urinary tract infection (UTI). The patient is on levofloxacin but is resistant to this. c/w cefdinir orally. 8. Hypertension. cardizem 9. Gastroesophageal reflux disease (GERD). ppi 10. COPD. As outlined above, is fairly significant. management as above, taper steroid 11. Hypothyroidism. She is on Synthroid. 12. Mood disorder. She is on sertraline. 13. Coronary artery disease. The patient does have a history of a coronary artery bypass graft (CABG) in the past with mild troponinemia. I think she would benefit from further outpatient stress testing. She would like to have all measures taken. Given her recent bleeding, she is not on any aspirin. She has an allergic reaction to statins and I would not start a beta kelvin as the patient has significant lung disease. 14. Leukocytosis, fairly chronic. She is improved back to her baseline leukocytosis from the time of her presentation when it was significantly more elevated. on steroid for copd as well DVT ppx teds scd DISPOSITION: Her clinical status remains guarded. f/u hh, PT. VS,Aime, I+O VS, Aime, I+O Laboratory Tests 07/07/17 05:04 Red Blood Count 3.52 L, Mean Corpuscular Volume 91.8, Mean Corpuscular Hemoglobin 27.6, Mean Corpuscular Hemoglobin Concent 30.0 L, Red Cell Distribution Width 17.0 H, Calcium Level 9.4 Vital Signs Date Time Temp Pulse Resp B/P (MAP) Pulse Ox O2 Delivery O2 Flow Rate FiO2 07/07/17 16:42 Nasal Cannula 2.0 07/07/17 16:18 97.4 66 20 147/70 (95) 90 I&O- Last 24 Hours up to 6 AM 07/08/17 06:00 Intake Total 480 ml Output Total 130 ml Balance 350 ml MAYCOL JOHNSON MD Jul 07, 2017 17:06
[2017-07-07 17:50] LABS: CALCIUM LEVEL 9.2 MG/DL (8.8-10.2); CREATININE FOR GFR 1.94 MG/DL (0.55-1.02); GLOMERULAR FILTRATION RATE 26.2 (>32)
[2017-07-07 17:52] LABS: POTASSIUM SERUM 5.5 MEQ/L (3.5-5.1)
[2017-07-07] MEDS ORDERED: HumuLIN R (REGULAR) INSULIN (NovoLIN R) **100U/ML** PER UNIT IV STA (18:37)
[2017-07-07] MEDS ORDERED: DEXTROSE 50% 50 ML SYRINGE IV PRN (18:45)
[2017-07-07] MEDS ORDERED: GLUCOSE 4 GM CHEW TABLET PO PRN (18:45)
[2017-07-07] MEDS ORDERED: GLUCAGON FOR INJ 1 MG VIAL (J1610) SC PRN (18:45)
[2017-07-07] MEDS ORDERED: HumuLIN R (REGULAR) INSULIN (NovoLIN R) **100U/ML** PER UNIT SC ONE (19:15)
[2017-07-07] MEDS: HumaLOG INSULIN (NovoLOG) PER UNIT SC SCH (20:05)
[2017-07-07] MEDS: FEXOFENADINE 60 MG TAB PO SCH (20:08)
--- NOTE | 2017-07-07 21:46 | REP ---
Renal ultrasound: The right kidney measures 9.1 x 6.0 by 0.6 cm. Left kidney measures 12.0 x 5.4 x 7.0 cm. Right kidney is atrophic size compared to the left. There is bilateral renal cortical echogenicity compatible with medical renal disease. There is no hydronephrosis on the right on the left is there are no renal calculi on the right on the left. There are no renal masses or cysts. There is a Grullon catheter in the bladder and the bladder is collapsed and cannot be evaluated. Balloon impression: Bilateral renal cortical echogenicity compatible with medical renal disease. The right kidney is atrophic size compared to the left. Signed by Javed Rolle MD 07/07/2017 09:37 P
[2017-07-07 22:52] LABS: CREATININE FOR GFR 2.06 MG/DL (0.55-1.02); GLOMERULAR FILTRATION RATE 24.4 (>32); POTASSIUM SERUM 5.3 MEQ/L (3.5-5.1)
[2017-07-08] VITALS (7 sets, daily range): BP systolic 140–155; BP diastolic 64–72; O2SAT 92–94
[2017-07-08] MEDS: methylPREDNISolone INJ 40 MG/1 ML VIAL (J2920) IV SCH ×2 (01:53→13:14)
[2017-07-08] MEDS: SODIUM CHLORIDE 0.9% NASAL GEL 15MG (AYR) SCH ×6 (01:53→20:47)
[2017-07-08] MEDS: IPRATROPIUM 0.5MG/ALBUTEROL 2.5MG INH SOL UD 3ML (DUONEB)(J7620) NEB SCH ×4 (03:05→21:03)
[2017-07-08] MEDS: LEVOTHYROXINE 75MCG TABLET (0.075MG) PO SCH (05:53)
[2017-07-08] MEDS: ALBUTEROL SULFATE 2.5 MG/0.5 ML INH NEB SOLN INH PRN (05:57)
[2017-07-08 07:32] LABS: MEAN CORPUSCULAR HEMOGLOBIN 27.8 pg (27.0-33.0); MEAN CORPUSCULAR HGB CONC 30.5 g/dl (32.0-36.5); MEAN CORPUSCULAR VOLUME 91.3 fl (80.0-96.0); PLATELET COUNT, AUTOMATED 266 10^3/uL (150-450); RED CELL DISTRIBUTION WIDTH 16.6 % (11.5-14.5); WHITE BLOOD COUNT 17.2 10^3/uL (4.0-10.0)
[2017-07-08 08:00] LABS: CALCIUM LEVEL 9.1 MG/DL (8.8-10.2); CREATININE FOR GFR 2.1 MG/DL (0.55-1.02); GLOMERULAR FILTRATION RATE 23.9 (>32); MAGNESIUM LEVEL 3.3 MG/DL (1.8-2.4)
[2017-07-08 08:05] LABS: POTASSIUM SERUM 5.6 MEQ/L (3.5-5.1)
[2017-07-08 08:06] LABS: URIC ACID 18.1 MG/DL (2.6-6.0)
[2017-07-08] MEDS: TIOTROPIUM INHALER/CAPSULE (SPIRIVA) INH SCH (08:18)
[2017-07-08 08:49] LABS: REASON FOR REVIEW COMPREHENSIVE REVIEW
[2017-07-08] MEDS: CEFDINIR 300 MG CAP (OMNICEF) PO SCH (09:37)
[2017-07-08] MEDS: OMEPRAZOLE 20 MG CAP PO SCH ×2 (09:37→20:35)
[2017-07-08] MEDS: FERROUS SULFATE 325MG TAB PO SCH ×2 (09:37→20:35)
[2017-07-08] MEDS: HumaLOG INSULIN (NovoLOG) PER UNIT SC SCH ×4 (09:38→20:30)
[2017-07-08] MEDS: ACETAMINOPHEN 500 MG TAB PO SCH ×2 (09:38→20:36)
[2017-07-08] MEDS: SERTRALINE HCL 25 MG TABLET PO SCH (09:38)
[2017-07-08] MEDS ORDERED: SODIUM CHLORIDE 0.9% 1000 ML IV ONE (10:00)
[2017-07-08] MEDS: FEBUXOSTAT 40 MG TABLET (ULORIC) PO SCH (11:20)
--- NOTE | 2017-07-08 12:03 | REP ---
Portable chest, 10:06 a.m., the patient semi upright, AP view: Comparison is 07/04/2017. There is increased interstitial coarsening compatible with worsening interstitial infiltrates. Cardiomegaly and sternotomy wires are unchanged. Impression: Worsening interstitial infiltrates. Signed by Javed Rolle MD 07/08/2017 11:55 A
[2017-07-08 12:20] LABS: ABG BASE EXCESS 0.9 (-2.0-2.0); ABG HCO3 27.1 MEQ/L (22.0-26.0); ABG PARTIAL PRESSURE O2 68.6 mmHg (75.0-100.0); ABG STANDARD HCO3 25.2 MEQ/L (22.0-26.0); ABG TOTAL CO2 28.7 MEQ/L (23.0-31.0); ABG pH (ARTERIAL) 7.344 UNITS (7.350-7.450)
--- NOTE | 2017-07-08 13:38 | PHACANCOPD ---
PHARMACY VANCOMYCIN DOSING Pt Demographics Demographics Patient Age:82 , Weight:91.600 , Gender: female Adjusted Body Weight Date: 07/08/17, Adjusted Body Weight: Kg Events Past 24 Hours Events Past 24 Hours: YES: Elevation in WBC, Pending Diagnostics Vancomycin Vancomycin indication: PNA Vancomycin Target Ranges: 15-20 mcg/ml Vancomycin Load Y/N: Yes Load Dose Date Time Vancomycin Load Dose: 1500mg Date: 07/08/17 Time: 1500 Vancomycin Dose Date: 07/08/17. Current Vancomycin Dose: [1g IV Q24H] Intermittent Dosing?: No Labs Labs Item Value Date Time White Blood Count 17.2 10^3/uL H 07/08/17 0651 White Blood Count 17.2 10^3/uL H 07/07/17 0504 White Blood Count 14.9 10^3/uL H 07/06/17 0455 White Blood Count 12.7 10^3/uL H 07/05/17 0421 Blood Urea Nitrogen 98 MG/DL H 07/08/17 0651 Blood Urea Nitrogen 89 MG/DL H 07/07/17 2228 Blood Urea Nitrogen 87 MG/DL H 07/07/17 1719 Creatinine 2.10 MG/DL H 07/08/17 0651 Creatinine 2.06 MG/DL H 07/07/17 2228 Creatinine 1.94 MG/DL H 07/07/17 1719 C-Reactive Protein, Quantitative 1.92 MG/DL H 07/08/17 0651 Micro Microbiology 07/08/17 Blood Culture, Received Pending 07/08/17 Blood Culture, Received Pending 07/03/17 Blood Culture - Final, Complete NO GROWTH AFTER 5 DAYS 07/03/17 Blood Culture - Final, Complete NO GROWTH AFTER 5 DAYS 07/03/17 Respiratory Virus Panel (PCR) (DARCIE) - Final, Complete 07/03/17 Urine Culture - Final, Complete Proteus Mirabilis Creatinine Clearance Date:07/08/17. Estimated Creatinine Clearance: [~25ml/min]. Assessment and Plan Maintaining Current Dose?: Yes Reason for dose change: No Dose Change Pharmacist Note Pharmacist Note Date: 07/08/17. Pharmacist note: Day #1 empiric vancomycin tx intiated with a 1500mg loading dose, followed by a maintenance regimen of 1g IV Q24H for the treatment of pneumonia - aiming for a goal trough of 15-20mcg/ml. The pt [facility] and has a PMH of COPD and is s/p treatment with levaquin and cefdinir during this admission already. Urine culture has resulted positive for proteus mirabilis sensitive to the meropenem that was just started. Chest xray today shows worsening interstitial infiltrates. WBC is elevated and patient has been afebrile. No PMH of MRSA, but the patient does have a hx of previous vanco use here at [facility]. Scr today is 2.1 (baseline is ~1.14). We will continue to monitor and draw a level accordingly. JASON [facility] Jul 08, 2017 13:38
--- NOTE | 2017-07-08 13:59 | CR ---
DATE OF CONSULTATION: 07/07/2017 REQUESTING PHYSICIAN: Dr. Nguyen Pham. REASON FOR CONSULT: Hyperkalemic acute kidney injury. HISTORY OF PRESENT ILLNESS: Ms. Jaymie Cook is an 82-year-old female with a past medical history of severe pulmonary hypertension and right heart failure with preserved left ventricular ejection fraction, history of recurrent gastrointestinal (GI) bleed and atrial fibrillation, off of anticoagulation secondary to history of GI bleed, hypertension, dyslipidemia, coronary artery disease (CAD) status post coronary artery bypass graft (CABG), chronic obstructive pulmonary disease (COPD) on home oxygen, diabetes. The patient was admitted on 07/03/2017 with complaint of progressive shortness of breath and noted to be hypoxic at [facility], subsequently brought into the emergency room. Labs revealed severe anemia with positive stool occult blood. Patient received multiple packed red blood cells transfusions and was admitted to the intensive care unit. Her diuretics were initially held. She received intermittent diuretics and her creatinine improved from 1.4 on admission down to 1.1. On 07/06/2017, the patient received Lasix 60 mg IV times one along with torsemide 50 mg by mouth. The patient's creatinine subsequently dick to 1.7 and I was called to evaluate the patient. Patient seen at the bedside. She reports shortness of breath even at rest. Otherwise denies any chest pain or palpitations. Reports she has not ambulated for several days. Denies nausea, vomiting or diarrhea and reports improving oral intake. She has a Grullon catheter in place with urine output present. PAST MEDICAL HISTORY: Severe pulmonary hypertension. Right heart failure with preserved left ventricular ejection fraction. History of gastrointestinal bleed. History of atrial fibrillation not on anticoagulation. Hypertension. Dyslipidemia. Coronary artery disease status post coronary artery bypass graft. Chronic obstructive pulmonary disease on home oxygen. Diabetes. Hypothyroidism. PAST SURGICAL HISTORY: Coronary artery bypass graft. Appendectomy. Hysterectomy. Cholecystectomy. Cataract surgery. Skin cancer removal. SOCIAL HISTORY: Ex-smoker, quit about 2 years ago. Denies alcohol or elicit drug use. Resides in [facility]. FAMILY HISTORY: Noncontributory. ALLERGIES: ATORVASTATIN, CIMETIDINE, LATEX, PERFUMES, PENICILLIN, RANITIDINE. HOME MEDICATIONS: - acetaminophen as needed - albuterol as needed - Dulcolax 10 mg per rectal as needed - Pulmicort one vial inhaled twice daily - FiberCon 625 mg by mouth daily at bedtime - Colace 100 mg by mouth twice daily - ferrous 325 mg by mouth twice daily - Alisson 180 mg by mouth daily at bedtime - fish oil one tablet by mouth daily - Levaquin 500 mg by mouth daily for 5 days - Synthroid 75 mcg by mouth daily every morning - metolazone 1.25 mg by mouth Wednesday, Wednesday, Wednesday - potassium 40 mEq by mouth twice daily - prednisone taper - aldactone 25 mg by mouth daily - Spiriva one puff inhaled daily - torsemide 50 mg by mouth daily REVIEW OF SYSTEMS: General: Weakness, debilitation, has not ambulated for several days. Denies fevers, chills. Head and neck: Denies visual changes or epistaxis or sore throat. Cardiac: Reports heart failure and atrial fibrillation. Denies chest pain and palpitations. Respiratory: Chronic oxygen dependency. Reports shortness of breath at rest at present. Denies cough. Gastrointestinal (GI): Denies nausea or vomiting. Has history of recurrent GI bleed. Genitourinary (): Reports Grullon catheter. Denied history of kidney stones. Hematology: Denies current anticoagulation. Endocrine: Reports diabetes and hypothyroidism. Neurologic: Denies any focal weakness. Musculoskeletal: Reports debilitation, weakness. Denies myalgias. PHYSICAL EXAMINATION: Vital signs: Temperature 98.5, pulse 75, respiratory rate 20, blood pressure 145/65, saturating 90-98% on 2-3 liters nasal cannula. Intake and output noted to be in a positive fluid balance the past 2 days. Urine output today 645 mL. Oral intake 960 mL. Net positive 315 mL. General: The patient is seen lying in bed in no acute respiratory distress. She is frail, elderly, appears stated age, is conversational and interactive and is able to provide me with history. Head and neck: Extraocular muscles are intact. Her tongue is dry. Her jugular veins are distended. Cardiac: Irregularly irregular. 2+ radial pulse. No edema in the lower extremities or in the dependent areas. Lungs: Prolonged expiration with diminished breath sounds at the bases. No overt crackles. Seen on nasal cannula. No accessory muscle of inspiration use. No accessory muscle of expiration use. Abdomen is soft, obese with positive bowel sounds. Extremities: No edema in the peripheries or in the dependent area. There is an IV line in place in the right shoulder. Genitourinary: There is a Grullon catheter with urine. Neurologic: There is no focal deficit. Appropriately interactive and conversational. Psychiatric: Appropriate mood and affect. LABS: White count 17.2, hemoglobin 9.7, platelets 294. Sodium 136, potassium 5.3, bicarbonate 31, BUN 89, creatinine 2.0. Microbiology: Blood cultures 07/03/2017 no growth for 72 hours. Urine culture 07/03/2017 is proteus mirabilis greater than 100,000 colonies. IMAGING: Renal ultrasound 07/07/2017: Right kidney is 9.1 cm and atrophic. Left kidney 12 cm. The kidneys are hyperechoic. INPATIENT MEDICATIONS: I have held the patient's Lasix. She otherwise continues on: - acetaminophen 500 mg by mouth twice daily - albuterol as needed - Omnicef 300 mg by mouth twice daily - Cardizem 120 mg by mouth twice daily - ferrous 325 mg by mouth twice daily - Alisson 180 mg by mouth daily at bedtime - insulin - levothyroxine 75 mcg by mouth daily - Solu-Medrol 40 mg IV every 12 hours - omeprazole 40 mg by mouth twice daily - Sertraline 25 mg by mouth daily - Spiriva one inhalation daily PROBLEMS: 1. Nonoliguric acute renal failure. Baseline creatinine is less than 1 with admission creatinine of approximately 1.4 which subsequently improved to 1.1 and then followed by deterioration in renal function, creatinine 2.0 at present with hyperkalemia. 24 hours prior to her acute kidney injury, 07/06/2017, the patient received torsemide and Lasix with subsequent deterioration in renal function. Further doses of diuretics have resulted in further acute kidney injury. I think there is an element of hypovolemia at play here. The patient does have jugular venous distention (JVD) but in the setting of severe pulmonary hypertension and right heart failure. For the past 48 hours, her fluid status has been fairly in balance and she reports shortness of breath even at rest. At present, I would give neither diuretics nor IV fluid. She has a disproportionately higher BUN than creatinine likely due to gastrointestinal bleed and steroid administration. 2. Hyperkalemia due to decremental decrease in glomerular filtration rate. The patient's diet is switched to 2 gram potassium diet. I suggest controlling her sugars with insulin at this time with her close to 400. Would hold off on IV fluids for her hyperkalemia acute kidney injury due to her concurrent right heart failure. She already received a dose of IV Lasix this morning and I will hold off on further diuretic at present as well. Her potassium is not critically elevated this evening. We will await a repeat in the morning. No urgent indication for dialysis. 3. Gastrointestinal bleed with disproportionately elevated BUN status post 4 units packed red blood cells. The patient's hemoglobin has been fairly stable. She continues on omeprazole 40 by mouth twice daily. 4. History of chronic obstructive pulmonary disease (COPD) with home oxygen dependency. The patient continues on IV steroids. Would continue her PPI while she was on steroids due to risk of GI bleed in an already vulnerable patient. She continues on her home inhalers as well. 5. Leukocytosis. On steroid for chronic obstructive pulmonary disease (COPD). On Cefdinir with recent proteus mirabilis urinary tract infection (UTI). RECOMMENDATION: In view of patient's severe pulmonary hypertension and right heart failure and acute kidney injury in the setting of diuretic use, I recommend to hold both IV fluids and further diuretics at this time. Would give insulin for correction of hyperglycemia and mild hyperkalemia and await repeat labs in the morning. There is no indication for dialysis at present. The patient is chronically ill with multiple cormorbid conditions and risk for progression and she indicates that she would like all measures to be taken. Thank you for involving me in the care of Ms. Jaymie Cook. I will be happy to follow the patient along with you. Her overall prognosis remains guarded. MTDD
[2017-07-08] MEDS: MEROPENEM INJ 500 MG in APPROPRIATE DILUENT 1 EA IV SCH (14:23)
[2017-07-08] MEDS ORDERED: VANCOMYCIN HCL 1,000 MG, VIAL MATE ADAPTER 1 EACH in D5W 250 ML IV SCH (15:00)
--- NOTE | 2017-07-08 15:28 | REP ---
CT of the chest without IV contrast: Comparison is 11/08/2016. There is a moderate right pleural effusion as an interval change. There is minor atelectasis in the posterior lung dixon bilaterally. Lung dixon otherwise clear. Thoracic aorta is unremarkable except for calcified atheroma. Cardiac size is enlarged, unchanged. There is no pericardial effusion. The visualized upper abdominal contents are unremarkable. Impression: Moderate right pleural effusion as an interval change. Cardiomegaly, unchanged. Signed by Javed Rolle MD 07/08/2017 03:19 P
[2017-07-08] MEDS ORDERED: VANCOMYCIN HCL 500 MG in D5W MINI-BAG PLUS 100 ML IV ONE (16:00)
--- NOTE | 2017-07-08 16:00 | IPNPDOC ---
Text Note Date of Service The patient was seen on 07/08/17. NOTE No acute events overnight. Noted worsening respiration. increased lethargy. NSVT on tele. Denied abd pain, cp, n/v/abd pain GENERAL: She is a frail, elderly, NAD HEENT: JVD pos, MMM CAR irregularly, irregular, no tachy, s1s2 PUL, b/l expiratory wheeze, mild bibasilar rales ABDOMINAL EXAM: Benign. Bowel sounds are present. The abdomen is soft. EXTREMITIES: No clubbing, cyanosis or edema. ASSESSMENT AND PLAN: This is an 82-year-old female past history of GI bleed, history of atrial fibrillation previously on anticoagulation however has been off of anticoagulation secondary to her history of GI bleeding, history of diastolic heart failure, hypothyroidism, hypertension, hyperlipidemia, CAD status post CABG, COPD on 2 L O2, diabetes who presented from the [facility] with shortness of breath secondary to symptomatic anemia related to acute blood loss anemia from what is possibly upper gastrointestinal (GI) bleedings. also COPD exacerbation, acute on chronic hypoxia 1. GI bleed. Dr. Campbell's help has been appreciated. When he first evaluated the patient at the time of her admission, her hemoglobin was quite low at 5.8 and she was significantly hypoxic and tachycardic and was too unstable to undergo endoscopy. She is status 4 units of packed red blood cells now with a stable hemoglobin around 9. Dr Poole consulted for possible EGD, because he scoped her earlier this year. d/w Dr Poole, Anesthesia felt patient's respiratory status too unstable for scope. Dr Poole rec since patient h/h is hold stable at above hbg9 the bleeding most likely has stopped , rec advance diet and monitor. Scope only if patient rebleed. c/w ppi BID 2. acute on Chronic kidney failure possibly over diuresis hold dluretics. I and O, daily weight nephrology consulted galvin 3. Hypokalemia, repleted. currently mildy hyperkalemia 4. Troponinemia, likely related to demand ischemia associated from her profound anemia, tachycardia. 5. Atrial fibrillation. She has a rapid ventricular response and is not on anticoagulation secondary to her history of gastrointestinal bleeding. She is not normally on a rate controlling agent. It was initially felt to be related to her anemia. However, with transfusion, she did not improve and then there was concern that she may be mildly fluid overloaded. Diuresis provided, on hold for worsening kidney function, tele Cardizem changed to dig given underlying right heart failure f/u dig level 6. acute on chronic hypoxia 2/2 to COPD exacerbation and acute diastolic CHF, Pul HTN, pna diuretics initially give , neb, Solumedrol taper. 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 Abnormal urinalysis and Proteus mirabilis urinary tract infection (UTI). Cefdinir discontinued given patient with worsening respiration with possible pna , on merro and vanco ID consulted 8. Hypertension. cardizem on hold 2/2 to CHF. monitor BP start nitrates if BP elevated 9. Gastroesophageal reflux disease (GERD). ppi 10. COPD. As outlined above, is fairly significant. management as above, taper steroid 11. Hypothyroidism. She is on Synthroid. 12. Mood disorder. She is on sertraline. 13. Coronary artery disease. The patient does have a history of a coronary artery bypass graft (CABG) in the past with mild troponinemia. I think she would benefit from further outpatient stress testing. She would like to have all measures taken. Given her recent bleeding, she is not on any aspirin. She has an allergic reaction to statins and I would not start a beta kelvin as the patient has significant lung disease. consider start nitrates if BP elevated 14. Leukocytosis, fairly chronic. taper steroid, f/u cultures.c/w antibiotics DVT ppx teds scd DISPOSITION: Her clinical status remains guarded. f/u hh, PT., poor prognosis, right heart failure, with Pul HTN, and acute on chronic renal failure. d/w patient's daughter. VS,Aime, I+O VS, Aime, I+O Laboratory Tests 07/07/17 17:19 Calcium Level 9.2 07/07/17 22:28 Calcium Level 9.0 07/08/17 06:51 Calcium Level 9.1, Red Blood Count 3.45 L, Mean Corpuscular Volume 91.3, Mean Corpuscular Hemoglobin 27.8, Mean Corpuscular Hemoglobin Concent 30.5 L, Red Cell Distribution Width 16.6 H Vital Signs Date Time Temp Pulse Resp B/P (MAP) Pulse Ox O2 Delivery O2 Flow Rate FiO2 07/08/17 14:58 94 Nasal Cannula 3.0 07/08/17 09:38 74 122/70 07/08/17 06:00 97.3 20 I&O- Last 24 Hours up to 6 AM 07/09/17 06:00 Intake Total 930 ml Output Total 0 ml Balance 930 ml MAYCOL JOHNSON MD Jul 08, 2017 16:00
[2017-07-08 16:48] LABS: CALCIUM LEVEL 8.8 MG/DL (8.8-10.2); CREATININE FOR GFR 2.14 MG/DL (0.55-1.02); GLOMERULAR FILTRATION RATE 23.4 (>32)
[2017-07-08 16:53] LABS: POTASSIUM SERUM 5.5 MEQ/L (3.5-5.1)
[2017-07-08] MEDS: DIGOXIN 0.125 MG TAB PO SCH (17:22)
[2017-07-08] MEDS: ISOSORBIDE DIN. (ISORDIL) 5 MG TAB PO SCH (18:16)
[2017-07-08] MEDS: FEXOFENADINE 60 MG TAB PO SCH (20:36)
[2017-07-09] VITALS (7 sets, daily range): BP systolic 140–160; BP diastolic 64–98; O2SAT 96
[2017-07-09] MEDS: IPRATROPIUM 0.5MG/ALBUTEROL 2.5MG INH SOL UD 3ML (DUONEB)(J7620) NEB SCH ×4 (01:09→19:13)
[2017-07-09] MEDS: methylPREDNISolone INJ 40 MG/1 ML VIAL (J2920) IV SCH ×2 (02:13→12:46)
[2017-07-09] MEDS: MEROPENEM INJ 500 MG in APPROPRIATE DILUENT 1 EA IV SCH (02:13)
--- NOTE | 2017-07-09 02:56 | IPN ---
DATE OF SERVICE: 07/08/2017 SUBJECTIVE: Patient was seen and examined at the bedside today morning. Patient remains short of breath. She is currently on oxygen at this time. There is slight worsening of the renal function. Patient is oliguric today. White cell count is still high with the possible source of leukocytosis from the lungs. Patient's heart failure remains decompensated. REVIEW OF SYSTEMS: Patient denies any fever or chills, rigors. She denies any chest pain. She does report shortness of breath even at rest. She denies any pain abdomen, constipation or diarrhea. Rest of review of systems is negative. OBJECTIVE: Vital signs: Temperature is 97.3 degrees Fahrenheit. Blood pressure is 147/69. Pulse is 64. Respiratory rate of 20, saturating 91% on nasal cannula. Intake and output: Urine output recorded yesterday was 745 mL. Urine output so far today since overnight is 225 mL. Weight on the bed scale is 91.6 kg. PHYSICAL EXAMINATION: General: Patient is awake, alert, oriented times three sitting in the bed in mild to moderate respiratory distress. She is hard of hearing. Head and neck exam: Extraocular muscles intact. Mucous membranes are very dry. Neck is supple. There is mildly elevated jugular venous distention (JVD). Cardiovascular: S1, S2, irregular heart rate. No lower extremity edema. Respiratory: Decreased breath sounds at the right base. Decreased breath sounds at the left base with mild crepitations. No wheezing or rhonchi appreciated at this time. Gastrointestinal (GI): Abdomen is soft, positive bowel sounds, nontender. No ascites. No organomegaly. Genitourinary: Patient has an indwelling catheter at this time. Urine in the bag is clear. Musculoskeletal: No clubbing or cyanosis. Pulses are 2+. No edema of the bilateral lower extremities. Central nervous system: No focal deficit. Patient is hard of hearing. Otherwise, she follows commands. Psychiatric: Patient has a normal mood and affect. LABORATORY REVIEW: CBC showed a WBC of 17.2, hemoglobin 9.6, platelets are 266. Repeat urinalysis done today showed 1+ protein, 1+ blood, 1+ leukocyte esterase, white cell count is 22. BMP done today morning showed a sodium of 136, potassium 5.6, chloride 99, bicarbonate 27, BUN 98, creatinine 2.1, glucose 286, uric acid 18.1, magnesium 3.3. C-reactive protein 1.92. Microbiology: Blood cultures have been sent today again. Previous blood cultures sent on 07/03 are negative. IMAGING: A chest x-ray portable ordered today morning showed worsening interstitial infiltrates, cardiomegaly with sternotomy wires. CURRENT INPATIENT MEDICATIONS: Patient's inpatient medications were all reviewed by me. She has been started on meropenem and vancomycin. Cefdinir has been stopped. Diltiazem has been stopped. I started the patient on Uloric 40 mg daily. Solu-Medrol dose has been tapered down and I ordered one bolus of 250 mL of normal saline today morning. There is no other change in the medications today as compared with yesterday. ASSESSMENT: 82-year-old female with severe pulmonary hypertension with cor pulmonale, preserved left ventricular ejection fraction, atrial fibrillation, chronic obstructive pulmonary disease (COPD) on home oxygen, currently with worsening renal function. PLAN: 1. Acute renal failure. Patient was nonoliguric yesterday; however, according to intake and output, patient is becoming oliguric. It is very difficult to assess the volume status of the patient. She has an elevated jugular venous distention (JVD) secondary to decompensated cor pulmonale. However, clinically she has very dry mucous membranes, no lower extremity edema. I recommend holding the diuretics. I actually got the right external jugular intravenous (IV) line inserted and I am going to give the patient a bolus of 250 mL normal saline. If patient goes into oliguric renal failure, I will try to manage it medically. Patient has a very poor prognosis. I would not offer hemodialysis to this patient. 2. Hyperkalemia. It is secondary to acute renal failure. Potassium is 5.6, which is acceptable at this time. If potassium level stays high by tomorrow, then patient will be given a dose of Kayexalate 15 grams. 3. Worsening leukocytosis. Patient has worsening infiltrates on the chest x-ray. Primary team has already started the patient on IV vancomycin and meropenem. Repeat blood cultures have already been sent. 4. Decompensated cor pulmonale. Patient has severe pulmonary hypertension, severely dilated right ventricle on the echocardiogram, which is most likely causing the congestive nephropathy and acute renal failure at this time. Patient clinically has a very poor prognosis. The rest of the management is as per cardiology recommendations. 5. Hyperuricemia. It is most likely secondary to renal failure and volume depletion. I am going to start the patient on Uloric 40 mg by mouth daily. 6. Hypermagnesemia. High magnesium level is also most likely secondary to volume depletion. However, patient is asymptomatic at this time. I am giving the patient a small bolus and I am hoping for improvement of the renal function. Patient overall has a very poor prognosis. MTDD
[2017-07-09] MEDS: ALBUTEROL SULFATE 2.5 MG/0.5 ML INH NEB SOLN INH PRN ×2 (04:41→22:06)
[2017-07-09] MEDS: LEVOTHYROXINE 75MCG TABLET (0.075MG) PO SCH (05:41)
[2017-07-09] MEDS: POLYVINYL ALCOHOL OPHTH SOLN 15 ML(LIQUITEARS) OU PRN (05:42)
[2017-07-09] MEDS: ISOSORBIDE DIN. (ISORDIL) 5 MG TAB PO SCH (06:06)
[2017-07-09 06:08] LABS: MEAN CORPUSCULAR HGB CONC 30.4 g/dl (32.0-36.5); PLATELET COUNT, AUTOMATED 239 10^3/uL (150-450); RED CELL DISTRIBUTION WIDTH 16.6 % (11.5-14.5); WHITE BLOOD COUNT 20.5 10^3/uL (4.0-10.0)
[2017-07-09 06:29] LABS: CALCIUM LEVEL 8.6 MG/DL (8.8-10.2); CREATININE FOR GFR 2.02 MG/DL (0.55-1.02); DIGOXIN LEVEL 0.6 NG/ML (0.5-2.0)
[2017-07-09 06:30] LABS: POTASSIUM SERUM 5.8 MEQ/L (3.5-5.1)
[2017-07-09] MEDS: HumaLOG INSULIN (NovoLOG) PER UNIT SC SCH ×4 (07:30→20:53)
[2017-07-09] MEDS: TIOTROPIUM INHALER/CAPSULE (SPIRIVA) INH SCH (07:52)
[2017-07-09] MEDS: FERROUS SULFATE 325MG TAB PO SCH ×2 (07:59→20:34)
[2017-07-09] MEDS: DIGOXIN 0.125 MG TAB PO SCH (07:59)
[2017-07-09] MEDS: OMEPRAZOLE 20 MG CAP PO SCH ×2 (07:59→20:34)
[2017-07-09] MEDS: FEBUXOSTAT 40 MG TABLET (ULORIC) PO SCH (07:59)
[2017-07-09] MEDS: SERTRALINE HCL 25 MG TABLET PO SCH (07:59)
[2017-07-09] MEDS: SODIUM CHLORIDE 0.9% NASAL GEL 15MG (AYR) SCH ×4 (08:00→20:35)
[2017-07-09] MEDS: ACETAMINOPHEN 500 MG TAB PO SCH ×2 (08:00→20:35)
[2017-07-09] MEDS ORDERED: FUROSEMIDE 100 MG/10 ML VIAL (J1940) IV ONE (09:00)
[2017-07-09] MEDS: NS 500 ML IV SCH ×2 (09:00→16:34)
[2017-07-09] MEDS ORDERED: SOD POLYSTYRENE SULFONATE SUSP 15 GM/60 ML UD PO ONE (09:00)
[2017-07-09] MEDS ORDERED: DEXTROSE 50% 50 ML SYRINGE IV STA (09:10)
[2017-07-09] MEDS ORDERED: HumuLIN R (REGULAR) INSULIN (NovoLIN R) **100U/ML** PER UNIT IV STA (09:10)
[2017-07-09] MEDS: ISOSORBIDE DIN. (ISORDIL) 20 MG TAB PO SCH ×2 (12:44→17:16)
--- NOTE | 2017-07-09 15:43 | CR ---
DATE OF CONSULTATION: 07/09/2017 Asked to consult by hospitalist for evaluation of leukocytosis and mental status changes. Mrs. Cook is a pleasant 82-year-old female with significant past medical history, including severe anemia for the past 10 years who has received multiple blood transfusions this year. Patient was admitted with severe anemia and shortness of breath. The patient's hemoglobin was down to 5.7, and she received 4 units of blood. She was having increasing shortness of breath. She has a history of severe chronic obstructive pulmonary disease (COPD), steroid and oxygen dependent, and severe right-sided heart failure. She got more short of breath after the blood transfusion, and her mental status deteriorated. She was more lethargic and confused. The patient was also treated with steroids, Solu-Medrol 60 mg every 8 hours from July 04 to July 06 that was tapered down to 30 mg intravenous (IV) every 12 hours over the past 48 hours. She was initially treated with antibiotics, Levaquin, for the first 3 days, but after urine culture came back it was positive for Proteus resistant to quinolones, and therefore she was changed to cefdinir from July 05 to July 08. Today, the patient's mental status was even worse. She was more lethargic and confused but more just inappropriately saying things that were out of the ordinary for her. She is at baseline a very sharp person. She was started on meropenem and vancomycin for possible healthcare-associated pneumonia. She did not have any fevers throughout this admission. Her white count on admission was 21.7 and today is 17.2. She had no nausea, vomiting, or diarrhea. She had no urinary symptoms on admission. She denies any headache. When asked questions she does answer appropriately. She has no neck stiffness. She has developed acute kidney injury with hyperkalemia, probably from diuretics and was seen in consultation by Dr. Phillips. She denies any chest pain, palpitations. She has a Grullon catheter for urinary output. The patient at baseline uses a scooter and does not ambulate. PAST MEDICAL HISTORY: 1. Severe pulmonary hypertension with right-sided heart failure, preserved left ventricular ejection fraction. 2. History of severe anemia and gastrointestinal (GI) bleed. Most recent endoscopy was done by Dr. Poole January 2017 with negative workup. There is no source of bleeding. 3. Atrial fibrillation, not on anticoagulation. 4. Hypertension. 5. Dyslipidemia. 6. Coronary artery disease status post coronary artery bypass graft (CABG). 7. Chronic obstructive pulmonary disease (COPD), on home oxygen and prednisone. 8. Diabetes. 9. Hypothyroidism. PAST SURGICAL HISTORY: 1. CABG. 2. Appendectomy. 3. Hysterectomy. 4. Cholecystectomy. 5. Cataract surgery. 6. Skin cancer. SOCIAL HISTORY: Quit smoking 2 years ago. Denies alcohol use. She is now a [facility] resident. Prior to that she was at [facility] in independent living but has been deteriorating over the 8 months and now needs a penitentiary. ALLERGIES: ATORVASTATIN, CIMETIDINE, LATEX, perfumes, PENICILLIN, and RANITIDINE. FAMILY HISTORY: Nonrevealing. MEDICATIONS: - Isordil 5 mg by mouth three times a day - digoxin 0.125 mg daily - vancomycin 1 gram IV every 24 hours - methylprednisolone 30 mg IV every 12 hours - meropenem 500 mg IV every 12 hours. These both were started on 07/08. - Uloric 40 mg by mouth daily - Spiriva one inhalation daily - omeprazole 40 mg by mouth twice a day - Alisson 180 mg by mouth at bedtime - ferrous sulfate 325 mg by mouth twice a day - Tylenol as needed - artificial tears - hydrocortisone - Proctosol-HC - sertraline 25 mg by mouth daily - levothyroxine 75 mcg daily - albuterol/Atrovent nebulizers every 6 as needed LABORATORY DATA: White count is 17.2, hemoglobin 9.6, hematocrit 31.5, platelets 266. Sodium 136, potassium 5.5, chloride 99, bicarbonate 28, BUN 106, creatinine 2.14, glucose 252, calcium 8.8, HbA1c 6.6, CRP 1.92. Creatinine has increased from 1.38. Blood cultures on admission July 03: No growth. Blood cultures, two sets, done on July 08 are pending. Respiratory panel is pending. Urine culture on July 03 was positive for Proteus mirabilis resistant to ampicillin, levofloxacin, nitrofurantoin, and Bactrim. Urinalysis had 158 white cells, 8 red cells, +3 leukocyte esterase. IMAGING STUDIES: Chest x-ray on admission consistent with congestive heart failure. Renal ultrasound on July 07 shows bilateral renal cortical echogenicity compatible with medical renal disease. Right kidney is more atrophic than the left. Chest CT done on July 08 shows a moderate right pleural effusion as an interval change and cardiomegaly. PHYSICAL EXAMINATION: She is a frail, elderly woman in no acute distress but confused. Temperature is 98.2, pulse 62, respirations 24, blood pressure 154/72, oxygen saturation 96% on 2 liters nasal cannula. HEART: Normal S1, S2, irregular. NECK: Supple with no jugular venous distention (JVD) . OROPHARYNX: very dry mucosa. LUNGS: Decreased breath sounds at the right base and few crackles at the left base with no wheezing. ABDOMEN: Soft, nontender. No hepatosplenomegaly. GENITOURINARY: She has an indwelling Grullon catheter with clear urine. BACK: No costovertebral angle (CVA) tenderness. EXTREMITIES: No clubbing, cyanosis, or edema. Distal pulses 2+. CENTRAL NERVOUS SYSTEM: No focal deficit. The patient is [id number] but follows commands appropriately and answers appropriately in spite of some confusion with inappropriate statements at different times. IMPRESSION: This is an 82-year-old female with severe pulmonary hypertension, cor pulmonale, atrial fibrillation, and severe chronic obstructive pulmonary disease (COPD), oxygen and steroid dependent who was admitted with severe anemia requiring 4 units of packed red blood cells. Since then she has received multiple antibiotics, including Levaquin for 3 days, cefdinir for 3 days, and now on meropenem and vancomycin. Her white count has remained at her baseline of between 17,000 and 20,000, but she has received high-dose steroids since her admission. She also has been diuresed and has developed acute renal failure. On admission she did not have symptoms of urinary tract infection, such as dysuria or flank pain. She just had a white count. Never had a fever. I am not sure even if she had a urinary tract infection or she just had asymptomatic bacteruria. Currently, her oxygenation is at baseline, and the only difference is her mental status changes. I suspect this is metabolic encephalopathy from steroids, medication, and chronic illness and not from infection. PLAN: Discontinue IV vancomycin. I do not see any reason for her to have methicillin-resistant Staphylococcus aureus (MRSA) pneumonia. I am not even sure she has pneumonia versus right-sided effusion from probably congestive heart failure and not from pneumonia. She does not have a cough and does not have worsening oxygenation. Discontinue IV vancomycin. I would even consider discontinuing meropenem if cultures remain negative. Consider discontinuing Solu-Medrol. The patient should be back to her baseline of prednisone 10 mg. The patient does not have any wheezing. Most of her symptoms are related to right-sided heart failure than COPD at this time. My suspicion is that leukocytosis is reactive than infectious, and her mental status is related to metabolic encephalopathy.
--- NOTE | 2017-07-09 16:14 | IPN ---
DATE: 07/09/2017 Jaymie seems to be doing about the same. She is still a little confused, but she appropriately answers questions. She is lethargic. She falls asleep when talking to her, but whenever we asked her a question she appropriately answers, stating that she is on 2 liters oxygen and she is in the hospital. Temperature is 96.9, pulse 69, respirations 18, blood pressure 160/98, oxygen saturation 99% on 2 liters nasal cannula. HEART: Normal S1, S2, irregular with a systolic ejection murmur 2/6. LUNGS: Decreased breath sounds at the right base but no wheezing or rhonchi. ABDOMEN: Soft, nontender. No hepatosplenomegaly. EXTREMITIES: No edema. There is multiple ecchymosis. Right clavicle is tender. There is previous site of surgery and two intravenous (IV) catheters that were removed. She lost IV access. LABORATORY DATA: White count is 20.5, hemoglobin 9.5, hematocrit 31.2, platelets 239. Sodium 137, potassium 5.8, chloride 99, bicarbonate 25, BUN 109, creatinine 2.02 , glucose 259, calcium 8.6, CRP 1.15. Blood cultures are no growth after 24 hours. Methicillin-resistant Staphylococcus aureus (MRSA) screen is pending. IMPRESSION: 1. Leukocytosis, steroid induced. No evidence of infection. 2. Right-sided heart failure with right pleural effusion, being managed by nephrology. 3. Acute renal failure with hyperkalemia. 4. Proteus mirabilis bacteruria. I am not sure she even had a urinary tract infection (UTI) on admission. Patient did not seem to be symptomatic. Currently has a Grullon catheter for strict intake and output. She has received 3 days of appropriate antibiotics with Omnicef to treat a cystitis and does not need any further antibiotics. PLAN: Discontinue IV vancomycin and Zosyn. Discontinue steroids. The patient has leukocytosis from steroids and possible confusion from metabolic encephalopathy, probably multifactorial from steroids, congestive heart failure, uremia. Thank you for the consultation. Case discussed with Dr. Phma who agrees on discontinuing antibiotics. MEDICATIONS MTDD
--- NOTE | 2017-07-09 16:59 | IPN ---
DATE: 07/09/2017 SUBJECTIVE: I had a long bedside visit with Ms. Coon and her daughter Eufemia this morning. Ms. Coon is a little drowsy but easily arousable and answers questions appropriately. I had a discussion with her regarding her comorbid condition and current renal failure complicated by hyperkalemia. The patient at this time reiterates that she would like all interventions and all measures taken, including dialysis. Her daughter is tearful at the bedside and reports that the patient previously had always elected to be DNR, but in the last couple of months, she had a change of mind. The patient remains oliguric and reports decreased oral intake. She is receiving a trial of fluids this morning and urine output since 6 a.m. to 12 p.m. thus far is about 300 mL. She is also given insulin, D50 and Kayexalate for her hyperkalemia. REVIEW OF SYSTEMS: The patient denies any fevers or chills. She complains of exhaustion and fatigue. She denies any chest pain. She states her shortness of breath is comparatively improved today when compared to the past prior days. She denies shortness of breath while at rest. She denies abdominal pain, nausea, vomiting or diarrhea. Remains with Grullon catheter. Remainder of review of systems is negative. PHYSICAL EXAMINATION: VITAL SIGNS: Temperature 96.9, pulse 69-76 irregular, respiratory rate 18-20 breaths per minute, blood pressure 160/98, pulse oximetry 99% on two liters nasal cannula. INTAKE AND OUTPUT: Oral intake yesterday 600 mL. IV intake 680. Urine output 400 , positive 880 mL. Weight in the bed scale today is 93 kg. GENERAL: The patient is seen lying in bed lethargic but easily arousable to verbal stimulus. Her daughter is present at the bedside. She is hard of hearing and I lean in to speak to her. HEAD/NECK: Extraocular muscles are intact. The patient maintains good eye contact with me when I speak. The oral mucosa including the tongue is very dry and cracked. NECK: The neck is supple. The jugular vein is distended. CARDIAC: S1, S2. Irregular. There is no edema in the lower extremities nor in the dependent areas. RESPIRATORY: The patient is seen on nasal cannula. There is no tachypnea. There are diminished breath sounds at the bases. There is no overt wheeze or crackle. GASTROINTESTINAL (GI): The abdomen is soft, nontender. GENITOURINARY: The patient has a Grullon catheter. There is about 300 mL of urine in the bag. MUSCULOSKELETAL: There is no edema. The patient moves extremities on command. There is a peripheral IV in the left upper extremity. CENTRAL NERVOUS SYSTEM (LEAD PASTOR): The patient is lethargic but easily arousable. She answers my questions appropriately and follows commands. She is oriented times three to person, place and situation. She seems to understand the acuity of her illness and the possible options that I am offering. PSYCHIATRIC: Appropriate mood and affect. LABORATORY DATA: White count 20, hemoglobin 9.5, platelets 239. Sodium 137, potassium 5.8, bicarbonate 25, BUN 109, creatinine 2.0, glucose 259, magnesium yesterday 3.3, uric acid 18.1. MICROBIOLOGY: Blood cultures 07/08 drawn and pending times two sets. IMAGING: CT chest 07/08 noncontrast shows a moderate right pleural effusion and cardiomegaly. Chest x-ray 07/08: Interstitial infiltrate. INPATIENT MEDICATIONS: The patient is ordered for normal saline at 50 mL an hour for 500 mL total. She is on vancomycin and meropenem per the primary team. She received D50 and insulin and 30 grams of Kayexalate. Her diltiazem is discontinued and she is placed on digoxin instead per the primary team. Her Isordil dose is as well increased, and her Solu-Medrol is tapered. PROBLEMS: 1. Acute renal failure with uremia: The patient's blood urea nitrogen (BUN) is disproportionately higher than the creatinine, likely due to gastrointestinal (GI) bleed and autodigestion of red blood cells, along with high-dose IV steroids, which can also cause elevation of BUN. Her mentation is fair. She is certainly drowsy but oriented and answers questions appropriately. The patient is clear to me that she wants all aggressive measures taken including hemodialysis. She understands her prognosis is overall very poor. I am giving her a trial of IV fluids 500 mL with caution. Yesterday, the patient was net positive and did have a plateau in renal function without further deterioration. Clinically she seems quite dry with the exception of jugular venous distention which is likely secondary to her cor pulmonale. Labs reveal a uric acid of 18 and a magnesium of 3.3, and I do not see that she received any magnesium supplement. This is likely due to intravascular contraction. We will see how she responds to 500 mL of fluid. Repeat chemistry is ordered for 6 p.m. 2. Hyperkalemia, potassium 5.8: The patient received insulin and D50 and 30 grams of Kayexalate, along with 500 mL of IV fluid. We will repeat a chemistry at 6 p.m. She is on a 2 gram potassium diet. 3. Lethargy: I think this is multifactorial. Her white count has risen to 20, and there is a possibility of infectious state. She is on empiric antibiotics. BUN is 109 and there is likely a component of uremia. Her BUN is disproportionately higher than her creatinine due to acute GI bleed and IV steroids. 4. Gastrointestinal (GI) bleed: The patient has received multiple units of packed red blood cells. Her hemoglobin has been stable. There was no endoscopy performed on this admission. She was initially felt to be too unstable for scope , and subsequently hemoglobin stabilized and endoscopy was held. She continues on Protonix. 5. Chronic obstructive pulmonary disease (COPD): The patient continues on steroid taper. She is currently saturating well on two liters nasal cannula and receiving albuterol. 6. Hypermagnesemia which occurred in the setting of diuretic use, and I do not see that the patient was receiving magnesium supplement, which is suggestive of volume contraction. 7. Hyperuricemia, uric acid of 18: Likely secondary to renal failure on loop diuretic; on Uloric. 8. Right heart failure, cor pulmonale, severe pulmonary hypertension complicating her care. The patient clinically appears dry, and I will cautiously give 500 mL of fluid and see how she fares. Currently respiring comfortably on two liters nasal cannula with saturation of 99%. CT chest noted with interval pleural effusion, and chest x-ray with infiltrates, possible pneumonia. 9. Disposition: The patient has multiple chronic conditions including significant right heart failure and history of recurrent GI bleed, and advanced COPD on home oxygen. She is currently acutely ill with deteriorating renal function and ongoing leukocytosis. As per my discussion with the patient and her daughter at the bedside, the patient elects that all interventions and measures are to be taken including hemodialysis. If she does not respond to IV fluids, she will likely require renal replacement therapy within the coming 24 hours with arrangement for dialysis catheter. Opportunity is provided for questions and all questions and concerns from both the patient and her daughter are addressed by myself today. DANTE
--- NOTE | 2017-07-09 17:47 | REP ---
Procedure: PICC line insertion with Site-Ritjanett The procedure was performed under the direct supervision of Dr. Diop. The risks and benefits of the procedure were explained to the patient and informed consent was obtained. The right basilic vein was localized using ultrasound guidance. The skin was prepped and draped in a sterile fashion. 2% lidocaine was used as a local anesthetic. Using ultrasound guidance the basilic vein was cannulated and a 0.018 guidewire was inserted and advanced to the SVC using fluoroscopic guidance. The needle was removed and a 5.5 Filipino dilator and peel-away sheath was inserted over the guide wire. A 5.5 Filipino dual lumen catheter was cut to length of 46 cm. The dilator was removed and the catheter was inserted over the guide wire with the tip ending in the SVC. The peel-away sheath was removed and the catheter was flushed with heparinized saline as per Hospital protocol. The catheter was affixed to the skin and a sterile dressing was applied. The the patient tolerated the procedure well and there were no immediate complications. 0.2 minutes of fluoro time was utilized for this procedure. Reviewed by YASMIN Logan 07/09/2017 04:52 PSigned by Jordan Diop MD 07/09/2017 05:37 P
[2017-07-09] MEDS: SODIUM CHLORIDE 0.9% INJ 10 ML SYR IV SCH (18:00)
[2017-07-09] MEDS ORDERED: SODIUM CHLORIDE 0.9% INJ 10 ML SYR IV PRN (18:00)
--- NOTE | 2017-07-09 18:00 | IPNPDOC ---
Text Note Date of Service The patient was seen on 07/09/17. NOTE No acute events overnight. Denied abd pain, cp, n/v/abd pain. mild dyspnea. worsening kidney function GENERAL: She is a frail, elderly, NAD HEENT: JVD pos, MMM CAR irregularly, irregular, no tachy, s1s2 PUL, b/l expiratory wheeze, mild bibasilar rales ABDOMINAL EXAM: Benign. Bowel sounds are present. The abdomen is soft. EXTREMITIES: No clubbing, cyanosis or edema. ASSESSMENT AND PLAN: This is an 82-year-old female past history of GI bleed, history of atrial fibrillation previously on anticoagulation however has been off of anticoagulation secondary to her history of GI bleeding, history of diastolic heart failure, hypothyroidism, hypertension, hyperlipidemia, CAD status post CABG, COPD on 2 L O2, diabetes who presented from the group home with shortness of breath secondary to symptomatic anemia related to acute blood loss anemia from what is possibly upper gastrointestinal (GI) bleedings. also COPD exacerbation, acute on chronic hypoxia 1. GI bleed. Dr. Campbell's help has been appreciated. When he first evaluated the patient at the time of her admission, her hemoglobin was quite low at 5.8 and she was significantly hypoxic and tachycardic and was too unstable to undergo endoscopy. She is status 4 units of packed red blood cells now with a stable hemoglobin around 9. Dr Poole consulted for possible EGD, because he scoped her earlier this year. d/w Dr Poole, Anesthesia felt patient's respiratory status too unstable for scope. Dr Poole rec since patient h/h is hold stable at above hbg9 the bleeding most likely has stopped , rec advance diet and monitor. Scope only if patient rebleed. c/w ppi BID 2. acute on Chronic kidney failure with hyperkalemia possibly over diuresis hold dluretics. I and O, daily weight nephrology consulted galvin IVF as per nephro Kayexalate 3. hyperkalemia 2/2 to renal failure nephrology consulted IVf and Kayexalate give 4. Troponinemia, likely related to demand ischemia associated from her profound anemia, tachycardia. 5. Atrial fibrillation. She has a rapid ventricular response and is not on anticoagulation secondary to her history of gastrointestinal bleeding. cardizem changed to dig given concern of chf. monitor tele 6. acute on chronic hypoxia 2/2 to COPD exacerbation and acute diastolic CHF, Pul HTN diuretics initially give , neb, Solumedrol taper, tte appreciated, ID consulted , Bcx, sputum, crp tamiamaricarmen marilin GONZALEZ after discuss with ID, given patient condition less likely due to infection DW Dr Rodriguez regarding current plan, agree with current management, no further recs to offer DW Dr Go, not further rec to offer for Pul HTN poor joint terminal attack controller prognosis 7. Abnormal urinalysis and Proteus mirabilis urinary tract infection (UTI). treated 8. Hypertension. cardizem on hold 09/03 to CHF. monitor BP start nitrates if BP elevated 9. Gastroesophageal reflux disease (GERD). ppi 10. COPD. As outlined above, is fairly significant. management as above, taper steroid 11. Hypothyroidism. She is on Synthroid. 12. Mood disorder. She is on sertraline. 13. Coronary artery disease. The patient does have a history of a coronary artery bypass graft (CABG) in the past with mild troponinemia. I think she would benefit from further outpatient stress testing. She would like to have all measures taken. Given her recent bleeding, she is not on any aspirin. She has an allergic reaction to statins and I would not start a beta kelvin as the patient has significant lung disease. start nitrates 14. Leukocytosis, fairly chronic. taper steroid, f/u cultures.c/w antibiotics DVT ppx teds scd DISPOSITION: Her clinical status remains guarded. f/u hh, PT., poor prognosis, right heart failure, with Pul HTN, and acute on chronic renal failure. d/w patient's daughter. ACP 30 min DNR/DNI, MOLST form completed Aime ALLEN, I+O Aime ALLEN, I+O Laboratory Tests 07/09/17 05:45 Red Blood Count 3.39 L, Mean Corpuscular Volume 92.0, Mean Corpuscular Hemoglobin 28.0, Mean Corpuscular Hemoglobin Concent 30.4 L, Red Cell Distribution Width 16.6 H, Calcium Level 8.6 L Vital Signs Date Time Temp Pulse Resp B/P (MAP) Pulse Ox O2 Delivery O2 Flow Rate FiO2 07/09/17 17:16 160/98 07/09/17 09:00 Nasal Cannula 2.0 07/09/17 09:00 96 07/09/17 07:59 76 07/09/17 05:30 96.9 18 I&O- Last 24 Hours up to 6 AM 07/10/17 06:00 Intake Total 500 ml Output Total 450 ml Balance 50 ml MAYCOL JOHNSON MD Jul 09, 2017 18:00
[2017-07-09 18:47] LABS: CALCIUM LEVEL 8.6 MG/DL (8.8-10.2); CREATININE FOR GFR 1.86 MG/DL (0.55-1.02); GLOMERULAR FILTRATION RATE 27.5 (>32); POTASSIUM SERUM 4.7 MEQ/L (3.5-5.1)
[2017-07-09] MEDS ORDERED: NS 250 ML IV ONE (19:00)
[2017-07-09] MEDS ORDERED: NS 500 ML IV ONE (19:00)
[2017-07-09] MEDS: FEXOFENADINE 60 MG TAB PO SCH (20:34)
[2017-07-09 23:15] LABS: CALCIUM LEVEL 8.6 MG/DL (8.8-10.2); CREATININE FOR GFR 1.7 MG/DL (0.55-1.02); GLOMERULAR FILTRATION RATE 30.5 (>32); MAGNESIUM LEVEL 3.2 MG/DL (1.8-2.4); POTASSIUM SERUM 4.7 MEQ/L (3.5-5.1)
[2017-07-10] MEDS: IPRATROPIUM 0.5MG/ALBUTEROL 2.5MG INH SOL UD 3ML (DUONEB)(J7620) NEB SCH ×4 (01:13→17:43)
[2017-07-10 02:00] VITALS: BP 142/58
[2017-07-10] MEDS: methylPREDNISolone INJ 40 MG/1 ML VIAL (J2920) IV SCH (02:37)
[2017-07-10] MEDS: ALBUTEROL SULFATE 2.5 MG/0.5 ML INH NEB SOLN INH PRN ×2 (03:54→21:57)
[2017-07-10] MEDS: LEVOTHYROXINE 75MCG TABLET (0.075MG) PO SCH (05:51)
[2017-07-10] MEDS: SODIUM CHLORIDE 0.9% INJ 10 ML SYR IV SCH ×2 (05:51→17:15)
[2017-07-10 06:00] VITALS: BP 122/52
[2017-07-10 06:05] LABS: MEAN CORPUSCULAR HEMOGLOBIN 27.8 pg (27.0-33.0); MEAN CORPUSCULAR HGB CONC 30.1 g/dl (32.0-36.5); MEAN CORPUSCULAR VOLUME 92.2 fl (80.0-96.0); PLATELET COUNT, AUTOMATED 237 10^3/uL (150-450); RED CELL DISTRIBUTION WIDTH 16.9 % (11.5-14.5); WHITE BLOOD COUNT 20.2 10^3/uL (4.0-10.0)
[2017-07-10 06:40] VITALS: BP 122/52
[2017-07-10] MEDS: ISOSORBIDE DIN. (ISORDIL) 20 MG TAB PO SCH ×2 (06:40→12:33)
[2017-07-10 06:49] LABS: CALCIUM LEVEL 8.5 MG/DL (8.8-10.2); CREATININE FOR GFR 1.56 MG/DL (0.55-1.02); DIGOXIN LEVEL 0.6 NG/ML (0.5-2.0); GLOMERULAR FILTRATION RATE 33.7 (>32); POTASSIUM SERUM 4.4 MEQ/L (3.5-5.1)
[2017-07-10] MEDS: TIOTROPIUM INHALER/CAPSULE (SPIRIVA) INH SCH (07:01)
[2017-07-10] MEDS: OMEPRAZOLE 20 MG CAP PO SCH ×2 (08:05→21:48)
[2017-07-10] MEDS: SERTRALINE HCL 25 MG TABLET PO SCH (08:05)
[2017-07-10] MEDS: FEBUXOSTAT 40 MG TABLET (ULORIC) PO SCH (08:05)
[2017-07-10] MEDS: FERROUS SULFATE 325MG TAB PO SCH (08:05)
[2017-07-10] MEDS: SODIUM CHLORIDE 0.9% NASAL GEL 15MG (AYR) SCH ×4 (08:06→21:48)
[2017-07-10] MEDS: ACETAMINOPHEN 500 MG TAB PO SCH ×2 (08:06→21:49)
[2017-07-10] MEDS: HumaLOG INSULIN (NovoLOG) PER UNIT SC SCH ×2 (08:06→11:40)
[2017-07-10] MEDS: DIGOXIN 0.125 MG TAB PO SCH (08:06)
[2017-07-10 09:27] LABS: MAGNESIUM LEVEL 3.2 MG/DL (1.8-2.4)
[2017-07-10 10:00] VITALS: BP 179/99
[2017-07-10] MEDS ORDERED: BISACODYL 10 MG SUPP PR PRN (13:30)
[2017-07-10] MEDS ORDERED: SCOPOLAMINE 1.5 MG TRANSDERMAL TD PRN (13:30)
[2017-07-10] MEDS ORDERED: MORPHINE 10MG/0.5ML ORAL CONCENTRATE SOLUTION U/D SL PRN (13:30)
[2017-07-10] MEDS ORDERED: ONDANSETRON 4MG/2ML VIAL (J2405) IV PRN (13:30)
[2017-07-10] MEDS ORDERED: LORazepam 1 MG TAB PO PRN (13:30)
[2017-07-10] MEDS: MORPHINE 2 MG/ML 1ML SYRINGE IV PRN (18:26)
--- NOTE | 2017-07-10 18:36 | IPNPDOC ---
Text Note Date of Service The patient was seen on 07/10/17. NOTE No acute events overnight. Denied abd pain, cp, n/v/abd pain. mild dyspnea. intermittent lethargy GENERAL: She is a frail, elderly, NAD HEENT: JVD pos, MMM CAR irregularly, irregular, no tachy, s1s2 PUL, b/l expiratory wheeze, mild bibasilar rales ABDOMINAL EXAM: Benign. Bowel sounds are present. The abdomen is soft. EXTREMITIES: No clubbing, cyanosis or edema. ASSESSMENT AND PLAN: This is an 82-year-old female past history of GI bleed, history of atrial fibrillation previously on anticoagulation however has been off of anticoagulation secondary to her history of GI bleeding, history of diastolic heart failure, hypothyroidism, hypertension, hyperlipidemia, CAD status post CABG, COPD on 2 L O2, diabetes who presented from the detention with shortness of breath secondary to symptomatic anemia related to acute blood loss anemia from what is possibly upper gastrointestinal (GI) bleedings. also COPD exacerbation, acute on chronic hypoxia 1. GI bleed. Dr. Campbell's help has been appreciated. When he first evaluated the patient at the time of her admission, her hemoglobin was quite low at 5.8 and she was significantly hypoxic and tachycardic and was too unstable to undergo endoscopy. She is status 4 units of packed red blood cells now with a stable hemoglobin around 9. Dr Poole consulted for possible EGD, because he scoped her earlier this year. d/w Dr Poole, Anesthesia felt patient's respiratory status too unstable for scope. Dr Poole rec since patient h/h is hold stable at above hbg9 the bleeding most likely has stopped , rec advance diet and monitor. current GENERAL EDUCATION PROFESSOR, no further lab 2. acute on Chronic kidney failure with hyperkalemia possibly over diuresis hold dluretics. i and O initally monitored nephrology consulted galvin IVF given by nephro with improved Cr Kayexalate current GENERAL EDUCATION PROFESSOR, no further lab 3. hyperkalemia 2/2 to renal failure nephrology consulted IVf and Kayexalate given current GENERAL EDUCATION PROFESSOR, no further lab 4. Troponinemia, likely related to demand ischemia associated from her profound anemia, tachycardia. current GENERAL EDUCATION PROFESSOR, no further lab 5. Atrial fibrillation. She has a rapid ventricular response and is not on anticoagulation secondary to her history of gastrointestinal bleeding. initially cardizem changed to dig given concern of chf. Dig stopped given GENERAL EDUCATION PROFESSOR and risk of dig toxicity current GENERAL EDUCATION PROFESSOR, no tele 6. acute on chronic hypoxia 2/2 to COPD exacerbation and acute diastolic CHF, Pul HTN diuretics initially give , neb, Solumedrol taper, tte appreciated, ID consulted , Bcx, sputum, crp tamiaro marilin GONZALEZ after discuss with ID, given patient condition less likely due to infection DW Dr Rodriguez regarding current plan, agree with current management, no further recs to offer DW Dr Go, not further rec to offer for Pul HTN poor director long term care prognosis, made GENERAL EDUCATION PROFESSOR 7. Abnormal urinalysis and Proteus mirabilis urinary tract infection (UTI). treated 8. Hypertension. cardizem on hold 2/2 to CHF. monitor BP started nitrates currently stopped patient podiatric foot and ankle specialist 9. Gastroesophageal reflux disease (GERD). ppi 10. COPD. As outlined above, is fairly significant. management as above,off steroid 11. Hypothyroidism. GENERAL EDUCATION PROFESSOR 12. Mood disorder. She is on sertraline. 13. Coronary artery disease. The patient does have a history of a coronary artery bypass graft (CABG) in the past with mild troponinemia. I think she would benefit from further outpatient stress testing. She would like to have all measures taken. Given her recent bleeding, she is not on any aspirin. She has an allergic reaction to statins and I would not start a beta kelvin as the patient has significant lung disease. podiatric foot and ankle specialist 14. Leukocytosis, fairly chronic. GENERAL EDUCATION PROFESSOR DVT ppx teds scd DISPOSITION: poor prognosis, right heart failure, with Pul HTN, and acute on chronic renal failure. d/w patient's daughter, made GENERAL EDUCATION PROFESSOR at this time. Would like the patient to go to hospice house ACP 30 min MOLST updated patient made GENERAL EDUCATION PROFESSOR VS,Fishbone, I+O VS, Fishbone, I+O Laboratory Tests 07/09/17 22:49 Calcium Level 8.6 L 07/10/17 05:56 Calcium Level 8.5 L, Red Blood Count 3.06 L, Mean Corpuscular Volume 92.2, Mean Corpuscular Hemoglobin 27.8, Mean Corpuscular Hemoglobin Concent 30.1 L, Red Cell Distribution Width 16.9 H Vital Signs Date Time Temp Pulse Resp B/P (MAP) Pulse Ox O2 Delivery O2 Flow Rate FiO2 07/10/17 17:48 79 07/10/17 10:00 97.4 19 179/99 (305) 99 Nasal Cannula 2.0 I&O- Last 24 Hours up to 6 AM 07/11/17 06:00 Intake Total 120 ml Balance 120 ml MAYCOL JOHNSON MD Jul 10, 2017 18:36
[2017-07-10] MEDS: FEXOFENADINE 60 MG TAB PO SCH (21:48)
[2017-07-11] MEDS: IPRATROPIUM 0.5MG/ALBUTEROL 2.5MG INH SOL UD 3ML (DUONEB)(J7620) NEB SCH ×4 (00:22→19:59)
[2017-07-11] MEDS: ALBUTEROL SULFATE 2.5 MG/0.5 ML INH NEB SOLN INH PRN ×2 (02:26→10:10)
[2017-07-11] MEDS: SODIUM CHLORIDE 0.9% INJ 10 ML SYR IV SCH ×2 (06:42→18:10)
[2017-07-11] MEDS: TIOTROPIUM INHALER/CAPSULE (SPIRIVA) INH SCH (07:06)
--- NOTE | 2017-07-11 08:28 | IPN ---
DATE OF SERVICE: 07/10/2017 SUBJECTIVE: Patient was seen and examined at the bedside today morning. Last 24 hour events were noted. Patient was given IV fluid hydration yesterday. Her urine output improved after IV fluid hydration. Her creatinine is down to 1.5 today. However, the patient continues to be in moderate amount of respiratory distress because of her decompensated cor pulmonale. REVIEW OF SYSTEMS: Patient denies any fever or chills. She does report a moderate to severe amount of respiratory distress. She reports weakness. The patient is also reporting severe thirst. She denies any pain in abdomen or constipation. The patient also reports weakness and inability to walk. Rest of review of systems is negative. OBJECTIVE: Vital Signs: Temperature is 96.9 degrees Fahrenheit. Blood pressure is 122/52. Pulse is 89. Respiratory rate of 20. Saturating 97% on nasal cannula on 2 liters. Intake and output: Urine output recorded yesterday as 800 mL. Urine output recorded so far today since overnight is 550 mL. Weight on the bed scale is 93.2 kg. PHYSICAL EXAMINATION: General: Patient is awake. She is oriented times three, but she is drowsy and she cannot communicate properly because of drowsiness, but she is able to understand all the questions. Head and Neck Exam: Extraocular muscles intact. Pupils are equally round and reactive to light. Mucous membranes are very dry. Neck is supple. There is significantly elevated jugular venous distention (JVD). Cardiovascular: S1, S2, irregularly irregular heart rate. No edema of the lower extremities. Respiratory: Moderate respiratory distress. Patient is on nasal cannula. Decreased breath sounds bilaterally at the base, more on the right side. Patient has crepitations up to the mid lung zones on deep inspiration. Gastrointestinal (GI): Abdomen is soft, nontender. No organomegaly was appreciated. Genitourinary: Patient has an indwelling catheter. Urine in the bag is clear. Musculoskeletal: There is no edema. There is cyanosis of the extremities. Pulses are 2+. Central Nervous System: Patient is lethargic, but able to communicate. Answers questions and follows the commands. Psychiatric: Patient has a depressed mood and she verbalized understanding that she is not getting better and she is going to soon. LABORATORY REVIEW: CBC showed a WBC of 20.2, hemoglobin 8.5, platelets are 237. BMP showed sodium 141, potassium 4.4, chloride 102, bicarbonate 31, BUN 106, creatinine 1.56, calcium 8.5, magnesium 3.2. Microbiology: Blood cultures from 07/08/2017 are negative so far. IMAGING: Patient got a PICC line placed in the right upper arm yesterday under fluoroscopic guidance. CURRENT INPATIENT MEDICATIONS: Patient's medications were all reviewed by me. She was given a bolus of normal saline yesterday. There is no other change in her medications today as compared with yesterday. ASSESSMENT: 82-year-old female with severely decompensated cor pulmonale, chronic obstructive pulmonary disease (COPD) oxygen dependent, acute renal failure. PLAN: 1. Acute renal failure with uremia. It was likely related to volume depletion and diuresis in the setting of decompensated cor pulmonale. Patient was given gentle hydration yesterday. Her renal function is improving. Her creatinine is down to 1.5. 2. Decompensated cor pulmonale. Patient has severe right heart failure. It has been very difficult to optimize her volume status. Patient continues to be oxygen dependent at this time. Diuretics are on hold at this time because of acute renal failure. 3. Respiratory distress. Patient continues to be in respiratory distress. It is secondary to a combination of COPD, decompensated cor pulmonale, severe pulmonary hypertension and possible pneumonia as well. 4. Disposition. I discussed patient's current status with the patient today morning and also with her daughter Zainab. Patient has a very poor prognosis overall. She has severe right sided heart failure, difficult to manage volume status, end stage COPD, fluctuating renal function. She is lethargic. She has uremia and possibly developing sepsis secondary to infection as well. Patient understood that she is severely sick and she will not survive this hospitalization. She agreed to make her DO NOT RESUSCITATE (DNR) and comfort measures only. Both patient and her daughter want the patient to be evaluated for hospice. By the time she gets evaluated for hospice, she will be comfort measures only. All the aggressive medications and treatment are being held now. The patient will only get pain medications. I discussed the plan of care with the hospitalist, Dr. Nguyen Pham, as well. I am going to stop Uloric, iron tablets, the IV fluid hydration, antihypertensive medications, insulin, thyroid medications, and steroids. From now on, patient will be comfort measures only. Nephrology service will sign off at this moment. Please call nephrology service for any help in the management of this patient during this hospital stay.
[2017-07-11] MEDS: ACETAMINOPHEN 500 MG TAB PO SCH ×2 (08:42→21:00)
[2017-07-11] MEDS: OMEPRAZOLE 20 MG CAP PO SCH ×2 (08:43→21:00)
[2017-07-11] MEDS: SERTRALINE HCL 25 MG TABLET PO SCH (08:43)
[2017-07-11] MEDS: SODIUM CHLORIDE 0.9% NASAL GEL 15MG (AYR) SCH ×4 (08:43→23:44)
--- NOTE | 2017-07-11 10:45 | IPNPDOC ---
Text Note Date of Service The patient was seen on 07/11/17. NOTE No acute events overnight. Denied abd pain, cp, n/v/abd pain. mild dyspnea. intermittent lethargy GENERAL: She is a frail, elderly, NAD HEENT: JVD pos, MMM CAR irregularly, irregular, no tachy, s1s2 PUL, b/l expiratory wheeze, mild bibasilar rales ABDOMINAL EXAM: Benign. Bowel sounds are present. The abdomen is soft. EXTREMITIES: No clubbing, cyanosis or edema. ASSESSMENT AND PLAN: This is an 82-year-old female past history of GI bleed, history of atrial fibrillation previously on anticoagulation however has been off of anticoagulation secondary to her history of GI bleeding, history of diastolic heart failure, hypothyroidism, hypertension, hyperlipidemia, CAD status post CABG, COPD on 2 L O2, diabetes who presented from the intermediate with shortness of breath secondary to symptomatic anemia related to acute blood loss anemia from what is possibly upper gastrointestinal (GI) bleedings. also COPD exacerbation, acute on chronic hypoxia 1. GI bleed . current CIRCUS ARTIST, no further lab hh stable prior to service center appraiser. elected against scope givne respiratory distress 2. acute on Chronic kidney failure with hyperkalemia possibly over diuresis current CIRCUS ARTIST, no further lab 3. hyperkalemia 2/2 to renal failure nephrology consulted current CIRCUS ARTIST, no further lab 4. Troponinemia, likely related to demand ischemia associated from her profound anemia, tachycardia. current CIRCUS ARTIST, no further lab 5. Atrial fibrillation. Dig stopped given CIRCUS ARTIST and risk of dig toxicity current CIRCUS ARTIST, no tele 6. acute on chronic hypoxia 2/2 to COPD exacerbation and acute diastolic CHF, Pul HTN tte appreciated, ID consulted, Bcx, sputum, crp merro vanco DC after discuss with ID, given patient condition less likely due to infection JOSSY Rodriguez regarding current plan, agree with current management, no further recs to offer JOSSY Go, not further rec to offer for Pul HTN poor penitentiary prognosis, made CIRCUS ARTIST 7. Abnormal urinalysis and Proteus mirabilis urinary tract infection (UTI). treated 8. Hypertension. med stopped patient service center appraiser 9. Gastroesophageal reflux disease (GERD). ppi 10. COPD. service center appraiser 11. Hypothyroidism. CIRCUS ARTIST 12. Mood disorder. She is on sertraline. 13. Coronary artery disease. The patient does have a history of a coronary artery bypass graft (CABG) in the past with mild troponinemia. service center appraiser 14. Leukocytosis,chronic. CIRCUS ARTIST DVT ppx teds scd DISPOSITION: poor prognosis, right heart failure, with Pul HTN, and acute on chronic renal failure. d/w patient's daughter, made CIRCUS ARTIST at this time. Would like the patient to go to hospice house VS,Fishbone, I+O VS, Fishbone, I+O Vital Signs Date Time Temp Pulse Resp B/P (MAP) Pulse Ox O2 Delivery O2 Flow Rate FiO2 07/10/17 22:00 Nasal Cannula 2.0 07/10/17 17:48 79 07/10/17 10:00 97.4 19 179/99 (125) 99 MAYCOL JOHNSON MD Jul 11, 2017 10:45
[2017-07-11] MEDS: LORazepam 2 MG/ML VIAL (J2060) IV PRN ×2 (12:59→15:28)
[2017-07-11] MEDS: FEXOFENADINE 60 MG TAB PO SCH (21:00)
[2017-07-12] MEDS: IPRATROPIUM 0.5MG/ALBUTEROL 2.5MG INH SOL UD 3ML (DUONEB)(J7620) NEB SCH (00:24)
[2017-07-12] MEDS: SODIUM CHLORIDE 0.9% INJ 10 ML SYR IV SCH (05:31)
[2017-07-12] MEDS: MORPHINE 2 MG/ML 1ML SYRINGE IV PRN (05:52)
--- NOTE | 2017-07-12 14:17 | DSES ---
DATE OF ADMISSION: 07/03/2017 DATE OF EXPIRATION: 07/12/2017 at 7:20 a.m. PRIMARY CARE PROVIDER: Aurea Uribe DO GENERAL SURGEON: Eulalio Campbell Jr., MD STILL CLEANER TUBE: Brock Poole MD INFECTIOUS DISEASE: William Azevedo MD RENAL TECHNICIAN: Syed Calles MD FINAL DIAGNOSIS: Acute congestive heart failure (CHF) with diastolic dysfunction. Pulmonary hypertension. Gastrointestinal (GI) bleed. Acute on chronic renal failure with hyperkalemia. Cardiac enzyme elevation secondary to demand ischemia. Urinary tract infection. Hypertension. Gastroesophageal reflux disease (GERD). Chronic obstructive pulmonary disease (COPD). Hypothyroidism. Mood disorder. Coronary arterial disease. Leukocytosis. HISTORY OF PRESENT ILLNESS: This is an 82-year-old female patient with an underlying medical history of GI bleed, atrial fibrillation, previously on anticoagulation, off anticoagulation secondary to history of GI bleed, diastolic congestive heart failure (CHF), hypothyroidism, hypertension, dyslipidemia, coronary arterial disease, status post coronary artery bypass grafting (CABG), chronic obstructive pulmonary disease (COPD) on 2 liters of oxygen at home, and diabetes who presented with complaints of shortness of breath. The patient had shortness of breath for the past two days and progressively worsened. Noted to be hypoxic at [facility] for which she was brought into the emergency room. In the ED, patient was noted to have significant anemia with significant hypoxia, tachypneic, and with melanotic stool. On rectal exam, fecal occult positive, subsequently patient was admitted to the hospital. HOSPITAL COURSE: Patient was admitted to the hospital General surgery and gastroenterology were consulted. Transfusion was provided. Oxygen supplementation was provided. Antibiotics were given for treatment of UTI. Furthermore, the patient's respiratory status worsened. Subsequently, patient was diuresed with improvement of her respiratory status, but the patient's kidney function late worsened to become acute on chronic renal failure with hyperkalemia. Nephrology was consulted. Diuresis was held. IV fluid were given back to the patient with minimal improvement. Goals of care discussion was held. The patient was initially made DO NOT RESUSCITATE, do not intubate. Later upon further discussion, the patient and family would like to be comfort measures only (PULMONARY NURSE PRACTITIONER) pending hospice consultation for hospice house. The patient's unfortunately decompensated over the weekend, was encephalopathic. Subsequently, patient on 07/12/2017 at 7:20 a.m. Patient currently comfort measures only (PULMONARY NURSE PRACTITIONER).
== END 2017-07-12 07:20 | disposition expired | DRG 377 ==
LOC: EDBD 02:45 → M ED 02:45 → M ED INP 06:30 → M ICU 07:53 → M MSPAV 07-07 16:02
PROVIDERS: ADMIT Internal Medicine; ATTEND Hospitalist
PROC: 30253N1 (ICD-10-PCS; principal; 2017-07-03)
PROC: 02HV33Z Insertion of Infusion Device into Superior Vena Cava, Percutaneous Approach (ICD-10-PCS; 2017-07-09)
DX: K92.2 Gastrointestinal hemorrhage, unspecified (principal); I50.33 Acute on chronic diastolic (congestive) heart failure; J96.01 Acute respiratory failure with hypoxia; G93.41 Metabolic encephalopathy; D62 Acute posthemorrhagic anemia; N17.9 Acute kidney failure, unspecified; I24.8 Other forms of acute ischemic heart disease; N39.0 Urinary tract infection, site not specified; I13.0 Hypertensive heart and chronic kidney disease with heart failure and stage 1 through stage 4 chronic kidney disease, or unspecified chronic kidney disease; J44.1 Chronic obstructive pulmonary disease with (acute) exacerbation; I27.81 Cor pulmonale (chronic); I48.91 Unspecified atrial fibrillation; E03.9 Hypothyroidism, unspecified; D72.829 Elevated white blood cell count, unspecified; F39 Unspecified mood [affective] disorder; E11.22 Type 2 diabetes mellitus with diabetic chronic kidney disease; N18.9 Chronic kidney disease, unspecified; E83.41 Hypermagnesemia; E87.5 Hyperkalemia; E87.6 Hypokalemia; E78.5 Hyperlipidemia, unspecified; I27.20 Pulmonary hypertension, unspecified; I25.10 Atherosclerotic heart disease of native coronary artery without angina pectoris; Z99.81 Dependence on supplemental oxygen; Z95.1 Presence of aortocoronary bypass graft; Z85.828 Personal history of other malignant neoplasm of skin; Z90.49 Acquired absence of other specified parts of digestive tract; Z87.891 Personal history of nicotine dependence; Z79.52 Long term (current) use of systemic steroids; H91.93 Unspecified hearing loss, bilateral; Z51.5 Encounter for palliative care; Z66 Do not resuscitate